=== PATIENT | male | born 1940 | race Caucasian/White ===

== ENCOUNTER 2019-04-16 08:00 | Outpatient (RCR) | payer MEDICARE, SELFPAY ==
--- NOTE | 2019-04-16 12:22 | PCCPR ---
January Phase 3 Charges: 2 Sessions total On 04/16/19 patient paid $10 Turner.
== END 2019-04-17 08:00 | disposition home or self-care (01) ==
LOC: CHSCARD 08:00
PROVIDERS: PCP Internal Medicine; Visit Provider Internal Medicine
DX: Z53.9 Procedure and treatment not carried out, unspecified reason (principal)
CPT/HCPCS: 99199

== ENCOUNTER 2019-06-19 09:57 | Outpatient (RCR) | payer MEDICARE, SELFPAY ==
--- NOTE | 2019-06-19 14:02 | OTOPEVAL ---
Thank you for referring this patient to [facility]. Please review, sign, date and return this plan of care [facility]. I agree with and certify that the following plan of care is medically necessary. Referring Physician Date Admitting Provider: Attending Provider: PHYSICIAN NOT ON STAFF Referring Provider: *OT Outpatient Evaluation Start: 06/19/19 10:01 Freq: Status: Active Protocol: Document 06/19/19 10:00 [facility] [place]Rec: 06/19/19 13:24 [facility] [id number] Therapy Assessment Status Assessment Status Assessment Status Evaluation Outpatient Past Medical History Cardiovascular History Hx Coronary Stent Yes Hx Hypertension Yes Hx Pacemaker Yes Endocrine History Hx Diabetes Yes Evaluation Information Problem Diagnosis R CTR and UNT Onset 05/06/19 Cause carpal tunnel syndrome and ulnar tunnel lesion Subjective Information Patient reports that he Query Text:As Reported By Patient/ continues to have numbness/ Family tingling in his R hand and fingers prior to and post surgery. He reports that his R hand is stiff . Patient also reports that he has a difficult time grasping and maintaining grasp of objects. Patient presents with incisions at medial elbow and dorsal wrist/hand that appear to be mildly red with a rash- like appearance around the elbow incision. Patient reports that he was previously on an antibiotic. Encouraged to monitor and call dr if symptoms worsen. Patient also reports that he has carpal tunnel syndrome on the L hand as well but is unsure if he will do surgery. Diagnostic Tests X-Rays For This Problem Yes MRI For This Problem Yes Prior Level of Function Activity Level (Last 3 Months) Hand Dominance Right Activity of Daily Living Ability Independent Indoor/Home Mobility Independent Community Mobility Independent Stairs Ability Independent Functional Cognition (Planning, Shopping Independent , Taking Medications) Cooking Yes Cleaning
== END 2019-07-14 11:00 | disposition home or self-care (01) ==
LOC: CHSOT 09:57
DX: G56.21 Lesion of ulnar nerve, right upper limb (principal); G56.01 Carpal tunnel syndrome, right upper limb
CPT/HCPCS: 97035; 97110; 97140; 97165

== ENCOUNTER 2019-12-01 09:29 | Outpatient (CLI) | payer MEDICARE, SELFPAY ==
[2019-12-01 09:57] LABS: Creatinine Urine 109.64 mg/dL (40-278)
[2019-12-01 10:01] LABS: Hemoglobin A1C 7.6 % (<5.7)
[2019-12-01 10:09] LABS: MALB Creatinine Ratio 50.4 mg/g (0-30); Microalbumin Urine Random 55.3 mg/L
[2019-12-01 13:46] LABS: Alanine Aminotransferase 24 U/L (16-63); Albumin Level 3.8 g/dL (3.4-5.0); Alkaline Phosphatase 58 U/L (46-116); Anion Gap 9.3 mmol/L (7-16); Aspartate Amino Transferase 20 U/L (15-37); Bilirubin,Total 0.5 mg/dL (0.00-1.00); Blood Urea Nitrogen 24 mg/dL (7-18); Calcium 8.9 mg/dL (8.5-10.1); Carbon Dioxide 29 mmol/L (21-32); Chloride 108 mmol/L (98-108); Cholesterol 133 mg/dL (0-200); Creatine Kinase 104 U/L (39-308); Estimated Glomerular Filt Rate 50; Glucose 116 mg/dL (70-99); HDL Direct 45 mg/dL (40-60); LDL Cholesterol Calculated 68 mg/dL (<130); Osmolality Calculated 299 mOsm/kg (285-295); Potassium 4.3 mmol/L (3.5-5.1); Sodium 142 mmol/L (136-145); Total Protein 7.4 g/dL (6.4-8.2); Triglycerides 100 mg/dL (0-150)
== END 2019-12-01 09:30 | disposition home or self-care (01) ==
PROVIDERS: PCP Internal Medicine; Visit Provider Internal Medicine
DX: E78.2 Mixed hyperlipidemia (principal); E11.65 Type 2 diabetes mellitus with hyperglycemia; I10 Essential (primary) hypertension
CPT/HCPCS: 36415; 80053; 80061; 82043; 82550; 83036

== ENCOUNTER 2019-12-30 10:12 | Outpatient (CLI) | payer MEDICARE, SELFPAY ==
--- NOTE | ~2019-12-30 | XR_ITS ---
EXAMINATION: XR elbow LT min 3V DATE: 12/30/2019 10:56 INDICATION: Left elbow pain. TECHNIQUE: 4 views of left elbow were obtained. COMPARISON: None. FINDINGS: Bone alignment is normal. No fracture. Joint spaces are well maintained. There are enthesop hytes at lateral humeral epicondyle and at olecranon. There is no elbow joint effusion. IMPRESSION: 1. No fracture. Reviewed, dictated and finalized at location A. IMPRESSION: 1. No fracture.
--- NOTE | ~2019-12-30 | XR_ITS ---
EXAMINATION: XR ribs LT 2V w CXR 2V DATE: 12/30/2019 10:56 INDICATION: Left rib pain post fall TECHNIQUE: PA and lateral views of the chest and 4 views of the left ribs were obtained. COMPARISON: Chest radiograph dated 04/28/2019 and 01/27/2013 FINDINGS: Possible minimally displaced fracture at the anteriormost left sixth rib. Alternatively this could re present artifactual appearance due to partially calcified costal cartilage. Chronic calcified nodules at the left apex consistent with old granulomatous disease. No new airspace opacities, pulmonary yanelis ma, pleural effusion or pneumothorax. Cardiomediastinal silhouette is normal. Dual lead pacemaker see n with leads projecting over the expected locations of the right atrium and right ventricle. Chronic mild anterior wedging of a midthoracic vertebral body. IMPRESSION: 1. Possible minimally displaced fracture versus artifactual appearance due to costal cartilage calcif ication at the anterior left sixth rib. Correlate for point tenderness at this location. 2. No acute cardiopulmonary disease. Reviewed, dictated and finalized at location B. IMPRESSION: 1. Possible minimally displaced fracture versus artifactual appearance due to c ostal cartilage calcification at the anterior left sixth rib. Correlate for poi nt tenderness at this location. 2. No acute cardiopulmonary disease.
== END 2019-12-30 10:13 | disposition home or self-care (01) ==
LOC: CHSIMG 10:15
PROVIDERS: PCP Internal Medicine; Visit Provider Internal Medicine
DX: R07.89 Other chest pain (principal); M25.522 Pain in left elbow
CPT/HCPCS: 71046; 71100; 73080

== ENCOUNTER 2020-02-03 09:16 | Outpatient (CLI) | payer MEDICARE, SELFPAY ==
[2020-02-03 09:59] LABS: Anion Gap 11 mmol/L (8-16); Blood Urea Nitrogen 25 mg/dL (7-18); Calcium 9.1 mg/dL (8.5-10.1); Carbon Dioxide 26 mmol/L (21-32); Chloride 107 mmol/L (98-108); Estimated Glomerular Filt Rate 50; Glucose 106 mg/dL (70-99); Osmolality Calculated 302 mOsm/kg (285-295); Potassium 4.4 mmol/L (3.5-5.1); Sodium 144 mmol/L (136-145)
== END 2020-02-03 09:17 | disposition home or self-care (01) ==
LOC: CHSLAB 09:18
PROVIDERS: PCP Internal Medicine; Visit Provider Internal Medicine
DX: E86.0 Dehydration (principal)
CPT/HCPCS: 36415; 80048

== ENCOUNTER 2020-11-04 15:26 | Outpatient (CLI) | payer MEDICARE, SELFPAY ==
--- NOTE | ~2020-11-04 | XR_ITS ---
XR_CERV2-3V_CR 11/04/2020 16:06 Indication: Neck pain Procedure: 3 views of the cervical spine Comparison: No prior studies for comparison. Findings: There is moderate multilevel uncinate and facet hypertrophy. . Lung apices are normal. No p revertebral soft tissue abnormality. No fracture or malalignment. Odontoid process within normal limi ts. Lateral masses are normally aligned. Impression: 1: Mild cervical spondylosis, primarily involving the uncinate and facet joints.. Reviewed, dictated and finalized at location A. Impression: 1: Mild cervical spondylosis, primarily involving the uncinate and facet joints ..
--- NOTE | ~2020-11-04 | XR_ITS ---
EXAMINATION: XR chest 2V DATE: 11/04/2020 16:06 INDICATION: Neck and back pain. TECHNIQUE: Frontal and lateral views of the chest were obtained. COMPARISON: Chest 2 views 12/30/2019 FINDINGS: A calcified left lung nodule is consistent with old granulomatous disease. No pleural effus ion or pneumothorax. The heart size is normal. There is a right chest pacer with leads in right atriu m, right ventricle, and coronary sinus. IMPRESSION: 1. No acute cardiopulmonary disease. Reviewed, dictated and finalized at location A.
--- NOTE | ~2020-11-04 | XR_ITS ---
XR thoracic spine 3V 11/04/2020 16:06 Indication: Chronic back pain Procedure: 3 views of the thoracic spine Comparison: No prior studies for comparison. Findings: There is mildly accentuated thoracic kyphosis. There is mild multilevel thoracic spondylosi s. No acute fracture or traumatic malalignment. Pedicles intact. Surrounding osseous structures withi n normal limits. There are calcified granulomas in the lung parenchyma. No acute fracture or traumati c malalignment. Impression: 1: Mild thoracic spondylosis for age. Reviewed, dictated and finalized at location A. Impression: 1: Mild thoracic spondylosis for age.
== END 2020-11-04 15:27 | disposition home or self-care (01) ==
LOC: CHSIMG 15:29
PROVIDERS: PCP Internal Medicine; Visit Provider Internal Medicine
DX: M54.2 Cervicalgia (principal); M54.6 Pain in thoracic spine
CPT/HCPCS: 71046; 72040; 72072

== ENCOUNTER 2021-03-22 10:06 | Outpatient (RCR) | payer MEDICARE, SELFPAY ==
--- NOTE | 2021-03-22 12:47 | PTOPEVAL ---
Thank you for referring Masood Segura to [facility].? The patient is scheduled to be seen for therapy? ____x/week for ___ weeks. Please review, sign, date and return this plan of care [facility]. I agree with and certify that the following plan of care is medically necessary. Referring Physician Date Admitting Provider: Attending Provider: Ritesh Mcknight MD Referring Provider: *PT Outpatient Evaluation Start: 03/22/21 10:08 Freq: Status: Active Protocol: Document 03/22/21 10:09 ACR (Rec: 03/22/21 11:04 ACR [id number]) Therapy Assessment Status Assessment Status Assessment Status Evaluation Outpatient Past Medical History Cardiovascular History Hx Coronary Stent Yes Hx Hypertension Yes Hx Pacemaker Yes Endocrine History Hx Diabetes Yes Evaluation Information Problem Diagnosis diabetic neuropthy, PAD, frequent falls, LE pain/ weakness Onset 03/22/21 Subjective Information Patient reports that he is Query Text:As Reported By Patient/ having difficulty with walking Family due to shortness of breath and weakness in the legs. Patient states that he has had two falls in the past year. He states that he was walking on the porch and was stepping down and fell on the asphalt. Patient reports that when he goes grocery shopping he needs to sit and rest because his legs bother him. Patient reports that him and his go to many events and walking a distance is not possible for him to do without many rest breaks. Patient reports that he has a flight of steps and has bilateral handrails to go up but they are difficult for him. He has difficulty putting his shoes on as well. Prior Level of Function Activity Level (Last 3 Months) Occupation retired Hand Dominance Right Activity of Daily Living Ability Independent Indoor/Home Mobility Independent Community Mobility Independent Stairs Ability Independent Functional Cognition (Planning, Shopping Independent , Taking Medications) Cooking
== END 2021-03-22 14:21 | disposition home or self-care (01) ==
LOC: CHSPT 10:06
PROVIDERS: PCP Internal Medicine; Visit Provider Internal Medicine
DX: E11.40 Type 2 diabetes mellitus with diabetic neuropathy, unspecified (principal); I73.9 Peripheral vascular disease, unspecified; R27.0 Ataxia, unspecified; Z91.81 History of falling
CPT/HCPCS: 97110; 97161

== ENCOUNTER 2021-09-27 09:43 | Outpatient (CLI) | payer MEDICARE, SELFPAY ==
--- NOTE | 2021-09-27 11:00 | NEURO_ITS ---
Impression: # Complains of numbness and increasing weakness. 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 # Generalized neuropathy involving lower more than upper extremities. # Superimposed subtle Carpal Tunnel Syndrome. # Needle/EMG exam neurogenic. Nerve Conduction Studies Anti Sensory Summary Table Stim Site NR Peak (ms) P-T Amp (?V) Site1 Site2 Delta-P (ms) Dist (cm) Rohit (m/s) Left Median Anti Sensory (2-3nd Digit) Wrist 4.3 9.5 Wrist 2-3nd Digit 4.3 14.0 33 Wrist 4.1 15.1 Wrist 2-3nd Digit 4.3 14.0 33 Right Median Anti Sensory (2-3nd Digit) Wrist 5.1 22.4 Wrist 2-3nd Digit 5.1 14.0 27 Wrist 4.6 14.9 Wrist 2-3nd Digit 5.1 14.0 27 Left Radial Anti Sensory (Base 1st Digit) Wrist 3.0 18.3 Wrist Base 1st Digit 3.0 0.0 Right Radial Anti Sensory (Base 1st Digit) Wrist 3.7 7.1 Wrist Base 1st Digit 3.7 0.0 Left Sup Fibular Anti Sensory (Ant Lat Mall) NO RESPONSE 14 cm NR 14 cm Ant Lat Mall 16.0 Right Sup Fibular Anti Sensory (Ant Lat Mall) 14 cm 3.8 18.4 14 cm Ant Lat Mall 3.8 16.0 42 Left Sural Anti Sensory (Lat Mall) NO RESPONSE Calf NR Calf Lat Mall 16.0 Right Sural Anti Sensory (Lat Mall) Calf 4.4 13.9 Calf Lat Mall 4.4 16.0 36 Left Ulnar Anti Sensory (5th Digit) Wrist 4.8 13.6 Wrist 5th Digit 4.8 14.0 29 Right Ulnar Anti Sensory (5th Digit) Wrist 2.6 9.7 Wrist 5th Digit 2.6 14.0 54 Motor Summary Table Stim Site NR Onset (ms) O-P Amp (mV) Site1 Site2 Delta-0 (ms) Dist (cm) Rohit (m/s) Left Median Motor (Abd Poll Brev) Wrist 4.8 0.6 Elbow Wrist 5.6 29.0 52 Elbow 10.4 0.3 Right Median Motor (Abd Poll Brev) Wrist 5.0 2.8 Elbow Wrist 6.8 32.0 47 Elbow 11.8 1.5 Left Peroneal Motor (Vastus Med) NO RESPONSE Ankle NR Popit Ankle 0.0 Popit NR Right Peroneal Motor (Vastus Med) NO RESPONSE Ankle NR Popit Ankle 0.0 Popit NR Left Tibial Motor (Abd Darden Brev) NO RESPONSE Ankle NR Knee NR Right Tibial Motor (Abd Darden Brev) NO RESPONSE Ankle NR Knee Ankle 0.0 Knee NR Left Ulnar Motor (Abd Dig Minimi) Wrist 3.7 3.9 A Elbow Wrist 8.4 32.0 38 A Elbow 12.1 2.7 B Elbow Wrist 4.5 23.0 51 B Elbow 8.2 1.4 Right Ulnar Motor (Abd Dig Minimi) Wrist 3.8 4.1 A Elbow Wrist 7.9 32.0 41 A Elbow 11.7 1.9 B Elbow Wrist 4.1 21.0 51 B Elbow 7.9 1.9 F Wave Studies NR F-Lat (ms) L-R F-Lat (ms) Left Median (Mrkrs) (Abd Poll Brev) 35.14 0.64 Right Median (Mrkrs) (Abd Poll Brev) 34.50 0.64 Left Peroneal (Mrkrs) (EDB) NO RESPONSE NR Right Peroneal (Mrkrs) (EDB) NO RESPONSE NR Left Tibial (Mrkrs) (Abd Hallucis) NO RESPONSE NR Right Tibial (Mrkrs) (Abd Hallucis) NO RESPONSE NR Left Ulnar (Mrkrs) (Abd Dig Min) 35.85 0.82 Right Ulnar (Mrkrs) (Abd Dig Min) 35.03 0.82 EMG Side Muscle Nerve Root Ins Act Fibs Amp Dur Recrt Comment Right 1stDorInt Ulnar C8-T1 Nml Nml Nml >12ms Reduced Right Ext Indicis Radial (Post Int) C7-8 Nml Nml Nml >12ms Reduced Right Ext Digitorum Radial (Post Int) C7-8 Nml Nml Nml >12ms Reduced Right BrachioRad Radial C
== END 2021-09-27 09:44 | disposition home or self-care (01) ==
PROVIDERS: PCP Nurse Practitioner; Visit Provider Family Medicine
DX: R20.2 Paresthesia of skin (principal); G62.9 Polyneuropathy, unspecified; G56.00 Carpal tunnel syndrome, unspecified upper limb; E11.9 Type 2 diabetes mellitus without complications; Z79.4 Long term (current) use of insulin
CPT/HCPCS: 95886; 95913

== ENCOUNTER 2023-05-25 09:06 | Outpatient (RCR) | payer MEDICARE, SELFPAY ==
--- NOTE | 2023-05-25 15:48 | OTOPEVAL1 ---
Assessment and note entered by DESIRAE De León/Sandor, CHT Evaluation Information & Discharge Summary Diagnosis Polyneuropathy Subjective Information Patient presents reporting having neuropathy of the hands and feet. PMH includes diabetic neuropathy, bilateral carpal tunnel release, and bilateral cubital tunnel release. Reports he's had 3 rounds of PT and this hasn't helped the LEs. He reports difficulties using his hands to write, button, do zippers, and open water bottles. He is right handed. Assessment OT Clinical Summary Patient referred to OT with dx of polyneuropathy. Assessment today demonstrates intact functional strength. Functional decline appears to be due to lack of sensation in the hands. Discussed and demonstrated various adaptive equipment for feeding, dressing, and writing. Patient and his demonstrate excellent understanding. Further skilled OT not indicated at this time. Plan of Care OT Services Indicated No These treatments will address the objective and functional deficits as defined above. The patient will be advanced safely and appropriately in order for the patient to progress towards his/her prior level of function. Additional exercises will be introduced and as well as a comprehensive home exercise program upon discharge, if needed, ?to ensure carryover of functional gains achieved in the clinic. This treatment plan has been reviewed and agreement upon by the patient.
== END 2023-05-25 16:06 | disposition home or self-care (01) ==
LOC: ANHOT 09:06
PROVIDERS: PCP Nurse Practitioner
DX: G62.9 Polyneuropathy, unspecified (principal)
CPT/HCPCS: 97165; 97535

== ENCOUNTER 2024-08-07 02:26 | Emergency (ER) | payer MEDICARE, SELFPAY ==
[2024-08-07] VITALS (115 sets, daily range): BP systolic 95–129; BP diastolic 39–84; PULSE 74–103; RESP 12–31; TEMP 36.3–36.6; O2SAT 91–100
--- NOTE | ~2024-08-07 | CT_ITS ---
Non-contrast CT scan of the Abdomen and Pelvis Clinical indication: GI bleed Technique: 2.5 mm axial scans were obtained through the abdomen and pelvis without intravenous or or al contrast. Dose reduction technique was used on this scan by utilizing automated exposure control a nd iterative reconstruction technique. The dose-length product (DLP) was 1320.13 mGy-cm. Findings: Images through the lung bases reveal minimal bibasilar bronchiolectasis and interstitial c hange. There is no evidence of renal or ureteral calculi. The kidneys and the ureters are nondilated. The liver, spleen, pancreas, and adrenals appear normal. Calcified gallstones are present. There are atherosclerotic calcifications of the aorta. . There is no evidence of bowel obstruction. Large amount of stool suggests constipation. Images through the pelvis were performed. There is no evidence of ascites or lymphadenopathy. Urinary bladder collapsed around a Cerna catheter, with suggestion of wall thickening as well as air within the bladder. Small fat-containing right inguinal hernia present. No other pelvic mass evident. No asc ites. Impression: Probable constipation. Large amount of oral contrast throughout the large bowel markedly limits evalu ation for GI bleeding. Possible cystitis. Correlate clinically/with urinalysis. Cholelithiasis. Minimal bibasilar bronchiolectasis. Small fat-containing right inguinal hernia. Reviewed, dictated and finalized at location . Impression: Probable constipation. Large amount of oral contrast throughout the large bowel markedly limits evaluation for GI bleeding. Possible cystitis. Correlate clinically/with urinalysis. Cholelithiasis. Minimal bibasilar bronchiolectasis. Small fat-containing right inguinal hernia.
--- OUTSIDE RECORDS SUMMARY | 2024-08-07 03:21 | XMS_ITS | Encounter Summary ---
Author Organization [facility] Address [address] [place] [address] Care Team Providers Care Finance Effectiveness Manager Name Role Phone Ritesh Mcknight MD Primary Care Provider [phone] Navneet Velasco MD Unavailable [phone] Tahir Darden MD Unavailable Unavailable Lane Walters MD Unavailable [phone] Amaury Kuhn MD Primary Care Provider [phone] Sheri Mcdonnell APRN, LOCK OPERATOR-C Unavailable [phone] Robert Burton MD Unavailable Kiley Sarkar PA-C Unavailable [phone] Barbara Fung MD Unavailable [phone] Nuria Dailey ANP-BC Unavailable [phone] Taylor Weber MD Primary Care Provider [phone] Christina Booker MD Unavailable Jaspreet Clemons MD Unavailable Britany Paris MD Unavailable [phone] Encounter Details Date Type Department Care Team (Late Contact Info) Description 04/01/2018 Abstract [facility] [address] [place] [phone] Navneet Velasco MD [address] [place] [phone] Social History Tobacco Use Types Packs/Day Years Used Date Smoking Tobacco: Former Cigarettes Q uit: 1989 Smokeless Tobacco: Never Alcohol Use Standard Drinks/Week Comments No 0 (1 standard drink = 0.6 oz pur e alcohol) Sex and Gender Information Value Date Recorded Sex Assigned at Male 05/27/2024 6:25 AM MAJOR ASSEMBLER Legal Sex Male 10:27 PM CDT Gender Identity Not on file Sexual Orientation Not on file documented as of this encounter Plan of Treatment Upcoming Encounters Date Type Department Care Team (Late Contact Info) Description 09/08/2024 10:20 AM CDT Office Visit [facility] Diabetes and Endocrinology - [address] [phone] Kelly Gonzalez MD [address] [place] [address] [phone] 10/17/2024 1:00 AM CDT Allied Health/Nurse Visit [facility] [address] [place] [phone] Lane Walters MD [address] [place] [address] 12/10/2024 10:15 AM CDT Allied Health/Nurse Visit [facility] [place] [address] Lane Walters MD [address] [place], [place] 387[address] 12/10/2024 10:30 AM CDT Office Visit [facility] [place] [address] [place] [address] Kiley Sarkar PA-C [address] [place] [address] 01/05/2025 12:15 PM CDT Office Visit [facility] [address] [place] [phone] Christina Booker MD [address] [place] [address] documented as of this encounter Procedures Procedure Name Priority Date/Time Associated Diagnosis Comments MAGNESIUM (OUTSIDE LAB) Routine 04/01/2018 CBC (OUTSIDE LAB) Routine 04/01/2018 PROTHROMBIN TIME, VENOUS Routine 04/01/2018 BASIC METABOLIC PANEL Routine 04/01/2018 documented in this encounter Results * PROTIME/INR, VENOUS (04/01/2018) Pathologist [facility] PROTIME WHOLE BLOOD 10.7 INR WHOLE BLOOD 1.01 04/01/2018 us Doc [facility] Abstract LABORATORY Final Result * MAGNESIUM (OUTSIDE LAB) (04/01/2018) Pathologist [facility] MAGNESIUM 1.8 04/01/2018 us Doc [facility] Abstract LAB-OUTSIDE/ABSTRACTED Final Result * CBC (OUTSIDE LAB) (04/01/2018) Pathologist [facility] WBC 6.2 HGB 13.4 HCT 40.3 PLT 179 RBC 4.4 04/01/2018 us Doc [facility] Abstract LAB-OUTSIDE/ABSTRACTED Final Result * BASIC METABOLIC PANEL (04/01/2018) SODIUM S/P/B 140 POTASSIUM S/P/B 5.0 CO2 26 CHLORIDE S/P/B 104 GLUCOSE 211 mg/dL CALCIUM S/P/B 9.3 BUN 23 CREATININE S/P/B 1.24 0.7 - 1.3 EGFR NON-AFR. AMER. 60 <=90 04/01/2018 us Doc [facility] Abstract LABORATORY Final Result documented in this encounter Visit Diagnoses Not on filedocumented in this encounter Additional Health Concerns Infection Onset Date Last Indicated Resolved Time COVID-19 Rule Out 11/10/2019 11/10/2019 11/11/2019 8:13 PM CDT COVID-19 Rule Out 03/15/2020 03/15/2020 03/17/2020 6:01 AM MAJOR ASSEMBLER COVID-19 Rule Out 03/31/2021 03/31/2021 03/31/2021 4:35 PM MAJOR ASSEMBLER COVID-19 Confirmed 03/31/2021 03/31/2021 12:32 AM MAJOR ASSEMBLER Respiratory Rule-Out 06/25/2024 06/25/2024 025 12:22 PM MAJOR ASSEMBLER documented as of this encounter Care Teams Finance Effectiveness Manager Relationship Specialty Start Date End Date Ritesh Mcknight MD [address] [place] [phone] PCP - General INTERNAL MEDICINE 01/12/16 05/04/21 [facility] [place] [phone] PCP - General FAMILY PRACTICE 05/05/21 04/30/24 Taylor Weber MD [address] [place] [address] PCP - General FAMILY PRACTICE 05/01/24 Navneet Velasco MD [address] [place] [phone] [place] [employer] CARDIOVASCULAR DISEASE 01/12/16 08/12/23 Tahir Darden MD [address] [place] [phone] Curriculum Director INTERVENTIONAL CARDIOLOGY 02/16/16 10/09/22 Lane Walters MD [address] [place] [address] [employer] CARDIAC ELECTROPHYSIOLOGY 03/06/19 Sheri Mcdonnell APRN, LOCK OPERATOR-C [address] [place] [phone] NURSE PRACTITIONER 09/01/21 08/12/23 Robert Burton MD [address] [place] [phone] Consulting Physician INTERNAL MEDICINE 11/29/22 5 Kiley Sarkar PA-C [address] [place] [address] Referring Physician PHYSICIAN FIELD CANE SCALER HELPER 04/10/23 Barbara Fung MD [address] [place] [phone] INTERVENTIONAL CARDIOLOGY 08/13/23 06/23/24 Nuria Dailey, [facility]- [address] [place] [phone] Nurse Practitioner NURSE PRACTITIONER ADULT HEALTH 08/13/23 06/23/24 Christina Booker MD [address] [place] [address] Consulting Physician CARDIOVASCULAR DISEASE 06/24/24 Jaspreet Clemons MD [address] [phone] Surgeon NEUROLOGICAL SURGERY 06/25/24 Britany Paris MD [address] [place] [address] Surgeon NEUROLOGICAL SURGERY 07/09/24 documented as of this encounter
--- OUTSIDE RECORDS SUMMARY | 2024-08-07 03:22 | XMS_ITS | Encounter Summary ---
Author Organization [facility] Address [address] [place] [address] Care Team Providers Care Ad Copy Writer Name Role Phone Ritesh Mcknight MD Primary Care Provider [phone] Navneet Velasco MD Unavailable [phone] Tahir Darden MD Unavailable Unavailable Lane Walters MD Unavailable + [phone] Amaury Kuhn MD Primary Care Provider [phone] Sheri Mcdonnell APRN, LEADERSHIP RECRUITER-C Unavailable [phone] Robert Burton MD Unavailable Kiley Sarkar PA-C Unavailable [phone] Barbara Fung MD Unavailable [phone] Nuria Dailey ANP-BC Unavailable +-[phone] Taylor Weber MD Primary Care Provider [phone] Christina Booker MD Unavailable Jaspreet Clemons MD Unavailable Britany Paris MD Unavailable [phone] Encounter Details Date Type Department Care Team (Late Contact Info) Description 2020 Hospital Follow-up Call [facility] Cardiovascular Care Unit [address] [place], [place] [id number] Edith Duke, RN Social History Tobacco Use Types Packs/Day Years Used Date Smoking Tobacco: Former Cigarettes Q uit: 1989 Smokeless Tobacco: Never Alcohol Use Standard Drinks/Week Comments No 0 (1 standard drink = 0.6 oz pur e alcohol) Sex and Gender Information Value Date Recorded Sex Assigned at Male 05/27/2024 6:25 AM LICENSED AND CERTIFIED MIDWIFE Legal Sex Male 10:27 PM CDT Gender Identity Not on file Sexual Orientation Not on file COVID-19 Exposure Response Date Recorded In the last month, have you been in contact with someone who was confirmed or suspected to have Coronavirus / COVID-19? No / Unsure 03/18/2020 11:54 AM LICENSED AND CERTIFIED MIDWIFE documented as of this encounter Functional Status * RETIRED Are you deaf or do you have serious difficulty hearing Answer Date of Assessment Author Status No 03/19/2020 9:03 AM LICENSED AND CERTIFIED MIDWIFE Activ e * RETIRED Are you blind or do you have serious difficulty seeing, even when wearing glasses? Answer Date of Assessment Author Status No 03/19/2020 9:03 AM LICENSED AND CERTIFIED MIDWIFE Activ e * Do you have serious difficulty walking or climbing stairs? Answer Date of Assessment Author Status No 03/19/2020 9:03 AM Jodi Strauss RN Active * Do you have difficulty dressing or bathing? Answer Date of Assessment Author Status No 03/19/2020 9:03 AM Jodi Strauss RN Active * Because of a physical, mental, or emotional condition, do you have difficulty doing errands alone such as visiting a doctor's office or shopping? Answer Date of Assessment Author Status No 03/19/2020 9:03 AM Jodi Strauss RN Active documented as of this encounter Mental Status * Because of a physical, mental, or emotional condition, do you have serious difficulty concentrating, remembering, or making decisions? Answer Entry Date Author Status No 03/19/2020 9:03 AM Jodi Strauss RN Active documented in this encounter Plan of Treatment Upcoming Encounters Date Type Department Care Team (Late Contact Info) Description 09/08/2024 10:20 AM CDT Office Visit [facility] Diabetes and Endocrinology - [place] [address] [place] [phone] Kelly Gonzalez MD [address] [place] [address] 10/17/2024 1:00 AM CDT Allied Health/Nurse Visit [facility] [address] [place] [address] Lane Walters MD [address] [place] [address] 12/10/2024 10:15 AM CDT Allied Health/Nurse Visit [facility] [place] [address] [place] [phone] Lane Walters MD [address] [place] [address] 12/10/2024 10:30 AM CDT Office Visit [facility] [place] [address] [place] [address] Kiley Sarkar PA-C [address] [place] [address] 01/05/2025 12:15 PM CDT Office Visit [facility] [place] [address] [place] [address] Christina Booker MD [address] [place] [address] documented as of this encounter Visit Diagnoses Not on filedocumented in this encounter Additional Health Concerns Infection Onset Date Last Indicated Resolved Time COVID-19 Rule Out 03/31/2021 03/31/2021 03/31/2021 4:35 PM LICENSED AND CERTIFIED MIDWIFE COVID-19 Confirmed 03/31/2021 03/31/2021 12:32 AM LICENSED AND CERTIFIED MIDWIFE Respiratory Rule-Out 06/25/2024 06/25/2024 025 12:22 PM LICENSED AND CERTIFIED MIDWIFE documented as of this encounter Care Teams Ad Copy Writer Relationship Specialty Start Date End Date Ritesh Mcknight MD [address] [place] [address] PCP - General INTERNAL MEDICINE 01/12/16 05/04/21 [place] [address] [place] [phone] PCP - General FAMILY PRACTICE 05/05/21 04/30/24 [place] [address] [place] [address] [phone] PCP - General FAMILY PRACTICE 05/01/24 Navneet Velasco MD [address] [place] [phone] [place] Weigher Alloy CARDIOVASCULAR DISEASE 01/12/16 08/12/23 Tahir Darden MD [address] [place] [address] Health Director INTERVENTIONAL CARDIOLOGY 02/16/16 10/09/22 Lane Walters MD [address] [place] [address] EP Weigher [employer] CARDIAC ELECTROPHYSIOLOGY 03/06/19 Sheri Mcdonnell, HAND ZIPPER TRIMMER, LEADERSHIP RECRUITER-C [address] [facility] [address] [place] [phone] NURSE PRACTITIONER 09/01/21 08/12/23 Robert Burton MD [address] [place] [address] [phone] Consulting Physician INTERNAL MEDICINE 11/29/22 5 Kiley Sarkar PA-C [address] [place] [address] Referring Physician PHYSICIAN SHAPE CARVER 04/10/23 Barbara Fung MD [address] [place] [address] INTERVENTIONAL CARDIOLOGY 08/13/23 06/23/24 Nuria Dailey, [facility] [address] [place], [place] [phone] Nurse Practitioner NURSE PRACTITIONER ADULT HEALTH 08/13/23 06/23/24 Christina Booker MD [address] [place] [address] Consulting Physician CARDIOVASCULAR DISEASE 06/24/24 Jaspreet Clemons MD [address] [place] [phone] Surgeon NEUROLOGICAL SURGERY 06/25/24 Britany Paris MD [address] [place] [address] Surgeon NEUROLOGICAL SURGERY 07/09/24 documented as of this encounter
--- OUTSIDE RECORDS SUMMARY | 2024-08-07 03:22 | XMS_ITS | Encounter Summary ---
Author Organization [facility] Address [address] [place] [address] Care Team Providers Care Mailhouse Operator Name Role Phone Navneet Velasco MD Unavailable [phone] Tahir Darden MD Unavailable Unavailable Lane Walters MD Unavailable [phone] Amaury Kuhn MD Primary Care Provider [phone] Sheri Mcdonnell APRN, TRAFFIC INCIDENT MANAGEMENT MANAGER-C Unavailable [phone] Robert Burton MD Unavailable Kiley Sarkar PA-C Unavailable +[phone] Barbara Fung MD Unavailable [phone] Nuria Dailey ANP-BC Unavailable +-3 Taylor Weber MD Primary Care Provider [phone] Christina Booker MD Unavailable Jaspreet Clemons MD Unavailable Britany Paris MD Unavailable [phone] Encounter Details Date Type Department Care Team (Late st Contact Info) Description 06/02/2022 Abstract [facility] [address] [place] [address] Navneet Velasco MD [address] [place] [address] Social History Tobacco Use Types Packs/Day Years Used Date Smoking Tobacco: Former Cigarettes Q uit: 1989 Smokeless Tobacco: Never Tobacco Cessation:Counseling Given: Not Answered Alcohol Use Standard Drinks/Week Comments Yes 0 (1 standard drink = 0.6 oz pur e alcohol) PHQ-2 Answer Date Recorded PHQ-2 Score - If the patient scores above 3, please move on to questions 3-9 0 03/16/2022 Sex and Gender Information Value Date Recorded Sex Assigned at Male 05/27/2024 6:25 AM THEATRICAL DRESSER Legal Sex Male 10:27 PM CDT Gender Identity Not on file Sexual Orientation Not on file COVID-19 Exposure Response Date Recorded In the last 10 days, have yo u been in contact with someone who was confirmed or suspected to have Coronavirus/COVID-19? No / Unsure 05/23/2022 10:16 AM THEATRICAL DRESSER documented as of this encounter Functional Status * RETIRED Are you deaf or do you have serious difficulty hearing Answer Date of Assessment Author Status No 03/31/2021 9:00 PM THEATRICAL DRESSER Activ e * RETIRED Are you blind or do you have serious difficulty seeing, even when wearing glasses? Answer Date of Assessment Author Status No 03/31/2021 9:00 PM THEATRICAL DRESSER Activ e * Do you have serious difficulty walking or climbing stairs? Answer Date of Assessment Author Status No 03/31/2021 9:00 PM THEATRICAL DRESSER Chuck Hackett RN Active * Do you have difficulty dressing or bathing? Answer Date of Assessment Author Status No 03/31/2021 9:00 PM Chuck Moise RN Active * Because of a physical, mental, or emotional condition, do you have difficulty doing errands alone such as visiting a doctor's office or shopping? Answer Date of Assessment Author Status No 03/31/2021 9:00 PM THEATRICAL DRESSER Chuck Hackett RN Active documented as of this encounter Mental Status * Because of a physical, mental, or emotional condition, do you have serious difficulty concentrating, remembering, or making decisions? Answer Entry Date Author Status No 03/31/2021 9:00 PM Chuck Moise RN Active documented in this encounter Plan of Treatment Upcoming Encounters Date Type Department Care Team (Late st Contact Info) Description 09/08/2024 10:20 AM CDT Office Visit [facility] Medical Group Diabetes and Endocrinology - [place] [address] [facility] [place] [phone] Kelly Gonzalez MD [address] [place] [address] 10/17/2024 1:00 AM CDT Allied Health/Nurse Visit [facility] [address] [place] [address] Lane Walters MD [address] [place] [address] 12/10/2024 10:15 AM CDT Allied Health/Nurse Visit [facility] [place] [address] [place] [address] Lane Walters MD [address] [place] [address] 12/10/2024 10:30 AM CDT Office Visit [facility] [place] [address] [place] [address] Kiley Sarkar PA-C [address] [place] [address] 01/05/2025 12:15 PM CDT Office Visit [facility] [place] [address] [place] [address] Christina Booker MD [address] [place] [address] documented as of this encounter Goals Goal Patient Goal Type Associated Problems Recent Progress Patient-Stated? Author Safety Patient/family will have appropriate support at home upon discharge Evelin Baker RN documented as of this encounter Visit Diagnoses Not on filedocumented in this encounter Additional Health Concerns Infection Onset Date Last Indicated Resolved Time Respiratory Rule-Out 06/25/2024 06/25/2024 025 12:22 PM THEATRICAL DRESSER documented as of this encounter Care Teams Mailhouse Operator Relationship Specialty Start Date End Date Amaury Kuhn MD [address] [email or web address] [phone] PCP - [facility] PRACTICE 05/05/21 04/30/24 [place] [address] [place] [address] PCP - [facility] PRACTICE 05/01/24 Navneet Velasco MD [address] [place] [phone] [place] Mouthpiece Maker CARDIOVASCULAR DISEASE 01/12/16 08/12/23 Tahir Darden MD [address] [place] [address] Lockstitch Machine Operator INTERVENTIONAL CARDIOLOGY 02/16/16 10/09/22 Lane Walters MD [address] [place] [address] EP Mouthpiece Maker CARDIAC ELECTROPHYSIOLOGY 03/06/19 Sheri Mcdonnell APRN, TRAFFIC INCIDENT MANAGEMENT MANAGER-C [address] [facility] [address] [place] [address] NURSE PRACTITIONER 09/01/21 08/12/23 Robert Burton MD [address] [place] [address] [address] [place] [phone] Consulting Physician INTERNAL MEDICINE 11/29/22 5 Kiley Sarkar PA-C [address] [place] [address] Referring Physician PHYSICIAN OCCUPATIONAL ANALYST 04/10/23 Barbara Fung MD [address] [place] [address] [phone] INTERVENTIONAL CARDIOLOGY 08/13/2306/01 Nuria Dailey, B[facility] [address] [place] [address] Nurse Practitioner NURSE PRACTITIONER ADULT HEALTH 08/13/23 06/23/24 Christina Booker MD [address] [place] [address] Consulting Physician CARDIOVASCULAR DISEASE 06/24/24 Jaspreet Clemons MD [address] [phone] Surgeon NEUROLOGICAL SURGERY 06/25/24 Britany Paris MD [address] [place] [address] Surgeon NEUROLOGICAL SURGERY 07/09/24 documented as of this encounter
--- OUTSIDE RECORDS SUMMARY | 2024-08-07 03:22 | XMS_ITS | Encounter Summary ---
Author Organization [facility] Address [address] [place] [address] Care Team Providers Care Community Mental Health Worker Name Role Phone Ritesh Mcknight MD Primary Care Provider [phone] Navneet Velasco MD Unavailable [phone] Tahir Darden MD Unavailable Unavailable Lane Walters MD Unavailable + [phone] Amaury Kuhn MD Primary Care Provider [phone] Sheri Mcdonnell APRN, BONDERITE OPERATOR-C Unavailable [phone] Robert Burton MD Unavailable Kiley Sarkar PA-C Unavailable [phone] Barbara Fung MD Unavailable [phone] Nuria Dailey ANP-BC Unavailable +-[phone] Taylor Weber MD Primary Care Provider [phone] Christina Booker MD Unavailable Jaspreet Clemons MD Unavailable Britany Paris MD Unavailable [phone] Encounter Details Date Type Department Care Team (Late st Contact Info) Description 04/16/2014 [facility] [place] [address] [place] [address] Navneet Velasco MD [address] [place] [phone] Social History Tobacco Use Types Packs/Day Years Used Date Smoking Tobacco: Former Alcohol Use Standard Drinks/Week Comments Not Asked 0 (1 standard drink = 0.6 oz pur e alcohol) Sex and Gender Information Value Date Recorded Sex Assigned at Male 05/27/2024 6:25 AM SOAKING PITS SUPERVISOR Legal Sex Male 10:27 PM CDT Gender Identity Not on file Sexual Orientation Not on file documented as of this encounter Plan of Treatment Upcoming Encounters Date Type Department Care Team (Late Contact Info) Description 09/08/2024 10:20 AM CDT Office Visit [facility] Medical Group Diabetes and Endocrinology - [address] [phone] Kelly Gonzalez MD [address] [place] [phone] 10/17/2024 1:00 AM CDT [facility] [address] [place] [phone] Lane Walters MD [address] [place], [place] [address] 12/10/2024 10:15 AM CDT Allied Health/Nurse Visit [facility] [place] [address] Lane Walters MD [address] [place], [place] [address] 12/10/2024 10:30 AM CDT Office Visit [facility] [place] [address] [place] [address] Kiley Sarkar PA-C [address] [place] [address] 01/05/2025 12:15 PM CDT Office Visit [facility] [place] [address] [place] [phone] Christina Booker MD [address] [place] [address] documented as of this encounter Visit Diagnoses Not on filedocumented in this encounter Additional Health Concerns Infection Onset Date Last Indicated Resolved Time COVID-19 Rule Out 11/10/2019 11/10/2019 11/11/2019 8:13 PM CDT COVID-19 Rule Out 03/15/2020 03/15/2020 03/17/2020 6:01 AM SOAKING PITS SUPERVISOR COVID-19 Rule Out 03/31/2021 03/31/2021 03/31/2021 4:35 PM SOAKING PITS SUPERVISOR COVID-19 Confirmed 03/31/2021 03/31/2021 12:32 AM SOAKING PITS SUPERVISOR Respiratory Rule-Out 06/25/2024 06/25/2024 025 12:22 PM SOAKING PITS SUPERVISOR documented as of this encounter Care Teams Community Mental Health Worker Relationship Specialty Start Date End Date Ritesh Mcknight MD [address] [place] [address] PCP - General INTERNAL MEDICINE 01/12/16 05/04/21 Amaury Kuhn MD [facility] [place] [address] PCP - General FAMILY PRACTICE 05/05/21 04/30/24 Taylor Weber MD [address] [place] [phone] PCP - General FAMILY PRACTICE 05/01/24 Navneet Velasco MD [address] [place] [phone] [place] Finance Admin CARDIOVASCULAR DISEASE 01/12/16 08/12/23 Tahir Darden MD [address] [place] [phone] Public Service Officer INTERVENTIONAL CARDIOLOGY 02/16/16 10/09/22 Lane Walters MD [address] [place] [address] EP Finance Admin CARDIAC ELECTROPHYSIOLOGY 03/06/19 Sheri Mcdonnell APRN, BONDERITE OPERATOR-C [address] [place], [place] [phone] NURSE PRACTITIONER 09/01/21 08/12/23 Robert Burton MD [address] [place] [phone] Consulting Physician INTERNAL MEDICINE 11/29/22 Kiley Burrell PA-C [address] [place] [address] Referring Physician PHYSICIAN PLANNER CHIEF 04/10/23 Barbara Fung MD [address] [place] [address] INTERVENTIONAL CARDIOLOGY 08/13/23 06/23/24 Nuria Dailey, [facility] [place] [address] Nurse Practitioner NURSE PRACTITIONER ADULT HEALTH 08/13/23 06/23/24 Christina Booker MD [address] [place] [address] Consulting Physician CARDIOVASCULAR DISEASE 06/24/24 Jaspreet Clemons MD [address] [place] [phone] Surgeon NEUROLOGICAL SURGERY 06/25/24 Armani-Britany Aguila MD [address] [place] [address] Surgeon NEUROLOGICAL SURGERY 07/09/24 documented as of this encounter
--- OUTSIDE RECORDS SUMMARY | 2024-08-07 03:22 | XMS_ITS | Clinical Summary ---
Author Organization [facility] Address [address] [place] [address] Care Team Providers Care Milking Machine Operator Name Role Phone Lane Walters MD Unavailable [phone] Kiley Sarkar PA-C Unavailable + [phone] Taylor Weber MD Primary Care Provider [phone] Christina Booker MD Unavailable Jaspreet Clemons MD Unavailable Armani-Britany Aguila MD Unavailable [phone] Allergies Active Allergy Reactions Criticality Noted Date Comments Perflutren Lipid Microspheres Other (see comment) Medium 11/13/2019 Severe pain, hot flash, burning Medications finasteride (PROSCAR) 5 MG tabletIndicati ons:Benign prostatic hyperplasia (BPH) suspected Take 1 tablet (5 mg total) by mouth daily. Indications: Benign prostatic hyperplasia (BPH) suspected Active insulin regular (NOVOLIN R RELION) 100 UNIT/ML injectionIndic ations:Diabete s Mellitus Inject 10 units at breakfast, 8 units at lunch and supper 10 mL 3 025 Active isosorbide mononitrate ER (IMDUR) 60 MG 24 hr tabletIndicati ons:Altered Blood Pressure Take 1 tablet (60 mg total) by mouth daily. Indications: Changes in Blood Pressure 30 tablet Active apixaban (ELIQUIS) 5 MG tabletIndicati ons:Anticoagul ant Therapy 1 tablet (5 mg total) by Per G Tube route 2 (two) times daily. Indications: Anticoagulant Therapy 60 tablet 1 Active aspirin 81 MG chewable tabletIndicati ons:heart health 1 tablet (81 mg total) by Per G Tube route daily. Indications: heart health 30 tablet 025 Active atorvastatin (LIPITOR) 10 MG tablet 1 tablet (10 mg total) by Per G Tube route nightly at bedtime. 30 tablet 025 Active insulin glargine (LANTUS) 100 UNIT/ML injection (VIAL)Indicati ons:Diabetes Mellitus Inject 24 Units into the skin 2 (two) times daily. Indications: Diabetes 10 mL 025 Active levothyroxine (SYNTHROID) 125 MCG tabletIndicati ons:Hypothyroi dism 1 tablet (125 mcg total) by Per G Tube route daily. Indications: Underactive Thyroid 30 tablet Active Senna (SENOKOT) 8.6 MG tablet 2 tablets (17.2 mg total) by Per G Tube route daily as needed for Constipation. 14 tablet Active tiZANidine (ZANAFLEX) 4 MG tabletIndicati ons:Neck and Shoulder Pain 1 tablet (4 mg total) by Per G Tube route every 8 (eight) hours as needed. Indications: Neck and Shoulder Pain 30 tablet 025 2024 Active lactulose (CEPHULAC) 20 g packet Take 1 packet (20 g total) by mouth 3 (three) times daily for 10 days. Per G tube 30 each 025 2024 Active protein supplement (PROSOURCE) Liquid 1 packet by Per G Tube route daily. 10 packet Active solifenacin (VESICARE) 10 MG Tab 1 tablet (10 mg total) by Per G Tube route daily for 30 days. 30 tablet 025 2024 Active TF diabetic w/Fiber (GLUCERNA 1.2) Liquid 150-415 mLs by Per G Tube route 4 (four) times daily. 100 mL Active apixaban 5 MG tabletIndicati ons:Anticoagul ant Therapy Take 1 tablet (5 mg total) by mouth 2 (two) times daily. 60 tablet 1 022 2024 Discontinued rosuvastatin 5 MG tabletIndicati ons:Hyperlipid emia Take 1 tablet (5 mg total) by mouth nightly at bedtime. Indications: High Amount of Fats in the Blood 2024 Discontinued lisinopril (PRINIVIL) 2.5 MG tabletIndicati ons:Hypertensi on Take 1 tablet (2.5 mg total) by mouth daily. Indications: High Blood Pressure Patient unsure if he is supposed to be taking 20mg or a half tablet of 10mg. 2024 Discontinued(S top Taking at Discharge) levothyroxine (SYNTHROID) 125 MCG tabletIndicati ons:Hypothyroi dism Take 1 tablet (125 mcg total) by mouth daily. Indications: Underactive Thyroid 2024 Discontinued(S top Taking at Discharge) LANTUS SOLOSTAR 100 UNIT/ML injection (PEN)Indicatio ns:Diabetes Mellitus Inject 10 Units into the skin nightly at bedtime. 5 Pen 2 025 2024 Discontinued(S top Taking at Discharge) trospium (SANCTURA) 20 MG tabletIndicati ons:Bladder Dysfunction Take 1 tablet (20 mg total) by mouth 2 (two) times daily. Indications: Dysfunction of the Urinary Bladder 2024 Discontinued metoprolol succinate ER (TOPROL-XL) 25 MG 24 hr tabletIndicati ons:Hypertensi on Take 0.5 tablets (12.5 mg total) by mouth 2 (two) times daily. Indications: High Blood Pressure 180 tablet 3 025 2024 Discontinued(S top Taking at Discharge) polycarbophil (FIBERCON) 625 MG tabletIndicati ons:Diarrhea Take 1 tablet (625 mg total) by mouth daily. Indications: Diarrhea 2024 Discontinued(E rror) polyethylene glycol (GLYCOLAX) packetIndicati ons:Constipati on Take 240 mLs (17 g total) by mouth daily for 30 days. Indications: Constipation Dissolve powder in 240 mL water 30 packet 025 2024 Discontinued(S top Taking at Discharge) senna-docusate (SENOKOT-S) 8.6-50 MG tabletIndicati ons:Constipati on Take 1 tablet by mouth nightly at bedtime for 30 days. Indications: Constipation 30 tablet 025 2024 Discontinued(S top Taking at Discharge) aspirin 81 MG chewable tabletIndicati ons:heart health Chew 1 tablet (81 mg total) by mouth daily. Indications: heart health 30 tablet 025 2024 Discontinued(S top Taking at Discharge) tiZANidine (ZANAFLEX) 4 MG tabletIndicati ons:Neck and Shoulder Pain Take 1 tablet (4 mg total) by mouth every 8 (eight) hours as needed. Indications: Neck and Shoulder Pain 90 tablet 025 2024 Discontinued Senna (SENOKOT) 8.6 MG tabletIndicati ons:Constipati on Prophylaxis Take 1 tablet (8.6 mg total) by mouth 2 (two) times daily as needed for Constipation. Indications: Treatment for the Prevention of Constipation 20 tablet 025 2024 Discontinued(S top Taking at Discharge) cephALEXin (KEFLEX) 500 MG capsuleIndicat ions:Prophylax is Take 1 capsule (500 mg total) by mouth 3 (three) times daily for 7 days. Indications: Preventative Treatment 21 capsule 025 2024 Discontinued(S top Taking at Discharge) HYDROcodone-ac etaminophen (NORCO) 7.5-325 MG tabletIndicati ons:Acute Pain < 7 Day Supply Take 1 tablet by mouth every 6 (six) hours as needed for Pain. Indications: Acute Pain < 7 Day Supply 28 tablet 025 2024 Discontinued(S top Taking at Discharge) HYDROcodone-ac etaminophen (NORCO) 7.5-325 MG tabletIndicati ons:Acute Pain < 7 Day Supply Take 1 tablet by mouth every 6 (six) hours as needed. Indications: Acute Pain < 7 Day Supply 28 tablet 025 2024 Discontinued tamsulosin (FLOMAX) 0.4 MG CapIndications :Urinary Tract Infection Take 1 capsule (0.4 mg total) by mouth daily for 60 days. Indications: Urinary Tract Infection 30 capsule 1 025 2024 Discontinued HYDROcodone-ac etaminophen (NORCO) 7.5-325 MG tabletIndicati ons:Acute Pain < 7 Day Supply Take 1 tablet by mouth every 6 (six) hours as needed. Indications: Acute Pain < 7 Day Supply 28 tablet 025 2024 Discontinued(S top Taking at Discharge) tiZANidine (ZANAFLEX) 4 MG tabletIndicati ons:Neck and Shoulder Pain Take 1 tablet (4 mg total) by mouth every 8 (eight) hours as needed. Indications: Neck and Shoulder Pain 90 tablet 025 2024 Discontinued(S top Taking at Discharge) tamsulosin (FLOMAX) 0.4 MG CapIndications :Urinary Tract Infection Take 1 capsule (0.4 mg total) by mouth daily for 60 days. Indications: Urinary Tract Infection 30 capsule 1 025 2024 Discontinued(S top Taking at Discharge) atorvastatin (LIPITOR) 10 MG tablet Take 1 tablet (10 mg total) by mouth nightly at bedtime. 2024 Discontinued(S top Taking at Discharge) oxybutynin XL (DITROPAN-XL) 10 MG 24 hr tablet Take 1 tablet (10 mg total) by mouth daily. 2024 Discontinued(S top Taking at Discharge) isosorbide mononitrate (ISMO) 20 MG tablet 1 tablet (20 mg total) by Per G Tube route 2 (two) times daily. 60 tablet 025 2024 Discontinued(S top Taking at Discharge) Active Problems Problem Noted Date Diagnosed Date Dysphagia 07/19/2024 Cervical stenosis of spine 07/12/2024 Constipation 07/10/2024 Hypotension 07/07/2024 Cervical stenosis of spinal canal 06/26/2024 Type 2 diabetes mellitus wit hout complication ([facility]) 06/26/2024 Urinary incontinence 03/18/2024 Spondylosis 03/18/2024 Left ventricular systolic dy sfunction (LVSD) without heart failure 06/24/2023 Paroxysmal atrial fibrillation ([facility]) 10/12/2022 Left cervical radiculopathy 06/07/2022 Rotator cuff arthropathy, left 06/07/2022 Left foot drop 06/07/2022 Balance problem 02/22/2022 Pneumonia due to COVID-19 virus 03/31/2021 COVID-19 03/31/2021 Nonrheumatic mitral valve regurgitation 11/13/19 21 S/P biventricular cardiac pacemaker procedure Chronic systolic (congestive ) heart failure ([facility]) 03/02/2020 AVB (atrioventricular block) 02/04/2020 Biventricular cardiac pacemaker in situ 02/04/20 20 Chest pain, unspecified type 03/15/2018 SOB (shortness of breath) 03/15/2018 S/P coronary artery stent placement 06/18/2016 Bilateral bundle branch block 06/15/2016 Obstructive sleep apnea syndrome PAD (peripheral artery disease) Hypothyroidism Hypertension Hyperlipidemia H/O non-insulin dependent diabetes mellitus Overview (01/11/2016): NIDDM Diabetic neuropathy ([facility]) Coronary artery disease of n ative artery of [place] heart with stable angina pectoris Resolved Problems Problem Noted Date Diagnosed Date Resolved Date Colitis 06/26/2024 06/29/2024 Dizziness 02/20/2022 07/12/2024 Stable angina 04/26/2018 07/12/2024 Complete occlusion of parrish ry artery, chronic 02/16/2016 04/10/2016 Chronic low back pain 2024 Carotid arterial disease 05/2023 Encounters Date Type Department Care Team Description 08/06/[address] [facility] Diabetes and Endocrinology - [address] [place] [address] Kelly Gonzalez MD Medication Information 08/01/2024 Travel 07/28/[address] [facility] - [address] [place] [address] Kelly Gonzalez MD Reschedule 07/21/2024 Travel 07/19/2024 8:53 PM CDT - 08/05/2024 2:58 PM CDT Hospital Encounter [facility] [address] [place] [address] Gerson Lowe MD Sheikh, Omer S, MD Ahmad, Saad N, MD Walker, Christopher, MD Yaseen, Maryam, MD Wali, Neehal, MD Discharge Disposition: Inpatient Rehab Facility 07/19/2024 1:40 PM CDT - 07/19/2024 7:50 PM CDT Emergency [facility] [place] [address] Harish Erwin MD Swallowing Difficulty; Wound Discharge Disposition: Other Facility with Planned Inpatient Readmission 07/19/2024 Travel 07/18/2024 11:45 AM CDT Home Care Visit [facility] [address] [place] [address] Annamaria Nelson RN SN POST TRANSFER AGENCY DISCHARGE 07/16/2024 7:30 AM CDT - 07/16/2024 10:39 AM CDT Surgery [facility] [address] [place] [address] Britany Paris MD C3-C6 DECOMPRESSION SPINE CERVICAL ANTERIOR WITH FUSION 07/16/2024 7:29 AM CDT Anesthesia Event [facility] [address] [place] [address] Bruce Vasquez MD Bracco, Kendra A, RN 07/14/2024 12:30 PM CDT Home Care Visit [facility] [address] [place] [address] Annamaria Nelson RN SN OASIS TRANSFER W/OUT DC 07/12/2024 12:10 PM CDT - 07/18/2024 12:44 PM CDT Hospital Encounter [facility] [address] [place] [address] AleeCleveland estrada MD Lin, Kevin A, MD Discharge Disposition: Custodial Facility 07/12/2024 Travel 07/11/2024 Home Care Visit [facility] [address] [place] [address] Tanisha Smith OT CASE COMMUNICATION 07/10/2024 6:33 AM CDT - 07/12/2024 10:53 AM CDT Hospital Encounter [facility] [address] [place] [address] Harish Erwin MD Nowlan, Meagan E, MD Abdominal Pain; Urinary Retention Discharge Disposition: Transfer to [facility] 07/10/2024 Travel 07/07/2024 2:30 PM CDT - 07/09/2024 2:55 PM CDT Hospital Encounter [facility] [address] [place] [address] [place] [address] Keila Puga MD Nowlan, Meagan E, MD Dizziness; Generalized Weakness Discharge Disposition: Home with Home Health Care 07/07/2024 12:00 PM CDT Home Care Visit [facility] [address] [place] [address] Beba Hood OTA VARGAS HOME VISIT 07/07/2024 Travel 07/07/2024 Orders Only [facility] [address] [place] [address] Christina Booker MD 07/04/2024 1:00 PM EXCAVATING CONTRACTOR Home Care Visit [facility] [address] [place] [address] Tanisha Smith OT OT INITIAL EVALUATION 07/04/2024 Telephone [facility] [address] [place] [address] Christina Booker MD Other (clearance) 07/03/2024 11:30 AM EXCAVATING CONTRACTOR Home Care Visit [facility] [address] [place] [address] Patricia Hernandez, PT PT INITIAL EVALUATION 07/03/2024 10:15 AM EXCAVATING CONTRACTOR Home Care Visit [place] [address] [place] [address] Marie Dejah Arcadio CASIANO HOME VISIT 07/03/2024 9:45 AM EXCAVATING CONTRACTOR Home Care Visit [facility] [address] [place] [address] Isi Thomas RN SN HOME VISIT 07/01/2024 11:15 AM EXCAVATING CONTRACTOR Home Care Visit [facility] [address] [place] [address] Linda Ulloa, RN SN OASIS START OF CARE 07/01/2024 3:30 AM EXCAVATING CONTRACTOR Allied Health/Nurse Visit [facility] [address] [place] [address] Lane Walters MD 07/01/2024 Home Care Visit [facility] [address] [place] [address] Linda Ulloa, RN CASE COMMUNICATION 07/01/2024 Plan of Care Documentation [facility] [address] [place] [address] 06/26/2024 Travel 06/25/2024 5:07 AM EXCAVATING CONTRACTOR - 06/29/2024 1:14 PM EXCAVATING CONTRACTOR Hospital Encounter [facility] [address] [place] [address] Gato Jimenez MD Nowlan, Meagan E, MD Generalized Weakness Discharge Disposition: Home with Home Health Care 06/25/2024 Travel 06/24/2024 1:00 PM EXCAVATING CONTRACTOR - 06/24/2024 11:59 PM EXCAVATING CONTRACTOR Hospital Encounter [facility] Non Invasive Cardiology - [facility] [address] [place] [address] Christina Booker MD Discharge Disposition: Home or Self Care (Routine Discharge) 06/24/2024 12:00 PM EXCAVATING CONTRACTOR Office Visit [facility] [address] [place] [address] Christina Booker MD Pre-Op Exam 06/24/2024 Orders Only [facility] [address] [place] [address] Christina Booker MD 06/24/2024 Travel 06/19/2024 Orders Only [facility] [address] [place] [address] Christina Booker MD 06/12/2024 12:08 PM EXCAVATING CONTRACTOR - 06/12/2024 11:59 PM EXCAVATING CONTRACTOR Hospital Encounter [facility] [address] [place] [address] Taylor Weber MD Discharge Disposition: Home or Self Care (Routine Discharge) 06/12/2024 12:07 PM EXCAVATING CONTRACTOR Hospital Encounter [facility] [address] [place] [address] Taylor Weber MD Discharge Disposition: Home or Self Care (Routine Discharge) 06/12/2024 Scan [facility] [address] [place] [address] Scanned, Documents Lab (SCAN) 06/12/2024 Telephone [facility] [address] [place] [address] Nuria Dailey [facility]- Surgical Clearance 06/12/2024 Travel 05/28/2024 11:20 AM EXCAVATING CONTRACTOR Office Visit [facility] Diabetes and Endocrinology - [address] [address] Kelly Gonzalez MD Type 2 Diabetes 05/28/2024 Travel 05/27/2024 10:00 AM EXCAVATING CONTRACTOR - 05/27/2024 10:29 AM EXCAVATING CONTRACTOR [facility] [address] [place] [address] Sandi Lopes III, MD CYSTOSCOPY FLEXIBLE 05/27/2024 6:26 AM EXCAVATING CONTRACTOR - 05/27/2024 10:16 AM EXCAVATING CONTRACTOR Hospital Encounter [facility] [address] [place] [address] Sandi Lopes III, MD Discharge Disposition: Home or Self Care (Routine Discharge) 05/27/2024 Travel 05/23/2024 Telephone [facility] Diabetes [facility] Endocrinology - [place] [address] [place] [address] Kelly Gonzalez MD Blood Sugar Reporting (As high of 389 and low of 41 ) 05/21/2024 Telephone [facility] [address] [place] [phone] Barbara Fung MD Refill Request 05/16/2024 Travel from Last 3 Months Immunizations Name Administration Dates Next Due Influenza Adult (Generic) 02/27/2019,04/2017,02/15/2017,05/08/2016,2013,05/08/2013,03/07/2012 Pneumococcal (Prevnar 13) 12/27/2015 Tdap (Adacel) 06/29/2017 Family History Medical History Relation Comments Cancer Father Dementia Mother Diabetes Mother Coronary artery disease Neg Hx FH No pr emature coronary artery disease Relation Status Comments Father Mother Sister Social History Tobacco Use Types Packs/Day Years Used Date Smoking Tobacco: Former Cigarettes 2 25 0 04/30/1964 - 04/30/1989 Cigars Passive Smoke Exposure: Past Smokeless Tobacco: Never Tobacco Cessation:Counseling Given: No Alcohol Use Standard Drinks/Week Comments Yes 0 (1 standard drink = 0.6 oz pur e alcohol) occasional OASIS D0700: Social Isolation Answer Da te Recorded Frequency of experiencing loneliness or isolatio n Never 07/01/2024 OASIS A1250: Transportation Answer Date Recorded Lack of Transportation (Medical) No 07/01/2024 Lack of Transportation (Non-Medical) No 07/01/2024 Patient Unable or Declines to Respond No 07/01/2024 OASIS B1300: Health Literacy Answer Pranay e Recorded Frequency of needing help to read materials from doctor or pharmacy Never 07/01/2024 B1300 Health Literacy Answer Date Recor ded How often do you need to hav e someone help you when you read instructions, pamphlets, or other written material from your doctor or pharmacy? Never 07/19/2024 [facility] Utilities Answer Date Recorded In the past 12 months has e electric, gas, oil, or water company threatened to shut off services in your home? No 07/19/2024 Humiliation, Afraid, Rape, and Kick questionnair e Answer Date Recorded Within the last year, have y ou been afraid of your partner or ex-partner? No 07/19/2024 Within the last year, have y ou been humiliated or emotionally abused in other ways by your partner or ex-partner? No Within the last year, have y ou been kicked, hit, slapped, or otherwise physically hurt by your partner or ex-partner? No 07/19/2024 Within the last year, have y ou been raped or forced to have any kind of sexual activity by your partner or ex-partner? No 07/19/2024 Social Connection and Isolat ion Panel [NHANES] Answer Date Recorded In a typical week, how many times do you talk on the phone with family, friends, or neighbors? More than three times a week 07/19/2024 How often do you get togethe r with friends or relatives? More than three times a week 07/19/2024 How often do you attend [facility] or taoism services? 1 to 4 times per year 07/19/2024 Do you belong to any clubs o r organizations such as yazidi groups, unions, fraternal or athletic groups, or school groups? No 07/19/2024 How often do you attend meet ings of the clubs or organizations you belong to? Never 07/19/2024 Are you , , di vorced, , never , or living with a partner? 07/19/2024 AUDIT-C Answer Date Recorded Q1: How often do you have a drink containing alcohol? Never 07/19/2024 Q2: How many drinks containi ng alcohol do you have on a typical day when you are drinking? Patient does not drink Q3: How often do you have si x or more drinks on one occasion? Never 07/19/2024 Overall Financial Resource Strain (CARDIA) Answe r Date Recorded How hard is it for you to pa y for the very basics like food, housing, medical care, and heating? Not hard at all 07/19/2024 PHQ-2 Answer Date Recorded Patient Health Questionnaire-2 Score 0 02/05/2024 [facility] - Occupational Stress Questionnaire Answer Date Recorded Do you feel stress - tense, restless, nervous, or anxious, or unable to sleep at night because your mind is troubled all the time - these days? Not at all 07/19/2024 Exercise Vital Sign Answer Date Recorde d On average, how many days pe r week do you engage in moderate to strenuous exercise (like a brisk walk)? 0 days 07/19/2024 On average, how many minutes do you engage in exercise at this level? 0 min 07/19/2024 Hunger Vital Sign Answer Date Recorded Within the past 12 months, y ou worried that your food would run out before you got the money to buy more. Never true 07/20/19 25 Within the past 12 months, t he food you bought just didn't last and you didn't have money to get more. Never true 07/19/2024 PRAPARE - Transportation Answer Date Re corded In the past 12 months, has l ack of transportation kept you from medical appointments or from getting medications? No 06/29 In the past 12 months, has l ack of transportation kept you from meetings, work, or from getting things needed for daily living? No 07/19/2024 Housing Stability Vital Sign Answer Pranay e Recorded In the last 12 months, was t here a time when you were not able to pay the mortgage or rent on time? No 07/19/2024 In the past 12 months, how m any times have you moved where you were living? 0 07/19/2024 At any time in the past 12 m [facility], were you homeless or living in a long term (including now)? No 07/19/2024 Sex and Gender Information Value Date Recorded Sex Assigned at Male 05/27/2024 6:25 AM EXCAVATING CONTRACTOR Legal Sex Male 10:27 PM CDT Gender Identity Not on file Sexual Orientation Not on file Last Filed Vital Signs Vital Sign Reading Time Taken Comments Blood Pressure 127/64 08/05/2024 8:41 AM CDT Pulse 80 08/05/2024 8:41 AM CDT Temperature 36.8 C (98.2 F) 08/05/2024 8:41 AM CDT Respiratory Rate 18 08/05/2024 8:41 AM CDT Oxygen Saturation 100% 08/05/2024 8:41 AM CDT Inhaled Oxygen Concentration - - Weight 86.4 kg (190 lb 7.6 oz) 08/02/2024 4:45 A M CDT Height 177.8 cm (5' 10 ) 07/19/2024 9:00 PM CDT Body Mass Index 27.33 07/19/2024 9:00 PM CDT Plan of Treatment Upcoming Encounters Date Type Department Care Team (Late st Contact Info) Description 09/08/2024 10:20 AM CDT Office Visit [facility] Diabetes and Endocrinology - [address] [address] Kelly Gonzalez MD [facility] [place], [place] [address] 10/17/2024 1:00 AM CDT Allied Health/Nurse Visit [facility] [address] [place] [address] Lane Walters MD [address] [place] [address] 12/10/2024 10:15 AM CDT Allied Health/Nurse Visit [facility] [place] [address] [place] [phone] Lane Walters MD [address] [place] [address] 12/10/2024 10:30 AM CDT Office Visit [facility] [address] [place] [phone] Kiley Sarkar PA-C [address] [place] [address] 01/05/2025 12:15 PM CDT Office Visit [facility] [address] [place] [phone] Christina Booker MD [address] [place] [address] Health Maintenance Due Date Last Done Comments Kidney Health Evaluation 1942 Zoster Vaccines (1 of 2) 1992 Annual Medicare Wellness Visit 2007 Pneumococcal Vaccine: 65+ Years (2 of 2 - PPSV23 or PCV20) 02/21/2016 12/27/2015 RSV Immunization or 60+ Years (1 - 1-dose 75+ series) 2017 ASCVD LDL 05/10/2019 05/10/2018, 05/10/2016 Lipid Panel 05/10/2019 05/10/2018 COVID-19 Vaccine ( season) 2023 08/06/2020, 07/07/2020 PHQ-2 (Physician Marshall) 04/30/2024 02/05/2024 Diabetes: Retinopathy Eye Exam 07/29/2024 07/30/2023 Hemoglobin A1C 11/25/2024 05/28/2024, 10/0 11/2023, 02/05/2024, Additional history exists DTaP, Tdap and Td Vaccines (2 - Td or Tdap) 06/30/2027 06/29/2017 Meningococcal B Vaccine Aged Out No l onger eligible based on patient's age to complete this topic Meningococcal Vaccine Aged Out No tessie indigo eligible based on patient's age to complete this topic RSV Immunizations Under 20 Months Aged Out No longer eligible based on patient's age to complete this topic Goals Goal Patient Goal Type Associated Problems Recent Progress Patient-Stated? Author Safety Patient/family will have appropriate support at home upon discharge General No Evelin Wagoner RN Medical Devices Implanted Type Area Chemic Mangler Device Identifier Shelf Expiration Date Model / Serial / Lot Graft Bone Viktor Putty Dbm 1.0ml - [id number] Implanted:Qty: 1 on 07/16/2024 by Britany Rider i, MD at [facility] Bone N/A: Spine Cervical [employer] [id number] 02/19/2027 [id number] / [id number] / N/A [place] [employer] Ra-06/23/2016 Implanted:02/2 07/[address] Walters MD (Quantity not on file) Lead Implant [employer] 7740-45 / [id number] / [place] [employer] Rv-06/23/2016 Implanted:06/01 (Quantity not on file) Lead Implant [employer] 7741-52 / [id number] / Ep-Attain Stability Quad Cs Lead- 0 Implanted:Qty: 1 on 03/18/2020 by Re Zaldivar MD Lead Implant [employer] CARDIAC RHYTHM AND HEART FAILURE - DIV M 12/09/2021 [id number] M / [id number] / Description:Medtronic Attain Stability Quad MRI SureScan [address] Implanted:06/01 by Vanessa Harden MD (Quantity not on file) Explanted:Qty: 1 on 03/18/2020 by Re Zaldivar MD Pacemaker [employer] [id number] / [id number] / Medtronic Percepta Quad Bi-V- 0 Implanted:Qty: 1 on 03/18/2020 by Re Zaldivar MD Pacemaker [employer] CARDIAC RHYTHM AND HEART FAILURE - DIV M 07/25/2021 [id number] / [id number] / Description:Medtronic Percep ta Quad BRAND MGR-P MRI SureScan DEVICE IS NOT MRI CONDITIONAL(MIXED SYSTEM) Agent Hemostatic S[employer] 8 Ml Kit - Sn/A Implanted:Qty: 1 on 07/16/2024 by Britany Rider i, MD at [facility] Sealant N/A: Spine Cervical [employer] [id number] 07/28/2025 [id number] / N/A / [id number] Endoskeleton Tc Implanted:Qty: 1 on 07/16/2024 by Britany Rider i, MD at [facility] N/A: Spine Cervical [employer] N/A 01/09/2029 [id number] 7-N / N/A / [id number] Endoskeleton Implanted:Qty: 1 on 07/16/2024 by Britany Rider i, MD at [facility] N/A: Spine Cervical [employer] N/A 01/16/2029 [id number] 7-N / N/A / [id number] 57mm Plate Implanted:Qty: 1 on 07/16/2024 by Britany Rider i, MD at [facility] N/A: Spine Cervical N/A [id number] / / N/A 3.5x15mm Screws Implanted:Qty: 8 on 07/16/2024 by Britany Rider i, MD at [facility] N/A: Spine Cervical N/A [id number] / / N/A Endoskeleton Tc Implanted:Qty: 1 on 07/16/2024 by Britany Rider i, MD at [facility] N/A: Spine Cervical [employer] N/A 07/14/2026 5146-120 7-N / N/A / [id number] Explanted Type Area Chemic Mangler Device Identifier Shelf Expiration Date Model / Serial / Lot Pin [place] [employer] 14mm - Sn/A Explanted:Qty: 2 on 07/16/2024 by Britany Rider i, MD at [facility] Pin N/A: Spine Cervical [employer] [id number] 01/27/2029 [id number] / N/A / [id number] Drill Bit Explanted:Qty: 1 on 07/16/2024 at [facility] N/A: Spine Cervical [employer] [id number] 02/26/2032 [id number] / N/A / [id number] Procedures Procedure Name Priority Date/Time Associated Diagnosis Comments POCT GLUCOSE - HOUGH DOCKED DEVICE Routine 08/05/2024 2:30 PM CDT POCT GLUCOSE - HOUGH DOCKED DEVICE Routine 08/05/2024 6:07 AM CDT PHOSPHORUS, INORGANIC PHOSPHATE Routine 08/05/2024 3:15 AM CDT MAGNESIUM Routine 08/05/2024 3:15 AM CDT CBC, AUTO, NO DIFF Routine 08/05/2024 3:15 AM CDT BASIC METABOLIC PANEL Routine 08/05/2024 3:15 AM CDT POCT GLUCOSE - HOUGH DOCKED DEVICE Routine 08/05/2024 12:23 AM CDT POCT GLUCOSE - HOUGH DOCKED DEVICE Routine 08/04/2024 11:18 PM CDT POCT GLUCOSE - HOUGH DOCKED DEVICE Routine 08/04/2024 6:54 PM CDT POCT GLUCOSE - HOUGH DOCKED DEVICE Routine 08/04/2024 2:05 PM CDT XR ABD KUB Today 08/04/2024 12:11 PM CDT POCT GLUCOSE - HOUGH DOCKED DEVICE Routine 08/04/2024 9:57 AM CDT POCT GLUCOSE - HOUGH DOCKED DEVICE Routine 08/04/2024 8:57 AM CDT POCT GLUCOSE - HOUGH DOCKED DEVICE Routine 08/04/2024 8:34 AM CDT POCT GLUCOSE - HOUGH DOCKED DEVICE Routine 08/04/2024 8:17 AM CDT POCT GLUCOSE - HOUGH DOCKED DEVICE Routine 08/04/2024 4:52 AM CDT PHOSPHORUS, INORGANIC PHOSPHATE Routine 08/04/2024 2:33 AM CDT MAGNESIUM Routine 08/04/2024 2:33 AM CDT BASIC METABOLIC PANEL Routine 08/04/2024 2:33 AM CDT POCT GLUCOSE - HOUGH DOCKED DEVICE Routine 08/04/2024 12:13 AM CDT POCT GLUCOSE - HOUGH DOCKED DEVICE Routine 08/03/2024 6:07 PM CDT POCT GLUCOSE - HOUGH DOCKED DEVICE Routine 08/03/2024 12:26 PM CDT POCT GLUCOSE - HOUGH DOCKED DEVICE Routine 08/03/2024 6:40 AM CDT POCT GLUCOSE - HOUGH DOCKED DEVICE Routine 08/03/2024 5:49 AM CDT PHOSPHORUS, INORGANIC PHOSPHATE Routine 08/03/2024 2:10 AM CDT MAGNESIUM Routine 08/03/2024 2:10 AM CDT BASIC METABOLIC PANEL Routine 08/03/2024 2:10 AM CDT POCT GLUCOSE - HOUGH DOCKED DEVICE Routine 08/02/2024 11:30 PM CDT POCT GLUCOSE - HOUGH DOCKED DEVICE Routine 08/02/2024 6:16 PM CDT POCT GLUCOSE - HOUGH DOCKED DEVICE Routine 08/02/2024 4:41 PM CDT POCT GLUCOSE - HOUGH DOCKED DEVICE Routine 08/02/2024 11:30 AM CDT POCT GLUCOSE - HOUGH DOCKED DEVICE Routine 08/02/2024 5:26 AM CDT PHOSPHORUS, INORGANIC PHOSPHATE Routine 08/02/2024 2:22 AM CDT MAGNESIUM Routine 08/02/2024 2:22 AM CDT COMPREHENSIVE METABOLIC PANEL Routine 08/02/2024 2:22 AM CDT CBC W/DIFF AUTOMATED Routine 08/02/2024 2:22 AM CDT POCT GLUCOSE - HOUGH DOCKED DEVICE Routine 08/01/2024 11:57 PM CDT POCT GLUCOSE - HOUGH DOCKED DEVICE Routine 08/01/2024 8:20 PM CDT POCT GLUCOSE - HOUGH DOCKED DEVICE Routine 08/01/2024 5:45 PM CDT POCT GLUCOSE - HOUGH DOCKED DEVICE Routine 08/01/2024 12:35 PM CDT IR PERC ROMAINE CATH PLCMNT Today 08/01/2024 11:11 AM CDT POCT GLUCOSE - HOUGH DOCKED DEVICE Routine 08/01/2024 10:31 AM CDT PROTHROMBIN TIME, VENOUS Routine 08/01/2024 8:24 AM CDT COMPREHENSIVE METABOLIC PANEL Routine 08/01/2024 8:24 AM CDT CBC W/DIFF AUTOMATED Routine 08/01/2024 8:24 AM CDT POCT GLUCOSE - HOUGH DOCKED DEVICE Routine 08/01/2024 5:37 AM CDT POCT GLUCOSE - HOUGH DOCKED DEVICE Routine 07/31/2024 11:57 PM CDT XR CHEST PORTABLE STAT 07/31/2024 4:50 PM CDT POCT GLUCOSE - HOUGH DOCKED DEVICE Routine 07/31/2024 4:01 PM CDT POCT GLUCOSE - HOUGH DOCKED DEVICE Routine 07/31/2024 12:29 PM CDT XR SPEECH SWALLOW SJS ONLY Routine 07/31/2024 9:55 AM CDT POCT GLUCOSE - HOUGH DOCKED DEVICE Routine 07/31/2024 6:20 AM CDT PHOSPHORUS, INORGANIC PHOSPHATE Routine 07/31/2024 2:17 AM CDT COMPREHENSIVE METABOLIC PANEL Routine 07/31/2024 2:17 AM CDT CBC W/DIFF AUTOMATED Routine 07/31/2024 2:17 AM CDT MAGNESIUM Routine 07/31/2024 2:17 AM CDT POCT GLUCOSE - HOUGH DOCKED DEVICE Routine 07/30/2024 11:30 PM CDT POCT GLUCOSE - HOUGH DOCKED DEVICE Routine 07/30/2024 5:04 PM CDT POCT GLUCOSE - HOUGH DOCKED DEVICE Routine 07/30/2024 11:13 AM CDT POCT GLUCOSE - HOUGH DOCKED DEVICE Routine 07/30/2024 5:58 AM CDT PHOSPHORUS, INORGANIC PHOSPHATE Routine 07/30/2024 3:38 AM CDT MAGNESIUM Routine 07/30/2024 3:38 AM CDT COMPREHENSIVE METABOLIC PANEL Routine 07/30/2024 3:38 AM CDT CBC W/DIFF AUTOMATED Routine 07/30/2024 3:38 AM CDT POCT GLUCOSE - HOUGH DOCKED DEVICE Routine 07/29/2024 11:12 PM CDT POCT GLUCOSE - HOUGH DOCKED DEVICE Routine 07/29/2024 5:44 PM CDT POCT GLUCOSE - HOUGH DOCKED DEVICE Routine 07/29/2024 11:33 AM CDT POCT GLUCOSE - HOUGH DOCKED DEVICE Routine 07/29/2024 5:39 AM CDT MAGNESIUM Routine 07/29/2024 2:15 AM CDT COMPREHENSIVE METABOLIC PANEL Routine 07/29/2024 2:15 AM CDT CBC W/DIFF AUTOMATED Routine 07/29/2024 2:15 AM CDT POCT GLUCOSE - HOUGH DOCKED DEVICE Routine 07/28/2024 11:45 PM CDT POCT GLUCOSE - HOUGH DOCKED DEVICE Routine 07/28/2024 6:30 PM CDT POCT GLUCOSE - HOUGH DOCKED DEVICE Routine 07/28/2024 12:29 PM CDT POCT GLUCOSE - HOUGH DOCKED DEVICE Routine 07/28/2024 6:08 AM CDT MAGNESIUM Routine 07/28/2024 2:20 AM CDT CBC W/DIFF AUTOMATED Routine 07/28/2024 2:20 AM CDT COMPREHENSIVE METABOLIC PANEL Routine 07/28/2024 2:20 AM CDT POCT GLUCOSE - HOUGH DOCKED DEVICE Routine 07/27/2024 11:20 PM CDT POCT GLUCOSE - HOUGH DOCKED DEVICE Routine 07/27/2024 8:33 PM CDT POCT GLUCOSE - HOUGH DOCKED DEVICE Routine 07/27/2024 6:10 PM CDT POCT GLUCOSE - HOUGH DOCKED DEVICE Routine 07/27/2024 12:01 PM CDT POCT GLUCOSE - HOUGH DOCKED DEVICE Routine 07/27/2024 5:36 AM CDT MAGNESIUM Routine 07/27/2024 4:22 AM CDT CBC W/DIFF AUTOMATED Routine 07/27/2024 4:22 AM CDT COMPREHENSIVE METABOLIC PANEL Routine 07/27/2024 4:22 AM CDT POCT GLUCOSE - HOUGH DOCKED DEVICE Routine 07/27/2024 1:03 AM CDT POCT GLUCOSE - HOUGH DOCKED DEVICE Routine 07/26/2024 11:40 PM CDT POCT GLUCOSE - HOUGH DOCKED DEVICE Routine 07/26/2024 9:28 PM CDT POCT GLUCOSE - HOUGH DOCKED DEVICE Routine 07/26/2024 5:49 PM CDT POCT GLUCOSE - HOUGH DOCKED DEVICE Routine 07/26/2024 11:54 AM CDT POCT GLUCOSE - HOUGH DOCKED DEVICE Routine 07/26/2024 6:46 AM CDT POCT GLUCOSE - HOUGH DOCKED DEVICE Routine 07/26/2024 6:08 AM CDT MAGNESIUM Routine 07/26/2024 3:24 AM CDT CBC W/DIFF AUTOMATED Routine 07/26/2024 3:24 AM CDT COMPREHENSIVE METABOLIC PANEL Routine 07/26/2024 3:24 AM CDT PHOSPHORUS, INORGANIC PHOSPHATE Routine 07/26/2024 3:24 AM CDT POCT GLUCOSE - HOUGH DOCKED DEVICE Routine 07/26/2024 12:42 AM CDT POCT GLUCOSE - HOUGH DOCKED DEVICE Routine 07/25/2024 9:33 PM CDT POCT GLUCOSE - HOUGH DOCKED DEVICE Routine 07/25/2024 6:06 PM CDT XR FEEDING TUBE PLCMENT Today 07/26/19 2:34 PM CDT POCT GLUCOSE - HOUGH DOCKED DEVICE Routine 07/25/2024 12:27 PM CDT POCT GLUCOSE - HOUGH DOCKED DEVICE Routine 07/25/2024 6:17 AM CDT COMPREHENSIVE METABOLIC PANEL Routine 07/25/2024 2:05 AM CDT PHOSPHORUS, INORGANIC PHOSPHATE Routine 07/25/2024 2:05 AM CDT MAGNESIUM Routine 07/25/2024 2:05 AM CDT CBC W/DIFF AUTOMATED Routine 07/25/2024 2:05 AM CDT POCT GLUCOSE - HOUGH DOCKED DEVICE Routine 07/24/2024 11:35 PM CDT XR ABD KUB STAT 07/24/2024 8:15 PM CDT POCT GLUCOSE - HOUGH DOCKED DEVICE Routine 07/24/2024 6:06 PM CDT XR NG/FEED TUBE PLCMT FLUORO Today 07/24/2024 1:44 PM CDT POCT GLUCOSE - HOUGH DOCKED DEVICE Routine 07/24/2024 12:20 PM CDT PHOSPHORUS, INORGANIC PHOSPHATE Routine 07/24/2024 6:36 AM CDT MAGNESIUM Routine 07/24/2024 6:36 AM CDT BASIC METABOLIC PANEL Routine 07/24/2024 6:36 AM CDT CBC, AUTO, NO DIFF Routine 07/24/2024 6:36 AM CDT POCT GLUCOSE - HOUGH DOCKED DEVICE Routine 07/24/2024 5:21 AM CDT COMPREHENSIVE METABOLIC PANEL Routine 07/24/2024 2:10 AM CDT PHOSPHORUS, INORGANIC PHOSPHATE Routine 07/24/2024 2:10 AM CDT MAGNESIUM Routine 07/24/2024 2:10 AM CDT CBC W/DIFF AUTOMATED Routine 07/24/2024 2:10 AM CDT POCT GLUCOSE - HOUGH DOCKED DEVICE Routine 07/23/2024 11:48 PM CDT POCT GLUCOSE - HOUGH DOCKED DEVICE Routine 07/23/2024 8:19 PM CDT POCT GLUCOSE - HOUGH DOCKED DEVICE Routine 07/23/2024 5:15 PM CDT XR SHOULDER LT 1V Today 07/23/2024 12:44 PM CDT POCT GLUCOSE - HOUGH DOCKED DEVICE Routine 07/23/2024 11:42 AM CDT XR ABD UPRIGHT STARLA 07/23/2024 10:23 AM CDT POCT GLUCOSE - HOUGH DOCKED DEVICE Routine 07/23/2024 5:33 AM CDT POCT GLUCOSE - HOUGH DOCKED DEVICE Routine 07/22/2024 11:42 PM CDT POCT GLUCOSE - HOUGH DOCKED DEVICE Routine 07/22/2024 6:27 PM CDT POCT GLUCOSE - HOUGH DOCKED DEVICE Routine 07/22/2024 2:59 PM CDT XR SPEECH SWALLOW SJS ONLY Routine 07/22/2024 9:42 AM CDT POCT GLUCOSE - HOUGH DOCKED DEVICE Routine 07/22/2024 5:53 AM CDT CBC, AUTO, NO DIFF Routine 07/22/2024 2:29 AM CDT PHOSPHORUS, INORGANIC PHOSPHATE Routine 07/22/2024 2:29 AM CDT MAGNESIUM Routine 07/22/2024 2:29 AM CDT BASIC METABOLIC PANEL Routine 07/22/2024 2:29 AM CDT POCT GLUCOSE - HOUGH DOCKED DEVICE Routine 07/21/2024 8:24 PM CDT POCT GLUCOSE - HOUGH DOCKED DEVICE Routine 07/21/2024 4:06 PM CDT XR NG/FEED TUBE PLCMT FLUORO Today 07/21/2024 2:22 PM CDT POCT GLUCOSE - HOUGH DOCKED DEVICE Routine 07/21/2024 11:24 AM CDT POCT GLUCOSE - HOUGH DOCKED DEVICE Routine 07/21/2024 5:51 AM CDT MAGNESIUM Routine 07/21/2024 2:26 AM CDT CBC W/DIFF AUTOMATED Routine 07/21/2024 2:26 AM CDT BASIC METABOLIC PANEL Routine 07/21/2024 2:26 AM CDT POCT GLUCOSE - HOUGH DOCKED DEVICE Routine 07/20/2024 8:38 PM CDT POCT GLUCOSE - HUOGH DOCKED DEVICE Routine 07/20/2024 5:04 PM CDT POCT GLUCOSE - HOUGH DOCKED DEVICE Routine 07/20/2024 1:48 PM CDT POCT GLUCOSE - HOUGH DOCKED DEVICE Routine 07/20/2024 5:10 AM CDT BASIC METABOLIC PANEL Routine 07/20/2024 3:23 AM CDT CBC W/DIFF AUTOMATED Routine 07/20/2024 3:23 AM CDT POCT GLUCOSE - HOUGH DOCKED DEVICE Routine 07/20/2024 1:24 AM CDT POCT GLUCOSE - HOUGH DOCKED DEVICE Routine 07/19/2024 11:46 PM CDT PROCALCITONIN (PCT) Routine 07/19/2024 11:40 PM CDT C-REACTIVE PROTEIN Routine 07/19/2024 11:40 PM CDT SED RATE, ERYTHROCYTE (ESR) Routine 07/19/2024 11:[address] SOFT TISSUE NECK W CON STAT 07/19/2024 3:04 PM CDT LACTIC ACID W REFLEX (SEPSIS) STAT 07/19/2024 2:31 PM CDT COMPREHENSIVE METABOLIC PANEL STAT 07/19/2024 2:31 PM CDT CBC W/DIFF AUTOMATED STAT 07/19/2024 2:31 PM CDT CULTURE, BACTERIA, BLOOD STAT 07/19/2024 2:30 PM CDT CULTURE, BACTERIA, BLOOD STAT 07/19/2024 2:30 PM CDT POCT GLUCOSE - HOUGH DOCKED DEVICE Routine 07/18/2024 6:40 AM CDT POCT GLUCOSE - HOUGH DOCKED DEVICE Routine 07/17/2024 8:54 PM CDT POCT GLUCOSE - HOUGH DOCKED DEVICE Routine 07/17/2024 3:55 PM CDT POCT GLUCOSE - HOUGH DOCKED DEVICE Routine 07/17/2024 11:11 AM CDT POCT GLUCOSE - HOUGH DOCKED DEVICE Routine 07/17/2024 5:58 AM CDT BASIC METABOLIC PANEL Routine 07/17/2024 2:26 AM CDT CBC, AUTO, NO DIFF Routine 07/17/2024 2:26 AM CDT POCT GLUCOSE - HOUGH DOCKED DEVICE Routine 07/16/2024 8:22 PM CDT POCT GLUCOSE - HOUGH DOCKED DEVICE Routine 07/16/2024 3:51 PM CDT POCT GLUCOSE - HOUGH DOCKED DEVICE Routine 07/16/2024 12:00 PM CDT SURG XR FLUOROSCOPY Routine 07/16/2024 11:11 AM CDT SURG XR FLUOROSCOPY Routine 07/16/2024 8:50 AM CDT IV PLACEMENT Routine 07/16/2024 8:35 AM CDT ART LINE PLACEMENT Routine 07/16/2024 8:27 AM CDT DECOMPRESSION SPINE CERVICAL ANTERIOR WITH FUSION 07/16/2024 7:14 AM CDT CERVICAL STENOSIS Case Notes OC#3 PREFERS [facility] [place] [id number] @ 0657 POCT GLUCOSE - HOUGH DOCKED DEVICE Routine 07/16/2024 5:23 AM CDT POCT GLUCOSE - HOUGH DOCKED DEVICE Routine 07/15/2024 8:49 PM CDT POCT GLUCOSE - HOUGH DOCKED DEVICE Routine 07/15/2024 2:34 PM CDT POCT GLUCOSE - HOUGH DOCKED DEVICE Routine 07/15/2024 10:44 AM CDT POCT GLUCOSE - HOUGH DOCKED DEVICE Routine 07/15/2024 5:22 AM CDT COMPREHENSIVE METABOLIC PANEL Routine 07/15/2024 3:04 AM CDT CBC W/DIFF AUTOMATED Routine 07/15/2024 3:04 AM CDT POCT GLUCOSE - HOUGH DOCKED DEVICE Routine 07/14/2024 10:[address] LUMB SPINE POST MYELO Today 07/14/2024 7:[address] THOR SPINE POST MYELO Today 07/14/2024 7:[address] CERV SPINE POST MYELO Today 07/14/2024 7:12 PM CDT POCT GLUCOSE - HOUGH DOCKED DEVICE Routine 07/14/2024 3:45 PM CDT POCT GLUCOSE - HOUGH DOCKED DEVICE Routine 07/14/2024 3:21 PM CDT XR MYELOGRAM ENTIRE SPINE Today 07/14/2024 1:58 PM CDT HC URINALYSIS AUTO W/MICRO Nurse Collected Priority 07/14/2024 10:45 AM CDT POCT GLUCOSE - HOUGH DOCKED DEVICE Routine 07/14/2024 10:39 AM CDT PROTHROMBIN TIME, VENOUS STAT 07/14/2024 8:23 AM CDT POCT GLUCOSE - HOUGH DOCKED DEVICE Routine 07/14/2024 5:46 AM CDT COMPREHENSIVE METABOLIC PANEL Routine 07/14/2024 3:37 AM CDT CBC W/DIFF AUTOMATED Routine 07/14/2024 3:37 AM CDT POCT GLUCOSE - HOUGH DOCKED DEVICE Routine 07/13/2024 8:32 PM CDT POCT GLUCOSE - HOUGH DOCKED DEVICE Routine 07/13/2024 3:54 PM CDT POCT GLUCOSE - HOUGH DOCKED DEVICE Routine 07/13/2024 10:52 AM CDT POCT GLUCOSE - HOUGH DOCKED DEVICE Routine 07/13/2024 6:11 AM CDT COMPREHENSIVE METABOLIC PANEL Routine 07/13/2024 4:20 AM CDT CBC W/DIFF AUTOMATED Routine 07/13/2024 4:20 AM CDT POCT GLUCOSE - HOUGH DOCKED DEVICE Routine 07/12/2024 9:49 PM CDT POCT GLUCOSE - HOUGH DOCKED DEVICE Routine 07/12/2024 5:13 PM CDT ECG 12-LEAD STAT 07/12/2024 12:57 PM CDT PARTIAL THROMBOPLASTIN TIME,PTT STAT 07/12/2024 12:51 PM CDT PROTHROMBIN TIME, VENOUS STAT 07/12/2024 12:51 PM CDT LACTIC ACID Routine 07/12/2024 4:19 AM CDT COMPREHENSIVE METABOLIC PANEL Routine 07/12/2024 4:19 AM CDT CBC W/DIFF AUTOMATED Routine 07/12/2024 4:19 AM CDT POCT GLUCOSE - HOUGH DOCKED DEVICE Routine 07/12/2024 4:17 AM CDT POCT GLUCOSE - HOUGH DOCKED DEVICE Routine 07/11/2024 7:46 PM CDT POCT GLUCOSE - HOUGH DOCKED DEVICE Routine 07/11/2024 5:14 PM CDT XR CHEST PA+LAT STAT 07/11/2024 4:57 PM CDT CULTURE, BACTERIA, BLOOD Routine 07/11/2024 4:26 PM CDT URINE BACTERIA CULTURE Routine 4:20 PM CDT HC URINALYSIS AUTO W/MICRO Routine 07/11/2024 4:20 PM CDT BASIC METABOLIC PANEL STAT 07/11/2024 4:15 PM CDT CBC W/DIFF AUTOMATED STAT 07/11/2024 4:15 PM CDT LACTIC ACID STAT 07/11/2024 4:15 PM CDT CULTURE, BACTERIA, BLOOD Routine 07/11/2024 4:14 PM CDT POCT GLUCOSE - HOUGH DOCKED DEVICE Routine 07/11/2024 2:06 PM CDT POCT GLUCOSE - HOUGH DOCKED DEVICE Routine 07/11/2024 12:24 PM CDT XR ABD KUB Today 07/11/2024 8:56 AM CDT POCT GLUCOSE - HOUGH DOCKED DEVICE Routine 07/11/2024 6:35 AM CDT MAGNESIUM Routine 07/11/2024 5:42 AM CDT COMPREHENSIVE METABOLIC PANEL Routine 07/11/2024 5:42 AM CDT CBC W/DIFF AUTOMATED Routine 07/11/2024 5:42 AM CDT POCT GLUCOSE - HOUGH DOCKED DEVICE Routine 07/10/2024 8:36 PM CDT POCT GLUCOSE - HOUGH DOCKED DEVICE Routine 07/10/2024 5:13 PM CDT POCT GLUCOSE - HOUGH DOCKED DEVICE Routine 07/10/2024 11:38 AM CDT POCT GLUCOSE - HOUGH DOCKED DEVICE Routine 07/10/2024 10:[address] LUMB SPINE WO CON STAT 07/10/2024 7:[address] ABD+PEL W CON STAT 07/10/2024 7:28 AM CDT XR ABD KUB STAT 07/10/2024 7:06 AM CDT LIPASE STAT 07/10/2024 6:49 AM CDT COMPREHENSIVE METABOLIC PANEL STAT 07/10/2024 6:49 AM CDT CBC W/DIFF AUTOMATED STAT 07/10/2024 6:49 AM CDT POCT GLUCOSE - HOUGH DOCKED DEVICE Routine 07/09/2024 11:21 AM CDT POCT GLUCOSE - HOUGH DOCKED DEVICE Routine 07/09/2024 6:19 AM CDT COMPREHENSIVE METABOLIC PANEL Routine 07/09/2024 5:39 AM CDT CBC W/DIFF AUTOMATED Routine 07/09/2024 5:39 AM CDT POCT GLUCOSE - HOUGH DOCKED DEVICE Routine 07/08/2024 7:44 PM CDT POCT GLUCOSE - HOUGH DOCKED DEVICE Routine 07/08/2024 4:37 PM CDT XR ABD KUB Today 07/08/2024 2:26 PM CDT POCT GLUCOSE - HOUGH DOCKED DEVICE Routine 07/08/2024 11:20 AM CDT POCT GLUCOSE - HOUGH DOCKED DEVICE Routine 07/08/2024 6:08 AM CDT BASIC METABOLIC PANEL Routine 07/08/2024 4:55 AM CDT CBC W/DIFF AUTOMATED STAT 07/08/2024 4:55 AM CDT POCT GLUCOSE - HOUGH DOCKED DEVICE Routine 07/07/2024 7:52 PM CDT URINE BACTERIA CULTURE STAT 4:35 PM CDT HC URINALYSIS AUTO W/MICRO STAT 07/07/2024 4:35 PM CDT XR CHEST PORTABLE STAT 07/07/2024 3:17 PM CDT MAGNESIUM STAT 07/07/2024 3:12 PM CDT LACTIC ACID W REFLEX (SEPSIS) STAT 07/07/2024 3:12 PM CDT TROPONIN, QUANT STAT 07/07/2024 3:12 PM CDT COMPREHENSIVE METABOLIC PANEL STAT 07/07/2024 3:12 PM CDT BLOOD GAS, VENOUS STAT 07/07/2024 3:12 PM CDT CBC W/DIFF AUTOMATED STAT 07/07/2024 3:12 PM CDT ECG 12-LEAD Routine 07/07/2024 2:39 PM CDT POCT GLUCOSE - HOUGH DOCKED DEVICE Routine 06/29/2024 11:39 AM EXCAVATING CONTRACTOR POCT GLUCOSE - HOUGH DOCKED DEVICE Routine 06/29/2024 5:18 AM EXCAVATING CONTRACTOR POCT GLUCOSE - HOUGH DOCKED DEVICE Routine 06/28/2024 8:02 PM EXCAVATING CONTRACTOR POCT GLUCOSE - HOUGH DOCKED DEVICE Routine 06/28/2024 4:45 PM EXCAVATING CONTRACTOR POCT GLUCOSE - HOUGH DOCKED DEVICE Routine 06/28/2024 11:43 AM EXCAVATING CONTRACTOR POCT GLUCOSE - HOUGH DOCKED DEVICE Routine 06/28/2024 9:00 AM EXCAVATING CONTRACTOR COMPREHENSIVE METABOLIC PANEL Routine 06/28/2024 5:16 AM EXCAVATING CONTRACTOR CBC W/DIFF AUTOMATED Routine 06/28/2024 5:16 AM EXCAVATING CONTRACTOR POCT GLUCOSE - HOUGH DOCKED DEVICE Routine 06/28/2024 5:14 AM EXCAVATING CONTRACTOR POCT GLUCOSE - HOUGH DOCKED DEVICE Routine 06/27/2024 8:42 PM EXCAVATING CONTRACTOR POCT GLUCOSE - HOUGH DOCKED DEVICE Routine 06/27/2024 4:50 PM EXCAVATING CONTRACTOR POCT GLUCOSE - HOUGH DOCKED DEVICE Routine 06/27/2024 11:57 AM EXCAVATING CONTRACTOR POCT GLUCOSE - HOUGH DOCKED DEVICE Routine 06/27/2024 8:13 AM EXCAVATING CONTRACTOR COMPREHENSIVE METABOLIC PANEL Routine 06/27/2024 5:08 AM EXCAVATING CONTRACTOR CBC W/DIFF AUTOMATED Routine 06/27/2024 5:08 AM [employer] POCT GLUCOSE - HOUGH DOCKED DEVICE Routine 06/27/2024 2:16 AM [employer] POCT GLUCOSE - HOUGH DOCKED DEVICE Routine 06/26/2024 8:38 PM [employer] POCT GLUCOSE - HOUGH DOCKED DEVICE Routine 06/26/2024 4:21 PM [employer] COMPREHENSIVE METABOLIC PANEL Routine 06/26/2024 2:15 PM [employer] CBC W/DIFF AUTOMATED Routine 06/26/2024 2:15 PM [employer] POCT GLUCOSE - HOUGH DOCKED DEVICE Routine 06/26/2024 5:47 AM [employer] POCT GLUCOSE - HOUGH DOCKED DEVICE Routine 06/25/2024 11:07 PM [employer] INFLUENZA A & B STAT 06/25/2024 11:11 AM [employer] GI PANEL PCR - STOOL STAT 06/25/2024 11:00 AM [employer] US ABD LIMITED STAT 06/25/2024 10:05 AM [employer]ATING [employer]OR URINE BACTERIA CULTURE STAT 7:22 AM [employer]ATING [employer] HC URINALYSIS AUTO W/MICRO STAT 06/25/2024 7:[address] ABD+PEL W CON STAT 06/25/2024 6:28 AM [employer]OR XR CHEST PORTABLE STAT 06/25/2024 6:27 AM [employer]ATING [employer]OR LACTIC ACID W REFLEX (SEPSIS) STAT 06/25/2024 5:22 AM [employer]ATING [employer]OR PRO-BRAIN NATRIURETIC PEPTIDE STAT 06/25/2024 5:22 AM [employer]VATING [employer]OR TROPONIN, QUANT STAT 06/25/2024 5:22 AM [employer]ATING [employer]OR LIPASE STAT 06/25/2024 5:22 AM [employer]ATING [employer]OR COMPREHENSIVE METABOLIC PANEL STAT 06/25/2024 5:22 AM [employer]ATING [employer]OR CBC W/DIFF AUTOMATED STAT 06/25/2024 5:22 AM [employer]ATING [employer] ECG 12-LEAD Routine 06/25/2024 5:21 AM [employer]ATING [employer]OR CULTURE, BACTERIA, BLOOD STAT 06/25/2024 5:21 AM [employer]ATING [employer]OR USE ECHOCARDIOGRAM STAT 06/24/2024 1:45 PM [employer]ATING [employer] Cardiac murmur Pre-op evaluation ELECTROCARDIOGRAM (NON MIDMARK ACQUIRED) Routine 06/24/2024 12:26 PM [employer] Primary hypertension ECG 12-LEAD Routine 06/12/2024 12:38 PM [employer] Coronary artery disease of [place] artery of [place] heart with stable angina pectoris XR CHEST PA+LAT Routine 06/12/2024 12:21 PM [employer] Preop examination OUTSIDE LAB (SCAN ORDER) Routine 06/12/2024 12:00 AM [employer]ATING [employer]OR COLLECT.CAPILLARY (FNGR,HEEL,EAR) Routine 05/28/2024 12:11 PM [employer]ATING [employer]OR Uncontrolled type 2 diabetes mellitus with hyperglycemia HEMOGLOBIN, GLYCOSYLATED Routine 05/28/2024 Uncontrolled type 2 diabetes mellitus with hyperglycemia ([facility]) CYSTOURETHROSCOPY 05/27/2024 9:15 AM [employer]ATING [employer]OR INCONTINENCE: R32 DIABETIC RETINOPATHY EXAM (POSITIVE)(SCAN ORDER) Routine 07/30/2023 LIPID PANEL Routine 05/10/2018 Mixed hyperlipidemia from Last 3 Months or Most Recently Relevant to Health Maintenance Results * (ABNORMAL) POCT glucose (08/05/2024 2:30 PM CDT) Only the most recent of140 resultswithin the time period is included. GLUCOSE POC 237(H) 70 - 109 08/05/2024 2:32 PM CDT [facility] 08/05/2024 2:30 PM CDT Brijesh Young MD POCT ORDERABLES - DEVICE Final R esult [facility] [address] [place] [address], [id number] * (ABNORMAL) BASIC METABOLIC PANEL (08/05/2024 3:15 AM CDT) Only the most recent of10 resultswithin the time period is included. SODIUM S/P/B 134(L) 136 - 145 MMOL/L 08/05/2024 4:26 AM CDT [facility] POTASSIUM S/P/B 4.1 3.5 - 5.1 MMOL/L 08/05/2024 4:26 AM T [facility] CHLORIDE S/P/B 101 97 - 115 MMOL/L 08/05/2024 4:[address] [facility] CO2 24.6 21.0 - 32.0 MMOL/L 08/05/2024 4:26 AM T [facility] GLUCOSE 164(H) 74 - 106 MG/DL 08/05/2024 4:[address] [facility] BUN 38(H) 7 - 18 MG/DL 08/05/2024 4:[address] [facility] CREATININE S/P/B 0.78 0.70 - 1.30 MG/DL 08/05/2024 4:[address] [facility] CALCIUM S/P/B 8.7 8.5 - 10.1 MG/DL 08/05/2024 4:[address] [facility] ANION GAP 8.4 2.0 - 10.0 MMOL/L 08/05/2024 4:[address] [facility] OSMOLALITY (CALC) 291 MOSM/KG 025 4:[address] [facility] Comment:REFERENCE RANGE NOT ESTABLISHED GFR ESTIMATE 89(L) >90 ML/MIN/1. 73 M2 08/05/2024 4:[address] [facility] GFR NOTES GFR REFERENCE S: 08/05/2024 4:[address] [facility] Comment: THE ESTIMATED GFR IS CALCULATED USING THE 2020 CKD-EPI EQUATION. THE FOLLOWING CATEGORIES FOR GRADING RENAL FUNCTION ARE RECOMMENDED BY THE [employer] OF [employer]PHROLOG[employer] (KDIGO 2012 CLINICAL PRACTICE GUIDELINE). G1,NORMAL OR HIGH: >89 ml/min/1.73 m2 G2,MILDLY DECREASED: 60-89 ml/min/1.73 m2 G3A,MILDLY TO MODERATELY DECREASED: 45-59 ml/min/1.73 m2 G3B,MODERATELY TO SEVERELY DECREASED: 30-44 ml/min/1.73 m2 G4,SEVERELY DECREASED: 15-29 ml/min/1.73 m2 G5,KIDNEY FAILURE: <15 ml/min/1.73 m2 08/05/2024 3:15 AM CDT Karuna Hidalgo MD LABORATORY Final Result [facility] [address] [place] [address], [id number] * (ABNORMAL) CBC, AUTO, NO DIFF (08/05/2024 3:15 AM CDT) Only the most recent of4 resultswithin the time period is included. WBC 12.80(H) 4.00 - 10.80 x10'3/uL 08/05/2024 3:24 AM CDT [facility] RBC 3.58(L) 4.50 - 6.10 x10'6/uL 08/05/2024 3:24 AM CDT [facility] HGB 11.0(L) 12.0 - 16.0 G/DL 08/05/2024 3:24 AM CDT [facility] HCT 33.6(L) 37.0 - 52.0 % 08/05/2024 3:24 AM CDT [facility] MCV 93.9 78.0 - 100.0 FL 08/05/2024 3:24 AM CDT [facility] MCH 30.7 27.0 - 31.0 PG 08/05/2024 3:24 AM CDT [facility] MCHC 32.7(L) 33.0 - 36.0 G/DL 08/05/2024 3:24 AM CDT [facility] RDW 13.2 11.5 - 14.5 % 08/05/2024 3:24 AM CDT [facility] PLT 150 150 - 350 x10'3/uL 08/05/2024 3:24 AM CDT [facility] MPV 11.3(H) 7.4 - 10.4 FL 08/05/2024 3:24 AM CDT [facility] 08/05/2024 3:15 AM CDT us Karuna Hidalgo MD LABORATORY Final Result Performing Organization Address City/[facility]/ZIP Co de Phone Number [facility] [address] [place] [address], [phone] * PHOSPHORUS, INORGANIC PHOSPHATE (08/05/2024 3:15 AM CDT) Only the most recent of11 resultswithin the time period is included. PHOSPHORUS 3.1 2.5 - 4.9 MG/DL 08/05/2024 4:26 AM CDT [facility] 08/05/2024 3:15 AM CDT us Karuna Hidalgo MD LABORATORY Final Result Performing Organization Address [facility] de Phone Number [facility] [address] [place] [address], [phone] * MAGNESIUM (08/05/2024 3:15 AM CDT) Only the most recent of17 resultswithin the time period is included. MAGNESIUM 2.4 1.6 - 2.6 MG/DL 08/05/2024 4:26 AM CDT [facility] 08/05/2024 3:15 AM CDT us Karuna Hidalgo MD LABORATORY Final Result Performing Organization Address City/[facility] Co de Phone Number [facility] [address] [place] [address], [id number] * XR ABD KUB (08/04/2024 12:11 PM CDT) Only the most recent of5 resultswithin the time period is included. Anatomical Region Laterality Modality Abdomen Radiographic Stephani ging 08/04/2024 3:18 PM CDT Impressions 08/04/2024 3:24 PM CDT IMPRESSION: Diffuse distention of the large bowel with contrast and feces. Referred By: HARISH ERWIN Interpreted By: Keron Mclean MD, 08/04/2024 3:18 PM Narrative 08/04/2024 3:24 PM CDT [address] [address] EXAM: XR ABD KUB DATE: 08/04/2024 1207 hours Comparison 07/24/2024. INDICATION: NEW TUBE FEED, DISTENDED, NO BM TECHNIQUE: One view, 2 images FINDINGS: Gastrostomy tube. There is contrast through the majority of the large bowel. This is mixed with a moderate/large stool volume in the right colon and rectum. Other gas containing bowel is partially visualized with the contrast present. The diameter of the cecum and the rectum are about 8-9 cm. 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 Procedure Note Keron Mclean MD - 08/04/[address] [address] EXAM: XR ABD KUB DATE: 08/04/2024 1207 hours Comparison 07/24/2024. INDICATION: NEW TUBE FEED, DISTENDED, NO BM TECHNIQUE: One view, 2 images FINDINGS: Gastrostomy tube. There is contrast through the majority of thelarge bowel. This is mixed with a moderate/large stool volume in theright colon and rectum. Other gas containing bowel is partiallyvisualized with the contrast present. The diameter of the cecum and therectum are about 8-9 cm. Thoracolumbar degenerative disc disease of mildseverity. IMPRESSION: Diffuse distention of the large bowel with contrast andfeces. Referred By: HARISH ERWIN Interpreted By: Keron Mclean MD, 08/04/2024 3:18 PM Karuna Hidalgo MD GENERAL IMAGING Final Result * (ABNORMAL) COMPREHENSIVE METABOLIC PANEL (08/02/2024 2:22 AM CDT) Only the most recent of23 resultswithin the time period is included. SODIUM S/P/B 133(L) 136 - 145 MMOL/L 08/02/2024 3:23 AM CDT [facility] POTASSIUM S/P/B 3.9 3.5 - 5.1 MMOL/L 08/02/2024 3:23 AM CDT [facility] CHLORIDE S/P/B 100 97 - 115 MMOL/L 08/02/2024 3:23 AM CDT [facility] CO2 29.2 21.0 - 32.0 MMOL/L 08/02/2024 3:23 AM CDT [facility] GLUCOSE 108(H) 74 - 106 MG/DL 08/02/2024 3:23 AM CDT [facility] BUN 29(H) 7 - 18 MG/DL 08/02/2024 3:23 AM CDT [facility] CREATININE S/P/B 0.80 0.70 - 1.30 MG/DL 08/02/2024 3:23 AM CDT [facility] CALCIUM S/P/B 8.5 8.5 - 10.1 MG/DL 08/02/2024 3:23 AM CDT [facility] BILIRUBIN TOTAL S/P/B 1.0 0.2 - 1.0 MG/DL 08/02/2024 3:23 AM CDT [facility] ALKALINE PHOSPHATASE S/P/B 59 45 - 115 U/L 08/02/2024 3:23 AM CDT [facility] AST 19 15 - 37 U/L 08/02/2024 3:23 AM CDT [facility] ALT 56 16 - 61 U/L 08/02/2024 3:23 AM CDT [facility] TOTAL PROTEIN S/P/B 5.7(L) 6.4 - 8.2 G/DL 08/02/2024 3:23 AM CDT [facility] ALBUMIN S/P/B 2.6(L) 3.4 - 5.0 G/DL 08/02/2024 3:23 AM CDT [facility] ANION GAP 3.8 2.0 - 10.0 MMOL/L 08/02/2024 3:23 AM CDT [facility] OSMOLALITY (CALC) 282 MOSM/KG 025 3:23 AM CDT [facility] Comment:REFERENCE RANGE NOT ESTABLISHED GFR ESTIMATE 88(L) >90 ML/MIN/1. 73 M2 08/02/2024 3:23 AM CDT [facility] GFR NOTES GFR REFERENCE S: 08/02/2024 3:23 AM CDT [facility] Comment: THE ESTIMATED GFR IS CALCULATED USING THE 2020 CKD-EPI EQUATION. THE FOLLOWING CATEGORIES FOR GRADING RENAL FUNCTION ARE RECOMMENDED BY THE INTERNATIONAL SOCIETY OF NEPHROLOGY (KDIGO 2012 CLINICAL PRACTICE GUIDELINE). G1,NORMAL OR HIGH: >89 ml/min/1.73 m2 G2,MILDLY DECREASED: 60-89 ml/min/1.73 m2 G3A,MILDLY TO MODERATELY DECREASED: 45-59 ml/min/1.73 m2 G3B,MODERATELY TO SEVERELY DECREASED: 30-44 ml/min/1.73 m2 G4,SEVERELY DECREASED: 15-29 ml/min/1.73 m2 G5,KIDNEY FAILURE: <15 ml/min/1.73 m2 08/02/2024 2:22 AM CDT Karuna Hidalgo MD LABORATORY Final Result [facility] [address] [place] [address], [phone] * (ABNORMAL) CBC W/DIFF AUTOMATED (08/02/2024 2:22 AM CDT) Only the most recent of27 resultswithin the time period is included. WBC 8.86 4.00 - 10.80 x10'3/uL 08/02/2024 2:52 AM CDT [facility] RBC 3.82(L) 4.50 - 6.10 x10'6/uL 08/02/2024 2:52 AM CDT [facility] HGB 11.1(L) 12.0 - 16.0 G/DL 08/02/2024 2:52 AM CDT [facility] HCT 35.5(L) 37.0 - 52.0 % 08/02/2024 2:52 AM CDT [facility] MCV 92.9 78.0 - 100.0 FL 08/02/2024 2:52 AM CDT [facility] MCH 29.1 27.0 - 31.0 PG 08/02/2024 2:52 AM CDT [facility] MCHC 31.3(L) 33.0 - 36.0 G/DL 08/02/2024 2:52 AM CDT [facility] RDW 13.2 11.5 - 14.5 % 08/02/2024 2:52 AM CDT [facility] PLT 161 150 - 350 x10'3/uL 08/02/2024 2:52 AM CDT [facility] MPV 11.3(H) 7.4 - 10.4 FL 08/02/2024 2:52 AM CDT [facility] DIFFERENTIAL TYPE AUTOMATED DIFFERENTIAL 08/02/2024 2:52 AM CDT [facility] SEG NEUTROPHILS 60.6 % 2:52 AM CDT [facility] LYMPHOCYTES 19.0 % 08/02/2024 2:52 AM CDT [facility] MONOCYTES 16.7 % 08/02/2024 2:52 AM CDT [facility] EOSINOPHILS 2.7 % 08/02/2024 2:52 AM CDT [facility] BASOPHILS 0.1 % 08/02/2024 2:52 AM CDT [facility] IMMATURE GRANS % 0.9 % 08/03/19 2:52 AM CDT [facility] ABS. NEUTROPHILS 5.37 1.60 - 8.30 x10'3/uL 08/02/2024 2:52 AM CDT [facility] ABS. LYMPHOCYTES 1.68 0.80 - 4.70 x10'3/uL 08/02/2024 2:52 AM CDT [facility] ABS. MONOCYTES 1.48 0.00 - 1.50 x10'3/uL 08/02/2024 2:52 AM CDT [facility] ABS. EOSINOPHILS 0.24 0.00 - 0.40 x10'3/uL 08/02/2024 2:52 AM CDT [facility] ABS. BASOPHILS 0.01 0.00 - 0.20 x10'3/uL 08/02/2024 2:52 AM CDT [facility] ABS. IMMATURE GRANULOCYTES 0.08(H) 0.00 - 0.03 x10'3/uL 08/02/2024 2:52 AM CDT [facility] ABS. NUCLEATED RBC'S 0.00 0.00 - 0.01 x10'3/uL 08/02/2024 2:52 AM CDT [facility] NRBC % 0.0 % 08/02/2024 2:52 AM CDT [facility] 08/02/2024 2:22 AM CDT Karuna Hidalgo MD LABORATORY Final Result [facility] [address] [place] [address], [id number] * IR PERC ROMAINE CATH PLCMNT (08/01/2024 11:11 AM CDT) Anatomical Region Laterality Modality Abdomen Interventional R adiology 08/01/2024 11:1 6 AM CDT Impressions 08/01/2024 11:18 AM CDT Impression: Successful fluoroscopically guided percutaneous gastrostomy tube placement. Tube may be flushed intermittently with saline and/or placed to intermittent gravity drainage. If there are no apparent complications, use of the gastrostomy tube may begin the morning following the procedure. Ordered By: KARUNA HIDALGO Interpreted By: Will Cramer MD, 08/01/2024 11:16 AM Narrative 08/01/2024 11:18 AM CDT [address] [address] Procedure: Fluoroscopically guided percutaneous gastrostomy Pre op diagnosis/indication: Persistent dysphagia after cervical fixation surgery. Post Op Diagnosis: same Radiologist: Shoaib Anesthesia: Local - 1% buffered Lidocaine Conscious sedation: Administered and monitored by a qualified interventional radiology nurse under supervision of the interventional radiologist. There was continuous monitoring of vital signs including pulse oximetry, end-tidal CO2, and EKG. Total intraservice or fulj-qt-fohh sedation time: 10 minutes.. Technique : The patient was given barium via nasogastric tube on the day prior to the procedure to opacify the colon. Preliminary ultrasound was performed and the left liver margin was marked. Permanent ultrasound image was recorded. Under fluoroscopic guidance a 5 [place] multipurpose catheter was advanced transnasally down to the stomach without difficulty. The epigastric region was prepped and draped in sterile fashion. Timeout was performed. The patient was given 1 mg of glucagon IV. Following this the stomach was insufflated with air via the indwelling NG tube. Under fluoroscopy suitable site was marked over the stomach clear of the liver and colon. Following the administration local anesthetic, 3 gastric anchor retention sutures were placed under fluoroscopic guidance, anchoring the anterior gastric wall to the anterior abdominal wall. At the time of placement of each suture, intragastric location was confirmed with aspiration of air and injection of contrast. Between the anchor sutures additional local anesthetic was administered. A 19 gauge needle was then advanced under fluoroscopic guidance into the stomach. Intragastric location was confirmed by aspiration of air followed by injection of contrast. An Amplatz wire was then advanced into the stomach. The tract was dilated and peel-away sheath placed through which a 18 [place] balloon-tip gastrostomy tube was placed without difficulty. The balloon was inflated with 18 cc of very dilute contrast and the tube was secured in place. Intragastric location was confirmed with contrast injection. Permanent fluoroscopic images were recorded. Sterile dressing was applied. Fluoroscopy: 1.1 min; 19 mGy (Ka.r) Complications: none Estimated Blood Loss: <20 ml Specimens removed: none Procedure Note Will Cramer MD - 08/01/[address] [address] Procedure: Fluoroscopically guided percutaneous gastrostomy Pre op diagnosis/indication: Persistent dysphagia after cervical fixationsurgery. Post Op Diagnosis: same Radiologist: Shoaib Anesthesia: Local - 1% buffered Lidocaine Conscious sedation: Administered and monitored by a qualifiedinterventional radiology nurse under supervision of the interventionalradiologist. There was continuous monitoring of vital signs includingpulse oximetry, end-tidal CO2, and EKG. Total intraservice or [id number] time: 10 minutes.. Technique : The patient was given barium via nasogastric tube on the day prior to theprocedure to opacify the colon. Preliminary ultrasound was performed and the left liver margin was marked.Permanent ultrasound image was recorded. Under fluoroscopic guidance a 5 [place] multipurpose catheter was advancedtransnasally down to the stomach without difficulty. The epigastric region was prepped and draped in sterile fashion. Timeout was performed. The patient was given 1 mg of glucagon IV. Following this the stomach wasinsufflated with air via the indwelling NG tube. Under fluoroscopysuitable site was marked over the stomach clear of the liver and colon.Following the administration local anesthetic, 3 gastric anchor retentionsutures were placed under fluoroscopic guidance, anchoring the anteriorgastric wall to the anterior abdominal wall. At the time of placement ofeach suture, intragastric location was confirmed with aspiration of airand injection of contrast. Between the anchor sutures additional localanesthetic was administered. A 19 gauge needle was then advanced underfluoroscopic guidance into the stomach. Intragastric location wasconfirmed by aspiration of air followed by injection of contrast. AnAmplatz wire was then advanced into the stomach. The tract was dilated andpeel-away sheath placed through which a 18 [place] balloon-tip gastrostomytube was placed without difficulty. The balloon was inflated with 18 cc ofvery dilute contrast and the tube was secured in place. Intragastriclocation was confirmed with contrast injection. Permanent fluoroscopicimages were recorded. Sterile dressing was applied. Fluoroscopy: 1.1 min; 19 mGy (Ka.r) Complications: none Estimated Blood Loss: <20 ml Specimens removed: none Impression: Successful fluoroscopically guided percutaneous gastrostomytube placement. Tube may be flushed intermittently with saline and/orplaced to intermittent gravity drainage. If there are no apparentcomplications, use of the gastrostomy tube may begin the morning followingthe procedure. Ordered By: KARUNA HIDALOG Interpreted By: Will Cramer MD, 08/01/2024 11:16 AM Karuna Hidalgo MD INTERVENTIONAL RADIOLOGY Final Result * PROTIME/INR, VENOUS (PROTHROMBIN TIME) (08/01/2024 8:24 AM CDT) Only the most recent of3 resultswithin the time period is included. PROTIME 12.1 9.4 - 12.5 SEC 08/01/2024 9:15 AM CDT [facility] INR 1.1 0.8 - 1.1 08/01/2024 9:15 AM CDT [facility] 08/01/2024 8:24 AM CDT Will Cramer MD LABORATORY Final Result [facility] [address] [place] [address], [place] [phone] [id number] * XR CHEST PORTABLE (07/31/2024 4:50 PM CDT) Only the most recent of3 resultswithin the time period is included. Anatomical Region Laterality Modality Chest Radiographic Stephani ging 07/31/2024 5:24 PM CDT Impressions 07/31/2024 5:26 PM CDT IMPRESSION: Feeding tube present with distal tip projecting in gastric fundus region. Referred By: HARISH ERWIN Interpreted By: Manan Armstrong MD, 07/31/2024 5:24 PM Narrative 07/31/2024 5:26 PM CDT [address] [address] Examination: XR CHEST PORTABLE Exam time: 07/31/2024 4:43 PM Clinical history: Nasogastric tube placement Comparison: No similar exam Technique: AP upright view Findings: Feeding tube is visualized. The distal tip is inferior to the diaphragm and would most likely be projecting within the gastric fundus region. Lower right lung not included on image. Visualized lungs appear clear. Minimal elevation left hemidiaphragm. No evidence of pleural effusion. No evidence of pneumothorax. Calcified granuloma left apex. Right subclavian cardiac pacemaker and/or defibrillator with leads projecting expected positions of the right atrium, right ventricle, and coronary sinus. Postoperative changes lower cervical spine. Procedure Note Manan Armstrong MD - 07/31/[address] [address] Examination: XR CHEST PORTABLE Exam time: 07/31/2024 4:43 PM Clinical history: Nasogastric tube placement Comparison: No similar exam Technique: AP upright view Findings: Feeding tube is visualized. The distal tip is inferior to thediaphragm and would most likely be projecting within the gastric fundusregion. Lower right lung not included on image. Visualized lungs appear clear.Minimal elevation left hemidiaphragm. No evidence of pleural effusion.No evidence of pneumothorax. Calcified granuloma left apex. Rightsubclavian cardiac pacemaker and/or defibrillator with leads projectingexpected positions of the right atrium, right ventricle, and coronarysinus. Postoperative changes lower cervical spine. IMPRESSION: Feeding tube present with distal tip projecting in gastric fundusregion. Referred By: HARISH ERWIN Interpreted By: Manan Armstrong MD, 07/31/2024 5:24 PM Karuna Hidalgo MD GENERAL IMAGING Final Result * XR SPEECH SWALLOW SJS ONLY (07/31/2024 9:55 AM CDT) Only the most recent of2 resultswithin the time period is included. Anatomical Region Laterality Modality NA Fluoroscopy 07/31/2024 10:2 1 AM CDT Impressions 07/31/2024 10:37 AM CDT IMPRESSION: 1) Intermittent premature spillage to the vallecula with thicker consistencies. There was a single episode with thin consistency demonstrating penetration with small amount of silent aspiration. 2. Moderate residuals noted with thicker consistencies. 3. Hypomotility of the epiglottis. 4. Interval decrease in prevertebral soft tissue swelling. Ordered By: KARUNA HIDALGO Interpreted By: Keyon Clay MD, 07/31/2024 10:21 AM Narrative 07/31/2024 10:37 AM CDT [address] [address] Examination: XR SPEECH SWALLOW SJS ONLY Exam time: 07/31/2024 10:14 AM Clinical history: Recent cervical spine fusion surgery, dysphagia Comparison: 07/22/2024 Technique: Swallowing mechanism evaluated in the lateral projection with video fluoroscopy with patient swallowing various consistencies of barium. Total fluoroscopic time: 3.6 minutes Total fluoroscopic dose: 8.2 mgy Findings: The study demonstrates postoperative change with previous cervical spine fusion. There is interval decrease in the degree of prevertebral soft tissue swelling compared to previous study. The study was begun with nectar consistency from a spoon. The patient has some difficulty initiating the swallowing mechanism wanting to tilt is advanced towards to initiate. There is premature overflow to the vallecula. Abnormal hypomotility of the epiglottis is noted, however there is no penetration or aspiration. No significant residuals. The study was continued with thin consistency from a spoon again demonstrating some premature spillage to the vallecula. There is evidence of mild penetration with ejection. [place] consistency from a straw again demonstrates penetration with incomplete injection. Patient was able to swallow clearing the penetration. With thin consistency from a straw there was an episode of penetration with small amount of silent aspiration. With thicker pudding and honey consistencies there is no evidence of penetration or aspiration. There are moderate residuals in the vallecula which reduce with subsequent swallows. Solid consistency demonstrated no evidence of penetration or aspiration, however there are again moderate residuals. Procedure Note Keyon Clay MD - 07/31/[address] [address] Examination: XR SPEECH SWALLOW SJS ONLY Exam time: 07/31/2024 10:14 AM Clinical history: Recent cervical spine fusion surgery, dysphagia Comparison: 07/22/2024 Technique: Swallowing mechanism evaluated in the lateral projection withvideo fluoroscopy with patient swallowing various consistencies ofbarium. Total fluoroscopic time: 3.6 minutes Total fluoroscopic dose: 8.2 mgy Findings: The study demonstrates postoperative change with previouscervical spine fusion. There is interval decrease in the degree ofprevertebral soft tissue swelling compared to previous study. The study was begun with nectar consistency from a spoon. The patient hassome difficulty initiating the swallowing mechanism wanting to tilt isadvanced towards to initiate. There is premature overflow to thevallecula. Abnormal hypomotility of the epiglottis is noted, however thereis no penetration or aspiration. No significant residuals. The study was continued with thin consistency from a spoon againdemonstrating some premature spillage to the vallecula. There is evidenceof mild penetration with ejection. [place] consistency from a straw againdemonstrates penetration with incomplete injection. Patient was able toswallow clearing the penetration. With thin consistency from a straw there was an episode of penetrationwith small amount of silent aspiration. With thicker pudding and honey consistencies there is no evidence ofpenetration or aspiration. There are moderate residuals in the valleculawhich reduce with subsequent swallows. Solid consistency demonstrated noevidence of penetration or aspiration, however there are again moderateresiduals. IMPRESSION: 1) Intermittent premature spillage to the vallecula with thickerconsistencies. There was a single episode with thin consistencydemonstrating penetration with small amount of silent aspiration. 2. Moderate residuals noted with thicker consistencies. 3. Hypomotility of the epiglottis. 4. Interval decrease in prevertebral soft tissue swelling. Ordered By: KARUNA HIDALGO Interpreted By: Keyon Clay MD, 07/31/2024 10:21 AM Karuna Hidalgo MD FLUOROSCOPY Final Result * XR FEEDING TUBE PLCMENT (07/25/2024 2:34 PM CDT) Anatomical Region Laterality Modality NA Fluoroscopy 07/25/2024 3:09 PM CDT Impressions 07/25/2024 3:49 PM CDT IMPRESSION: Keofeed tube placement into the distal duodenum. Nasal coverlet was utilized to secure the tube. The attending radiologist, Dr. Keyon Clay MD, was available during all critical portions of the procedure, has reviewed the image(s) and agrees with the content of this report. Ordered By: SARAH MARIA Interpreted By: Deana Maynard MD, 07/25/2024 3:09 PM Narrative 07/25/2024 3:49 PM CDT [address] [address] INDICATION: Keofeed pulled out/Replacement. TECHNIQUE: After informed consent was obtained and under fluoroscopic guidance, a Keofeed nasoenteric feeding tube was advanced through the right nasal cavity, down the esophagus, into the stomach, and into the distal duodenum. Air injection confirmed satisfactory location. A nasal coverlet was placed to secure the tube. A small amount of water was used to flush the tube to confirm patency.No complications. Approximately 2.5 minutes of fluoroscopy was used.101.93 Procedure Note Keyon Clay MD - 07/25/2024 [facility] [address] [place], [place] [address] INDICATION: Keofeed pulled out/Replacement. TECHNIQUE: After informed consent was obtained and under fluoroscopicguidance, a Keofeed nasoenteric feeding tube was advanced through theright nasal cavity, down the esophagus, into the stomach, and into thedistal duodenum. Air injection confirmed satisfactory location. A nasalcoverlet was placed to secure the tube. A small amount of water was usedto flush the tube to confirm patency.No complications. Approximately 2.5 minutes of fluoroscopy was used.101.93 IMPRESSION: Keofeed tube placement into the distal duodenum. Nasal coverlet wasutilized to secure the tube. The attending radiologist, Dr. Keyon Clay MD, was availableduring all critical portions of the procedure, has reviewed the image(s)and agrees with the content of this report. Ordered By: SARAH MARIA Interpreted By: Deana Maynard MD, 07/25/2024 3:09 PM us Sarah Maria MD FLUOROSCOPY Final Resu lt * XR NG/FEED TUBE PLCMT FLUORO (07/24/2024 1:44 PM CDT) Only the most recent of2 resultswithin the time period is included. Anatomical Region Laterality Modality Abdomen, Pelvis Fluoroscopy 07/24/2024 3:03 PM CDT Impressions 07/25/2024 12:07 PM CDT IMPRESSION: Keofeed tube placed within the second portion of the duodenum. The attending radiologist, Dr. Keyon Clay MD, was available during all critical portions of the procedure, has reviewed the image(s) and agrees with the content of this report. Ordered By: SARAH MARIA Interpreted By: Frank Cardona MD, 07/24/2024 3:03 PM Narrative 07/25/2024 12:07 PM CDT [facility] [address] [place], [place] [address] EXAM: Nasoenteric tube placement. COMPARISONS: Fluoroscopic nasal enteric tube placement 07/21/2024 EXAM HISTORY: Keofeed inadvertently pulled out. Keofeed insertion for nutrition. TECHNIQUE: Informed consent was obtained. Under fluoroscopic guidance, a Keofeed nasoenteric feeding tube was advanced through the right naris, down the esophagus, through the gastroesophageal junction, and into the second portion of the duodenum. Air contrast was used to confirm the placement in the second portion of the duodenum. A nasal coverlet was then placed to secure the Keofed tube. The tube was flushed with a small amount of water to confirm patency after nasal coverlet placement. No immediate complications were noted. Total fluoroscopic time utilized was 1.5 minutes, 1 image(s) and reference air kerma 23.2 mGy for this procedure. Procedure Note Keyon Clay MD - 07/25/[address] [address] EXAM: Nasoenteric tube placement. COMPARISONS: Fluoroscopic nasal enteric tube placement 07/21/2024 EXAM HISTORY: Keofeed inadvertently pulled out. Keofeed insertion fornutrition. TECHNIQUE: Informed consent was obtained. Under fluoroscopic guidance, aKeofeed nasoenteric feeding tube was advanced through the right naris,down the esophagus, through the gastroesophageal junction, and into thesecond portion of the duodenum. Air contrast was used to confirm theplacement in the second portion of the duodenum. A nasal coverlet was thenplaced to secure the Keofed tube. The tube was flushed with a small amountof water to confirm patency after nasal coverlet placement. No immediatecomplications were noted. Total fluoroscopic time utilized was 1.5 minutes, 1 image(s) and referenceair kerma 23.2 mGy for this procedure. IMPRESSION: Keofeed tube placed within the second portion of the duodenum. The attending radiologist, Dr. Keyon Clay MD, was availableduring all critical portions of the procedure, has reviewed the image(s)and agrees with the content of this report. Ordered By: SARAH MARIA Interpreted By: Frank Cardona MD, 07/24/2024 3:03 PM us Sarah Maria MD FLUOROSCOPY Final Resu lt * XR SHOULDER LT 1V (07/23/2024 12:44 PM CDT) Anatomical Region Laterality Modality Shoulder Radiographic Stephani ging 07/23/2024 3:30 PM CDT Impressions 07/23/2024 3:33 PM CDT IMPRESSION: 1. No evidence of acute fracture or dislocations single view study. 2. 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 Referred By: HARISH ERWIN Interpreted By: Yasmin Pearce DO, 07/23/2024 3:30 PM Narrative 07/23/2024 3:33 PM CDT [address] [address] CLINICAL INDICATION: 84-year-old male. Reason for examination: Fall. Left shoulder pain. 07/23/2024 12:50 PM, Jessy Heath: 1242 SC/SOH PATIENT EXAM DONE FOR LEFT SHOULDER PAIN AFTER RECENT FALL. DONE PORTABLE. TECHNIQUE: Portable upright single view shows radiograph of the left shoulder COMPARISON: Bilateral shoulder radiographs 05/01/2024 Left shoulder radiographs 03/17/2022 FINDINGS: No evidence of acute fracture or dislocation on this single view study. [id number] narrowing of the acromioclavicular joint with hypertrophy of the bones across the joint narrowing the acromiohumeral distance. This is unchanged since April. Clavicle intact. Left humeral head and left proximal humerus intact. Included left lateral ribs intact. Procedure Note Yasmin Pearce MD - 07/23/[address] [address] CLINICAL INDICATION: 84-year-old male. Reason for examination: Fall. Left shoulder pain. 07/23/2024 12:50 PM, Jessy Heath: 1242 SC/SOH PATIENT EXAM DONE FOR LEFT SHOULDER PAIN AFTER RECENT FALL. DONEPORTABLE. TECHNIQUE: Portable upright single view shows radiograph of the left shoulder COMPARISON: Bilateral shoulder radiographs 05/01/2024 Left shoulder radiographs 03/17/2022 FINDINGS: No evidence of acute fracture or dislocation on this single view study.[id number] narrowing of the acromioclavicular joint with hypertrophy ofthe bones across the joint narrowing the acromiohumeral distance. This isunchanged since April. Clavicle intact. Left humeral head and leftproximal humerus intact. Included left lateral ribs intact. IMPRESSION: 1. No evidence of acute fracture or dislocations single view study. 2. 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 Referred By: HARISH ERWIN Interpreted By: Yasmin Pearce DO, 07/23/2024 3:30 PM us Sarah Maria MD GENERAL IMAGING Final Resu lt * XR ABD UPRIGHT (07/23/2024 10:23 AM CDT) Anatomical Region Laterality Modality Abdomen Radiographic Stephani ging 07/23/2024 3:33 PM CDT Impressions 07/23/2024 3:42 PM CDT IMPRESSION: 1. Interval retraction of the radiopaque tip of the feeding tube now seen in the fundal portion of the stomach. 2. Small amount of residual oral contrast in the cardia portion of the stomach might signify abnormal retention after video swallowing study over 24 hours ago. 3. Given the findings on the swallowing study might consider advancement of the feeding tube into the duodenum. Referred By: HARISH ERWIN Interpreted By: Yasmin Pearce DO, 07/23/2024 3:33 PM Narrative 07/23/2024 3:[address] PM [address] [address] CLINICAL INDICATION: 84-year-old male. Reason for examination: Feeding tube placement. 07/23/2024 10:31 AM, Jessy Heath J: 1022 SC/SO PATIENT EXAM DONE FOR TF PLACEMENT. DONE PORTABLE. UPRIGHT TECHNIQUE: Portable upright AP view of the lower chest upper abdomen. 10:23 COMPARISON: Single overhead AP view of the upper abdomen after fluoroscopic guided placement of feeding tube 07/21/2024 Video fluoroscopy images of speech swallowing study 07/22/2024 at 9:00 in the morning FINDINGS: The radiopaque tip of the feeding tube is in the fundal portion of the stomach significantly retracted since placement into the duodenal sweep on July 21. There is small amount of oral contrast around the tube in the cardia portion of the stomach presumably abnormal residual contrast after the video swallowing study from yesterday. There is no reflux of the retained contrast above the gastroesophageal junction. Included lung bases are clear, unchanged. Stable distal leads of right subclavian approach ICD device Procedure Note Yasmin Pearce MD - 07/23/[address] [address] CLINICAL INDICATION: 84-year-old male. Reason for examination: Feeding tube placement. 07/23/2024 10:31 AM, Jessy Heath J: 1022 SC/SOH PATIENT EXAM DONE FOR TF PLACEMENT. DONE PORTABLE. UPRIGHT TECHNIQUE: Portable upright AP view of the lower chest upper abdomen. 10:23 COMPARISON: Single overhead AP view of the upper abdomen after fluoroscopic guidedplacement of feeding tube 07/21/2024 Video fluoroscopy images of speech swallowing study 07/22/2024 at 9:00 inthe morning FINDINGS: The radiopaque tip of the feeding tube is in the fundal portion of thestomach significantly retracted since placement into the duodenal sweep onJuly 21. There is small amount of oral contrast around the tube in thecardia portion of the stomach presumably abnormal residual contrast afterthe video swallowing study from yesterday. There is no reflux of theretained contrast above the gastroesophageal junction. Included lung bases are clear, unchanged. Stable distal leads of rightsubclavian approach ICD device IMPRESSION: 1. Interval retraction of the radiopaque tip of the feeding tube now seenin the fundal portion of the stomach. 2. Small amount of residual oral contrast in the cardia portion of thestomach might signify abnormal retention after video swallowing study over24 hours ago. 3. Given the findings on the swallowing study might consider advancementof the feeding tube into the duodenum. Referred By: HARISH ERWIN Interpreted By: Yasmin Pearce DO, 07/23/2024 3:33 PM Sarah Maria MD GENERAL IMAGING Final Resu lt * PROCALCITONIN (PCT) (07/19/2024 11:40 PM CDT) Procalcitonin 0.03 0.00 - 0.49 NG/ML 07/21/2024 10:26 AM CDT [facility] 07/19/2024 11:4 0 PM CDT Jose Carlos Kenny MD LABORATORY Final Result Performing Organization Address City/[facility]/ZIP Co de Phone Number [facility] [address] [place] [address], [phone] * SED RATE, ERYTHROCYTE (ESR,WSR) (07/19/2024 11:40 PM CDT) Pathologist [facility] ESR 6 0 - 15 MM/HR 07/20/2024 12:15 AM CDT [facility] 07/19/2024 11:4 0 PM CDT Jose Carlos Kenny MD LABORATORY Final Result Performing Organization Address City/[facility]/ZIP Co de Phone Number [facility] [address] [place] [address], [phone] * (ABNORMAL) C-REACTIVE PROTEIN (07/19/2024 11:40 PM CDT) C-REACTIVE PROTEIN 3.43(H) <0.80 mg/dL 07/20/2024 1:05 AM CDT [facility] 07/19/2024 11:4 0 PM CDT Jose Carlos Kenny MD LABORATORY Final Result [facility] [address] [place] [address], [phone] * CT SOFT TISSUE NECK W CON (07/19/2024 3:04 PM CDT) Anatomical Region Laterality Modality Neck Computed Tomogra phy 07/19/2024 3:09 PM CDT Impressions 07/19/2024 3:17 PM CDT IMPRESSION: ===== 1. Prevertebral soft tissue swelling and stranding with scattered foci of air extending anterolaterally on the right to the skin surface within expected range of postsurgical findings given recency of cervical spinal fusion surgery. No evidence of abscess formation. No unexpected hardware or osseous abnormality. Referred By: Interpreted By: Peng Perez MD, 07/19/2024 3:09 PM Narrative 07/19/2024 3:[address]T [address] [place] [address] EXAMINATION: CT soft tissue neck with contrast EXAM DATE/TIME: 07/19/2024 2:37 PM REASON FOR EXAM: swelling s/p cervical disc fusion Spinal fusion yesterday, pain and swelling with dysphasia since COMPARISON: No prior soft tissue neck CT. Presurgical cervical myelogram 07/14/2024 TECHNIQUE: Axial CT images of the soft tissues of the neck are performed before and after uneventful intravenous administration of 88 cc Isovue-370. Subsequent coronal and sagittal reformatted sequences are created for evaluation. A dose lowering technique was used for this procedure, which may include, but is not limited to, dose reduction technique, automated exposure control, iterative reconstruction, ALARA (As Low As Reasonably Achievable), or Image Gently techniques. FINDINGS: Since the prior exam there has been interval placement of anterior and interbody fusion hardware in the cervical spine traversing C3-C6 levels. Postsurgical changes in the anterior right neck consistent with recency of procedure. Heterogeneous stranding and fluid density traversing the anterior right neck deep and medial to the sternocleidomastoid muscle and lateral to the thyroid bed into the precervical space. No pooling well-defined fluid collection to suggest an abscess. Scattered punctate areas of air in the postsurgical bed. Mild prevertebral soft tissue swelling within expected limits given recency of procedure. The swelling is confined to the postsurgical bed and does not extend into the superior mediastinum inferiorly or into the oropharynx superiorly. No radiopaque foreign bodies. No evidence of vascular injury or extravasation of contrast. Limited evaluation of posterior fossa contents unremarkable. The globes are symmetric in size. Lens extraction on the right. Left lens not included in [id number]. Paranasal sinuses clear. Mastoid air cells are clear. Lung apices grossly clear. Visualized central airways patent. Left aortic arch with atherosclerotic disease. Normal size mediastinal lymph nodes are appreciated. No cervical chain lymphadenopathy on either side. Parotid glands, submandibular glands, and thyroid tissue unremarkable. Carotid and jugular vasculature have normal courses. Cervical vertebral body heights and alignment preserved. Hardware appears intact. ===== Procedure Note Peng Perez MD - 07/19/[address] [place] [address] EXAMINATION: CT soft tissue neck with contrast EXAM DATE/TIME: 07/19/2024 2:37 PM REASON FOR EXAM: swelling s/p cervical disc fusion Spinal fusion yesterday, pain and swelling with dysphasia since COMPARISON: No prior soft tissue neck CT. Presurgical cervical myelogram07/14/2024 TECHNIQUE: Axial CT images of the soft tissues of the neck are performedbefore and after uneventful intravenous administration of 88 ccIsovue-370. Subsequent coronal and sagittal reformatted sequences arecreated for evaluation. A dose lowering technique was used for thisprocedure, which may include, but is not limited to, dose reductiontechnique, automated exposure control, iterative reconstruction, ALARA (AsLow As Reasonably Achievable), or Image Gently techniques. FINDINGS: Since the prior exam there has been interval placement ofanterior and interbody fusion hardware in the cervical spine traversingC3-C6 levels. Postsurgical changes in the anterior right neck consistentwith recency of procedure. Heterogeneous stranding and fluid densitytraversing the anterior right neck deep and medial to thesternocleidomastoid muscle and lateral to the thyroid bed into theprecervical space. No pooling well-defined fluid collection to suggest anabscess. Scattered punctate areas of air in the postsurgical bed. Mildprevertebral soft tissue swelling within expected limits given recency ofprocedure. The swelling is confined to the postsurgical bed and does notextend into the superior mediastinum inferiorly or into the oropharynxsuperiorly. No radiopaque foreign bodies. No evidence of vascular injuryor extravasation of contrast. Limited evaluation of posterior fossa contents unremarkable. The globesare symmetric in size. Lens extraction on the right. Left lens notincluded in [id number]. Paranasal sinuses clear. Mastoid air cellsare clear. Lung apices grossly clear. Visualized central airways patent.Left aortic arch with atherosclerotic disease. Normal size mediastinallymph nodes are appreciated. No cervical chain lymphadenopathy on eitherside. Parotid glands, submandibular glands, and thyroid tissueunremarkable. Carotid and jugular vasculature have normal courses.Cervical vertebral body heights and alignment preserved. Hardware appearsintact. ===== IMPRESSION: ===== 1. Prevertebral soft tissue swelling and stranding with scattered foci ofair extending anterolaterally on the right to the skin surface withinexpected range of postsurgical findings given recency of cervical spinalfusion surgery. No evidence of abscess formation. No unexpected hardwareor osseous abnormality. Referred By: Interpreted By: Peng Perez MD, 07/19/2024 3:09 PM us Harish Erwin MD CT Final Result * LACTIC ACID W REFLEX (SEPSIS) (07/19/2024 2:31 PM CDT) Only the most recent of3 resultswithin the time period is included. LACTIC ACID VENOUS 1.5 0.4 - 2.0 MMOL/L 07/19/2024 3:02 PM CDT [facility] 07/19/2024 2:31 PM CDT us Harish Erwin MD LABORATORY Final Result Performing Organization Address [facility] Co de Phone Number [facility] [address] [place] [phone], * CULTURE, BACTERIA, BLOOD (07/19/2024 2:30 PM CDT) Only the most recent of5 resultswithin the time period is included. SPEC DESCRIPTION BLOOD 07/19/2024 1:54 PM CDT [facility] SPECIAL REQUESTS NO SPECIAL REQUEST 07/19/2024 1:54 PM CDT [facility] CULTURE RESULT NO GROWTH 5 DAYS 07/24/2024 9:47 PM CDT [facility] BLOOD SPECIMEN OBTAINED FOR BLOOD CULTURE / Unknown 07/19/2024 2:30 PM CDT 07/19/2024 7:33 PM CDT us Harish Erwin MD MICROBIOLOGY - GENERAL ORDERA BLES Final Result Performing Organization Address [facility] Co de Phone Number [facility] [address] [place] [address], [place] [phone] [facility] [address] [place] [address], [place] [phone] * SURG XR FLUOROSCOPY (07/16/2024 11:11 AM CDT) Only the most recent of2 resultswithin the time period is included. Anatomical Region Laterality Modality Undefined Radio Fluoroscop y 07/16/2024 11:0 3 AM CDT Narrative 07/16/2024 11:03 AM CDT This report does not contain a radiologist's interpretation. Please review associated procedure and/or operative report. Procedure Note Missy Fall MD - 07/16/2024 This report does not contain a radiologist's interpretation. Please review associated procedure and/or operative report. us Britany Paris MD IMAGES ONLY Cherie sal Result * IV PLACEMENT (07/16/2024 8:35 AM CDT) Jerrica Cuba CRNA - 07/16/2024 8:35 AM CDT Jerrica Jenkins [employer] 07/16/2024 8:40 AM Peripheral IV Date/Time: 07/16/2024 8:35 AM Performed by: Bruce Vasquez MD Authorized by: Bruce Vasquez MD Patient Location: OR Size (Guage): 18 G Orientation: Right Location: Foot Site Prep: Chlorhexadine Local Anesthetic: None Insertion Attempts: 3 Ultrasound-guided Placement: No Patient Tolerance: Tolerated well us Bruce Vasquez MD [place] ANESTHESIA Final Resul t * ART LINE PLACEMENT (07/16/2024 8:27 AM CDT) Jerrica Cuba CRNA - 07/16/2024 8:27 AM CDT Jerricahannah Jenkins CRNA 07/16/2024 10:38 AM Art Line Date/Time: 07/16/2024 8:27 AM Performed by: Bruce Vasquez MD Authorized by: Bruce Vasquez MD Patient Location: OR Orientation: Right Location: Brachial Site Prep: Chlorhexadine Local Anesthetic: None Insertion Attempts: 4 Ultrasound-guided Placement: Yes Ultrasound was used to identify the vessel. It was assessed and patent and Ultrasound was used to visualized vascular needle entry into the vessel Secure Method: Taped Patient Tolerance: Tolerated well Siize is a 5fr [id number] was placed us Bruce Vasquez MD [place] ANESTHESIA Edited Resu lt - Final * CT THOR SPINE POST MYELO (07/14/2024 7:12 PM CDT) Anatomical Region Laterality Modality Spine Computed Tomogra phy 07/15/2024 8:16 AM CDT Impressions 07/15/2024 8:43 AM CDT IMPRESSION: 1. Moderate to severe multilevel cervical spondylosis, greatest at C3-4 and C5-6, as described above. 2. Thoracic spondylosis greatest at T7-8 where there is moderate to severe spinal canal stenosis, as described above. 3. Moderate multilevel lumbar spondylosis, as described above. 4. Nonspecific partially visualized moderate to large rectal wall thickening with moderate presacral edema, new when compared with the prior CT abdomen and pelvis exam from 07/10/2024. Findings could be seen with proctocolitis in the appropriate clinical setting. If warranted clinically, repeat CT abdomen and pelvis with contrast would be beneficial for further characterization. Ordered By: BILLY RESENDIZ Interpreted By: Pranav Jesus MD, 07/15/2024 8:16 AM Narrative 07/15/2024 8:43 AM CDT [address] [address] Examination: CT LUMB SPINE POST MYELO, CT THOR SPINE POST MYELO, CT CERV SPINE POST MYELO, 07/14/2024 2:05 PM. Technique: Computed tomographic images of the cervical, thoracic and lumbar spine were obtained after myelographic contrast administration Additional coronal and sagittal reformatted images were generated at a separate workstation. A dose lowering technique was used for this procedure, which may include, but is not limited to, dose reduction technique, automated exposure control, the use of iterative reconstruction, and ALARA (As Low As Reasonably Achievable) / Image Gently techniques. Clinical history: myelo Comparison: CT cervical myelogram 07/17/2022 Findings: CERVICAL SPINE: The cervical vertebral bodies and facets are well aligned. The cervical vertebral body heights are preserved. There is intervertebral disc height loss at C2-3 and C3-4 with endplate degenerative changes at these levels. Moderate to marked atlantodental hypertrophic degenerative change. 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 Uncovertebral joint hypertrophy. Mild left neural foraminal stenosis. No right neural foraminal stenosis. C3-4: Congenital pedicular shortening and disc bulge impressing the ventral thecal sac contributing to severe spinal canal stenosis with marked flattening of the spinal cord at this level. Uncovertebral joint hypertrophy. Moderate to severe bilateral neural foraminal stenosis. C4-5: Congenital pedicular shortening with disc bulge impressing the ventral thecal sac contributing to mild to moderate spinal canal stenosis. Uncovertebral joint hypertrophy. Moderate to severe right neural foraminal stenosis. Moderate left neural foraminal stenosis. C5-6: Disc bulge with superimposed central disc protrusion impressing the ventral thecal sac. Severe spinal canal stenosis. Uncovertebral joint hypertrophy. Moderate to severe right neural foraminal stenosis. Mild to moderate left neural foraminal stenosis. C6-7: No significant spinal canal stenosis. Uncovertebral joint hypertrophy. Mild bilateral neural foraminal stenosis. C7-T1: No significant spinal canal stenosis. Uncovertebral joint hypertrophy. Mild left neural foraminal stenosis. No right neural foraminal stenosis. THORACIC SPINE: There are 12 rib-bearing thoracic type vertebral bodies. The thoracic vertebral bodies and facets are well aligned. The thoracic vertebral body heights are preserved. There is no acute fracture nor destructive process of the visualized osseous structures. There is intervertebral disc height loss at C4-5, T6-7 and T7-8 and T8-9 with endplate degenerative changes at these levels. No acute fracture nor destructive process of the visualized osseous structures. Atelectasis in the lung bases. Disc bulges at T3-4 and T4-5 contributes mild spinal canal stenosis at these levels. Disc bulges at T6-7 and T8-9 contributing moderate spinal canal stenosis. Disc bulge with left paracentral disc protrusion at T7-8 contributing moderate to severe spinal canal stenosis this level. Facet joint hypertrophy contributes to moderate to severe left T2-3 and moderate right T2-3 neural foraminal stenosis. LUMBAR SPINE: There are 5 nonrib-bearing lumbar-type vertebral bodies. The lumbar vertebral bodies and facets are well aligned. The lumbar vertebral body heights are preserved. There is no acute fracture nor destructive process of the visualized osseous structures. There is intervertebral disc height loss at L1-2 and L2-3 with endplate degenerative changes at these levels. The conus medullaris terminates at L1, normal. Normal distribution of the cauda equina within the thecal sac. Nonspecific moderate to large rectal wall thickening with moderate presacral edema which could be seen with proctocolitis, and the appropriate clinical setting, new when compared with the prior CT abdomen and pelvis exam from 07/10/2024. If warranted clinically, repeat CT abdomen and pelvis with contrast would be beneficial for further characterization. L1-2: Disc bulge impressing the ventral thecal sac. Mild spinal canal stenosis. Moderate facet hypertrophy. Mild bilateral neural foraminal stenosis. L2-3: Disc bulge impressing the ventral thecal sac. Moderate spinal canal stenosis. Moderate to marked facet hypertrophy. Moderate to severe left neural foraminal stenosis. Moderate right neural foraminal stenosis. L3-4: Disc bulge impressing the ventral thecal sac. Mild to moderate spinal canal stenosis. Marked facet hypertrophy. Severe left lateral recess narrowing. Severe right neural foraminal stenosis. Moderate to severe left neural foraminal stenosis. L4-5: Disc bulge impressing the ventral thecal sac. Moderate spinal canal stenosis. Moderate to marked facet hypertrophy. Moderate bilateral neural foraminal stenosis. L5-S1: No significant spinal canal stenosis. Moderate facet hypertrophy. Mild to moderate bilateral neural foraminal stenosis. Procedure Note Pranav Jesus MD - 07/15/[address] [address] Examination: CT LUMB SPINE POST MYELO, CT THOR SPINE POST MYELO, CT CERVSPINE POST MYELO, 07/14/2024 2:05 PM. Technique: Computed tomographic images of the cervical, thoracic andlumbar spine were obtained after myelographic contrast administrationAdditional coronal and sagittal reformatted images were generated at [employer] workstation. A dose lowering technique was used for thisprocedure, which may include, but is not limited to, dose reductiontechnique, automated exposure control, the use of iterativereconstruction, and ALARA (As Low As Reasonably Achievable) / Image Gentlytechniques. Clinical history: myelo Comparison: CT cervical myelogram 07/17/2022 Findings: CERVICAL SPINE: The cervical vertebral bodies and facets are well aligned.The cervical vertebral body heights are preserved. There is intervertebraldisc height loss at C2-3 and C3-4 with endplate degenerative changes atthese levels. Moderate to marked atlantodental hypertrophic degenerativechange. Adequate opacification of the upper cervical spine C2-3: Congenital pedicular shortening and disc bulge impressing theventral thecal sac contributing to mild to moderate spinal canal stenosis.Uncovertebral joint hypertrophy. Mild left neural foraminal stenosis. Noright neural foraminal stenosis. C3-4: Congenital pedicular shortening and disc bulge impressing theventral thecal sac contributing to severe spinal canal stenosis withmarked flattening of the spinal cord at this level. Uncovertebral jointhypertrophy. Moderate to severe bilateral neural foraminal stenosis. C4-5: Congenital pedicular shortening with disc bulge impressing theventral thecal sac contributing to mild to moderate spinal canal stenosis.Uncovertebral joint hypertrophy. Moderate to severe right neural foraminalstenosis. Moderate left neural foraminal stenosis. C5-6: Disc bulge with superimposed central disc protrusion impressing theventral thecal sac. Severe spinal canal stenosis. Uncovertebral jointhypertrophy. Moderate to severe right neural foraminal stenosis. Mild tomoderate left neural foraminal stenosis. C6-7: No significant spinal canal stenosis. Uncovertebral jointhypertrophy. Mild bilateral neural foraminal stenosis. C7-T1: No significant spinal canal stenosis. Uncovertebral jointhypertrophy. Mild left neural foraminal stenosis. No right neuralforaminal stenosis. THORACIC SPINE: There are 12 rib-bearing thoracic type vertebral bodies.The thoracic vertebral bodies and facets are well aligned. The thoracicvertebral body heights are preserved. There is no acute fracture nordestructive process of the visualized osseous structures. There isintervertebral disc height loss at C4-5, T6-7 and T7-8 and T8-9 withendplate degenerative changes at these levels. No acute fracture nordestructive process of the visualized osseous structures. Atelectasis inthe lung bases. Disc bulges at T3-4 and T4-5 contributes mild spinal canal stenosis atthese levels. Disc bulges at T6-7 and T8-9 contributing moderate spinalcanal stenosis. Disc bulge with left paracentral disc protrusion at T7-8contributing moderate to severe spinal canal stenosis this level. Facetjoint hypertrophy contributes to moderate to severe left T2-3 and moderateright T2-3 neural foraminal stenosis. LUMBAR SPINE: There are 5 nonrib-bearing lumbar-type vertebral bodies. Thelumbar vertebral bodies and facets are well aligned. The lumbar vertebralbody heights are preserved. There is no acute fracture nor destructiveprocess of the visualized osseous structures. There is intervertebral discheight loss at L1-2 and L2-3 with endplate degenerative changes at theselevels. The conus medullaris terminates at L1, normal. Normal distributionof the cauda equina within the thecal sac. Nonspecific moderate to largerectal wall thickening with moderate presacral edema which could be seenwith proctocolitis, and the appropriate clinical setting, new whencompared with the prior CT abdomen and pelvis exam from 07/10/2024. Ifwarranted clinically, repeat CT abdomen and pelvis with contrast would bebeneficial for further characterization. L1-2: Disc bulge impressing the ventral thecal sac. Mild spinal canalstenosis. Moderate facet hypertrophy. Mild bilateral neural foraminalstenosis. L2-3: Disc bulge impressing the ventral thecal sac. Moderate spinal canalstenosis. Moderate to marked facet hypertrophy. Moderate to severe leftneural foraminal stenosis. Moderate right neural foraminal stenosis. L3-4: Disc bulge impressing the ventral thecal sac. Mild to moderatespinal canal stenosis. Marked facet hypertrophy. Severe left lateralrecess narrowing. Severe right neural foraminal stenosis. Moderate tosevere left neural foraminal stenosis. L4-5: Disc bulge impressing the ventral thecal sac. Moderate spinal canalstenosis. Moderate to marked facet hypertrophy. Moderate bilateral neuralforaminal stenosis. L5-S1: No significant spinal canal stenosis. Moderate facet hypertrophy.Mild to moderate bilateral neural foraminal stenosis. IMPRESSION: 1. Moderate to severe multilevel cervical spondylosis, greatest at C3-4and C5-6, as described above. 2. Thoracic spondylosis greatest at T7-8 where there is moderate tosevere spinal canal stenosis, as described above. 3. Moderate multilevel lumbar spondylosis, as described above. 4. Nonspecific partially visualized moderate to large rectal wallthickening with moderate presacral edema, new when compared with the priorCT abdomen and pelvis exam from 07/10/2024. Findings could be seen withproctocolitis in the appropriate clinical setting. If warrantedclinically, repeat CT abdomen and pelvis with contrast would be beneficialfor further characterization. Ordered By: BILLY RESENDIZ Interpreted By: Pranav Jesus MD, 07/15/2024 8:16 AM us Billy Resendiz PATTERN [employer]ELOPER CT Final Result * CT LUMB SPINE POST MYELO (07/14/2024 7:12 PM CDT) Anatomical Region Laterality Modality Spine Computed Tomogra phy 07/15/2024 8:16 AM CDT Impressions 07/15/2024 8:43 AM CDT IMPRESSION: 1. Moderate to severe multilevel cervical spondylosis, greatest at C3-4 and C5-6, as described above. 2. Thoracic spondylosis greatest at T7-8 where there is moderate to severe spinal canal stenosis, as described above. 3. Moderate multilevel lumbar spondylosis, as described above. 4. Nonspecific partially visualized moderate to large rectal wall thickening with moderate presacral edema, new when compared with the prior CT abdomen and pelvis exam from 07/10/2024. Findings could be seen with proctocolitis in the appropriate clinical setting. If warranted clinically, repeat CT abdomen and pelvis with contrast would be beneficial for further characterization. Ordered By: BILLY RESENDIZ Interpreted By: Pranav Jesus MD, 07/15/2024 8:16 AM Narrative 07/15/2024 8:43 AM CDT [address] [id number] Examination: CT LUMB SPINE POST MYELO, CT THOR SPINE POST MYELO, CT CERV SPINE POST MYELO, 07/14/2024 2:05 PM. Technique: Computed tomographic images of the cervical, thoracic and lumbar spine were obtained after myelographic contrast administration Additional coronal and sagittal reformatted images were generated at a separate workstation. A dose lowering technique was used for this procedure, which may include, but is not limited to, dose reduction technique, automated exposure control, the use of iterative reconstruction, and ALARA (As Low As Reasonably Achievable) / Image Gently techniques. Clinical history: myelo Comparison: CT cervical myelogram 07/17/2022 Findings: CERVICAL SPINE: The cervical vertebral bodies and facets are well aligned. The cervical vertebral body heights are preserved. There is intervertebral disc height loss at C2-3 and C3-4 with endplate degenerative changes at these levels. Moderate to marked atlantodental hypertrophic degenerative change. 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 Uncovertebral joint hypertrophy. Mild left neural foraminal stenosis. No right neural foraminal stenosis. C3-4: Congenital pedicular shortening and disc bulge impressing the ventral thecal sac contributing to severe spinal canal stenosis with marked flattening of the spinal cord at this level. Uncovertebral joint hypertrophy. Moderate to severe bilateral neural foraminal stenosis. C4-5: Congenital pedicular shortening with disc bulge impressing the ventral thecal sac contributing to mild to moderate spinal canal stenosis. Uncovertebral joint hypertrophy. Moderate to severe right neural foraminal stenosis. Moderate left neural foraminal stenosis. C5-6: Disc bulge with superimposed central disc protrusion impressing the ventral thecal sac. Severe spinal canal stenosis. Uncovertebral joint hypertrophy. Moderate to severe right neural foraminal stenosis. Mild to moderate left neural foraminal stenosis. C6-7: No significant spinal canal stenosis. Uncovertebral joint hypertrophy. Mild bilateral neural foraminal stenosis. C7-T1: No significant spinal canal stenosis. Uncovertebral joint hypertrophy. Mild left neural foraminal stenosis. No right neural foraminal stenosis. THORACIC SPINE: There are 12 rib-bearing thoracic type vertebral bodies. The thoracic vertebral bodies and facets are well aligned. The thoracic vertebral body heights are preserved. There is no acute fracture nor destructive process of the visualized osseous structures. There is intervertebral disc height loss at C4-5, T6-7 and T7-8 and T8-9 with endplate degenerative changes at these levels. No acute fracture nor destructive process of the visualized osseous structures. Atelectasis in the lung bases. Disc bulges at T3-4 and T4-5 contributes mild spinal canal stenosis at these levels. Disc bulges at T6-7 and T8-9 contributing moderate spinal canal stenosis. Disc bulge with left paracentral disc protrusion at T7-8 contributing moderate to severe spinal canal stenosis this level. Facet joint hypertrophy contributes to moderate to severe left T2-3 and moderate right T2-3 neural foraminal stenosis. LUMBAR SPINE: There are 5 nonrib-bearing lumbar-type vertebral bodies. The lumbar vertebral bodies and facets are well aligned. The lumbar vertebral body heights are preserved. There is no acute fracture nor destructive process of the visualized osseous structures. There is intervertebral disc height loss at L1-2 and L2-3 with endplate degenerative changes at these levels. The conus medullaris terminates at L1, normal. Normal distribution of the cauda equina within the thecal sac. Nonspecific moderate to large rectal wall thickening with moderate presacral edema which could be seen with proctocolitis, and the appropriate clinical setting, new when compared with the prior CT abdomen and pelvis exam from 07/10/2024. If warranted clinically, repeat CT abdomen and pelvis with contrast would be beneficial for further characterization. L1-2: Disc bulge impressing the ventral thecal sac. Mild spinal canal stenosis. Moderate facet hypertrophy. Mild bilateral neural foraminal stenosis. L2-3: Disc bulge impressing the ventral thecal sac. Moderate spinal canal stenosis. Moderate to marked facet hypertrophy. Moderate to severe left neural foraminal stenosis. Moderate right neural foraminal stenosis. L3-4: Disc bulge impressing the ventral thecal sac. Mild to moderate spinal canal stenosis. Marked facet hypertrophy. Severe left lateral recess narrowing. Severe right neural foraminal stenosis. Moderate to severe left neural foraminal stenosis. L4-5: Disc bulge impressing the ventral thecal sac. Moderate spinal canal stenosis. Moderate to marked facet hypertrophy. Moderate bilateral neural foraminal stenosis. L5-S1: No significant spinal canal stenosis. Moderate facet hypertrophy. Mild to moderate bilateral neural foraminal stenosis. Procedure Note Pranav Jesus MD - 07/15/[address] [address] Examination: CT LUMB SPINE POST MYELO, CT THOR SPINE POST MYELO, CT CERVSPINE POST MYELO, 07/14/2024 2:05 PM. Technique: Computed tomographic images of the cervical, thoracic andlumbar spine were obtained after myelographic contrast administrationAdditional coronal and sagittal reformatted images were generated at [employer] workstation. A dose lowering technique was used for thisprocedure, which may include, but is not limited to, dose reductiontechnique, automated exposure control, the use of iterativereconstruction, and ALARA (As Low As Reasonably Achievable) / Image Gentlytechniques. Clinical history: myelo Comparison: CT cervical myelogram 07/17/2022 Findings: CERVICAL SPINE: The cervical vertebral bodies and facets are well aligned.The cervical vertebral body heights are preserved. There is intervertebraldisc height loss at C2-3 and C3-4 with endplate degenerative changes atthese levels. Moderate to marked atlantodental hypertrophic degenerativechange. Adequate opacification of the upper cervical spine C2-3: Congenital pedicular shortening and disc bulge impressing theventral thecal sac contributing to mild to moderate spinal canal stenosis.Uncovertebral joint hypertrophy. Mild left neural foraminal stenosis. Noright neural foraminal stenosis. C3-4: Congenital pedicular shortening and disc bulge impressing theventral thecal sac contributing to severe spinal canal stenosis withmarked flattening of the spinal cord at this level. Uncovertebral jointhypertrophy. Moderate to severe bilateral neural foraminal stenosis. C4-5: Congenital pedicular shortening with disc bulge impressing theventral thecal sac contributing to mild to moderate spinal canal stenosis.Uncovertebral joint hypertrophy. Moderate to severe right neural foraminalstenosis. Moderate left neural foraminal stenosis. C5-6: Disc bulge with superimposed central disc protrusion impressing theventral thecal sac. Severe spinal canal stenosis. Uncovertebral jointhypertrophy. Moderate to severe right neural foraminal stenosis. Mild tomoderate left neural foraminal stenosis. C6-7: No significant spinal canal stenosis. Uncovertebral jointhypertrophy. Mild bilateral neural foraminal stenosis. C7-T1: No significant spinal canal stenosis. Uncovertebral jointhypertrophy. Mild left neural foraminal stenosis. No right neuralforaminal stenosis. THORACIC SPINE: There are 12 rib-bearing thoracic type vertebral bodies.The thoracic vertebral bodies and facets are well aligned. The thoracicvertebral body heights are preserved. There is no acute fracture nordestructive process of the visualized osseous structures. There isintervertebral disc height loss at C4-5, T6-7 and T7-8 and T8-9 withendplate degenerative changes at these levels. No acute fracture nordestructive process of the visualized osseous structures. Atelectasis inthe lung bases. Disc bulges at T3-4 and T4-5 contributes mild spinal canal stenosis atthese levels. Disc bulges at T6-7 and T8-9 contributing moderate spinalcanal stenosis. Disc bulge with left paracentral disc protrusion at T7-8contributing moderate to severe spinal canal stenosis this level. Facetjoint hypertrophy contributes to moderate to severe left T2-3 and moderateright T2-3 neural foraminal stenosis. LUMBAR SPINE: There are 5 nonrib-bearing lumbar-type vertebral bodies. Thelumbar vertebral bodies and facets are well aligned. The lumbar vertebralbody heights are preserved. There is no acute fracture nor destructiveprocess of the visualized osseous structures. There is intervertebral discheight loss at L1-2 and L2-3 with endplate degenerative changes at theselevels. The conus medullaris terminates at L1, normal. Normal distributionof the cauda equina within the thecal sac. Nonspecific moderate to largerectal wall thickening with moderate presacral edema which could be seenwith proctocolitis, and the appropriate clinical setting, new whencompared with the prior CT abdomen and pelvis exam from 07/10/2024. Ifwarranted clinically, repeat CT abdomen and pelvis with contrast would bebeneficial for further characterization. L1-2: Disc bulge impressing the ventral thecal sac. Mild spinal canalstenosis. Moderate facet hypertrophy. Mild bilateral neural foraminalstenosis. L2-3: Disc bulge impressing the ventral thecal sac. Moderate spinal canalstenosis. Moderate to marked facet hypertrophy. Moderate to severe leftneural foraminal stenosis. Moderate right neural foraminal stenosis. L3-4: Disc bulge impressing the ventral thecal sac. Mild to moderatespinal canal stenosis. Marked facet hypertrophy. Severe left lateralrecess narrowing. Severe right neural foraminal stenosis. Moderate tosevere left neural foraminal stenosis. L4-5: Disc bulge impressing the ventral thecal sac. Moderate spinal canalstenosis. Moderate to marked facet hypertrophy. Moderate bilateral neuralforaminal stenosis. L5-S1: No significant spinal canal stenosis. Moderate facet hypertrophy.Mild to moderate bilateral neural foraminal stenosis. IMPRESSION: 1. Moderate to severe multilevel cervical spondylosis, greatest at C3-4and C5-6, as described above. 2. Thoracic spondylosis greatest at T7-8 where there is moderate tosevere spinal canal stenosis, as described above. 3. Moderate multilevel lumbar spondylosis, as described above. 4. Nonspecific partially visualized moderate to large rectal wallthickening with moderate presacral edema, new when compared with the priorCT abdomen and pelvis exam from 07/10/2024. Findings could be seen withproctocolitis in the appropriate clinical setting. If warrantedclinically, repeat CT abdomen and pelvis with contrast would be beneficialfor further characterization. Ordered By: BILLY RESENDIZ Interpreted By: Pranav Jesus MD, 07/15/2024 8:16 AM Billy Resendiz PATTERN DEVELOPER CT Final Result * CT CERV SPINE POST MYELO (07/14/2024 7:12 PM CDT) Anatomical Region Laterality Modality Spine Computed Tomogra phy 07/15/2024 8:16 AM CDT Impressions 07/15/2024 8:43 AM CDT IMPRESSION: 1. Moderate to severe multilevel cervical spondylosis, greatest at C3-4 and C5-6, as described above. 2. Thoracic spondylosis greatest at T7-8 where there is moderate to severe spinal canal stenosis, as described above. 3. Moderate multilevel lumbar spondylosis, as described above. 4. Nonspecific partially visualized moderate to large rectal wall thickening with moderate presacral edema, new when compared with the prior CT abdomen and pelvis exam from 07/10/2024. Findings could be seen with proctocolitis in the appropriate clinical setting. If warranted clinically, repeat CT abdomen and pelvis with contrast would be beneficial for further characterization. Ordered By: BILLY RESENDIZ Interpreted By: Pranav Jesus MD, 07/15/2024 8:16 AM Narrative 07/15/2024 8:43 AM CDT [address] [address] Examination: CT LUMB SPINE POST MYELO, CT THOR SPINE POST MYELO, CT CERV SPINE POST MYELO, 07/14/2024 2:05 PM. Technique: Computed tomographic images of the cervical, thoracic and lumbar spine were obtained after myelographic contrast administration Additional coronal and sagittal reformatted images were generated at a separate workstation. A dose lowering technique was used for this procedure, which may include, but is not limited to, dose reduction technique, automated exposure control, the use of iterative reconstruction, and ALARA (As Low As Reasonably Achievable) / Image Gently techniques. Clinical history: myelo Comparison: CT cervical myelogram 07/17/2022 Findings: CERVICAL SPINE: The cervical vertebral bodies and facets are well aligned. The cervical vertebral body heights are preserved. There is intervertebral disc height loss at C2-3 and C3-4 with endplate degenerative changes at these levels. Moderate to marked atlantodental hypertrophic degenerative change. 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 Uncovertebral joint hypertrophy. Mild left neural foraminal stenosis. No right neural foraminal stenosis. C3-4: Congenital pedicular shortening and disc bulge impressing the ventral thecal sac contributing to severe spinal canal stenosis with marked flattening of the spinal cord at this level. Uncovertebral joint hypertrophy. Moderate to severe bilateral neural foraminal stenosis. C4-5: Congenital pedicular shortening with disc bulge impressing the ventral thecal sac contributing to mild to moderate spinal canal stenosis. Uncovertebral joint hypertrophy. Moderate to severe right neural foraminal stenosis. Moderate left neural foraminal stenosis. C5-6: Disc bulge with superimposed central disc protrusion impressing the ventral thecal sac. Severe spinal canal stenosis. Uncovertebral joint hypertrophy. Moderate to severe right neural foraminal stenosis. Mild to moderate left neural foraminal stenosis. C6-7: No significant spinal canal stenosis. Uncovertebral joint hypertrophy. Mild bilateral neural foraminal stenosis. C7-T1: No significant spinal canal stenosis. Uncovertebral joint hypertrophy. Mild left neural foraminal stenosis. No right neural foraminal stenosis. THORACIC SPINE: There are 12 rib-bearing thoracic type vertebral bodies. The thoracic vertebral bodies and facets are well aligned. The thoracic vertebral body heights are preserved. There is no acute fracture nor destructive process of the visualized osseous structures. There is intervertebral disc height loss at C4-5, T6-7 and T7-8 and T8-9 with endplate degenerative changes at these levels. No acute fracture nor destructive process of the visualized osseous structures. Atelectasis in the lung bases. Disc bulges at T3-4 and T4-5 contributes mild spinal canal stenosis at these levels. Disc bulges at T6-7 and T8-9 contributing moderate spinal canal stenosis. Disc bulge with left paracentral disc protrusion at T7-8 contributing moderate to severe spinal canal stenosis this level. Facet joint hypertrophy contributes to moderate to severe left T2-3 and moderate right T2-3 neural foraminal stenosis. LUMBAR SPINE: There are 5 nonrib-bearing lumbar-type vertebral bodies. The lumbar vertebral bodies and facets are well aligned. The lumbar vertebral body heights are preserved. There is no acute fracture nor destructive process of the visualized osseous structures. There is intervertebral disc height loss at L1-2 and L2-3 with endplate degenerative changes at these levels. The conus medullaris terminates at L1, normal. Normal distribution of the cauda equina within the thecal sac. Nonspecific moderate to large rectal wall thickening with moderate presacral edema which could be seen with proctocolitis, and the appropriate clinical setting, new when compared with the prior CT abdomen and pelvis exam from 07/10/2024. If warranted clinically, repeat CT abdomen and pelvis with contrast would be beneficial for further characterization. L1-2: Disc bulge impressing the ventral thecal sac. Mild spinal canal stenosis. Moderate facet hypertrophy. Mild bilateral neural foraminal stenosis. L2-3: Disc bulge impressing the ventral thecal sac. Moderate spinal canal stenosis. Moderate to marked facet hypertrophy. Moderate to severe left neural foraminal stenosis. Moderate right neural foraminal stenosis. L3-4: Disc bulge impressing the ventral thecal sac. Mild to moderate spinal canal stenosis. Marked facet hypertrophy. Severe left lateral recess narrowing. Severe right neural foraminal stenosis. Moderate to severe left neural foraminal stenosis. L4-5: Disc bulge impressing the ventral thecal sac. Moderate spinal canal stenosis. Moderate to marked facet hypertrophy. Moderate bilateral neural foraminal stenosis. L5-S1: No significant spinal canal stenosis. Moderate facet hypertrophy. Mild to moderate bilateral neural foraminal stenosis. Procedure Note Pranav Jesus MD - 07/15/[address] [id number] Examination: CT LUMB SPINE POST MYELO, CT THOR SPINE POST MYELO, CT CERVSPINE POST MYELO, 07/14/2024 2:05 PM. Technique: Computed tomographic images of the cervical, thoracic andlumbar spine were obtained after myelographic contrast administrationAdditional coronal and sagittal reformatted images were generated at [employer] workstation. A dose lowering technique was used for thisprocedure, which may include, but is not limited to, dose reductiontechnique, automated exposure control, the use of iterativereconstruction, and ALARA (As Low As Reasonably Achievable) / Image Gentlytechniques. Clinical history: myelo Comparison: CT cervical myelogram 07/17/2022 Findings: CERVICAL SPINE: The cervical vertebral bodies and facets are well aligned.The cervical vertebral body heights are preserved. There is intervertebraldisc height loss at C2-3 and C3-4 with endplate degenerative changes atthese levels. Moderate to marked atlantodental hypertrophic degenerativechange. Adequate opacification of the upper cervical spine C2-3: Congenital pedicular shortening and disc bulge impressing theventral thecal sac contributing to mild to moderate spinal canal stenosis.Uncovertebral joint hypertrophy. Mild left neural foraminal stenosis. Noright neural foraminal stenosis. C3-4: Congenital pedicular shortening and disc bulge impressing theventral thecal sac contributing to severe spinal canal stenosis withmarked flattening of the spinal cord at this level. Uncovertebral jointhypertrophy. Moderate to severe bilateral neural foraminal stenosis. C4-5: Congenital pedicular shortening with disc bulge impressing theventral thecal sac contributing to mild to moderate spinal canal stenosis.Uncovertebral joint hypertrophy. Moderate to severe right neural foraminalstenosis. Moderate left neural foraminal stenosis. C5-6: Disc bulge with superimposed central disc protrusion impressing theventral thecal sac. Severe spinal canal stenosis. Uncovertebral jointhypertrophy. Moderate to severe right neural foraminal stenosis. Mild tomoderate left neural foraminal stenosis. C6-7: No significant spinal canal stenosis. Uncovertebral jointhypertrophy. Mild bilateral neural foraminal stenosis. C7-T1: No significant spinal canal stenosis. Uncovertebral jointhypertrophy. Mild left neural foraminal stenosis. No right neuralforaminal stenosis. THORACIC SPINE: There are 12 rib-bearing thoracic type vertebral bodies.The thoracic vertebral bodies and facets are well aligned. The thoracicvertebral body heights are preserved. There is no acute fracture nordestructive process of the visualized osseous structures. There isintervertebral disc height loss at C4-5, T6-7 and T7-8 and T8-9 withendplate degenerative changes at these levels. No acute fracture nordestructive process of the visualized osseous structures. Atelectasis inthe lung bases. Disc bulges at T3-4 and T4-5 contributes mild spinal canal stenosis atthese levels. Disc bulges at T6-7 and T8-9 contributing moderate spinalcanal stenosis. Disc bulge with left paracentral disc protrusion at T7-8contributing moderate to severe spinal canal stenosis this level. Facetjoint hypertrophy contributes to moderate to severe left T2-3 and moderateright T2-3 neural foraminal stenosis. LUMBAR SPINE: There are 5 nonrib-bearing lumbar-type vertebral bodies. Thelumbar vertebral bodies and facets are well aligned. The lumbar vertebralbody heights are preserved. There is no acute fracture nor destructiveprocess of the visualized osseous structures. There is intervertebral discheight loss at L1-2 and L2-3 with endplate degenerative changes at theselevels. The conus medullaris terminates at L1, normal. Normal distributionof the cauda equina within the thecal sac. Nonspecific moderate to largerectal wall thickening with moderate presacral edema which could be seenwith proctocolitis, and the appropriate clinical setting, new whencompared with the prior CT abdomen and pelvis exam from 07/10/2024. Ifwarranted clinically, repeat CT abdomen and pelvis with contrast would bebeneficial for further characterization. L1-2: Disc bulge impressing the ventral thecal sac. Mild spinal canalstenosis. Moderate facet hypertrophy. Mild bilateral neural foraminalstenosis. L2-3: Disc bulge impressing the ventral thecal sac. Moderate spinal canalstenosis. Moderate to marked facet hypertrophy. Moderate to severe leftneural foraminal stenosis. Moderate right neural foraminal stenosis. L3-4: Disc bulge impressing the ventral thecal sac. Mild to moderatespinal canal stenosis. Marked facet hypertrophy. Severe left lateralrecess narrowing. Severe right neural foraminal stenosis. Moderate tosevere left neural foraminal stenosis. L4-5: Disc bulge impressing the ventral thecal sac. Moderate spinal canalstenosis. Moderate to marked facet hypertrophy. Moderate bilateral neuralforaminal stenosis. L5-S1: No significant spinal canal stenosis. Moderate facet hypertrophy.Mild to moderate bilateral neural foraminal stenosis. IMPRESSION: 1. Moderate to severe multilevel cervical spondylosis, greatest at C3-4and C5-6, as described above. 2. Thoracic spondylosis greatest at T7-8 where there is moderate tosevere spinal canal stenosis, as described above. 3. Moderate multilevel lumbar spondylosis, as described above. 4. Nonspecific partially visualized moderate to large rectal wallthickening with moderate presacral edema, new when compared with the priorCT abdomen and pelvis exam from 07/10/2024. Findings could be seen withproctocolitis in the appropriate clinical setting. If warrantedclinically, repeat CT abdomen and pelvis with contrast would be beneficialfor further characterization. Ordered By: BILLY RESENDIZ Interpreted By: Pranav Jesus MD, 07/15/2024 8:16 AM us Billy Resendiz PATTERN DEVELOPER CT Final Result * XR MYELOGRAM ENTIRE SPINE (07/14/2024 1:58 PM CDT) Anatomical Region Laterality Modality Spine Fluoroscopy 07/14/2024 2:48 PM CDT Impressions 07/15/2024 8:10 AM CDT IMPRESSION: Uncomplicated lumbar myelogram demonstrating multiple areas of stenosis, but no evidence of myelographic block. Please see separately reported lumbar CT myelography for more detailed description of the CT myelography findings. The attending radiologist, Dr. Pranav Jesus MD, was available during all critical portions of the procedure, has reviewed the image(s) and agrees with the content of this report. Ordered By: BILLY RESENDIZ Interpreted By: Frank Cardona MD, 07/14/2024 2:48 PM Narrative 07/15/2024 8:10 AM CDT [facility] [address] [place], [place] [address] EXAMINATION: Fluoroscopy guided lumbar puncture for myelography INDICATION: Worsening myelopathy. COMPARISON: Fluoroscopic myelogram 07/17/2022 TECHNIQUE & FINDINGS: The procedure as well as the risks and benefits of the procedure were explained to the patient in great detail. The patient expressed verbal understanding of the risks, and informed consent was obtained. A verification timeout was performed. The skin overlying the lumbar region was sterilely prepped and draped. Under fluoroscopic guidance, a 20-gauge 3-1/2inch long spinal needle was initially advanced into the L4-5 interlaminar space. No CSF returned. Crosstable lateral was obtained which demonstrated the needle to be in the appropriate position. A very small volume of contrast was instilled, which caused the patient great discomfort. Therefore instillation of contrast was stopped. The spinal needle was withdrawn. The skin overlying the L2-3 interlaminar space was anesthetized with lidocaine. A new 20- gauge 3 1/2 inch long spinal needle was then advanced into the L2-3 interlaminar space with prompt return of clear CSF. A total of 12.5 cc Isovue 200 contrast was then instilled via a slow hand-injection into the thecal sac. The stylet was reinserted and the needle was removed. There were no immediate complications. Spot radiographs were obtained in several projections in the fluoroscopy suite. Radiographs reveal good distribution of myelographic contrast throughout the lumbar spine without evidence of myelographic block. Total fluoroscopy time/reference air kerma :1.5 minutes, 39.0 mGy and 8 images. Procedure Note Pranav Jesus MD - 07/15/2024 [place] [address] EXAMINATION: Fluoroscopy guided lumbar puncture for myelography INDICATION: Worsening myelopathy. COMPARISON: Fluoroscopic myelogram 07/17/2022 TECHNIQUE & FINDINGS: The procedure as well as the risks and benefits of the procedure wereexplained to the patient in great detail. The patient expressed verbalunderstanding of the risks, and informed consent was obtained. Averification timeout was performed. The skin overlying the lumbar region was sterilely prepped and draped.Under fluoroscopic guidance, a 20-gauge 3-1/2inch long spinal needle wasinitially advanced into the L4-5 interlaminar space. No CSF returned.Crosstable lateral was obtained which demonstrated the needle to be in theappropriate position. A very small volume of contrast was instilled, whichcaused the patient great discomfort. Therefore instillation of contrastwas stopped. The spinal needle was withdrawn. The skin overlying the L2-3interlaminar space was anesthetized with lidocaine. A new 20- gauge 3 1/2inch long spinal needle was then advanced into the L2-3 interlaminar spacewith prompt return of clear CSF. A total of 12.5 cc Isovue 200 contrastwas then instilled via a slow hand-injection into the thecal sac. Thestylet was reinserted and the needle was removed. There were no immediatecomplications. Spot radiographs were obtained in several projections in the fluoroscopysuite. Radiographs reveal good distribution of myelographic contrastthroughout the lumbar spine without evidence of myelographic block. Total fluoroscopy time/reference air kerma :1.5 minutes, 39.0 mGy and 8images. IMPRESSION: Uncomplicated lumbar myelogram demonstrating multiple areas of stenosis,but no evidence of myelographic block. Please see separately reported lumbar CT myelography for more detaileddescription of the CT myelography findings. The attending radiologist, Dr. Pranav Jesus MD, was available during allcritical portions of the procedure, has reviewed the image(s) and agreeswith the content of this report. Ordered By: BILLY RESENDIZ Interpreted By: Frank Cardona MD, 07/14/2024 2:48 PM us Billy Resendiz PATTERN DEVELOPER FLUOROSCOPY Final Result * (ABNORMAL) URINALYSIS (07/14/2024 10:45 AM CDT) Only the most recent of4 resultswithin the time period is included. COLOR (U) BRIONNA 07/14/2024 11:01 AM CDT [facility] TRANSPARENCY CLOUDY 07/14/2024 11:16 AM CDT [facility] SPECIFIC GRAVITY (U) 1.011 1.002 - 1.035 07/14/2024 11:16 AM CDT [facility] U PH 6.5 5 - 8 07/14/2024 11:16 AM CDT [facility] PROTEIN RANDOM (U) 30(A) NEGATIVE 07/14/2024 11:16 AM CDT [facility] GLUCOSE (U) NEGATIVE NEGATIVE MG/DL 07/14/2024 11:16 AM CDT [facility] KETONES MG/DL (U) NEGATIVE NEGATIVE 07/14/2024 11:16 AM CDT [facility] BILIRUBIN (U) NEGATIVE NEGATIVE 07/14/2024 11:16 AM CDT [facility] BLOOD (U) 3+(A) NEGATIVE 07/14/2024 11:16 AM CDT [facility] NITRITES POSITIVE(A) NEGATIVE 07/14/2024 11:16 AM CDT [facility] UROBILINOGEN NORMAL 0 - 1 EU/DL 07/14/2024 11:16 AM CDT [facility] LEUKOCYTES (U) 3+(A) NEGATIVE 07/14/2024 11:16 AM CDT [facility] RBC/HPF >182(H) 0 - 3 /HPF 07/14/2024 11:16 AM CDT [facility] Comment:PLEASE CALL THE LAB WITHIN 2 HOURS IF ACTUAL NUMBER OF CELLS IS REQUIRED. WBC/HPF 168(H) 0 - 6 /HPF 07/14/2024 11:16 AM CDT [facility] BACTERIA (U) PRESENT /HPF 07/14/2024 11:16 AM CDT [facility] URINE SPECIMEN OBTAINED VIA INDWELLING URINARY CATHETER / Unknown 07/14/2024 10:45 AM CDT us Jayson Traore MD URINE ORDERABLES Final Result Performing Organization Address City/State/[facility] Co de Phone Number [facility] [address] [place] [address], [phone] * ECG 12 lead (07/12/2024 12:57 PM CDT) Only the most recent of4 resultswithin the time period is included. 07/12/2024 12:5 7 PM CDT Narrative [facility] - 07/12/2024 5:32 PM CDT [facility] [address] [place] [address] Test Date: 2024-07-12 Pat Name: ERNESTO IMELDA Department: 1 Room: [facility] Gender: Male Building Mover: As : 1940 Requested By: BILLY RESENDIZ Order Number: [id number] Reading MD: Christina Booker Measurements Intervals [place] Rate: 79 P: 9 KS: 219 QRS: 12 QRSD: 122 T: 57 QT: 378 QTc: 435 Interpretive Statements ELECTRONIC ATRIAL PACEMAKER ELECTRONIC VENTRICULAR PACEMAKER MARKED ST ELEVATION, CONSIDER INFERIOR INJURY [MARKED ST ELEVATION W/O NORMALLY INFLECTED T-WAVE IN II/aVF] +++ ACUTE AL +++ Procedure Note Christina Booker MD - 07/12/2024 [place] [address] [place] [address] Test Date: 2024-07-12 Pat Name: ERNESTO SERRANOICKS Department: 1 Room: [facility] Gender: Male Building Mover: As : 1940 Requested By: BILLY RESENDIZ Order Number: [id number] Reading MD: Christina Booker Measurements Intervals [place] Rate: 79 P: 9 KS: 219 QRS: 12 QRSD: 122 T: 57 QT: 378 QTc: 435 Interpretive Statements ELECTRONIC ATRIAL PACEMAKER ELECTRONIC VENTRICULAR PACEMAKER MARKED ST ELEVATION, CONSIDER INFERIOR INJURY [MARKED ST ELEVATION W/O NORMALLY INFLECTED T-WAVE IN II/aVF] +++ ACUTE AL +++ Billy Resendiz PATTERN DEVELOPER ECG ORDERABLES Final Result [facility] * PARTIAL THROMBOPLASTIN TIME,PTT (07/12/2024 12:51 PM CDT) PTT 29.9 25.1 - 36.5 SEC 07/12/2024 1:24 PM CDT [facility] 07/12/2024 12:5 1 PM CDT Billy Resendiz PATTERN DEVELOPER LABORATORY Final Result [facility] [address] [place] [address], [place] [phone] [id number] * LACTIC ACID (07/12/2024 4:19 AM CDT) Only the most recent of2 resultswithin the time period is included. LACTIC ACID VENOUS 0.8 0.4 - 2.0 MMOL/L 07/12/2024 4:56 AM CDT [facility] 07/12/2024 4:19 AM CDT Nuria Dailey [facility] Final Res ult Performing Organization Address City/[facility]/ZIP Co de Phone Number [facility] [address] [place] [address], * XR CHEST PA+LAT (07/11/2024 4:57 PM CDT) Only the most recent of2 resultswithin the time period is included. Anatomical Region Laterality Modality Chest Radiographic Stephani ging 07/11/2024 4:59 PM CDT Impressions 07/11/2024 5:01 PM CDT IMPRESSION: Mild scattered bronchial wall thickening without focal pulmonary consolidation that is nonspecific but could reflect asthma, bronchitis, viral illness, and/or smoking. Referred By: Interpreted By: Albert Martinez DO, 07/11/2024 4:59 PM Narrative 07/11/2024 5:[address] PM [address]T [address] [place] [address] Examination: XR CHEST PA+LAT Exam time: 07/11/2024 4:57 PM Clinical history: Leukocytosis. Comparison: Chest radiographs 07/07/2024, 06/25/2024, 06/12/2024, and 10/14/2022. Technique: Upright AP and lateral views of the chest (3 total images). Findings: There is a right anterior chest wall 3-lead pacemaker with lead tips in the right atrium, right ventricle, and coronary sinus. The cardiomediastinal silhouette is normal in size. Pulmonary vasculature is appropriately distributed. There are mild atherosclerotic calcifications of the thoracic aorta. A calcified granuloma is noted in the left lung apex appearing similar to the prior examination. There is mild scattered bronchial wall thickening without focal pulmonary consolidation. There is no pleural effusion or pneumothorax. Multilevel degenerative disc disease affects the thoracic spine, greatest in the mid to lower thoracic spine. Procedure Note Albert Martinez DO - 07/11/2024 [place] [id number] [place] [address] Examination: XR CHEST PA+LAT Exam time: 07/11/2024 4:57 PM Clinical history: Leukocytosis. Comparison: Chest radiographs 07/07/2024, 06/25/2024, 06/12/2024, and10/14/2022. Technique: Upright AP and lateral views of the chest (3 total images). Findings: There is a right anterior chest wall 3-lead pacemaker with lead tips inthe right atrium, right ventricle, and coronary sinus. Thecardiomediastinal silhouette is normal in size. Pulmonary vasculature isappropriately distributed. There are mild atherosclerotic calcificationsof the thoracic aorta. A calcified granuloma is noted in the left lungapex appearing similar to the prior examination. There is mild scatteredbronchial wall thickening without focal pulmonary consolidation. There isno pleural effusion or pneumothorax. Multilevel degenerative disc diseaseaffects the thoracic spine, greatest in the mid to lower thoracic spine. IMPRESSION: Mild scattered bronchial wall thickening without focal pulmonaryconsolidation that is nonspecific but could reflect asthma, bronchitis,viral illness, and/or smoking. Referred By: Interpreted By: Albert Martinez DO, 07/11/2024 4:59 PM Nuria Dailey [facility] Final Res ult * URINE BACTERIA CULTURE (07/11/2024 4:20 PM CDT) Only the most recent of3 resultswithin the time period is included. SPEC DESCRIPTION URINE CERNA CATH 07/11/2024 4:03 PM CDT [facility] SPECIAL REQUESTS NO SPECIAL REQUEST 07/11/2024 4:03 PM CDT [facility] CULTURE RESULT >25,000 TO 50,000 CFU/mL PSEUDOMONAS AERUGINOSA 07/13/2024 1:40 PM CDT [facility] URINE SPECIMEN OBTAINED VIA INDWELLING URINARY CATHETER / Unknown 07/11/2024 4:20 PM CDT 07/11/2024 4:25 PM CDT Narrative Organism Antibiotic Method Susceptibility Pseudomonas aeruginosa AMIKACIN TRISTAN (KB) Sensitive Pseudomonas aeruginosa CEFEPIME TRISTAN (KB) Sensitive Pseudomonas aeruginosa CEFTAZIDIME TRISTAN (KB) INTERMEDIATE: Intermediate Pseudomonas aeruginosa CIPROFLOXACIN TRISTAN (KB) Sensitive Pseudomonas aeruginosa LEVOFLOXACIN TRISTAN (KB) Sensitive Pseudomonas aeruginosa PIPRACIL/TAZO TRISTAN (KB) INTERMEDIATE: Intermediate Pseudomonas aeruginosa TOBRAMYCIN TRISTAN (KB) Sensitive Pseudomonas aeruginosa MEROPENEM TRISTAN (KB) Sensitive Pseudomonas aeruginosa AZTREONAM TRISTAN (KB) INTERMEDIATE: Intermediate Nuria Dailey [facility] - GENERAL OR DERABLES Final Result [facility] [address] [place] [address], [phone] [facility] [address] [place] [phone], * CT LUMB SPINE WO CON (07/10/2024 7:28 AM CDT) Anatomical Region Laterality Modality Spine Computed Tomogra phy 07/10/2024 7:45 AM CDT Impressions 07/10/2024 7:51 AM CDT IMPRESSION: 1. No acute abnormality. 2. Multilevel degenerative changes. Referred By: Interpreted By: Manan Armstrong MD, 07/10/2024 7:45 AM Narrative 07/10/2024 7:51 AM CDT [address] [place] [address] Examination: CT LUMB SPINE WO CON Exam time: 07/10/2024 7:10 AM Clinical history: Pain. Spinal stenosis. Urinary retention Comparison: 06/05/[address] [facility]. Technique: Axial images were performed throughout the lumbar spine. Coronal and sagittal multiplanar reconstructions reduction techniques were utilized. Findings: There are 5 lumbar type. There is no evidence of fracture. No evidence of traumatic malalignment. There is prominent anterior vertebral body and T11-T12 level T12-L1 level appears unremarkable. Mild anterior vertebral body endplate spurring at L1 level with intervertebral disc height maintained. L2-3 intervertebral disc height is maintained, although, moderate diffuse disc bulge. Moderate bilateral facet joint degenerative change. At the L3-4 level, moderate diffuse disc bulge. Moderate facet degenerative ligamentum flavum hypertrophy. At least moderate circumferential stenosis of the spinal canal. At the L4-L5 level, moderate diffuse disc bulge with bilateral facet degenerative change, ligamentum flavum hypertrophy. Findings result in marked spinal stenosis spinal canal. Intervertebral disc height at the L5-S1 level is maintained with mild bilateral facet joint degenerative change. There is mild bilateral degenerative change involving the sacroiliac joints. No acute abnormality identified involving the sacrum. Procedure Note Manan Armstrong MD - 07/10/[address] [place] [address] Examination: CT LUMB SPINE WO CON Exam time: 07/10/2024 7:10 AM Clinical history: Pain. Spinal stenosis. Urinary retention Comparison: 06/05/[address] [facility]. Technique: Axial images were performed throughout the lumbar spine.Coronal and sagittal multiplanar reconstructions reduction techniques wereutilized. Findings: There are 5 lumbar type. There is no evidence of fracture. No evidence of traumatic malalignment. There is prominent anterior vertebral body and T11-T12 level T12-L1 level appears unremarkable. Mild anterior vertebral body endplate spurring at L1 level withintervertebral disc height maintained. L2-3 intervertebral disc height is maintained, although, moderate diffusedisc bulge. Moderate bilateral facet joint degenerative change. At the L3-4 level, moderate diffuse disc bulge. Moderate facetdegenerative ligamentum flavum hypertrophy. At least moderatecircumferential stenosis of the spinal canal. At the L4-L5 level, moderate diffuse disc bulge with bilateral facetdegenerative change, ligamentum flavum hypertrophy. Findings result inmarked spinal stenosis spinal canal. Intervertebral disc height at the L5-S1 level is maintained with mildbilateral facet joint degenerative change. There is mild bilateral degenerative change involving the sacroiliacjoints. No acute abnormality identified involving the sacrum. IMPRESSION: 1. No acute abnormality. 2. Multilevel degenerative changes. Referred By: Interpreted By: Manan Armstrong MD, 07/10/2024 7:45 AM us Harish Erwin MD CT Final Result * CT ABD+PEL W IV CON ONLY (07/10/2024 7:28 AM CDT) Only the most recent of2 resultswithin the time period is included. Anatomical Region Laterality Modality Abdomen Computed Tomogra phy 07/10/2024 7:52 AM CDT Impressions 07/10/2024 8:00 AM CDT IMPRESSION: 1. No acute abnormality abdomen and pelvis. 2. Cholelithiasis. 3. Large colonic stool burden. Referred By: Interpreted By: Manan Armstrong MD, 07/10/2024 7:52 AM Narrative 07/10/2024 8:00 AM CDT [address] [place] [address] Examination: CT ABD+PEL W CON Exam time: 07/10/2024 7:10 AM Clinical history: Left lower quadrant pain. Urinary retention. Comparison: 06/25/2024 CT abdomen and pelvis Technique: Axial images were performed from the lung bases inferiorly through the pelvis following intravenous injection of 95 mL Isovue-370 contrast material. Coronal and sagittal multiplanar reconstruction images were obtained. CT dose reduction techniques were utilized. Findings: Limited images of the lung bases demonstrate minimal bilateral lower lobe cylindrical bronchiectasis. No evidence of focal pulmonary consolidation or atelectasis. Pacemaker leads are visualized within the right atrium, right ventricle, and coronary sinus. Liver and spleen are normal in size with no definitive evidence of focal hepatic or splenic lesions. 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 The pancreas appears atrophic with no evidence of pancreatic lesions cholelithiasis is present. No evidence of gallbladder wall thickening or pericholecystic inflammatory change. No evidence of biliary duct dilatation Adrenal glands appear unremarkable. There is good perfusion of each kidney with no evidence of renal collecting system obstructive changes or focal renal lesions. There is no evidence of localized small bowel or colonic dilatation or obstructive change. There is a large amount of stool density present throughout the colon consistent with some degree of constipation pattern. Cerna catheter is present within a decompressed urinary bladder. No evidence of ascites, localized fluid collections, or abscesses. Aortoiliac atherosclerotic calcifications with no definitive evidence of aneurysmal dilatation. Small fat-containing right inguinal hernia. No evidence of pathologically enlarged mesenteric, retroperitoneal, pelvic, or inguinal lymph nodes No evidence of destructive bone lesions. Procedure Note Manan Armstrong MD - 07/10/2024 [place] [id number] [place] [address] Examination: CT ABD+PEL W CON Exam time: 07/10/2024 7:10 AM Clinical history: Left lower quadrant pain. Urinary retention. Comparison: 06/25/2024 CT abdomen and pelvis Technique: Axial images were performed from the lung bases inferiorlythrough the pelvis following intravenous injection of 95 mL Isovue-370contrast material. Coronal and sagittal multiplanar reconstruction imageswere obtained. CT dose reduction techniques were utilized. Findings: Limited images of the lung bases demonstrate minimal bilaterallower lobe cylindrical bronchiectasis. No evidence of focal pulmonaryconsolidation or atelectasis. Pacemaker leads are visualized within theright atrium, right ventricle, and coronary sinus. Liver and spleen are normal in size with no definitive evidence of focalhepatic or splenic lesions. There is minimal ill-defined low density atthe dome of the liver which appears be associated with the diaphragm andshould represent a diaphragmatic slip. The pancreas appears atrophic with no evidence of pancreatic lesionscholelithiasis is present. No evidence of gallbladder wall thickening orpericholecystic inflammatory change. No evidence of biliary ductdilatation Adrenal glands appear unremarkable. There is good perfusion of each kidney with no evidence of renalcollecting system obstructive changes or focal renal lesions. There is no evidence of localized small bowel or colonic dilatation orobstructive change. There is a large amount of stool density presentthroughout the colon consistent with some degree of constipationpattern. Cerna catheter is present within a decompressed urinary bladder. No evidence of ascites, localized fluid collections, or abscesses. Aortoiliac atherosclerotic calcifications with no definitive evidence ofaneurysmal dilatation. Small fat-containing right inguinal hernia. No evidence of pathologically enlarged mesenteric, retroperitoneal,pelvic, or inguinal lymph nodes No evidence of destructive bone lesions. IMPRESSION: 1. No acute abnormality abdomen and pelvis. 2. Cholelithiasis. 3. Large colonic stool burden. Referred By: Interpreted By: Manan Armstrong MD, 07/10/2024 7:52 AM us Harish Erwin MD CT Final Result * (ABNORMAL) LIPASE (07/10/2024 6:49 AM CDT) Only the most recent of2 resultswithin the time period is included. LIPASE 10(L) 16 - 77 UNITS/L 07/10/2024 7:43 AM CDT [facility] 07/10/2024 6:49 AM CDT us Harish Erwin MD LABORATORY Final Result [facility] [place] [address], * Blood gas, venous (07/07/2024 3:12 PM CDT) PH VENOUS 7.40 7.32 - 7.43 07/07/2024 3:24 PM CDT [facility] PCO2 VENOUS 40.0 MMHG 07/07/2024 3:24 PM CDT [facility] Comment:NO REFERENCE RANGE H BEEN ESTABLISHED PO2 VENOUS 57.0 MM HG 07/07/2024 3:24 PM CDT [facility] Comment:NO REFERENCE RANGE H BEEN ESTABLISHED TOTAL CO2 VENOUS 26.0 22.0 - 26.0 MMOL/L 07/07/2024 3:24 PM CDT [facility] BASE EXCESS VENOUS 0.0 MMOL/L 07/07/2024 3:24 PM CDT [facility] Comment:NO REFERENCE RANGE H BEEN ESTABLISHED O2 SAT VENOUS 89 % 07/07/2024 3:24 PM CDT [facility] Comment:NO REFERENCE RANGE H BEEN ESTABLISHED BICARB VENOUS 24.8 22.0 - 29.0 MMOL/L 07/07/2024 3:24 PM CDT [facility] O2 ADMIN VENOUS ROOM AIR 3:12 PM CDT [facility] 07/07/2024 3:12 PM CDT us Keila Puga MD LABORATORY Final Resul t Performing Organization Address City/[facility]/ZIP Co de Phone Number [facility] [address] [place] [address], * TROPONIN, QUANT (07/07/2024 3:12 PM CDT) Only the most recent of2 resultswithin the time period is included. TROPONIN I HIGH SENSITIVITY 15 0 - 76 ng/L 07/07/2024 3:48 PM CDT [facility] 07/07/2024 3:12 PM CDT us Keila Puga MD LABORATORY Final Resul t [facility] [address] [place] [address], * INFLUENZA A & B (06/25/2024 11:11 AM EXCAVATING CONTRACTOR) SPECIMEN TYPE (INFLUENZA) NASAL 06/25/2024 11:50 AM EXCAVATING CONTRACTOR [facility] INFLUENZA A NEGATIVE NEGATIVE 06/25/2024 12:21 PM EXCAVATING CONTRACTOR [facility] INFLUENZA B NEGATIVE NEGATIVE 06/25/2024 12:21 PM EXCAVATING CONTRACTOR [facility] Comment: A NEGATIVE RESULT DOES NOT EXCLUDE INFLUENZA VIRUS INFECTION. IF INFLUENZA IS CIRCULATING IN YOUR COMMUNITY, A DIAGNOSIS OF INFLUENZA SHOULD BE CONSIDERED BASED ON A PATIENT'S CLINICAL PRESENTATION AND EMPIRIC ANTIVIRAL TREATMENT SHOULD BE CONSIDERED IF INDICATED. NASAL STRUCTURE / Unknown 06/25/2024 11:11 AM EXCAVATING CONTRACTOR Gato Jimenez MD MICROBIOLOGY - GENERAL OR DERABLES Final Result [facility] [address] [place] [address], * GI PANEL PCR - STOOL (06/25/2024 11:00 AM EXCAVATING CONTRACTOR) CAMPYLOBACTER PCR (STOOL) NOT DETECTED NOT DETECTED 06/26/2024 11:57 AM EXCAVATING CONTRACTOR [facility] PLESIOMONAS SHIGELLOIDES PCR (STOOL) NOT DETECTED NOT DETECTED 06/26/2024 11:57 AM [facility] SALMONELLA PCR (STOOL) NOT DETECTED NOT DETECTED 06/26/2024 11:57 AM EXCAVATING CONTRACTOR [facility] VIBRIO PCR (STOOL) NOT DETECTED NOT DETECTED 06/26/2024 11:57 AM EXCAVATING CONTRACTOR [facility] VIBRIO CHOLERAE PCR (STOOL) NOT DETECTED NOT DETECTED 06/26/2024 11:57 AM EXCAVATING CONTRACTOR [facility] YERSINIA ENTEROCOLITICA PCR (STOOL) NOT DETECTED NOT DETECTED 06/26/2024 11:57 AM EXCAVATING CONTRACTOR [facility] ENTEROAGGREGATIVE ECOLI PCR (STOOL) NOT DETECTED NOT DETECTED 06/26/2024 11:57 AM EXCAVATING CONTRACTOR [facility] ENTEROPATHOGENIC ECOLI PCR (STOOL) NOT DETECTED NOT DETECTED 06/26/2024 11:57 AM EXCAVATING CONTRACTOR [facility] ENTEROTOXIGENIC ECOLI PCR (STOOL) NOT DETECTED NOT DETECTED 06/26/2024 11:57 AM EXCAVATING CONTRACTOR [facility] SHIGA LIKE TOXIN ECOLI PCR (STOOL) NOT DETECTED NOT DETECTED 06/26/2024 11:57 AM EXCAVATING CONTRACTOR [facility] SHIG/ENTEROINVASIVE ECOLI PCR (STOOL) NOT DETECTED NOT DETECTED 06/26/2024 11:57 AM EXCAVATING CONTRACTOR [facility] CRYPTOSPORIDIUM PCR (STOOL) NOT DETECTED NOT DETECTED 06/26/2024 11:57 AM EXCAVATING CONTRACTOR [facility] CYCLOSPORA CAYETANENSIS PCR (STOOL) NOT DETECTED NOT DETECTED 06/26/2024 11:57 AM EXCAVATING CONTRACTOR [facility] ENTAMOEBA HISTOLYTICA PCR (STOOL) NOT DETECTED NOT DETECTED 06/26/2024 11:57 AM EXCAVATING CONTRACTOR [facility] GIARDIA LAMBLIA PCR (STOOL) NOT DETECTED NOT DETECTED 06/26/2024 11:57 AM EXCAVATING CONTRACTOR [facility] ADENOVIRUS F40/41 PCR (STOOL) NOT DETECTED NOT DETECTED 06/26/2024 11:57 AM EXCAVATING CONTRACTOR [facility] ASTROVIRUS PCR (STOOL) NOT DETECTED NOT DETECTED 06/26/2024 11:57 AM EXCAVATING CONTRACTOR [facility] NOROVIRUS GI/GII PCR (STOOL) NOT DETECTED NOT DETECTED 06/26/2024 11:57 AM EXCAVATING CONTRACTOR [facility] ROTAVIRUS A PCR (STOOL) NOT DETECTED NOT DETECTED 06/26/2024 11:57 AM EXCAVATING CONTRACTOR [facility] SAPOVIRUS PCR (STOOL) NOT DETECTED NOT DETECTED 06/26/2024 11:57 AM EXCAVATING CONTRACTOR [facility] STOOL SPECIMEN / Unknown 06/25/2024 11:00 AM EXCAVATING CONTRACTOR us Pat Lucas DO MICROBIOLOGY - GENERAL ORDER RONNI Final Result [facility] [address] [facility] [address], * US ABD LIMITED (06/25/2024 10:05 AM EXCAVATING CONTRACTOR) Anatomical Region Laterality Modality Abdomen Ultrasound 06/25/2024 9:54 AM EXCAVATING CONTRACTOR Impressions 06/25/2024 9:57 AM EXCAVATING CONTRACTOR IMPRESSION: Cholelithiasis. No definitive evidence of cholecystitis. Ordered By: PAT LUCAS Interpreted By: Dallin Holloway MD, 06/25/2024 9:54 AM Narrative 06/25/2024 9:57 AM EXCAVATING CONTRACTOR [address] [place] [address] Procedure(s): US ABD LIMITED Date of service: 06/25/2024 9:10 AM Provided clinical information: 84 years, Male, abdominal pain Procedure and materials: Grayscale and color Doppler images the right upper quadrant. Comparison studies: CT examination June 25, 2024 6:20 AM. Findings: Liver is relatively homogeneous in echotexture. No intrahepatic biliary ductal dilatation. No definite focal hepatic lesions are present. Portal venous flow is hepatopedal. Gallbladder wall is not thickened at 2 mm. No pericholecystic fluid is present. Common bile duct measures 5.3 mm this is not dilated. Within the gallbladder multiple echogenic foci that are present within the gallbladder neck. This consistent with the calculi seen on CT examination. Examination is limited due to bowel gas. Procedure Note Dallin Holloway MD - 06/25/[address] [place] [address] Procedure(s): US ABD LIMITED Date of service: 06/25/2024 9:10 AM Provided clinical information: 84 years, Male, abdominal pain Procedure and materials: Grayscale and color Doppler images the rightupper quadrant. Comparison studies: CT examination June 25, 2024 6:20 AM. Findings: Liver is relatively homogeneous in echotexture. No intrahepatic biliaryductal dilatation. No definite focal hepatic lesions are present. Portal venous flow is hepatopedal. Gallbladder wall is not thickened at 2 mm. No pericholecystic fluid ispresent. Common bile duct measures 5.3 mm this is not dilated. Within the gallbladder multiple echogenic foci that are present within thegallbladder neck. This consistent with the calculi seen on CTexamination. Examination is limited due to bowel gas. IMPRESSION: Cholelithiasis. No definitive evidence of cholecystitis. Ordered By: PAT LUCAS Interpreted By: Dallin Holloway MD, 06/25/2024 9:54 AM us Pat Lucas DO ULTRASOUND Final Result * PRO-BRAIN NATRIURETIC PEPTIDE (06/25/2024 5:22 AM EXCAVATING CONTRACTOR) PRO-B TYPE NATRIURETIC PEPTIDE 317 <450 PG/ML 06/25/2024 5:56 AM EXCAVATING CONTRACTOR [facility] Comment: CUT POINTS ESTABLISHED BY [employer] ON NT PROBNP (ICON) STUDY (2006). AGE INDEPENDENT: <300 PG/ML HAS A 99% NEGATIVE PREDICTIVE VALUE FOR EXCLUDING ACUTE CHF <50 YEARS: >450 PG/ML IS CONSISTENT WITH ACUTE CHF 50-75 YEARS: >900 PG/ML IS CONSISTENT WITH ACUTE CHF >75 YEARS: >1800 PG/ML IS CONSISTENT WITH ACUTE CHF IN PATIENTS WITH RENAL INSUFFICIENCY (GFR <60), >1200 PG/ML YIELDS A DIAGNOSTIC SENSITIVITY AND SPECIFICITY OF 89% AND 72% FOR ACUTE CHF. 06/25/2024 5:22 AM EXCAVATING CONTRACTOR Gato Jimenez MD LABORATORY Final Res ult [facility] [address] [place] [address], * USE ECHOCARDIOGRAM (06/24/2024 1:45 PM EXCAVATING CONTRACTOR) Anatomical Region Laterality Modality Cardiac Echocardiogram 06/24/2024 1:20 PM EXCAVATING CONTRACTOR Narrative 06/24/2024 7:51 PM EXCAVATING CONTRACTOR Echocardiography Report Pat.Name: ERNESTO SEGURA Pat.ID: [id number] .Date: 06/24/2024 : [id number], CHRISTINA BOOKER Exam Time: 1:20:00 PM Study Type:ECHO WITH CARDIAC DOPPLER COMP Height: 177 cm Weight: 88 kg BSA: 2.05 m2 Age: 11 1940,84Y Sex: M BP: 123/67 HR: 85 bpm Sonogrphr: Apolonia Parker MONISHA Pat. Stat.:Outpatient Room: CVD CPT - 4: 49833 Reason for Study:murmur, pre-op evaluation Procedures: 2D, M-mode, Doppler, Color Flow Race: W ++++++++++++++++++++++++++++++++++++ SUMMARY: ++++++++++++++++++++++++++++++++++++ The left ventricular size is normal. Estimated left ventricular ejection fraction is 50-55%. Difficult to assess overall left ventricular function; however it appears preserved from the limited views obtained. The right ventricle size is normal. The right ventricular function is normal. Inferior vena cava shows >50% collapse with respiration consistent with normal right atrial pressure. Mild calcification of aortic valve leaflets. Likely at least mild aortic stenosis by 2D assessment. Suboptimal imaging windows for Doppler assessment. There is trace tricuspid regurgitation. ++++++++++++++++++++++++++++++++++++ FINDINGS: ++++++++++++++++++++++++++++++++++++ LV: The left ventricular size is normal. The left ventricular systolic function is normal. Estimated left ventricular ejection fraction is 50-55%. The septal E/e' is indeterminate at 8-15. The lateral E/e' is indeterminate at 9-11. Left ventricular relaxation is reduced, appropriate for age. Difficult to assess overall left ventricular function; however it appears preserved from the limited views obtained. Patient's stated patient had severe reaction to dye in the past. Patient declined echo contrast. RV: The right ventricle size is normal. The right ventricular function is normal. IVS: Intraventricular septum is normal. LA: The left atrium was not well visualized in all views. RA: The right atrium was not well visualized in all views. IAS: Atrial septum not well visualized in all views. OLEGARIO: No evidence of pericardial effusion. AO: The proximal ascending aorta measures 3.3cm. PA: Unable to reliably quantitate pulmonary systolic pressure. PVn: Pulmonary veins are not assessable. SVn: Inferior vena cava shows >50% collapse with respiration consistent with normal right atrial pressure. AV: The aortic valve is trileaflet. No evidence of aortic valve regurgitation. Mild calcification of aortic valve leaflets. Likely at least mild aortic stenosis by 2D assessment. Suboptimal imaging windows for Doppler assessment. MV: No evidence of mitral regurgitation. No evidence of mitral stenosis. PV: Pulmonic valve not well visualized. TV: The tricuspid valve appears structurally normal. There is trace tricuspid regurgitation. ++++++++++++++++++++++++++++++++++++ MEASUREMENTS: ++++++++++++++++++++++++++++++++++++ DOPPLER LVOT LVOTpkPG 4 mmHg LVOTmnPG 2 mmHg LVOTpkVel 97 cm/s (70-110) LVOT SV 71 ml LVOT TVI 17 cm AV Forward Flow AV TVI 18.3 cm AV pkPG 3 mmHg AV pkVel 86.3 cm/s (100-170)* Area (TVI) 3.86 cm2 (3-5) AV mnVel 69.2 cm/s Area (Rohit) 4.66 cm2 (3-5) AV mnPG 2 mmHg MV Forward Flow MV DeTm 218 msec MV pkE 48.9 cm/s (60-130)* MV E/A 0.7 MV pkA 75 cm/s Lat E' Lat e 4.58 cm/s Lat E/E' Lat E/e 10.7 Med E' Med e 5.17 cm/s Med E/E' Med E/e 9.5 AV DI Value 0.9 DANI (VTI) Index Value 1.88 2D Aorta Ao Rtd 3.4 cm (zsc 1.5) Ao Asc 3.3 cm (zsc 2.5)* LVOT LVOT 2.3 cm <Electronic Signature> 06/24/2024 07:51 PM Christina Booker M.D. Procedure Note Christina Bokoer MD - 06/24/2024 Echocardiography Report Pat.Name: ERNESTO SEGURA Pat.ID: [id number] .Date: 06/24/2024 Refer.: [id number], CHRISTINA BOOKER Exam Time: 1:20:00 PM Study Type:ECHO WITH CARDIAC DOPPLER COMP Height: 177 cm Weight: 88 kg BSA: 2.05 m2 Age: 11 1940,84Y Sex: M BP: 123/67 HR: 85 bpm Sonogrphr: Apolonia Parker RDCS Pat. Stat.:Outpatient Room: CVD CPT - 4: [id number] Reason for Study:murmur, pre-op evaluation Procedures: 2D, M-mode, Doppler, Color Flow Race: W ++++++++++++++++++++++++++++++++++++ SUMMARY: ++++++++++++++++++++++++++++++++++++ The left ventricular size is normal. Estimated left ventricular ejection fraction is 50-55%. Difficult to assess overall left ventricular function; however it appears preserved from the limited views obtained. The right ventricle size is normal. The right ventricular function is normal. Inferior vena cava shows >50% collapse with respiration consistent with normal right atrial pressure. Mild calcification of aortic valve leaflets. Likely at least mild aortic stenosis by 2D assessment. Suboptimal imaging windows for Doppler assessment. There is trace tricuspid regurgitation. ++++++++++++++++++++++++++++++++++++ FINDINGS: ++++++++++++++++++++++++++++++++++++ LV: The left ventricular size is normal. The left ventricular systolic function is normal. Estimated left ventricular ejection fraction is 50-55%. The septal E/e' is indeterminate at 8-15. The lateral E/e' is indeterminate at 9-11. Left ventricular relaxation is reduced, appropriate for age. Difficult to assess overall left ventricular function; however it appears preserved from the limited views obtained. Patient's stated patient had severe reaction to dye in the past. Patient declined echo contrast. RV: The right ventricle size is normal. The right ventricular function is normal. IVS: Intraventricular septum is normal. LA: The left atrium was not well visualized in all views. RA: The right atrium was not well visualized in all views. IAS: Atrial septum not well visualized in all views. OLEGARIO: No evidence of pericardial effusion. AO: The proximal ascending aorta measures 3.3cm. PA: Unable to reliably quantitate pulmonary systolic pressure. PVn: Pulmonary veins are not assessable. SVn: Inferior vena cava shows >50% collapse with respiration consistent with normal right atrial pressure. AV: The aortic valve is trileaflet. No evidence of aortic valve regurgitation. Mild calcification of aortic valve leaflets. Likely at least mild aortic stenosis by 2D assessment. Suboptimal imaging windows for Doppler assessment. MV: No evidence of mitral regurgitation. No evidence of mitral stenosis. PV: Pulmonic valve not well visualized. TV: The tricuspid valve appears structurally normal. There is trace tricuspid regurgitation. ++++++++++++++++++++++++++++++++++++ MEASUREMENTS: ++++++++++++++++++++++++++++++++++++ DOPPLER LVOT LVOTpkPG 4 mmHg LVOTmnPG 2 mmHg LVOTpkVel 97 cm/s (70-110) LVOT SV 71 ml LVOT TVI 17 cm AV Forward Flow AV TVI 18.3 cm AV pkPG 3 mmHg AV pkVel 86.3 cm/s (100-170)* Area (TVI) 3.86 cm2 (3-5) AV mnVel 69.2 cm/s Area (Rohit) 4.66 cm2 (3-5) AV mnPG 2 mmHg MV Forward Flow MV DeTm 218 msec MV pkE 48.9 cm/s (60-130)* MV E/A 0.7 MV pkA 75 cm/s Lat E' Lat e 4.58 cm/s Lat E/E' Lat E/e 10.7 Med E' Med e 5.17 cm/s Med E/E' Med E/e 9.5 AV DI Value 0.9 DANI (VTI) Index Value 1.88 2D Aorta Ao Rtd 3.4 cm (zsc 1.5) Ao Asc 3.3 cm (zsc 2.5)* LVOT LVOT 2.3 cm <Electronic Signature> 06/24/2024 07:51 PM Christina Booker M.D. us Christina Booker MD ECHO Final Result * ELECTROCARDIOGRAM (06/24/2024 12:26 PM EXCAVATING CONTRACTOR) 06/24/2024 12:2 6 PM EXCAVATING CONTRACTOR Narrative [facility] - 06/24/2024 3:50 PM EXCAVATING CONTRACTOR [facility] [address] [place] [address] Test Date: 2024-06-24 Pat Name: ERNESTO SERRANOICKS Department: 105 Room: Gender: Male Building Mover: : 1940 Requested By: CHRISTINA BOOKER Order Number: [id number] Reading MD: Christina Booker Measurements Intervals [place] Rate: 89 P: 68 KS: 168 QRS: -84 QRSD: 169 T: 95 QT: 397 QTc: 485 Interpretive Statements ELECTRONIC ATRIAL PACEMAKER ELECTRONIC VENTRICULAR PACEMAKER ABNORMAL RHYTHM ECG VATING CONTRACTOR Procedure Note Christina Booker MD - 06/24/2024 [place] [address] Test Date: 2024-06-24 Pat Name: ERNESTO SEGURA Department: 105 Room: Gender: Male Building Mover: : 1940 Requested By: CHRISTINA BOOKER Order Number: [id number] Reading : Christina Booker Measurements Intervals [place] Rate: 89 P: 68 KS: 168 QRS: -84 QRSD: 169 T: 95 QT: 397 QTc: 485 Interpretive Statements ELECTRONIC ATRIAL PACEMAKER ELECTRONIC VENTRICULAR PACEMAKER ABNORMAL RHYTHM ECG VATING CONTRACTOR us Christina Booker MD PROCEDURES-ORDERABLE NO CHARGE F inal Result [facility] * OUTSIDE LAB (06/12/2024 12:00 AM EXCAVATING CONTRACTOR) 06/12/2024 [facility] Scanned SCANNING Final Resul t Performing Organization Address [facility] Co de Phone Number [facility] * A1C (BACK OFFICE) (05/28/2024) HGB A1C 6.7 % [facility] 05/28/2024 Kelly Gonzalez MD LABORATORY Final Re sult Performing Organization Address [facility] Co de Phone Number PONCE SAENZ [address] [address], * DIABETIC RETINOPATHY EXAM (POSITIVE) (07/30/2023) [facility] Scanned SCANNING Final Resu lt Performing Organization Address [facility] Co de Phone Number [facility] * LIPID PANEL (05/10/2018) CHOLESTEROL 138 HDL 47 TRIGLYCERIDES 107 CHOL/HDL RATIO 2.9 LDL (CALCULATED) 70 05/10/2018 Luis Hoffmann MD LABORATORY Cherie l Result from Last 3 Months or Most Recently Relevant to Health Maintenance Insurance MEDICARE Member Subscriber Plan / Payer (Ef fective 2017-Present) Name:Ernesto Segura Relation to Subscriber:Self Name:Ernesto Segura Payer ID:Not on file Group ID:Not on file Type:Indemnity Address: ATTN [place] [id number] MEDICARE [facility] Advance Directives * Full Code (Latest Code Status on File) Date Activated Date Inactivated Comments 07/19/2024 11:26 PM 08/05/2024 5:03 PM * Full Code Date Activated Date Inactivated Comments 07/12/2024 12:31 PM 07/18/2024 2:44 PM * Full Code Date Activated Date Inactivated Comments 07/10/2024 9:48 AM 07/12/2024 12:10 PM * Full Code Date Activated Date Inactivated Comments 07/07/2024 6:50 PM 07/09/2024 5:09 PM * Full Code Date Activated Date Inactivated Comments 07/01/2024 12:12 PM 07/07/2024 2:27 PM Care Teams Milking Machine Operator Relationship Specialty Start Date End Date Taylor Weber MD [facility] [place] [address] PCP - General FAMILY PRACTICE 05/01/24 Lane Walters MD [address] [place] [address] EP Child Care Specialist CARDIAC ELECTROPHYSIOLOGY 03/06/19 Kiley Sarkar PA-C [address] [place] [address] Referring Physician PHYSICIAN W[employer]OW SHADE CLOTH SEWER 04/10/23 Christina Booker MD [address] [place] [address] Consulting Physician CARDIOVASCULAR DISEASE 06/24/24 Jaspreet Clemons MD [address] [id number] Surgeon NEUROLOGICAL SURGERY 06/25/24 Britany Paris MD [address] [place] [address] Surgeon NEUROLOGICAL SURGERY 07/09/24
--- OUTSIDE RECORDS SUMMARY | 2024-08-07 03:22 | XMS_ITS | Encounter Summary ---
Author Organization [facility] Address [address] [place] [address] Care Team Providers Care Bow String Maker Name Role Phone Navneet Velasco MD Unavailable [phone] Tahir Darden MD Unavailable Unavailable Lane Walters MD Unavailable [phone] Amaury Kuhn MD Primary Care Provider [phone] Sheri Mcdonnell APRN, CHIEF LOAD DISPATCHER-C Unavailable [phone] Robert Burton MD Unavailable Kiley Sarkar PA-C Unavailable +[phone] Barbara Fung MD Unavailable [phone] Nuria Dailey ANP-BC Unavailable [phone] Taylor Weber MD Primary Care Provider [phone] Christina Booker MD Unavailable Jaspreet Clemons MD Unavailable Britany Paris MD Unavailable [phone] Encounter Details Date Type Department Care Team (Late st Contact Info) Description 06/28/2022 Telephone [facility] [address], [place] [phone] Lane Walters MD [address] [place], [place] [phone] Social History Tobacco Use Types Packs/Day Years Used Date Smoking Tobacco: Former Cigarettes 2 25 0 04/30/1964 - 04/30/1989 Cigars Smokeless Tobacco: Never Alcohol Use Standard Drinks/Week Comments Yes 0 (1 standard drink = 0.6 oz pur e alcohol) occasional PHQ-2 Answer Date Recorded PHQ-2 Score - If the patient scores above 3, please move on to questions 3-9 0 03/16/2022 Sex and Gender Information Value Date Recorded Sex Assigned at Male 05/27/2024 6:25 AM EDGE TRIMMER MECHANIC Legal Sex Male 10:27 PM CDT Gender Identity Not on file Sexual Orientation Not on file COVID-19 Exposure Response Date Recorded In the last 10 days, have yo u been in contact with someone who was confirmed or suspected to have Coronavirus/COVID-19? No / Unsure 06/21/2022 9:15 AM EDGE TRIMMER MECHANIC documented as of this encounter Functional Status * RETIRED Are you deaf or do you have serious difficulty hearing Answer Date of Assessment Author Status No 03/31/2021 9:00 PM EDGE TRIMMER MECHANIC Activ e * RETIRED Are you blind or do you have serious difficulty seeing, even when wearing glasses? Answer Date of Assessment Author Status No 03/31/2021 9:00 PM EDGE TRIMMER MECHANIC Activ e * Do you have serious difficulty walking or climbing stairs? Answer Date of Assessment Author Status No 03/31/2021 9:00 PM EDGE TRIMMER MECHANIC Chuck Hackett RN Active * Do you have difficulty dressing or bathing? Answer Date of Assessment Author Status No 03/31/2021 9:00 PM Chuck Moise RN Active * Because of a physical, mental, or emotional condition, do you have difficulty doing errands alone such as visiting a doctor's office or shopping? Answer Date of Assessment Author Status No 03/31/2021 9:00 PM EDGE TRIMMER MECHANIC Chuck Hackett RN Active documented as of this encounter Mental Status * Because of a physical, mental, or emotional condition, do you have serious difficulty concentrating, remembering, or making decisions? Answer Entry Date Author Status No 03/31/2021 9:00 PM EDGE TRIMMER MECHANIC Chuck Hackett RN Active documented in this encounter Progress Notes * Jodi Vigil, RN - 06/28/2022 11:45 AM CST MRI worksheet completed and signed by physician 11/14/21. No changes to device since then. Worksheetcan be found under the media tab TRIMMER MECHANIC * Leonie Clay, RTR - 06/28/2022 10:40 AM CSTSummary: MRI Clearance Good Morning, I have an outpatient order for MRI on Masood. His device is not MR-Conditional (mixed system). Could we please get an EP form filled out on him for MRI clearance ? Thank you , Leonie TRIMMER MECHANIC documented in this encounter Plan of Treatment Upcoming Encounters Date Type Department Care Team (Late st Contact Info) Description 09/08/2024 10:20 AM CDT Office Visit [facility] Diabetes and Endocrinology - [address] [phone] Kelly Gonzalez MD [address] [place] [phone] 10/17/2024 1:00 AM CDT Allied Health/Nurse Visit [facility] ld [address] [place] [address] [address] Walters MD [address] [place] [address] 12/10/2024 10:15 AM CDT Allied Health/Nurse Visit [facility] [place] [address] Lane Walters MD [address] [place] [phone] 12/10/2024 10:30 AM CDT Office Visit [facility] [place] [address] [place] [phone] Kiley Sarkar PA-C [address] [place] [phone] 01/05/2025 12:15 PM CDT Office Visit [facility] [place] [address] [place] [address] Christina Booker MD [address] [place] [phone] documented as of this encounter Goals Goal Patient Goal Type Associated Problems Recent Progress Patient-Stated? Author Safety Patient/family will have appropriate support at home upon discharge General Evelin Rico RN documented as of this encounter Visit Diagnoses Not on filedocumented in this encounter Additional Health Concerns Infection Onset Date Last Indicated Resolved Time Respiratory Rule-Out 06/25/2024 06/25/2024 025 12:22 PM EDGE TRIMMER MECHANIC documented as of this encounter Care Teams Bow String Maker Relationship Specialty Start Date End Date Amaury Kuhn MD [address] [place] [phone] PCP - General FAMILY PRACTICE 05/05/21 04/30/24 Taylor Weber MD [address] [place], [place] [phone] PCP - General FAMILY PRACTICE 05/01/24 Navneet Velasco MD [address] [place] [phone] Darden Tunneller CARDIOVASCULAR DISEASE 01/12/16 08/12/23 Tahir Darden MD [address] [place] [phone] Photo Retoucher INTERVENTIONAL CARDIOLOGY 02/16/16 10/09/22 Lane Walters MD [address] [place] [address] EP Tunneller CARDIAC ELECTROPHYSIOLOGY 03/06/19 Sheri Mcdonnell APRN, CHIEF LOAD DISPATCHER-C [address] [place] [phone] NURSE PRACTITIONER 09/01/21 08/12/23 Robert Burton MD [address] [place] [phone] Consulting Physician INTERNAL MEDICINE 11/29/22 5 Kiley Sarkar PA-C [address] [place] [address] Referring Physician PHYSICIAN CERAMIC RESEARCH ENGINEER 04/10/23 Barbara Fung MD [address] [place] [address] [phone] INTERVENTIONAL CARDIOLOGY 08/13/2306/01 Nuria Dailey, [place]- [address] [place] [address] Nurse Practitioner NURSE PRACTITIONER ADULT HEALTH 08/13/23 06/23/24 Christina Booker MD [address] [place] [address] Consulting Physician CARDIOVASCULAR DISEASE 06/24/24 Jaspreet Clemons MD [address] [phone] Surgeon NEUROLOGICAL SURGERY 06/25/24 Britany Paris MD [address] [place] [address] Surgeon NEUROLOGICAL SURGERY 07/09/24 documented as of this encounter
--- OUTSIDE RECORDS SUMMARY | 2024-08-07 03:22 | XMS_ITS | Encounter Summary ---
Author Organization [facility] Address [address] [place] [address] Care Team Providers Care Grizzlyman Name Role Phone Lane Walters MD Unavailable [phone] Kiley Sarkar PA-C Unavailable [phone] Taylor Weber MD Primary Care Provider [phone] Christina Booker MD Unavailable Jaspreet Clemons MD Unavailable ArmaniBritany Aguila MD Unavailable + [phone] Reason for Visit * Reason Onset Date Comments Other 07/04/2024 clearance Encounter Details Date Type Department Care Team (Late st Contact Info) Description 07/04/2024 Telephone [facility] [address] [place] [address] Christina Booker MD [address] [place] [address] Other (clearance) Social History Tobacco Use Types Packs/Day Years Used Date Smoking Tobacco: Former Cigarettes 2 25 0 04/30/1964 - 04/30/1989 Cigars Passive Smoke Exposure: Past Smokeless Tobacco: Never Alcohol Use Standard Drinks/Week [...] materials from doctor or pharmacy Never 07/01/2024 [facility] Utilities Answer Date Recorded In the past 12 months has th e [employer], gas, oil, or water [employer] threatened to shut off services in your home? No 07/07/2024 Humiliation, Afraid, Rape, and Kick questionnair e Answer Date Recorded Within the last year, have y ou been afraid of your partner or ex-partner? No 07/07/2024 Within the last year, have y ou been humiliated or emotionally abused in other ways by your partner or ex-partner? No Within the last year, have y ou been kicked, hit, slapped, or otherwise physically hurt by your partner or ex-partner? No 07/07/2024 Within the last year, have y ou been raped or forced to have any kind of sexual activity by your partner or ex-partner? No 07/07/2024 Overall Financial Resource Strain (CARDIA) Answe r Date Recorded How hard is it for you to pa y for the very basics like food, housing, medical care, and heating? Not hard at all 07/07/2024 PHQ-2 Answer Date Recorded Patient Health Questionnaire-2 Score 0 02/05/2024 Hunger Vital Sign Answer Date Recorded Within the past 12 months, y ou worried that your food would run out before you got the money to buy more. Never true 07/08/19 25 Within the past 12 months, t he food you bought just didn't last and you didn't have money to get more. Never true 07/07/2024 PRAPARE - Transportation Answer Date Re corded In the past 12 months, has l ack of transportation kept you from medical appointments or from getting medications? No 06/28 In the past 12 months, has l ack of transportation kept you from meetings, work, or from getting things needed for daily living? No 07/07/2024 Housing Stability Vital Sign Answer Pranay e Recorded In the last 12 months, was t here a time when you were not able to pay the mortgage or rent on time? No 07/07/2024 In the past 12 months, how m any times have you moved where you were living? 0 07/07/2024 At any time in the past 12 m [facility], were you homeless or living in a longterm (including now)? 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 Yes 07/07/2024 6:16 PM CDT Francy Vo RN Act selena * Question Answer Date of Assessment Author Status Do you have difficulty dressing or bathing? Yes 07/07/2024 6:16 PM CDT Francy Vo RN Active Because of a physical, mental, or emotional condition, do you have difficulty doing errands alone such as visiting a doctor's office or shopping? No 07/07/2024 6:16 PM CDT Francy Vo RN Acti ve * Are you deaf or do you have serious difficulty hearing Answer Date of Assessment Author Status No 06/26/2024 2:50 PM Gilda Walton RN Active * Are you blind or do you have serious difficulty seeing, even when wearing glasses? Answer Date of Assessment Author Status No 06/26/2024 2:50 PM Gilda Walton RN Active * Do you have serious difficulty walking or climbing stairs? Answer Date of Assessment Author Status Yes 06/26/2024 2:50 PM Gilda Walton RN Active * Do you have difficulty dressing or bathing? Answer Date of Assessment Author Status Yes 06/26/2024 2:50 PM Gilda Walton RN Active * Because of a physical, mental, or emotional condition, do you have difficulty doing errands alone such as visiting a doctor's office or shopping? Answer Date of Assessment Author Status Yes 06/26/2024 2:50 PM Gilda Walton RN Active documented as of this encounter Mental Status * Question Answer Entry Date Author Status Because of a physical, mental, or emotional condition, do you have serious difficulty concentrating, remembering, or making decisions? No 07/07/2024 6:16 PM CDT Francy Vo RN Active * Because of a physical, mental, or emotional condition, do you have serious difficulty concentrating, remembering, or making decisions? Answer Entry Date Author Status No 06/26/2024 2:50 PM Gilda Walton RN Active documented in this encounter Progress Notes * Marin Douglass LPN - 07/09/2024 2:[address] Solis's office, was placed on hold, unable to continue holding, will send this note tothe office. * Marin Douglass LPN - 07/09/2024 2:20 PM CDT Reviewed with Dr. Booker, per Dr. Booker, patient may proceed with his upcoming surgery as moderate to high but not prohibitive risk. At that point the Eliquis can be held for 2 days prior to upcoming surgery. * Shelbi Chadwick - 07/04/2024 9:20 AM CST Jossy called stating the patient is just having his surgery on 07/29. Is he still cleared or needsto be seen again? Please advise. R EXPRESS CLERK documented in this encounter Plan of Treatment Upcoming Encounters Date Type Department Care Team (Late st Contact Info) Description 09/08/2024 10:20 AM CDT Office Visit [facility] Medical Group Diabetes and Endocrinology - [place] [address] [facility] [place] [phone] Kelly Gonzalez MD [address] [place] [address] 10/17/2024 1:00 AM CDT Allied Health/Nurse Visit [facility] [address] [place] [address] Lane Walters MD [address] [place], [place] [address] 12/10/2024 10:15 AM CDT Allied Health/Nurse Visit [facility] [place] [address] [place] [phone] Lane Walters MD [address] [place], [place] [phone] 12/10/2024 10:30 AM CDT Office Visit [facility] [place] [address] [place] [phone] Kiley Sarkar PA-C [address] [place] [address] 01/05/2025 12:15 PM CDT Office Visit [facility] [place] [address] [place] [phone] Christina Booker MD [address] [place], [place] [phone] documented as of this encounter Goals Goal Patient Goal Type Associated Problems Recent Progress Patient-Stated? Author Safety Patient/family will have appropriate support at home upon discharge Evelin Baker RN documented as of this encounter Visit Diagnoses Not on filedocumented in this encounter Care Teams Grizzlyman Relationship Specialty Start Date End Date Taylor Weber MD [address] [place] [address] PCP - General FAMILY PRACTICE 05/01/24 Lane Walters MD [address] [place] [address] EP Sponge Packer CARDIAC ELECTROPHYSIOLOGY 03/06/19 Kiley Sarkar PA-C [address] [place] [address] Referring Physician PHYSICIAN OYSTER SHUCKER 04/10/23 Christina Booker MD [address] [place] [address] Consulting Physician CARDIOVASCULAR DISEASE 06/24/24 Jaspreet Clemons MD [address] [phone] Surgeon NEUROLOGICAL SURGERY 06/25/24 Britany Paris MD [address] [place] [address] Surgeon NEUROLOGICAL SURGERY 07/09/24 documented as of this encounter
--- OUTSIDE RECORDS SUMMARY | 2024-08-07 03:22 | XMS_ITS | Data Portability ---
Author Organization [facility], [address] [facility] Neurology ([place]) Address [address] 4[address] [place] [address] Care Team Providers Care New Grad Rn Name Role Phone RERE CLEMONS Primary Care Provider JASPREET CLEMONS Neurosurgeon Assessment Encounter Date Assessment Date Assessment LastModified by Organization Details LastModified Time 03/19/2024 03/19/2024 Masood Segura is an 83 year old male with complex medical history including urinary incontinence, peripheral and coronary vascular disease, atrial fibrillation with a pacemaker on Eliquis and aspirin. He has difficulty walking with left lower extremity weakness. His motor strength is 4- left iliopsoas 4 right iliopsoas, 4 left quad, 5 right quad, 4- left plantarflexion, 3 left big toe, 4 right big toe. DTRs are 2+ patellar on the right, 1+ patellar on the left and 0 Achilles bilaterally. He is unable to obtain an MRI due to the pacemaker. He has a CT scan of the lumbar spine, which shows moderate DJD with evidence of thickening ligamentum flavum and central stenosis in the lumbar spine. I will obtain a CT Myelogram and bring him back to review the studies and come up with surgical solutions. Given his urinary incontinence and his age as a risk factor, I will refer him for Urology evaluation as this could be compounding his symptoms. 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 He has a pacemaker which is incompatible with MRI. On examination, he has 4/5 strength in the biceps and triceps and 4- retail gift card merchandising on the left and 4 retail gift card merchandising on the right, 4- wrist extension bilaterally. He has +3 reflexes in the biceps and brachioradialis. No Banks s signs. He has weakness in the bilateral lower extremity and he is wheelchair bound. He is able to lift his feet off the foot rest. No clonus and absent reflexes in both knees and ankles. I obtained CT Myelogram of his lumbar spine and cervical spine, which show severe stenosis at C3-4 with compression of the spinal cord anteriorly and posteriorly. 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 His myelopathic picture, however, is mixed with dysfunction of the lower spinal nerves from severe compression at L2-3 and L4-5. Given his advanced age and comorbidities, I recommended a conservative surgical approach by starting with C3-4 ACDF with maximum anterior decompression. I discussed the technical aspects of the procedure as well as potential risks, including but not limited to, risks of postoperative pain, bleeding, infection, voice hoarseness, difficulty breathing, difficulty swallowing, new neurologic deficit, spinal fluid leak, need for further surgery and even . The patient expressed understanding of these risks and has elected to go forward with the operation. I will assess his recovery from an anterior approach and if he requires further decompression, I will offer him a posterior decompression. Once he recovers from that, we will address his lumbar spine. [email or web address] Not available 06/09/2024 17:53:59 Plan of Treatment Reminders Order Date Submit Date Provider Last Modified By Organization Details Last Modified Time Details Appointments None recorded. Lab None recorded. Referral urologist referral - For urinary incontinenc e 2023 025 [email or web address] 3 Gale Malik [facility], [address] , [place], [address], 09:50:44 Procedures None recorded. Surgeries None recorded. Imaging None recorded. Medication Orders None recorded. Patient TargetsNo targets recorded. Patient InstructionsNo instructions recorded. Reason for Referral Urologist Referral for Urina ry incontinence For urinary incontinence Referring Physician: Jaspreet Clemons, Neurosurgery, Encounter Date: 03/19/2024 Results Created Date Observation Date Name Description Value Unit Range Abnormal Flag Note LastModifiedBy Organization Detail LastModifiedTime 03/14/20 24 03/21/2022 CT, lumba r spine , w/o contr ast No observ ation record ed. [facility] Not Available 2023 09:48:17 03/14/20 24 07/17/2022 CT, cervi jamee spine , w/o contr ast No observ ation record ed. [facility] Not Available 2023 09:48:17 03/14/20 24 03/06/2024 CT, lumba r spine , w/o contr ast No observ ation record ed. [facility] Not Available 2023 09:48:17 06/05/1906/05/2024 CT, lumba r spine , w/ contr ast [facility] [address] [place] [address] Name: KARTHIK PHILIPPE 5 Age: 84 : 1939 Exam Date: 2024 ACCESS ION: [id number] ORDERI NG MD: JASPREET CLEMONS EXAMIN ATION: CT Lumbar Spine with contra st (CT lumbar spine myelog elena). HISTOR Y: Patien t presen ts with bilate ral arm weakne ss and tingli ng for 2 years. Histor y of Cancer : denies Histor y of Surger y: lumbar TECHNI QUE: Axial images throug h the lumbar spine follow ing intrat hecal admini strati on of contra st, as descri bed in separa te proced ural report . Sagitt al and parrish l reform atted images were also review ed. Automa milla exposu re contro l was used as a dose optimi zation techni que for this examin ation. CTDIvo l in mGy: 20.3. DLP in mGy-cm : 604 COMPAR BRIAN: None FINDIN GS: 5 lumbar verteb ral bodies are consid ered, counti ng from the lowerm ost visibl e disc which is consid ered L5-S1. The L5-S1 disc is noted on series 5 image 262 of this exam. The lowerm ost ribs are noted at the T12 level. Normal lumbar lordos is. No signif icant dextro curvat ure levocu rvatur e. Verteb ral bodies are more or less well-a ligned . Verteb ral body height s are well mainta ined. No acute fractu res or trauma tic malali gnment . Bony minera lizati on is within normal limits . No suspic ious osseou s lesion s. Intrat hecal contra st is identi fied. No obviou s fillin g defect within the intrat hecal contra st. The spinal cord is normal in morpho logy. The conus termin ates at the L1-L2 disc level. T12-L1 : Minima l degene rative change s. Mild facet arthro manpreet. No spinal canal stenos is or neural forami nal stenos is. L1-L2: Minima l degene rative change s. Small broad- based disc bulge. Mild facet arthro manpreet. No spinal canal stenos is or obviou s crowdi ng of the nerve roots. No cord compre ssion. Minima l to mild bilate ral neural forami nal stenos is (right more than left). L2-3: Mild disc height loss chip frier iorly. Minima l degene rative endpla te change s. Modera te sized broad- based disc bulge/ disc osteop hyte comple x. Bilate ral facet arthro manpreet. Bilate ral ligame ntum flavum thicke nate. Modera te to severe spinal canal stenos is with crowdi ng of the nerve roots. There is near comple te efface ment of the CSF at this level. Severe left and modera te right neural forami nal stenos is. L3-L4: Small to modera te broad- based disc bulge. Bilate ral modera te facet hypert rophy. Mild spinal canal stenos is withou t crowdi ng of the nerve roots. Modera te to severe bilate ral neural forami nal stenos is. L4-5: Modera te broad- based disc bulge. Modera te bilate ral facet hypert rophy. Modera te bilate ral ligame ntum flavum thicke nate. At least modera te spinal canal stenos is with crowdi ng of the nerve roots and partia l efface ment of CSF. At least modera te bilate ral neural forami nal stenos is. L5-S1: Mild disc height loss chip frier iorly. Mild degene rative endpla te change s with Schmor l's node along the inferi or L5 endpla te. Small to modera te broad- based disc osteop hyte comple x. Mild bilate ral facet hypert rophy and ligame ntum flavum thicke nate. No obviou s spinal canal stenos is or crowdi ng of the nerve roots. Minima l to mild bilate ral neural forami nal stenos is. No prever tebral soft tissue edema. 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 Calcif ied cholel ithias is. IMPRES ALYCE: 1. Overal l modera te degene rative findin gs of the lumbar spine as descri bed in the body of the report 2. Spinal canal stenos is at the L2-3 (moder ate to severe ), L3-L4 (mild) and L4-5 (at least modera te). Crowdi ng of the nerve roots at L2-3 and L4-5. No cord compre ssion . Redund cristy of the nerve roots above the L2-3 stenos is. 3. Multil evel neural forami nal stenos is, especi ally at the L2-3 (sever e left and modera te right) , L3-L4 (moder ate to severe bilate ral) and L4-5 (at least modera te bilate ral). 4. Athero sclero tic diseas e. Calcif ied cholel ithias is. This report was dictat ed remote ly by a [facility] Radiol ogist in [place], [place]. Final Report Dictat ed: 15:24 Julianna Cowart MD Signed : 15:24 Julianna Cowart MD [email or web address] Md Only - [facility] [address] [place] [address], [id number], 06/09/2024 17:47:36 06/05/19 25 06/05/2024 CT, cervi jamee spine , w/ contr ast [facility] [address] [facility] [address] Name: KARTHIK PHILIPPE 5 Age: 84 : 1939 Exam Date: 2024 ACCESS ION: [id number] ORDERI NG MD: JASPREET CLEMONS EXAMIN ATION: CT Cervic al Spine with contra st (CT cervic al spine myelog elena) HISTOR Y: Patien t presen ts with bilate ral arm weakne ss and tingli ng for 2 years. Histor y of Cancer : denies Histor y of Surger y: denies TECHNI QUE: Axial images throug h the cervic al spine follow ing intrat hecal admini strati on of contra st, as deline ated in separa te proced ural report . Images also review ed as sagitt al and parrish l reform atted images . Automa milla exposu re contro l was used as a dose optimi zation techni que for this examin ation. CTDIvo l in mGy: 21.2. DLP in mGy-cm : 447 COMPAR BRIAN: None FINDIN GS: C1-C7 verteb princess identi fied. No obviou s cervic al ribs. There is normal cervic al lordos is. No signif icant dextro curvat ure levocu rvatur e. Verteb ral bodies are well-a ligned . Verteb ral body height s are well mainta ined and no acute fractu res or trauma tic malali gnment . Bony minera lizati on is within normal limits . No suspic ious osseou s lesion s. C2-C3: Modera te left facet hypert rophy with osseou s fusion . Mild right facet arthro manpreet. Mild spinal canal stenos is is noted withou t any cord compre ssion. No obviou s neural forami nal stenos is. C3-C4: Modera te broad- based disc osteop hyte comple x with bilate ral uncove rtebra l hypert rophy. Modera te left and mild right facet hypert rophy. Ligame ntum flavum hypert rophy is also identi fied bilate rally. Severe spinal canal stenos is with near comple te efface ment of the CSF. Modera te cord compre ssion. Modera te to severe left and severe right neural forami nal stenos is. C4-C5: Small broad- based disc osteop hyte comple x. Small centra l disc protru alyce is questi oned. Right- sided uncove rtebra l hypert rophy. Modera te right and mild left facet hypert rophy. Mild bilate ral ligame ntum flavum thicke nate. Narrow ing of the ventra l and dorsal CSF spaces . Overal l mild to modera te spinal canal stenos is. No cord compre ssion. Modera te left and severe right neural forami nal stenos is. C5-C6: Small broad- based disc osteop hyte comple x. Superi mposed centra l disc protru alyce. Right- sided uncove rtebra l hypert rophy. Modera te right and minima l left facet hypert rophy. Ligame ntum flavum thicke nate bilate rally. Near comple te efface ment of the ventra l and dorsal CSF spaces . Modera te spinal canal stenos is. Ventra l cord contou ring is identi fied. Mild left and modera te right neural forami nal stenos is. C6-C7: Small broad- based disc bulge with superi mposed small centra l disc protru alyce. Mild narrow ing of the ventra l and dorsal CSF spaces . Overal l minima l spinal canal stenos is. No cord compre ssion. No obviou s neural forami nal stenos is. C7-T1: No spinal canal or neural forami nal stenos is. No prever tebral soft tissue edema. IMPRES ALYCE: 1. Overal l modera te degene rative findin gs of the cervic al spine as descri bed in the body of the report 2. Severe spinal canal stenos is at C3-C4 with modera te cord compre ssion. Additi onally , spinal canal stenos is is also noted at the C2-C3 (mild) , C4-C5 (mild to modera te), C5-6 (moder ate) and C6-C7 (minim al). No other levels of cord compre ssion identi fied. 3. Multil evel neural forami nal stenos is, especi ally at C3-C4 (moder ate to severe left and severe right) , C4-C5 (moder ate left and severe right) , and C5 - C6 (moder ate right) . This report was dictat ed remote ly by a [facility] Radiol ogist in [place], [place]. Final Report Dictat ed: 15:39 Julianna Cowart MD Signed : 15:39 Supa PALENCIA, Julianna Ervin [email or web address] [facility] - [facility] [address], [address], 06/09/2024 17:47:50 Result Notes None recorded. Problems Name Problem SNOMED Code Status Onset Date Resolution Date Notes Provider Name and Address Organization Details Recorded Time Spondylosis 5965259 Active 2023 Thelma Luna [facility] 4 16:19:35 Urinary incontinence 136414827 Active 2023 Thelma Luna [facility] 4 17:07:19 Problem Notes None recorded. Procedures Surgical History Date Name Laterality Status Provider Name and Address Organization Details Recorded Time 07/17/19 25 Arthrd ant ntrbdy cervical completed Irma Avery [facility] 07/18/2024 11:37:52 10/02/19 07 laminotomy completed Jossy Merritt [facility] 03/14/2024 09:14:11 Prq card stent w/angio 1 vsl completed Not Available Health Note 03/17/2024 11:19:37 Colonoscopy with biopsy completed Not Available Health Note 03/17/2024 11:19:37 Insert heart pm atrial completed Not Available Health Note 03/17/2024 11:19:37 Imaging Results Imaging Date Name Status LastModified by Organiz ation Details LastModified Time 03/21/2022 CT, lumbar spine, w/o contrast completed [facility] Information not available 03/14/2024 09:48:17 07/17/2022 CT, cervical spine, w/o contrast completed [facility] Information not available 03/14/2024 09:48:17 03/06/2024 CT, lumbar spine, w/o contrast completed [facility] Information not available 03/14/2024 09:48:17 06/05/2024 CT, lumbar spine, w/ contrast completed [id number] Sc Only - [facility] [address] [place] [address], [id number], 06/09/2024 17:47:36 06/05/2024 CT, cervical spine, w/ contrast completed [id number] Sc Only - [facility] [address] [place] [address], [id number], 06/09/2024 17:47:50 Procedure Notes None recorded. Medical Equipment None Reported. Allergies Allergen ID Allergen Name Allergen Category Reaction Reaction Severity Criticality Documentation Date Start Date Code Code System Note Provider Name and Address Organization Details Recorded Time 922687 perflutre n medicatio n Not available Not available Not available 05/28/20232016 02839 3 RxNorm Not Available Not Available Not Available 557697 perflutre n Not available Not available Not available Not available 05/28/20232016 33691 3 RxNorm Not Available Not Available Not Available Medications Name Sig Start Date Stop Date Status Note LastModified by Organization Details LastModified Time levothyro xine 175 mcg tablet TAKE 1 TABLET BY MOUTH ONCE DAILY 03/19 completed Not Available Not Available Not Available levothyro xine 137 mcg tablet TAKE 1 TABLET BY MOUTH ONCE DAILY active Not Available Not Available No t Available cilostazo l 50 mg tablet TAKE 1 TABLET BY MOUTH TWICE DAILY active Not Available Not Available No t Available lisinopri l 20 mg tablet TAKE 1 TABLET BY MOUTH ONCE DAILY active Not Available Not Available No t Available vancomyci n 125 mg capsule TAKE 1 CAPSULE BY MOUTH 4 TIMES DAILY 03/19 completed Not Available Not Available Not Available isosorbid e mononitra te ER 60 mg tablet,ex tended release 24 hr TAKE 1 TABLET BY MOUTH ONCE DAILY active Not Available Not Available No t Available prednisol one acetate 1 % eye drops,indigo pension INSTILL 1 DROP INTO RIGHT EYE 4 TIMES DAILY 03/19 completed Not Available Not Available Not Available Novolin R Regular U-100 Insulin 100 unit/mL injection solution INJECT 10 UNITS SUBCUTAN EOUSLY AT BREAKFAS T, 8 UNITS AT LUNCH AND SUPPER active Not Available Not Available No t Available levothyro xine 125 mcg tablet TAKE 1 TABLET BY MOUTH ONCE DAILY active Not Available Not Available No t Available levothyro xine 150 mcg tablet TAKE 1 TABLET BY MOUTH ONCE DAILY 03/19 completed Not Available Not Available Not Available nitroglyc herman 0.4 mg sublingua l tablet DISSOLVE ONE TABLET UNDER THE TONGUE EVERY 5 MINUTES NEEDED FOR CHEST PAIN. DO NOT EXCEED A TOTAL OF 3 DOSES IN 15 MINUTES active Not Available Not Available No t Available aspirin 81 mg chewable tablet Chew 1 tablet every day by oral route. active Not Available Not Available No t Available mupirocin 2 % topical ointment Place a small amount on a q-tip and swab inside of nose twice daily starting 5 days prior to procedur e 2024 active Not Available Not Available Not Avai lable metoprolo l succinate ER 25 mg tablet,ex tended release 24 hr TAKE 1 TABLET BY MOUTH TWICE DAILY active Not Available Not Available No t Available finasteri de 5 mg tablet TAKE 1 TABLET BY MOUTH ONCE DAILY active Not Available Not Available No t Available amoxicill in 500 mg-potass ium clavulana te 125 mg tablet TAKE 1 TABLET BY MOUTH EVERY 12 HOURS 06/09 completed Not Available Not Available Not Available moxifloxa emily 0.5 % eye drops INSTILL 1 DROP INTO RIGHT EYE 4 TIMES DAILY 03/19 completed Not Available Not Available Not Available rosuvasta tin 5 mg tablet TAKE 1 TABLET BY MOUTH ONCE DAILY active Not Available Not Available No t Available trospium 20 mg tablet TAKE 1 TABLET BY MOUTH TWICE DAILY (THIS CONTROLS THE BLADDER WITHOUT CAUSING CONFUSIO N) active Not Available Not Available No t Available Novolin N NPH U-100 Insulin active 10 units each meal Not Available Not Available Not Available Lantus Solostar U-100 Insulin 100 unit/mL (3 mL) subcutane ous pen INJECT 10 UNITS SUBCUTAN EOUSLY NIGHTLY AT BEDTIME active Not Available Not Available No t Available Lantus Solostar U-100 Insulin active 10units subq nightly Not Available Not Available Not Available Eliquis 5 mg tablet TAKE 1 TABLET BY MOUTH TWICE DAILY active Not Available Not Available No t Available Vitals Date Recorded Body height Body mass index (BMI) Body weight Heart rate Oxygen saturation Oxygen saturation in Arterial blood by Pulse oximetry Systolic blood pressure Diastolic blood pressure Provider Name and Address Organization Details Last Updated DateTime 4 177.8 cm 29.1 kg/m2 02750.2 5 g 88 /min 98 % 98 % 126 mm[Hg] 72 mm[Hg] Jossy Merritt [facility] 4 10:29:24 Date Recorded Body height Heart rate Oxygen saturation Oxygen saturation in Arterial blood by Pulse oximetry Systolic blood pressure Diastolic blood pressure Provider Name and Address Organization Details Last Updated DateTime 5 177.8 cm 72 /min 94 % 94 % 122 mm[Hg] 64 mm[Hg] Jenn Guadarrama [facility] 5 12:45:48 Social History Question Answer Notes LastModified by Organizat ion Details LastModified Time Tobacco Smoking Status Former Smoker Not Available Health Note 03/17/2024 11:19:37 Do You Have An Advance Directive? No [email or web address] Information not available 03/17/2024 What Is Your Level Of Alcohol Consumption? Occasional [email or web address] Information not available 03/17/2024 How Many Times Per Week Do You Consume Alcohol? 3-4 Times Per Week [email or web address] Information not available 03/17/2024 What Is Your Level Of Caffeine Consumption? Moderate [email or web address] Information not available 03/17/2024 Are You Currently Employed? No [email or web address] Information not available 03/17/2024 What Is Your Occupation? Retired [email or web address] Information not available 03/17/2024 How Many Times Per Week Do You Exercise? Less Than 1 Time Per Week [email or web address] Information not available 03/17/2024 Smokeless Tobacco? Former Smokeless Tobacco User [email or web address] Information not available 03/17/2024 When Did You Quit Smoking? 40years Ago [email or web address] Information not available 03/17/2024 What Was The Date Of Your Most Recent Tobacco Screening? 03/19/2024 [email or web address] Information not available 03/17/2024 What Is Your Relationship Status? [email or web address] Information not available 03/17/2024 Do You Use Any Illicit Or Recreational Drugs? No [email or web address] Information not available 03/17/2024 Sex: Unknown Functional Status Question Answer Note LastModified by Organization D etails LastModified Time What is your exercise level? None [email or web address] Information not available 03/17/2024 Mental Status None recorded. Family History Relationship Description Onset Age of this Age Resolved Age Notes LastModified by Organization Details LastModified Time Mother Alzheimer's disease [email or web address] Not available 2023 11:19:35 Mother Diabetes mellitus [email or web address] Not available 2023 11:19:36 Mother Hypertensive disorder [email or web address] Not available 2023 11:19:36 Mother Hypercholest erolemia [email or web address] Not available 2023 11:19:36 Father Arthritis [email or web address] Not available 03/17/2024 11:19:36 Father Family history of malignant neoplasm [email or web address] Not available 2023 11:19:36 Paternal Grandfather Arthritis [email or web address] Not available 02/28 11:19:36 Medical History Condition Response High Blood Pressure Y COPD N Depression N Anxiety Disorder N Arthritis Y Cancer N Stroke N Fibromyalgia N Kidney Disease N Attention-deficit Hyperactivity Disorder N Thyroid Problems Y Anemia N Diabetes Y Bleeding Disorder N Hyperlipidemia N Asthma N Seizures N Heart Disease Y Osteoporosis N Past Encounters Encounter ID Performer Location Encounter Start Date Encounter Closed Date Diagnosis/Indication Diagnosis SNOMED-CT Code Diagnosis ICD10 Code Diagnosis Note [id number] [facility] [place] [address] [place] [phone] 03/19/2024 10:15:19 03/24/2024 18:47:22 Spondylosis 9069126 M47.812 M47.816 Urinary incontinence 165 149711 N39.498 [id number] Jaspreet Clemons MD Paviliannie [facility] [place] [place] [address] [place] [phone] 06/09/2024 12:30:48 06/18/2024 12:45:36 Spondylosis 6162694 M47.812 M47.816 Health Concerns Section Related Observation LastModified by Organization Detai ls LastModified Time None Recorded Concern Status LastModified by Organization Details LastModified Time None Recorded Advance Directives Directive N: Payers Encounter Date Sequence Insurance Name Policy Number Policy Noriega Covered Member ID Noriega Member ID Guarantor Name 03/19/2024 1 [place] Masood Segura [id number] Masood Segura 03/19/2024 2 [place] [id number] Masood Segura [id number] Masood Segura 06/09/2024 1 [place] Masood Segura [id number] Masood Segura 06/09/2024 2 [place] [id number] Masood Segura [id number] Masood Segura Notes Date Note Type Note Provider Name and Address Organization Details Recorded Time 03/19/2024 text/html Mr. Imelda pradhan s an 83 year old male who is a patient of Dr. Mcclain is referred by Dr. Sharita Clemons for lumbar stenosis. The patient is accompanied by his . The patient reports urinary and bowel incontinence, which he states has been going on for at least 6 months. The patient reports the incontinence happens 3-4x daily. He states that he is unable to feel when his bladder is full. The patient reports that it comes on all of the sudden and he needs to get to the bathroom. The patient is using a 3 wheeled walker. The patient's gait if shuffled. The patient reports left foot drop which has been present for three to four years. The patient reports numbness in his feet, hands, fingers, toes. The patient reports he has pain in his arms and they are sore. The patient reports he doesn't really have any back pain, just soreness. The patient reports it is there all the time and nothing brings it on. The patient reports he will use a lotion/salve for his arms that helps. The patient reports ice/heat/massage does not help. Pt reports he has been in physical therapy 3-4 sessions about 6 months ago. Pt reports he went to a [facility] in [place], [place]. The patient and reports multiple falls. The patient has diabetes, hypertension and heart disease. The patient's states that the patient has progressively worsened with his walking for about a year. The patient has not seen Urology. CT of the lumbar spine without contrast was performed at [facility] on 03/07/2024. The impression is as follows:Multilevel degenerative changes are present involving the lumbar spine this is increased at L2-3 through L4-5. Please see discussion above. MRI may be of further use.Cholelithiasis. 03/19/24-Pt is accompanied by his . Patient reports urinary and bowel incontinence. Patient reports it has been going on for at least 6 months. patient reports the incontinence happens 3-4x daily. Patient reports it comes on all of a sudden & needs to get to the bathroom. patient is using a 3 wheeled walker. Pt gait if shuffled. Patient reports left foot drop that. has been present for 3-4 years. Patient reports numbness in his feet, hands, fingers, toes. Patient reports his pain in his arms are sore. Patient reports doesn't really have any back pain just soreness. Patient reports it's there all the time and nothing brings it on. pt reports he'll use a lotion/paras for his arms that helps. pt reports ice/heat/massage doesn't help. Pt reports he has been in physical therapy 3-4 sessions about 6 months ago. Pt reports he went to a [facility] in [place], [place]. Patient and reports multiple falls. Pt is a diabetic as well. Press Bucker: Dr. Walters ([facility]), Shortage Worker: Dr. Gonzalez ([facility])Blood thinner: Eliquis and AspirinPacemaker: Not compatible with MRI's. 10/01/06-Right L3-L4 gaston-laminotomy lateral recess decompression wt Dr. Navneet Schreiber at [facility] in [facility].03/21/22-CT lumbar at [facility] Moderate multilevel lumbar spondylosis greatest at L2-3, L3-4 and L4-5, as described above. There is a cystic focus along the anteromedial margin of the right L4-5 facet joint which causes mass effect and severe right lateral recess narrowing at this level. This is thought to represent a synovial cyst with decompression from the right facet joint, however less likely this could represent a extruded disc with vacuum phenomenon. MRI lumbar spine examination with contrast would be beneficial for further characterization.06/29 07/20-CT cervical at [facility] reveals Moderate to severe multilevel cervical spondylosis greatest at C3-4, as described above. Curvilinear soft tissue thickening involving the left dorsal neck soft tissues, nonspecific but chronic appearing. Correlation with physical exam findings recommended.10/14/22- CT cervical at [facility] reveals Moderate to advanced facet arthropathy. Disc bulges at C3-4 and C4-5.03/06/24-CT lumbar at [facility] ordered for fecal incontinence with incomplete defecation reveals Multilevel degenerative changes are present involving the lumbar spine this is increased at L2-3 through L4-5. Please see discussion above. MRI may be of further use. Jaspreet Clemons MD [address] [place] [address], [phone], [facility] 03/23/2024 23:22:25 06/09/2024 text/html Mr. Correia is a n 84 year old male who is a patient of Dr. Clemons returns for follow up. The patient is in a wheelchair. The patient denies any pain. He endorses some tingling in the bilateral hands and feet. 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 The patient states that this began a couple years ago, but is getting worse. The patient has diabetes. The patient is on aspirin and Eliquis. The patient was last seen on 03/19/24 with complex medical history including urinary incontinence, peripheral and coronary vascular disease, atrial fibrillation with a pacemaker on Eliquis and aspirin. He had difficulty walking with left lower extremity weakness. His motor strength was 4- left iliopsoas, 4 right iliopsoas, 4 left quad, 5 right quad, 4- left plantarflexion, 3 left big toe, 4 right big toe. DTRs were 2+ patellar on the right, 1+ patellar on the left and 0 Achilles bilaterally. He was unable to obtain an MRI due to the pacemaker. He had a CT scan of the lumbar spine, which showed moderate DJD with evidence of thickening ligamentum flavum and central stenosis in the lumbar spine. I would obtain a CT Myelogram and bring him back to review the studies and come up with surgical solutions. Given his urinary incontinence and his age as a risk factor, I would refer him for Urology evaluation as this could be compounding his symptoms. CT Myelogram cervical and lumbar spine with contrast was performed at [facility] on 06/05/24.IMPRESSION:C ervical:1. Overall moderate degenerative findings of the cervical spine as described in the body of the report2. Severe spinal canal stenosis at C3-C4 with moderate cord compression. Additionally, spinal canal stenosis is also noted at the C2-C3 (mild), C4-C5 (mild to moderate), C5-6 (moderate) and C6-C7 (minimal). No other levels of cord compression identified.3. Multilevel neural foraminal stenosis, especially at C3-C4 (moderate tosevere left and severe right), C4-C5 (moderate left and severe right), and C5 -C6 (moderate right).Lumbar:1. Overall moderate degenerative findings of the lumbar spine as described in the body of the report2. Spinal canal stenosis at the L2-3 (moderate to severe), L3-L4 (mild) and L4-5 (at least moderate). Crowding of the nerve roots at L2-3 and L4-5. No cord compression . Redundancy of the nerve roots above the L2-3 stenosis.3. Multilevel neural foraminal stenosis, especially at the L2-3 (severe left and moderate right), L3-L4 (moderate to severe bilateral) and L4-5 (at least moderate bilateral).4. Atherosclerotic disease. Calcified cholelithiasis. 06/09/24- No c/o painany weakness/numbness/tin gling in any extremity? fingers/toes? Both hands and feet are tinglingany incontinence? Yes - PCP put him on a new medication but isn't sure the name of it Press Bucker: Dr. Walters ([facility]), Shortage Worker: Dr. Gonzalez ([facility])Blood thinner: Eliquis and AspirinPacemaker: Not compatible with MRI's 10/01/06-Right L3-L4 gaston-laminotomy lateral recess decompression wt Dr. Navneet Schreiber at [facility] in [facility].03/21/22-CT lumbar at [facility] Moderate multilevel lumbar spondylosis greatest at L2-3, L3-4 and L4-5, as described above. There is a cystic focus along the anteromedial margin of the right L4-5 facet joint which causes mass effect and severe right lateral recess narrowing at this level. This is thought to represent a synovial cyst with decompression from the right facet joint, however less likely this could represent a extruded disc with vacuum phenomenon. MRI lumbar spine examination with contrast would be beneficial for further characterization.06/29 07/20-CT cervical at [facility] reveals Moderate to severe multilevel cervical spondylosis greatest at C3-4, as described above. Curvilinear soft tissue thickening involving the left dorsal neck soft tissues, nonspecific but chronic appearing. Correlation with physical exam findings recommended.10/14/22- CT cervical at [facility] reveals Moderate to advanced facet arthropathy. Disc bulges at C3-4 and C4-5.03/06/24-CT lumbar at [facility] ordered for fecal incontinence with incomplete defecation reveals Multilevel degenerative changes are present involving the lumbar spine this is increased at L2-3 through L4-5. Please see discussion above. MRI may be of further use.03/19/24-Referral from Dr. Clemons for lumbar. Reports urinary and bowel incontinence, 3-4x day for 6 months, comes on all of a sudden. using 3 wheeled walker with shuffled gait, left foot drop present for 3-4 years. numbness in feet/hands/fingers/to es.back soreness. multiple falls. Recommend CT Myelogram and referral to urology.06/05/23-CT Cervical and lumbar myelogram at [facility] shows Severe spinal canal stenosis at C3-C4 with moderate cord compression. Additionally, spinal canal stenosis is also noted at the C2-C3 (mild), C4-C5 (mild to moderate), C5-6 (moderate) and C6-C7 (minimal). No other levels of cord compression identified. Multilevel neural foraminal stenosis, especially at C3-C4 (moderate to severe left and severe right), C4-C5 (moderate left and severe right), and C5-C6 (moderate right). Spinal canal stenosis at the L2-3 (moderate to severe), L3-L4 (mild) and L4-5 (at least moderate). Crowding of the nerve roots at L2-3 and L4-5. No cord compression . Redundancy of the nerve roots above the L2-3 stenosis. Multilevel neural foraminal stenosis, especially at the L2-3 (severe left and moderate right), L3-L4 (moderate to severe bilateral) and L4-5 (at least moderate bilateral). 06/09/24- Pt here with and daughter.Back pain level? No c/o pain since cortisone shots.any weakness/numbness/tin gling in any extremity? fingers/toes? Pt c/o numbness and tingling in both hands and both feetany incontinence? Yes - PCP put him on a new medication but he isn't sure the name of itPt c/o diarrhea Press Bucker: Dr. Walters ([facility]), Shortage Worker: Dr. Gonzalez ([facility])Blood thinner: Eliquis and AspirinPacemaker: Not compatible with MRI's 10/01/06-Right L3-L4 gaston-laminotomy lateral recess decompression wtih Dr. Navneet Schreiber at [facility] in [facility].03/21/22-CT lumbar at [facility] Moderate multilevel lumbar spondylosis greatest at L2-3, L3-4 and L4-5, as described above. There is a cystic focus along the anteromedial margin of the right L4-5 facet joint which causes mass effect and severe right lateral recess narrowing at this level. This is thought to represent a synovial cyst with decompression from the right facet joint, however less likely this could represent a extruded disc with vacuum phenomenon. MRI lumbar spine examination with contrast would be beneficial for further characterization.06/29 07/20-CT cervical at [facility] reveals Moderate to severe multilevel cervical spondylosis greatest at C3-4, as described above. Curvilinear soft tissue thickening involving the left dorsal neck soft tissues, nonspecific but chronic appearing. Correlation with physical exam findings recommended.10/14/22- CT cervical at [facility] reveals Moderate to advanced facet arthropathy. Disc bulges at C3-4 and C4-5.03/06/24-CT lumbar at [facility] ordered for fecal incontinence with incomplete defecation reveals Multilevel degenerative changes are present involving the lumbar spine this is increased at L2-3 through L4-5. Please see discussion above. MRI may be of further use.03/19/24-Referral from Dr. Clemons for lumbar. Reports urinary and bowel incontinence, 3-4x day for 6 months, comes on all of a sudden. using 3 wheeled walker with shuffled gait, left foot drop present for 3-4 years. numbness in feet/hands/fingers/to es.back soreness. multiple falls. Recommend CT Myelogram and referral to urology.06/05/23-CT Cervical and lumbar myelogram at [facility] shows Severe spinal canal stenosis at C3-C4 with moderate cord compression. Additionally, spinal canal stenosis is also noted at the C2-C3 (mild), C4-C5 (mild to moderate), C5-6 (moderate) and C6-C7 (minimal). No other levels of cord compression identified. Multilevel neural foraminal stenosis, especially at C3-C4 (moderate to severe left and severe right), C4-C5 (moderate left and severe right), and C5-C6 (moderate right). Spinal canal stenosis at the L2-3 (moderate to severe), L3-L4 (mild) and L4-5 (at least moderate). Crowding of the nerve roots at L2-3 and L4-5. No cord compression . Redundancy of the nerve roots above the L2-3 stenosis. Multilevel neural foraminal stenosis, especially at the L2-3 (severe left and moderate right), L3-L4 (moderate to severe bilateral) and L4-5 (at least moderate bilateral). Jaspreet Clemons MD [address], [address], [facility] 06/11/2024 00:17:40
--- OUTSIDE RECORDS SUMMARY | 2024-08-07 03:22 | XMS_ITS | Encounter Summary ---
Author Organization [facility] Address [address] [place] [address] Care Team Providers Care Cut Off Sawyer Log Name Role Phone Lane Walters MD Unavailable [phone] Kiley Sarkar PA-C Unavailable [phone] Taylor Weber MD Primary Care Provider [phone] Christina Booker MD Unavailable Jaspreet Clemons MD Unavailable ArmaniBritany Aguila MD Unavailable [phone] Reason for Visit * Reason Onset Date Comments Medication Information 08/06/2024 Encounter Details Date Type Department Care Team (Late st Contact Info) Description 08/06/2024 Telephone [facility] Medical Group Diabetes and Endocrinology - [address] [phone] Kelly Gonzalez MD [address] [place] [phone] Medication Information Social History Tobacco Use Types Packs/Day Years [...] from your doctor or pharmacy? Never 07/19/2024 [facility] Utilities Answer Date Recorded In the past [address] [facility] [employer], [employer], oil, or water [employer] threatened to shut off services in your [...] week 07/19/2024 How often do you attend [facility] or [facility]ental orthodox services? 1 to 4 times per year 07/19/2024 Do you belong to any clubs o r organizations such as rastafari groups, unions, fraternal or athletic groups, or [...] Recorded Patient Health Questionnaire-2 Score 0 02/05/2024 [facility] - Occupational [...] any time in the past 12 m onths, were you homeless or living in a intermediate (including now)? No 07/19/2024 Sex and Gender Information Value Date Recorded Sex Assigned at Male 05/27/2024 6:25 AM REGISTERED RADIOLOGIC TECHNOLOGIST Legal Sex Male 10:27 PM CDT Gender Identity Not on file Sexual Orientation Not on file documented as of this encounter Functional Status * Are you deaf or do you have serious difficulty hearing Answer Date of Assessment Author Status No 07/19/2024 9:00 PM CDT Aileen Martinez L PN Active * Are you blind or do you have serious difficulty seeing, even when wearing glasses? Answer Date of Assessment Author Status No 07/19/2024 9:00 PM CDT Aileen Martinez L PN Active * Do you have serious difficulty walking or climbing stairs? Answer Date of Assessment Author Status No 07/19/2024 9:00 PM CDT Aileen Martinez L PN Active * Do you have difficulty dressing or bathing? Answer Date of Assessment Author Status No 07/19/2024 9:00 PM CDT Aileen Martinez L PN Active * Because of a physical, mental, or emotional condition, do you have difficulty doing errands alone such as visiting a doctor's office or shopping? Answer Date of Assessment Author Status No 07/19/2024 9:00 PM CDT Aileen Martinez L PN Active documented as of this encounter Mental Status * Because of a physical, mental, or emotional condition, do you have serious difficulty concentrating, remembering, or making decisions? Answer Entry Date Author Status No 07/19/2024 9:00 PM CDT Aileen Martinez L PN Active documented in this encounter Progress Notes * Inocencia Gusman, FARRUKH - 08/06/2024 3:02 PM CDT Spoke to the patients and advised her to request pen[facility]iary to fax us pts bsl record and medication list and we can get advise from dr helms she voiced understanding * Edin Alvarez - 08/06/2024 2:29 PM CDT Caller name: Lexie, Spouse (Not HIPAA AUTH) Call back/ext. #: [phone] MyChart: No- caller prefers to be called via telephone Call details: Pt was discharged from [facility] yesterday (08/05/2024) Pt is now at the [facility] but the facility was not given information on the pt diabetic health a Pt blood sugar has been as high as 350 Spouse is requesting a call to the clinic to give pt health records and a callback to herself to confirm the Dr and/or nurse has touch based with the rehab nurses documented in this encounter Plan of Treatment Upcoming Encounters Date Type Department Care Team (Late st Contact Info) Description 09/08/2024 10:20 AM CDT Office Visit [facility] Medical Group Diabetes and Endocrinology - [facility] [address] [place] [address] Kelly Gonzalez MD [address] [place], [place] [address] 10/17/2024 1:00 AM CDT Allied Health/Nurse Visit [facility] ld [address] [place] [address] [address] Walters MD [address] [place] [address] 12/10/2024 10:15 AM CDT Allied Health/Nurse Visit [facility] [place] [phone] Lane Walters MD [address] [place] [address] 12/10/2024 10:30 AM CDT Office Visit [facility] [address] [place] [address] Kiley Sarkar PA-C [address] [place] [phone] 01/05/2025 12:15 PM CDT Office Visit [facility] [address] [place] [address] Christina Booker MD [address] [place] [address] documented as of this encounter Goals Goal Patient Goal Type Associated Problems Recent Progress Patient-Stated? Author Safety Patient/family will have appropriate support at home upon discharge General No Evelin Wagoner RN documented as of this encounter Visit Diagnoses Not on filedocumented in this encounter Care Teams Cut Off Sawyer Log Relationship Specialty Start Date End Date Taylor Weber MD [address] [place] [address] PCP - General FAMILY PRACTICE 05/01/24 Lane Walters MD [address] [place] [address] [phone] EP Biomed Tech CARDIAC ELECTROPHYSIOLOGY 03/06/19 Kiley Sarkar PA-C [address] [place] [address] [phone] Referring Physician PHYSICIAN PEDIATRIC NP 04/10/23 Christina Booker MD [address] [place] [address] [phone] Consulting Physician CARDIOVASCULAR DISEASE 06/24/24 Jaspreet Clemons MD [address] [phone] Surgeon NEUROLOGICAL SURGERY 06/25/24 Britany Paris MD [address] [place] [address] Surgeon NEUROLOGICAL SURGERY 07/09/24 documented as of this encounter
--- OUTSIDE RECORDS SUMMARY | 2024-08-07 03:22 | XMS_ITS | Encounter Summary ---
Author Organization [facility] Address [address] [place] [address] Care Team Providers Care Project Manager/Team Coach Name Role Phone Navneet Velasco MD Unavailable [phone] Tahir Darden MD Unavailable Unavailable Lane Walters MD Unavailable [phone] Amaury Kuhn MD Primary Care Provider [phone] Sheri Mcdonnell APRN, CUTTING PRESSMAN-C Unavailable [phone] Robert Burton MD Unavailable Kiley Sarkar PA-C Unavailable [phone] Barbara Fung MD Unavailable [phone] Nuria Dailey ANP-BC Unavailable [phone] Taylor Weber MD Primary Care Provider [phone] Christina Booker MD Unavailable Jaspreet Clemons MD Unavailable Britany Paris MD Unavailable [phone] Encounter Details Date Type Department Care Team (Late st Contact Info) Description 02/23/2022 Hospital Orders Only [facility] Alteration Tailor Pre/Post [address] [place] [address] Nabil Corley MD [address] [address] [facility] [place] [address] Social History Tobacco Use Types Packs/Day Years Used Date Smoking Tobacco: Former Cigarettes Q uit: 1989 Smokeless Tobacco: Never Alcohol Use Standard Drinks/Week Comments Yes 0 (1 standard drink = 0.6 oz pur e alcohol) PHQ-2 Answer Date Recorded PHQ-2 Score - If the patient scores above 3, please move on to questions 3-9 0 11/17/2021 Sex and Gender Information Value Date Recorded Sex Assigned at Male 05/27/2024 6:25 AM DIGITAL PROGRAM MANAGER Legal Sex Male 10:27 PM CDT Gender Identity Not on file Sexual Orientation Not on file COVID-19 Exposure Response Date Recorded In the last 10 days, have yo u been in contact with someone who was confirmed or suspected to have Coronavirus/COVID-19? No / Unsure 02/20/2022 8:24 AM CDT documented as of this encounter Functional Status * RETIRED Are you deaf or do you have serious difficulty hearing Answer Date of Assessment Author Status No 03/31/2021 9:00 PM DIGITAL PROGRAM MANAGER Activ e * RETIRED Are you blind or do you have serious difficulty seeing, even when wearing glasses? Answer Date of Assessment Author Status No 03/31/2021 9:00 PM DIGITAL PROGRAM MANAGER Activ e * Do you have serious difficulty walking or climbing stairs? Answer Date of Assessment Author Status No 03/31/2021 9:00 PM DIGITAL PROGRAM MANAGER Chuck Hackett RN Active * Do you [...] 9:00 PM Chuck Moise RN Active documented as of this encounter Mental Status * Because of a physical, mental, or emotional condition, do you have serious difficulty concentrating, remembering, or making decisions? Answer Entry Date Author Status No 03/31/2021 9:00 PM DIGITAL PROGRAM MANAGER Chuck Hackett RN Active documented in this encounter Plan of Treatment Upcoming Encounters Date Type Department Care Team (Late st Contact Info) Description 09/08/2024 10:20 AM CDT Office Visit [facility] Diabetes and Endocrinology - [place] [address] [facility] [place] [phone] Kelly Gonzalez MD [address] [place] [address] 10/17/2024 1:00 AM CDT Allied Health/Nurse Visit [facility] [address] [place] [address] Lane Walters MD [address] [place] [address] 12/10/2024 10:15 AM CDT Allied Health/Nurse Visit [facility] [place] [address] [place] [address] Lane Walters MD [address] [place] [address] 12/10/2024 10:30 AM CDT Office Visit [facility] [place] [address] [place] [address] Kiley Sarkar PA-C [address] [place] [address] 01/05/2025 12:15 PM CDT Office Visit [facility] [place] [address] [place] [address] Christina Booker MD [address] [place] [address] documented as of this encounter Goals Goal Patient Goal Type Associated Problems Recent Progress Patient-Stated? Author Safety Patient/family will have appropriate support at home upon discharge Evelin Baker RN documented as of this encounter Visit Diagnoses Not on filedocumented in this encounter Additional Health Concerns Infection Onset Date Last Indicated Resolved Time Respiratory Rule-Out 06/25/2024 06/25/2024 025 12:22 PM DIGITAL PROGRAM MANAGER documented as of this encounter Care Teams Project Manager/Team Coach Relationship Specialty Start Date End Date Amaury Kuhn MD [address] [place] [phone] PCP - [facility] 05/05/21 04/30/24 Taylor Weber MD [address] [place] [address] PCP - [facility] 05/01/24 Navneet Velasco MD [address] [place] [phone] [place] V[employer] Liner CARDIOVASCULAR DISEASE 01/12/16 08/12/23 Tahir Darden MD [address] [place] [address] Steamer Blocker INTERVENTIONAL CARDIOLOGY 02/16/16 10/09/22 Lane Walters MD [address] [place] [address] EP Vessel Liner CARDIAC ELECTROPHYSIOLOGY 03/06/19 Sheri Mcdonnell APRN, CUTTING PRESSMAN-C [address] [facility] [address] [place] [address] NURSE PRACTITIONER 09/01/21 08/12/23 Robert Burton MD [address] [facility] [address] [place] [phone] Consulting Physician INTERNAL MEDICINE 11/29/22 5 Kiley Sarkar PA-C [address] [place] [address] Referring Physician PHYSICIAN MILK RUNNER 04/10/23 Barbara Fung MD [address] [place] [id number] INTERVENTIONAL CARDIOLOGY 08/13/2306/01 Nuria Dailey, [facility] [address] [place] [address] Nurse Practitioner NURSE PRACTITIONER ADULT HEALTH 08/13/23 06/23/24 Christina Booker MD [address] [place] [address] Consulting Physician CARDIOVASCULAR DISEASE 06/24/24 Jaspreet Clemons MD [address] [phone] Surgeon NEUROLOGICAL SURGERY 06/25/24 Britany Paris MD [address] [place] [address] Surgeon NEUROLOGICAL SURGERY 07/09/24 documented as of this encounter
[2024-08-07 03:48] LABS: Add Urine Microscopic? YES; Appearance Urine Turbid (Clear); Bacteria Urine 1+ /hpf; Bilirubin Urine Negative (Negative); Blood Urine 1+ (Negative); Color Urine Yellow (Yellow); Glucose Urine UA Trace mg/dL (Negative); Ketones Urine Negative (Negative); Leukocyte Esterase Ur 3+ LEU/UL (Negative); Nitrate Urine Negative (Negative); Protein Urine Trace mg/dL (Negative); RBC Urine 0-2 /hpf (0-2); Specific Grav Ur 1.015 (1.001-1.035); Squamous Epithelial Cell Urine Occasional /hpf (Few); Urobilinogen Urine 0.2 mg/dL (<2.0); WBC Urine >100 /hpf (0-3)
[2024-08-07 03:59] LABS: Basophils Percent Auto 0.2 % (0.2-1.2); Eosinophils Absolute Auto 0.1 K/mm3 (0-0.3); Eosinophils Percent Auto 0.5 % (0-4.4); Hematocrit 24.1 % (42.0-52.0); Immature Granulocyte Absolute 0.11 K/mm3 (0.00-0.031); Immature Granulocyte Percent A 0.9 % (0-0.5); Lymphocytes Absolute Auto 1.14 K/mm3 (0.9-3.2); Mean Corpuscular HGB Conc 33.2 g/dl (32-36); Mean Corpuscular Hemoglobin 30.7 pg (26-34); Mean Corpuscular Volume 92.3 fl (80-100); Mean Platelet Volume 11.4 fl (7.4-10.4); Monocytes Absolute Auto 1.3 K/mm3 (0.1-0.6); Monocytes Percent Auto 10.5 % (2.6-8.5); Neutrophils Percent Auto 78.9 % (45.5-73.1); Platelet Count Result 182 k/mm3 (150-375); Red Blood Count 2.61 M/mm3 (4.6-6.20); Red Cell Distribution Width 13.5 % (11.5-14.5); White Blood Count 12.7 K/mm3 (4.5-10.0)
[2024-08-07] MEDS: HYDROGEN PEROXIDE 3% SOLN(*SP) 473 ML BOTTLE (04:01)
[2024-08-07] MEDS: NACL 0.9% IRRIGATION POUR BOTTLE 500 ML (04:01)
[2024-08-07 04:11] LABS: INR 1.3; Prothrombin Time 16.4 Seconds (11.1-14.7)
[2024-08-07 04:12] LABS: Partial Thromboplastin Time 27.9 Seconds (22.3-36.8)
[2024-08-07 04:14] LABS: Alanine Aminotransferase 39 U/L (6-50); Albumin Level 3.1 g/dL (3.5-5.1); Alkaline Phosphatase 63 U/L (38-126); Anion Gap 7 mmol/L (4-12); Aspartate Amino Transferase 26 U/L (17-59); Bilirubin,Total 0.3 mg/dL (0.2-1.3); Blood Urea Nitrogen 72 mg/dL (9-20); Calcium 8.5 mg/dL (8.4-10.2); Carbon Dioxide 27 mmol/L (22-30); Chloride 97 mmol/L (98-107); Estimated CRCL calculation 67 ml/min; Estimated Glomerular Filt Rate > 60; Glucose 245 mg/dL (65-110); Lipase 35 U/L (23-300); Magnesium 2.4 mg/dL (1.6-2.3); Potassium 3.9 mmol/L (3.4-5.0); Sodium 131 mmol/L (137-145)
[2024-08-07 04:16] LABS: Lactic Acid Reflex 1.6 mmol/L (0.7-2.0)
[2024-08-07 04:31] LABS: Procalcitonin 0.3 ng/mL
--- NOTE | 2024-08-07 04:55 | ED.GENADULT ---
HPI - General Adult General Chief complaint: Unspecified <Fish Lau MD - Last Filed: 08/07/24 19:40> Stated complaint: URINE RETENTION, BLEEDING FROM PEG TUBE. <Fish Lau MD - Last Filed: 08/07/24 19:40> Time Seen by Provider: 08/07/24 03:02 <Fish Lau MD - Last Filed: 08/07/24 19:40> History of Present Illness HPI narrative: Patient is a 84-year-old gentleman presents emergency department with chief complaint of bleeding around the G-tube site coffee-ground material from the G-tube site and urinary retention. Facility reported that the patient had several 100 mL of urine in his bladder and also noticed there was some bleeding around the G-tube site the patient was transferred to a nursing rehab after being in [place] <Fish Lau MD - Last Filed: 08/07/24 19:40> Related Data Home medications: Home Medications ?Medication ?Instructions ?Recorded ?Confirmed ?Last Taken ?Type apixaban 5 mg tablet 5 mg PO BID 08/05/24 08/07/24 Unknown History aspirin 81 mg chewable tablet 81 mg PO DAILY 08/05/24 08/07/24 Unknown History atorvastatin 10 mg tablet (Lipitor) 10 mg PO HS 08/05/24 08/07/24 08/04/24 History calcium polycarbophil 625 mg tablet 625 mg PO DAILY 08/05/24 08/07/24 Unknown History finasteride 5 mg tablet 5 mg PO DAILY 08/05/24 08/07/24 Unknown History hydrocodone 7.5 mg-acetaminophen 1 tablet PO Q6H PRN pain 08/05/24 08/07/24 Unknown History 325 mg tablet insulin glargine 100 unit/mL (3 24 unit subcut BID 08/05/24 08/07/24 Unknown History mL) subcutaneous pen (Lantus Solostar U-100 Insulin) lactulose 20 gram oral packet 20 g PO TID 08/05/24 08/07/24 08/05/24 09:00 History levothyroxine 125 mcg tablet 125 mcg PO DAILY 08/05/24 08/07/24 Unknown History (Synthroid) sennosides 8.6 mg tablet 8.6 mg PO BID PRN constipation 08/05/24 08/07/24 Unknown History sennosides 8.6 mg-docusate sodium 1 tab-cap PO HS 08/05/24 08/07/24 Unknown History 50 mg tablet solifenacin 10 mg tablet 10 mg PO DAILY 08/05/24 08/07/24 08/05/24 History tizanidine 4 mg tablet 4 mg PO Q8H PRN neck and shoulder 08/05/24 08/07/24 Unknown History pain <Fish Lau MD - Last Filed: 08/07/24 19:40> Allergies/adverse reactions: Allergies Allergy/AdvReac Type Severity Reaction Status Date / Time Iodinated Contrast Media Allergy Severe Chest Pain Verified 08/07/24 10:00 perflutren AdvReac Mild pain Verified 08/07/24 08:12 <Fish Lau MD - Last Filed: 08/07/24 19:40> Review of Systems Review of Systems: A 10 system review of systems was completed on the patient and is negative except for what is stated in the HPI. Nursing and ancillary documentation was reviewed. <Fish Lau MD - Last Filed: 08/07/24 19:40> PMFSH Social History Social History: Social History Smoking status: Never smoker Alcohol intake: former Substance use: never Do You Feel Safe in your Home?: Yes Lack of Transportation: No Lack of Food: Never True Current Housing: I Have Housing Concerned About Future Housing: No Difficulty Paying Gas/Electric Bills: No Difficulty Paying for Meds: No Currently Unemployed: No Education: High School Diploma/GED Difficulty w/ Childcare or Family Care: No Spiritual care concerns: No <Fish Lau MD - Last Filed: 08/07/24 19:40> Exam Narrative: GENERAL: Well-appearing, well-nourished, and in no acute distress. HEAD: Normocephalic, atraumatic. EYES: PERRLA and EOMI. ENT: Nares clear, no rhinorrhea or epistaxis. Mucous membranes moist. NECK: Supple. CHEST: Clear to auscultation. No respiratory distress. HEART: Regular rate and rhythm. No murmur heard. Normal peripheral pulses. ABDOMEN: Soft, nontender, nondistended, normal active bowel sounds. G-tube intact in the abdomen there is some blood around it upon aspiration of the PEG tube there is coffee-ground material EXTREMITIES: Normal range of motion. No edema. SKIN: Warm, dry, no rash. NEURO: No focal deficits. Alert and oriented x3. PSYCH: Normal mood and affect. <Fish Lau MD - Last Filed: 08/07/24 19:40> Course Course Emergency Course: [facility] 99908/07/24: Patient signed out pending admission/transfer. I spoke with our hospitalist feels that this patient's current problems are due to his surgical complications and he needs to return to [facility] in [place]. [facility] transfer line was contacted and he has been placed on the waiting list. The moment patient's current problems include GI bleed drop in hemoglobin. Type and screen obtained. He has seen given 80 mg of IV Protonix. Patient given fluid resuscitation. Urine indicative infection started on ceftriaxone. Patient awaiting transport to [facility] 1500 08/08/24: I called [facility] [place] to update them on patient's condition. Patient's urine culture came back for Pseudomonas. His antibiotics were switched to cefepime. I spoke with their hospitalist with accepted the patient. They will be transferred for further management. Patient accepted by Dr. Resendiz <Cedrick Trujillo MD - Last Filed: 08/08/24 18:36> Vital Signs Vital signs: Vital Signs Temperature 97.4 F L 08/07/24 02:25 Pulse Rate 94 08/07/24 02:25 Respiratory Rate 15 08/07/24 02:25 Blood Pressure 122/59 L 08/07/24 02:25 Pulse Oximetry 97 08/07/24 02:25 Oxygen Delivery Room Air 08/07/24 02:25 Temperature 97.7 F 08/08/24 11:11 Pulse Rate 75 08/08/24 14:31 Respiratory Rate 17 08/08/24 14:31 Blood Pressure 118/88 08/08/24 14:31 Pulse Oximetry 100 08/08/24 14:31 Oxygen Delivery Room Air 08/07/24 02:25 <Fish Lau MD - Last Filed: 08/07/24 19:40> Vital Signs Temperature 97.4 F L 08/07/24 02:25 Pulse Rate 94 08/07/24 02:25 Respiratory Rate 15 08/07/24 02:25 Blood Pressure 122/59 L 08/07/24 02:25 Pulse Oximetry 97 08/07/24 02:25 Oxygen Delivery Room Air 08/07/24 02:25 Temperature 97.7 F 08/08/24 11:11 Pulse Rate 75 08/08/24 14:31 Respiratory Rate 17 08/08/24 14:31 Blood Pressure 118/88 08/08/24 14:31 Pulse Oximetry 100 08/08/24 14:31 Oxygen Delivery Room Air 08/07/24 02:25 <Cedrick Trujillo MD - Last Filed: 08/08/24 18:36> Medical Decision Making MDM Narrative Medical decision making narrative: Differential diagnosis includes GI bleed, postprocedure bleeding, urinary retention, UTI <Fish Lau MD - Last Filed: 08/07/24 19:40> Vital Signs Vital Signs: Vital Signs Temperature 97.4 F L 08/07/24 02:25 Pulse Rate 94 08/07/24 02:25 Respiratory Rate 15 08/07/24 02:25 Blood Pressure 122/59 L 08/07/24 02:25 Pulse Oximetry 97 08/07/24 02:25 Oxygen Delivery Room Air 08/07/24 02:25 Temperature 97.7 F 08/08/24 11:11 Pulse Rate 75 08/08/24 14:31 Respiratory Rate 17 08/08/24 14:31 Blood Pressure 118/88 08/08/24 14:31 Pulse Oximetry 100 08/08/24 14:31 Oxygen Delivery Room Air 08/07/24 02:25 <Fish Lau MD - Last Filed: 08/07/24 19:40> Vital Signs Temperature 97.4 F L 08/07/24 02:25 Pulse Rate 94 08/07/24 02:25 Respiratory Rate 15 08/07/24 02:25 Blood Pressure 122/59 L 08/07/24 02:25 Pulse Oximetry 97 08/07/24 02:25 Oxygen Delivery Room Air 08/07/24 02:25 Temperature 97.7 F 08/08/24 11:11 Pulse Rate 75 08/08/24 14:31 Respiratory Rate 17 08/08/24 14:31 Blood Pressure 118/88 08/08/24 14:31 Pulse Oximetry 100 08/08/24 14:31 Oxygen Delivery Room Air 08/07/24 02:25 <Cedrick Trujillo MD - Last Filed: 08/08/24 18:36> Lab Data Result diagrams: 08/08/24 15:08 08/08/24 15:08 <Fish Lau MD - Last Filed: 08/07/24 19:40> Labs: Lab Results 08/07/24 08/07/24 08/07/24 Range/Units 03:37 03:54 10:57 WBC 12.7 H (4.5-10.0) K/mm3 RBC 2.61 L (4.6-6.20) M/mm3 Hgb 8.0 L 7.0 L (14.0-18.0) g/dL Hct 24.1 L 21.7 L (42.0-52.0) % MCV 92.3 (80-100) fl MCH 30.7 (26-34) pg MCHC 33.2 (32-36) g/dl RDW 13.5 (11.5-14.5) % Plt Count 182 (150-375) k/mm3 MPV 11.4 H (7.4-10.4) fl Immature Gran % (Auto) 0.9 H (0-0.5) % Neut % (Auto) 78.9 H (45.5-73.1) % Lymph % (Auto) 9.0 L (18.3-44.2) % [place] % (Auto) 10.5 H (2.6-8.5) % Eos % (Auto) 0.5 (0-4.4) % Baso % (Auto) 0.2 (0.2-1.2) % Lymph # (Auto) 1.14 (0.9-3.2) K/mm3 [place] # (Auto) 1.3 H (0.1-0.6) K/mm3 Eos # (Auto) 0.1 (0-0.3) K/mm3 Baso # (Auto) 0.0 (0.0-0.1) K/mm3 Abs Immat Gran (auto) 0.11 H (0.00-0.031) K/mm3 Absolute Neuts (auto) 10.0 H (1.3-6.7) K/mm3 Absolute Nucleated RBC 0.000 (0.0-0.012) K/mm3 Nucleated RBC % 0.0 (0.0-0.2) % PT 16.4 H (11.1-14.7) Seconds INR 1.3 APTT 27.9 (22.3-36.8) Seconds Sodium 131 L (137-145) mmol/L Potassium 3.9 (3.4-5.0) mmol/L Chloride 97 L (98-107) mmol/L Carbon Dioxide 27 (22-30) mmol/L Anion Gap 7 (4-12) mmol/L BUN 72 H D (9-20) mg/dL Creatinine 0.76 (0.7-1.3) mg/dL Estim Creat Clear Calc 67 ml/min Estimated GFR > 60 (59 - ) Glucose 245 H (65-110) mg/dL POC Capillary Glucose (65-105) mg/dl Lactic Acid 1.6 (0.7-2.0) mmol/L Calcium 8.5 (8.4-10.2) mg/dL Magnesium 2.4 H (1.6-2.3) mg/dL Total Bilirubin 0.3 (0.2-1.3) mg/dL AST 26 (17-59) U/L ALT 39 (6-50) U/L Alkaline Phosphatase 63 (38-126) U/L Total Protein 6.0 L (6.3-8.2) g/dL Albumin 3.1 L (3.5-5.1) g/dL Lipase 35 (23-300) U/L Procalcitonin 0.3 ng/mL Urine Color Yellow (Yellow) Urine Appearance Turbid H (Clear) Urine pH 5.0 (5.0-9.0) Ur Specific [place] 1.015 (1.001-1.035) Urine Protein Trace (Negative) mg/dL Urine Glucose (UA) Trace H (Negative) mg/dL Urine Ketones Negative (Negative) mg/dL Ur Blood (Man) 1+ H (Negative) Urine Nitrate Negative (Negative) Urine Bilirubin Negative (Negative) Urine Urobilinogen 0.2 (<2.0) mg/dL Leukocyte Esterase Rfl 3+ H (Negative) ARNEL/UL Urine RBC 0-2 (0-2) /hpf Urine WBC >100 H (0-3) /hpf Ur Squamous Epith Cells Occasional (Few) /hpf Urine Bacteria 1+ H /hpf Urine Casts 3-5 Blood Type Antibody Screen Crossmatch 08/07/24 08/07/24 08/07/24 Range/Units 16:29 17:45 21:46 WBC (4.5-10.0) K/mm3 RBC (4.6-6.20) M/mm3 Hgb 6.9 L* (14.0-18.0) g/dL Hct 21.6 L (42.0-52.0) % MCV (80-100) fl MCH (26-34) pg MCHC (32-36) g/dl RDW (11.5-14.5) % Plt Count (150-375) k/mm3 MPV (7.4-10.4) fl Immature Gran % (Auto) (0-0.5) % Neut % (Auto) (45.5-73.1) % Lymph % (Auto) (18.3-44.2) % [place] % (Auto) (2.6-8.5) % Eos % (Auto) (0-4.4) % Baso % (Auto) (0.2-1.2) % Lymph # (Auto) (0.9-3.2) K/mm3 [place] # (Auto) (0.1-0.6) K/mm3 Eos # (Auto) (0-0.3) K/mm3 Baso # (Auto) (0.0-0.1) K/mm3 Abs Immat Gran (auto) (0.00-0.031) K/mm3 Absolute Neuts (auto) (1.3-6.7) K/mm3 Absolute Nucleated RBC (0.0-0.012) K/mm3 Nucleated RBC % (0.0-0.2) % PT (11.1-14.7) Seconds INR APTT (22.3-36.8) Seconds Sodium (137-145) mmol/L Potassium (3.4-5.0) mmol/L Chloride (98-107) mmol/L Carbon Dioxide (22-30) mmol/L Anion Gap (4-12) mmol/L BUN (9-20) mg/dL Creatinine (0.7-1.3) mg/dL Estim Creat Clear Calc ml/min Estimated GFR (59 - ) Glucose (65-110) mg/dL POC Capillary Glucose 164 H (65-105) mg/dl Lactic Acid (0.7-2.0) mmol/L Calcium (8.4-10.2) mg/dL Magnesium (1.6-2.3) mg/dL Total Bilirubin (0.2-1.3) mg/dL AST (17-59) U/L ALT (6-50) U/L Alkaline Phosphatase (38-126) U/L Total Protein (6.3-8.2) g/dL Albumin (3.5-5.1) g/dL Lipase (23-300) U/L Procalcitonin ng/mL Urine Color (Yellow) Urine Appearance (Clear) Urine pH (5.0-9.0) Ur Specific [place] (1.001-1.035) Urine Protein (Negative) mg/dL Urine Glucose (UA) (Negative) mg/dL Urine Ketones (Negative) mg/dL Ur Blood (Man) (Negative) Urine Nitrate (Negative) Urine Bilirubin (Negative) Urine Urobilinogen (<2.0) mg/dL Leukocyte Esterase Rfl (Negative) ARNEL/UL Urine RBC (0-2) /hpf Urine WBC (0-3) /hpf Ur Squamous Epith Cells (Few) /hpf Urine Bacteria /hpf Urine Casts Blood Type AB Positive Antibody Screen Negative Crossmatch See Detail 08/07/24 08/08/24 08/08/24 Range/Units 23:40 01:39 09:10 WBC (4.5-10.0) K/mm3 RBC (4.6-6.20) M/mm3 Hgb 7.7 L (14.0-18.0) g/dL Hct 23.9 L (42.0-52.0) % MCV (80-100) fl MCH (26-34) pg MCHC (32-36) g/dl RDW (11.5-14.5) % Plt Count (150-375) k/mm3 MPV (7.4-10.4) fl Immature Gran % (Auto) (0-0.5) % Neut % (Auto) (45.5-73.1) % Lymph % (Auto) (18.3-44.2) % [place] % (Auto) (2.6-8.5) % Eos % (Auto) (0-4.4) % Baso % (Auto) (0.2-1.2) % Lymph # (Auto) (0.9-3.2) K/mm3 [place] # (Auto) (0.1-0.6) K/mm3 Eos # (Auto) (0-0.3) K/mm3 Baso # (Auto) (0.0-0.1) K/mm3 Abs Immat Gran (auto) (0.00-0.031) K/mm3 Absolute Neuts (auto) (1.3-6.7) K/mm3 Absolute Nucleated RBC (0.0-0.012) K/mm3 Nucleated RBC % (0.0-0.2) % PT (11.1-14.7) Seconds INR APTT (22.3-36.8) Seconds Sodium (137-145) mmol/L Potassium (3.4-5.0) mmol/L Chloride (98-107) mmol/L Carbon Dioxide (22-30) mmol/L Anion Gap (4-12) mmol/L BUN (9-20) mg/dL Creatinine (0.7-1.3) mg/dL Estim Creat Clear Calc ml/min Estimated GFR (59 - ) Glucose (65-110) mg/dL POC Capillary Glucose 119 H 80 (65-105) mg/dl Lactic Acid (0.7-2.0) mmol/L Calcium (8.4-10.2) mg/dL Magnesium (1.6-2.3) mg/dL Total Bilirubin (0.2-1.3) mg/dL AST (17-59) U/L ALT (6-50) U/L Alkaline Phosphatase (38-126) U/L Total Protein (6.3-8.2) g/dL Albumin (3.5-5.1) g/dL Lipase (23-300) U/L Procalcitonin ng/mL Urine Color (Yellow) Urine Appearance (Clear) Urine pH (5.0-9.0) Ur Specific [place] (1.001-1.035) Urine Protein (Negative) mg/dL Urine Glucose (UA) (Negative) mg/dL Urine Ketones (Negative) mg/dL Ur Blood (Man) (Negative) Urine Nitrate (Negative) Urine Bilirubin (Negative) Urine Urobilinogen (<2.0) mg/dL Leukocyte Esterase Rfl (Negative) ARNEL/UL Urine RBC (0-2) /hpf Urine WBC (0-3) /hpf Ur Squamous Epith Cells (Few) /hpf Urine Bacteria /hpf Urine Casts Blood Type Antibody Screen Crossmatch 08/08/24 08/08/24 08/08/24 Range/Units 11:51 13:05 15:08 WBC 9.1 (4.5-10.0) K/mm3 RBC 2.44 L (4.6-6.20) M/mm3 Hgb 7.7 L 7.4 L (14.0-18.0) g/dL Hct 24.1 L 23.1 L (42.0-52.0) % MCV 94.7 (80-100) fl MCH 30.3 (26-34) pg MCHC 32.0 (32-36) g/dl RDW 15.1 H (11.5-14.5) % Plt Count 158 (150-375) k/mm3 MPV 10.8 H (7.4-10.4) fl Immature Gran % (Auto) 0.7 H (0-0.5) % Neut % (Auto) 71.1 (45.5-73.1) % Lymph % (Auto) 14.9 L (18.3-44.2) % [place] % (Auto) 10.4 H (2.6-8.5) % Eos % (Auto) 2.6 (0-4.4) % Baso % (Auto) 0.3 (0.2-1.2) % Lymph # (Auto) 1.36 (0.9-3.2) K/mm3 [place] # (Auto) 1.0 H (0.1-0.6) K/mm3 Eos # (Auto) 0.2 (0-0.3) K/mm3 Baso # (Auto) 0.0 (0.0-0.1) K/mm3 Abs Immat Gran (auto) 0.06 H (0.00-0.031) K/mm3 Absolute Neuts (auto) 6.5 (1.3-6.7) K/mm3 Absolute Nucleated RBC 0.000 (0.0-0.012) K/mm3 Nucleated RBC % 0.0 (0.0-0.2) % PT (11.1-14.7) Seconds INR APTT (22.3-36.8) Seconds Sodium 137 (137-145) mmol/L Potassium 3.8 (3.4-5.0) mmol/L Chloride 108 H (98-107) mmol/L Carbon Dioxide 25 (22-30) mmol/L Anion Gap 4 (4-12) mmol/L BUN 31 H D (9-20) mg/dL Creatinine 0.60 L (0.7-1.3) mg/dL Estim Creat Clear Calc 83 ml/min Estimated GFR > 60 (59 - ) Glucose 91 (65-110) mg/dL POC Capillary Glucose 85 (65-105) mg/dl Lactic Acid (0.7-2.0) mmol/L Calcium 7.9 L (8.4-10.2) mg/dL Magnesium (1.6-2.3) mg/dL Total Bilirubin 0.4 (0.2-1.3) mg/dL AST 29 (17-59) U/L ALT 30 (6-50) U/L Alkaline Phosphatase 57 (38-126) U/L Total Protein 5.0 L (6.3-8.2) g/dL Albumin 2.6 L (3.5-5.1) g/dL Lipase (23-300) U/L Procalcitonin ng/mL Urine Color (Yellow) Urine Appearance (Clear) Urine pH (5.0-9.0) Ur Specific [place] (1.001-1.035) Urine Protein (Negative) mg/dL Urine Glucose (UA) (Negative) mg/dL Urine Ketones (Negative) mg/dL Ur Blood (Man) (Negative) Urine Nitrate (Negative) Urine Bilirubin (Negative) Urine Urobilinogen (<2.0) mg/dL Leukocyte Esterase Rfl (Negative) ARNEL/UL Urine RBC (0-2) /hpf Urine WBC (0-3) /hpf Ur Squamous Epith Cells (Few) /hpf Urine Bacteria /hpf Urine Casts Blood Type Antibody Screen Crossmatch <Fish Lau MD - Last Filed: 08/07/24 19:40> Lab Results 08/07/24 08/07/24 08/07/24 Range/Units 03:37 03:54 10:57 WBC 12.7 H (4.5-10.0) K/mm3 RBC 2.61 L (4.6-6.20) M/mm3 Hgb 8.0 L 7.0 L (14.0-18.0) g/dL Hct 24.1 L 21.7 L (42.0-52.0) % MCV 92.3 (80-100) fl MCH 30.7 (26-34) pg MCHC 33.2 (32-36) g/dl RDW 13.5 (11.5-14.5) % Plt Count 182 (150-375) k/mm3 MPV 11.4 H (7.4-10.4) fl Immature Gran % (Auto) 0.9 H (0-0.5) % Neut % (Auto) 78.9 H (45.5-73.1) % Lymph % (Auto) 9.0 L (18.3-44.2) % [place] % (Auto) 10.5 H (2.6-8.5) % Eos % (Auto) 0.5 (0-4.4) % Baso % (Auto) 0.2 (0.2-1.2) % Lymph # (Auto) 1.14 (0.9-3.2) K/mm3 [place] # (Auto) 1.3 H (0.1-0.6) K/mm3 Eos # (Auto) 0.1 (0-0.3) K/mm3 Baso # (Auto) 0.0 (0.0-0.1) K/mm3 Abs Immat Gran (auto) 0.11 H (0.00-0.031) K/mm3 Absolute Neuts (auto) 10.0 H (1.3-6.7) K/mm3 Absolute Nucleated RBC 0.000 (0.0-0.012) K/mm3 Nucleated RBC % 0.0 (0.0-0.2) % PT 16.4 H (11.1-14.7) Seconds INR 1.3 APTT 27.9 (22.3-36.8) Seconds Sodium 131 L (137-145) mmol/L Potassium 3.9 (3.4-5.0) mmol/L Chloride 97 L (98-107) mmol/L Carbon Dioxide 27 (22-30) mmol/L Anion Gap 7 (4-12) mmol/L BUN 72 H D (9-20) mg/dL Creatinine 0.76 (0.7-1.3) mg/dL Estim Creat Clear Calc 67 ml/min Estimated GFR > 60 (59 - ) Glucose 245 H (65-110) mg/dL POC Capillary Glucose (65-105) mg/dl Lactic Acid 1.6 (0.7-2.0) mmol/L Calcium 8.5 (8.4-10.2) mg/dL Magnesium 2.4 H (1.6-2.3) mg/dL Total Bilirubin 0.3 (0.2-1.3) mg/dL AST 26 (17-59) U/L ALT 39 (6-50) U/L Alkaline Phosphatase 63 (38-126) U/L Total Protein 6.0 L (6.3-8.2) g/dL Albumin 3.1 L (3.5-5.1) g/dL Lipase 35 (23-300) U/L Procalcitonin 0.3 ng/mL Urine Color Yellow (Yellow) Urine Appearance Turbid H (Clear) Urine pH 5.0 (5.0-9.0) Ur Specific [place] 1.015 (1.001-1.035) Urine Protein Trace (Negative) mg/dL Urine Glucose (UA) Trace H (Negative) mg/dL Urine Ketones Negative (Negative) mg/dL Ur Blood (Man) 1+ H (Negative) Urine Nitrate Negative (Negative) Urine Bilirubin Negative (Negative) Urine Urobilinogen 0.2 (<2.0) mg/dL Leukocyte Esterase Rfl 3+ H (Negative) ARNEL/UL Urine RBC 0-2 (0-2) /hpf Urine WBC >100 H (0-3) /hpf Ur Squamous Epith Cells Occasional (Few) /hpf Urine Bacteria 1+ H /hpf Urine Casts 3-5 Blood Type Antibody Screen Crossmatch 08/07/24 08/07/24 08/07/24 Range/Units 16:29 17:45 21:46 WBC (4.5-10.0) K/mm3 RBC (4.6-6.20) M/mm3 Hgb 6.9 L* (14.0-18.0) g/dL Hct 21.6 L (42.0-52.0) % MCV (80-100) fl MCH (26-34) pg MCHC (32-36) g/dl RDW (11.5-14.5) % Plt Count (150-375) k/mm3 MPV (7.4-10.4) fl Immature Gran % (Auto) (0-0.5) % Neut % (Auto) (45.5-73.1) % Lymph % (Auto) (18.3-44.2) % [place] % (Auto) (2.6-8.5) % Eos % (Auto) (0-4.4) % Baso % (Auto) (0.2-1.2) % Lymph # (Auto) (0.9-3.2) K/mm3 [place] # (Auto) (0.1-0.6) K/mm3 Eos # (Auto) (0-0.3) K/mm3 Baso # (Auto) (0.0-0.1) K/mm3 Abs Immat Gran (auto) (0.00-0.031) K/mm3 Absolute Neuts (auto) (1.3-6.7) K/mm3 Absolute Nucleated RBC (0.0-0.012) K/mm3 Nucleated RBC % (0.0-0.2) % PT (11.1-14.7) Seconds INR APTT (22.3-36.8) Seconds Sodium (137-145) mmol/L Potassium (3.4-5.0) mmol/L Chloride (98-107) mmol/L Carbon Dioxide (22-30) mmol/L Anion Gap (4-12) mmol/L BUN (9-20) mg/dL Creatinine (0.7-1.3) mg/dL Estim Creat Clear Calc ml/min Estimated GFR (59 - ) Glucose (65-110) mg/dL POC Capillary Glucose 164 H (65-105) mg/dl Lactic Acid (0.7-2.0) mmol/L Calcium (8.4-10.2) mg/dL Magnesium (1.6-2.3) mg/dL Total Bilirubin (0.2-1.3) mg/dL AST (17-59) U/L ALT (6-50) U/L Alkaline Phosphatase (38-126) U/L Total Protein (6.3-8.2) g/dL Albumin (3.5-5.1) g/dL Lipase (23-300) U/L Procalcitonin ng/mL Urine Color (Yellow) Urine Appearance (Clear) Urine pH (5.0-9.0) Ur Specific [place] (1.001-1.035) Urine Protein (Negative) mg/dL Urine Glucose (UA) (Negative) mg/dL Urine Ketones (Negative) mg/dL Ur Blood (Man) (Negative) Urine Nitrate (Negative) Urine Bilirubin (Negative) Urine Urobilinogen (<2.0) mg/dL Leukocyte Esterase Rfl (Negative) ARNEL/UL Urine RBC (0-2) /hpf Urine WBC (0-3) /hpf Ur Squamous Epith Cells (Few) /hpf Urine Bacteria /hpf Urine Casts Blood Type AB Positive Antibody Screen Negative Crossmatch See Detail 08/07/24 08/08/24 08/08/24 Range/Units 23:40 01:39 09:10 WBC (4.5-10.0) K/mm3 RBC (4.6-6.20) M/mm3 Hgb 7.7 L (14.0-18.0) g/dL Hct 23.9 L (42.0-52.0) % MCV (80-100) fl MCH (26-34) pg MCHC (32-36) g/dl RDW (11.5-14.5) % Plt Count (150-375) k/mm3 MPV (7.4-10.4) fl Immature Gran % (Auto) (0-0.5) % Neut % (Auto) (45.5-73.1) % Lymph % (Auto) (18.3-44.2) % [place] % (Auto) (2.6-8.5) % Eos % (Auto) (0-4.4) % Baso % (Auto) (0.2-1.2) % Lymph # (Auto) (0.9-3.2) K/mm3 [place] # (Auto) (0.1-0.6) K/mm3 Eos # (Auto) (0-0.3) K/mm3 Baso # (Auto) (0.0-0.1) K/mm3 Abs Immat Gran (auto) (0.00-0.031) K/mm3 Absolute Neuts (auto) (1.3-6.7) K/mm3 Absolute Nucleated RBC (0.0-0.012) K/mm3 Nucleated RBC % (0.0-0.2) % PT (11.1-14.7) Seconds INR APTT (22.3-36.8) Seconds Sodium (137-145) mmol/L Potassium (3.4-5.0) mmol/L Chloride (98-107) mmol/L Carbon Dioxide (22-30) mmol/L Anion Gap (4-12) mmol/L BUN (9-20) mg/dL Creatinine (0.7-1.3) mg/dL Estim Creat Clear Calc ml/min Estimated GFR (59 - ) Glucose (65-110) mg/dL POC Capillary Glucose 119 H 80 (65-105) mg/dl Lactic Acid (0.7-2.0) mmol/L Calcium (8.4-10.2) mg/dL Magnesium (1.6-2.3) mg/dL Total Bilirubin (0.2-1.3) mg/dL AST (17-59) U/L ALT (6-50) U/L Alkaline Phosphatase (38-126) U/L Total Protein (6.3-8.2) g/dL Albumin (3.5-5.1) g/dL Lipase (23-300) U/L Procalcitonin ng/mL Urine Color (Yellow) Urine Appearance (Clear) Urine pH (5.0-9.0) Ur Specific [place] (1.001-1.035) Urine Protein (Negative) mg/dL Urine Glucose (UA) (Negative) mg/dL Urine Ketones (Negative) mg/dL Ur Blood (Man) (Negative) Urine Nitrate (Negative) Urine Bilirubin (Negative) Urine Urobilinogen (<2.0) mg/dL Leukocyte Esterase Rfl (Negative) ARNEL/UL Urine RBC (0-2) /hpf Urine WBC (0-3) /hpf Ur Squamous Epith Cells (Few) /hpf Urine Bacteria /hpf Urine Casts Blood Type Antibody Screen Crossmatch 08/08/24 08/08/24 08/08/24 Range/Units 11:51 13:05 15:08 WBC 9.1 (4.5-10.0) K/mm3 RBC 2.44 L (4.6-6.20) M/mm3 Hgb 7.7 L 7.4 L (14.0-18.0) g/dL Hct 24.1 L 23.1 L (42.0-52.0) % MCV 94.7 (80-100) fl MCH 30.3 (26-34) pg MCHC 32.0 (32-36) g/dl RDW 15.1 H (11.5-14.5) % Plt Count 158 (150-375) k/mm3 MPV 10.8 H (7.4-10.4) fl Immature Gran % (Auto) 0.7 H (0-0.5) % Neut % (Auto) 71.1 (45.5-73.1) % Lymph % (Auto) 14.9 L (18.3-44.2) % [place] % (Auto) 10.4 H (2.6-8.5) % Eos % (Auto) 2.6 (0-4.4) % Baso % (Auto) 0.3 (0.2-1.2) % Lymph # (Auto) 1.36 (0.9-3.2) K/mm3 [place] # (Auto) 1.0 H (0.1-0.6) K/mm3 Eos # (Auto) 0.2 (0-0.3) K/mm3 Baso # (Auto) 0.0 (0.0-0.1) K/mm3 Abs Immat Gran (auto) 0.06 H (0.00-0.031) K/mm3 Absolute Neuts (auto) 6.5 (1.3-6.7) K/mm3 Absolute Nucleated RBC 0.000 (0.0-0.012) K/mm3 Nucleated RBC % 0.0 (0.0-0.2) % PT (11.1-14.7) Seconds INR APTT (22.3-36.8) Seconds Sodium 137 (137-145) mmol/L Potassium 3.8 (3.4-5.0) mmol/L Chloride 108 H (98-107) mmol/L Carbon Dioxide 25 (22-30) mmol/L Anion Gap 4 (4-12) mmol/L BUN 31 H D (9-20) mg/dL Creatinine 0.60 L (0.7-1.3) mg/dL Estim Creat Clear Calc 83 ml/min Estimated GFR > 60 (59 - ) Glucose 91 (65-110) mg/dL POC Capillary Glucose 85 (65-105) mg/dl Lactic Acid (0.7-2.0) mmol/L Calcium 7.9 L (8.4-10.2) mg/dL Magnesium (1.6-2.3) mg/dL Total Bilirubin 0.4 (0.2-1.3) mg/dL AST 29 (17-59) U/L ALT 30 (6-50) U/L Alkaline Phosphatase 57 (38-126) U/L Total Protein 5.0 L (6.3-8.2) g/dL Albumin 2.6 L (3.5-5.1) g/dL Lipase (23-300) U/L Procalcitonin ng/mL Urine Color (Yellow) Urine Appearance (Clear) Urine pH (5.0-9.0) Ur Specific [place] (1.001-1.035) Urine Protein (Negative) mg/dL Urine Glucose (UA) (Negative) mg/dL Urine Ketones (Negative) mg/dL Ur Blood (Man) (Negative) Urine Nitrate (Negative) Urine Bilirubin (Negative) Urine Urobilinogen (<2.0) mg/dL Leukocyte Esterase Rfl (Negative) ARNEL/UL Urine RBC (0-2) /hpf Urine WBC (0-3) /hpf Ur Squamous Epith Cells (Few) /hpf Urine Bacteria /hpf Urine Casts Blood Type Antibody Screen Crossmatch <Cedrick Trujillo MD - Last Filed: 08/08/24 18:36> Discharge Plan Discharge Clinical Impression: Acute GI bleeding, Anemia, Acute UTI <Fish Lau MD - Last Filed: 08/07/24 19:40> Patient Disposition: [facility] <Fish Lau MD - Last Filed: 08/07/24 19:40> Condition: Stable <Fish Lau MD - Last Filed: 08/07/24 19:40> Patient Language: Georgian <Fish Lau MD - Last Filed: 08/07/24 19:40> Prescriptions: No Action hydrocodone-acetaminophen 7.5-325 mg tablet 1 tablet PO Q6H PRN (Reason: pain) sennosides 8.6 mg tablet 8.6 mg PO BID PRN (Reason: constipation) tizanidine 4 mg tablet 4 mg PO Q8H PRN (Reason: neck and shoulder pain) insulin glargine [Lantus Solostar U-100 Insulin] 100 unit/mL (3 mL) insulin pen 24 unit subcut BID levothyroxine [Synthroid] 125 mcg tablet 125 mcg PO DAILY sennosides-docusate sodium 8.6-50 mg tablet 1 tab-cap PO HS apixaban 5 mg tablet 5 mg PO BID aspirin 81 mg tablet,chewable 81 mg PO DAILY finasteride 5 mg tablet 5 mg PO DAILY calcium polycarbophil 625 mg tablet 625 mg PO DAILY atorvastatin [Lipitor] 10 mg tablet 10 mg PO HS lactulose 20 gram packet 20 g PO TID solifenacin 10 mg tablet 10 mg PO DAILY <Fish Lau MD - Last Filed: 08/07/24 19:40> Follow-up/Referrals: PHYSICIAN NOT ON STAFF,NONSTAFF [Primary Care Provider] - <Fish Lau MD - Last Filed: 08/07/24 19:40>
[2024-08-07] MEDS: PANTOPRAZOLE SODIUM IV 40 MG VIAL 80 MG IV PUSH (08:32)
[2024-08-07] MEDS: SODIUM CHLORIDE 0.9% IV 1,000 ML 999 ML IV CONT (10:13)
[2024-08-07] MEDS: SODIUM CHLORIDE 0.9% IV 1,000 ML 150 ML IV CONT (10:14)
[2024-08-07 11:13] LABS: Hematocrit 21.7 % (42.0-52.0)
[2024-08-07] MEDS: HYDROmorphone HCL INJ (*CRX) 1 MG/ML SYR 0.5 MG IV PUSH (11:27)
--- NOTE | 2024-08-07 14:27 | PC.NURSE ---
Dressing around g tube changed. No active bleeding noted.
[2024-08-07] MEDS: SODIUM CHLORIDE 0.9% IV 1,000 ML 150 ML ×2 (16:31→23:47)
--- NOTE | 2024-08-07 16:32 | PC.NURSE ---
Spoke with intake at [facility]. They have no bed available at this time and will call later with another update.
[2024-08-07 16:35] LABS: Hematocrit 21.6 % (42.0-52.0)
[2024-08-07 16:49] LABS: Hemoglobin 6.9 g/dL (14.0-18.0)
[2024-08-07] MEDS: SODIUM CHLORIDE 0.9% IV 250 ML 30 ML IV CONT (19:40)
[2024-08-07] MEDS: TUBING, BLOOD PLUM PUMP TUBING 1 EACH XX (19:41)
[2024-08-07 21:49] LABS: Glucose Point of Care 164 mg/dl (65-105)
[2024-08-07] MEDS: INSULIN GLARGINE (*BKC) 100 UNITS/ML 24 UNITS SUB-Q (21:52)
--- NOTE | 2024-08-07 23:28 | PC.NURSE ---
jovany dorsey for dilaudid 1mg x 1 dose
[2024-08-07] MEDS: HYDROmorphone HCL INJ (*CRX) 1 MG/ML SYR IV PUSH (23:48)
[2024-08-07 23:54] LABS: Glucose Point of Care 119 mg/dl (65-105)
[2024-08-08] VITALS (40 sets, daily range): BP systolic 102–122; BP diastolic 45–96; PULSE 70–92; RESP 10–31; TEMP 36.5; O2SAT 96–100
[2024-08-08 01:45] LABS: Hematocrit 23.9 % (42.0-52.0); Hemoglobin 7.7 g/dL (14.0-18.0)
--- NOTE | 2024-08-08 06:19 | PC.NURSE ---
This RN attempted, but unable to attain gastric occult. No residual.
--- NOTE | 2024-08-08 06:20 | PC.NURSE ---
Per EDJovanny dorsey, continue IV fluids at 150mL/hour until transfer.
[2024-08-08] MEDS: SODIUM CHLORIDE 0.9% IV 1,000 ML 150 ML (06:29)
--- NOTE | 2024-08-08 07:26 | PC.NURSE ---
This RN spoke with transfer line for placement at [place]. No beds at this time.
[2024-08-08 09:13] LABS: Glucose Point of Care 80 mg/dl (65-105)
[2024-08-08] MEDS: DEXTROSE 5%/LACTATED RINGERS 1,000 ML 150 ML IV CONT ×2 (09:27→17:05)
--- NOTE | 2024-08-08 09:28 | PC.NURSE ---
[phone] I did a bed check at [place]. None available at this time they will contact us when they have a bed. [email or web address]
[2024-08-08 11:57] LABS: Hematocrit 24.1 % (42.0-52.0); Hemoglobin 7.7 g/dL (14.0-18.0)
[2024-08-08] MEDS: CEFEPIME 2 GM/NS 50 ML 2 GM/50 ML BAG IVPB (12:24)
[2024-08-08 13:08] LABS: Glucose Point of Care 85 mg/dl (65-105)
--- NOTE | 2024-08-08 13:46 | PC.NURSE ---
13:44 bed check at [place], none available.
[2024-08-08 15:26] LABS: Basophils Percent Auto 0.3 % (0.2-1.2); Eosinophils Absolute Auto 0.2 K/mm3 (0-0.3); Eosinophils Percent Auto 2.6 % (0-4.4); Hematocrit 23.1 % (42.0-52.0); Hemoglobin 7.4 g/dL (14.0-18.0); Immature Granulocyte Absolute 0.06 K/mm3 (0.00-0.031); Immature Granulocyte Percent A 0.7 % (0-0.5); Lymphocytes Absolute Auto 1.36 K/mm3 (0.9-3.2); Lymphocytes Percent Auto 14.9 % (18.3-44.2); Mean Corpuscular Hemoglobin 30.3 pg (26-34); Mean Corpuscular Volume 94.7 fl (80-100); Mean Platelet Volume 10.8 fl (7.4-10.4); Monocytes Percent Auto 10.4 % (2.6-8.5); Neutrophils Absolute Auto 6.5 K/mm3 (1.3-6.7); Neutrophils Percent Auto 71.1 % (45.5-73.1); Platelet Count Result 158 k/mm3 (150-375); Red Blood Count 2.44 M/mm3 (4.6-6.20); Red Cell Distribution Width 15.1 % (11.5-14.5); White Blood Count 9.1 K/mm3 (4.5-10.0)
[2024-08-08 15:41] LABS: Alanine Aminotransferase 30 U/L (6-50); Albumin Level 2.6 g/dL (3.5-5.1); Alkaline Phosphatase 57 U/L (38-126); Anion Gap 4 mmol/L (4-12); Aspartate Amino Transferase 29 U/L (17-59); Bilirubin,Total 0.4 mg/dL (0.2-1.3); Blood Urea Nitrogen 31 mg/dL (9-20); Calcium 7.9 mg/dL (8.4-10.2); Carbon Dioxide 25 mmol/L (22-30); Chloride 108 mmol/L (98-107); Estimated CRCL calculation 83 ml/min; Estimated Glomerular Filt Rate > 60; Glucose 91 mg/dL (65-110); Potassium 3.8 mmol/L (3.4-5.0); Sodium 137 mmol/L (137-145)
--- NOTE | 2024-08-08 18:28 | PC.NURSE ---
15:35 bed check. none available.
== END 2024-08-08 18:49 | disposition short-term general hospital (02) ==
PROVIDERS: Emergency Medicine; Emergency Provider Emergency Medicine
DX: K92.2 Gastrointestinal hemorrhage, unspecified (principal); D64.9 Anemia, unspecified; N39.0 Urinary tract infection, site not specified; Z93.1 Gastrostomy status; Z79.4 Long term (current) use of insulin; Z79.82 Long term (current) use of aspirin; Z79.899 Other long term (current) drug therapy; Z79.01 Long term (current) use of anticoagulants
CPT/HCPCS: 36415; 36430; 51702; 74176; 80053; 81001; 82948; 83605; 83690; 83735; 84145; 85014; 85018; 85025; 85610; 85730; 86850; 86900; 86901; 86923; 87077; 87086; 87186; 96361; 96365; 96366; 96367; 96375; 96376; 99285; A9270; J0692; J0696; J1171; J1815; J2470; J7030; J7050; J7121; P9016

== ENCOUNTER 2024-12-11 07:45 | Outpatient (CLI) | payer MEDICARE, SELFPAY ==
--- OUTSIDE RECORDS SUMMARY | 2024-12-11 07:50 | XMS_ITS | Encounter Summary ---
Author Organization [facility] Address [facility] [place] [address] Care Team Providers Care Legislative Aide Name Role Phone Ritesh Mcknight MD Primary Care Provider [phone] Navneet Velasco MD Unavailable [phone] Tahir Darden MD Unavailable Unavailable SelenaLane mujica MD Unavailable [phone] Amaury Kuhn MD Primary Care Provider [phone] Sheri Mcdonnell APRN, RN PLASTIC SURGERY-C Unavailable [phone] Robert Burton MD Unavailable Kiley Sarkar PA-C Unavailable [phone] Barbara Fung MD Unavailable Nuria Dailey ANP-BC Unavailable [phone] Taylor Weber MD Primary Care Provider [phone] Christina Booker MD Unavailable Jaspreet Clemons MD Unavailable Britany Paris MD Unavailable [phone] Encounter Details Date Type Department Care Team (Late st Contact Info) Description 04/01/2018 Abstract [facility] AT [facility] [address] [place] [address] Navneet Velasco MD [address] [place] [phone] Social History Tobacco Use Types Packs/Day Years Used Date Smoking Tobacco: Former Cigarettes Q uit: 1989 Smokeless Tobacco: Never Alcohol Use Standard Drinks/Week Comments No 0 (1 standard drink = 0.6 oz pur e alcohol) Sex and Gender Information Value Date Recorded Sex Assigned at Male 05/27/2024 6:25 AM [employer] Legal Sex Male 10:27 PM CDT Gender Identity Male 09/24/2024 1:23 PM CDT Sexual Orientation Not on file documented as of this encounter Plan of Treatment Upcoming Encounters Date Type Department Care Team (Latest Contact Info) Description 12/15/2024 8:00 AM CDT Hospital Encounter [facility] [place] [address] Tommy Benson MD [address] [address] 12/15/2024 8:00 AM CDT - 12/15/2024 8:30 AM CDT Surgery [facility] End[place] [address] Tommy Benson MD [address] [address] COLONOSCOPY DIAGNOSTIC WITH/WITHOUT SPECIMEN BRUSH/WASH 01/09/2025 11:40 AM CDT Office Visit [facility] Medical [facility] Diabetes and Endocrinology - [address] [phone] Kelly Gonzalez MD [address] [place], [place] [address] 03/17/2025 2:00 AM [employer] Allied Health[facility] [address] [place] [address] Lane Walters MD [address] [place], [place] [address] 05/25/2025 1:00 PM [employer] Office Visit [facility] [place] [address] Christina Booker MD [address] [place], [place] [phone] Scheduled Procedures Name Priority Associated Diagnoses Date/Ti me COLONOSCOPY DIAGNOSTIC WITH/WITHOUT SPECIMEN BRUSH/WASH Irregular bowel habits 12/15/2024 8:00 AM CDT documented as of this encounter Procedures Procedure Name Priority Date/Time Associated Diagnosis Comments MAGNESIUM (OUTSIDE LAB) Routine 04/01/2018 CBC (OUTSIDE LAB) Routine 04/01/2018 PROTHROMBIN TIME, VENOUS Routine 04/01/2018 BASIC METABOLIC PANEL Routine 04/01/2018 documented in this encounter Results * PROTIME/INR, VENOUS (04/01/2018) PROTIME WHOLE BLOOD 10.7 INR WHOLE BLOOD 1.01 04/01/2018 Doc [facility] LABORATORY Final Result * MAGNESIUM (OUTSIDE LAB) (04/01/2018) MAGNESIUM 1.8 04/01/2018 us Doc [facility] Abstract LAB-OUTSIDE/ABSTRACTED Final Result * CBC (OUTSIDE LAB) (04/01/2018) WBC 6.2 HGB 13.4 HCT 40.3 PLT [...] Rule Out 03/15/2020 03/15/2020 03/17/2020 6:01 AM [employer] COVID-19 Rule Out 03/31/2021 03/31/2021 03/31/2021 4:35 PM [employer] COVID-19 Confirmed 03/31/2021 03/31/2021 12:32 AM [employer] Respiratory Rule Out 06/25/2024 06/25/2024 025 12:22 PM [employer] documented as of this encounter Care Teams Legislative Aide Relationship Specialty Start Date End Date Ritesh Mcknight MD [address] [place] [address] PCP - General INTERNAL MEDICINE 01/12/16 05/04/21 Amaury Kuhn MD [address] [place] [address] PCP - General FAMILY PRACTICE 05/05/21 04/30/24 Taylor Weber MD [address] [place] [address] PCP - General FAMILY PRACTICE 05/01/24 Navneet Velasco MD [address] [place] [phone] [place] Splicer Helper CARDIOVASCULAR DISEASE 01/12/16 08/12/23 Tahir Darden MD [address] [place] [phone] Casing In Line Setter INTERVENTIONAL CARDIOLOGY 02/16/16 10/09/22 Lane Walters MD [address] [place] [address] EP Splicer Helper CARDIAC ELECTROPHYSIOLOGY 03/06/19 Sheri Mcdonnell APRN, RN PLASTIC SURGERY-C [address] [place] [address] [address] [place] [phone] NURSE PRACTITIONER 09/01/21 08/12/23 Robert Burton MD [address] [place] [address] [phone] Consulting Physician INTERNAL MEDICINE 11/29/22 Kiley Burrell PA-C [address] [place] [address] Referring Physician PHYSICIAN CESSATION SYSTEMS OUTREACH SPECIALIST 04/10/23 Barbara Fung MD [address] [place] [address] [place] [address] INTERVENTIONAL CARDIOLOGY 08/13/23 06/23/24 Nuria Dailey [facility] [address] [place] [phone] Nurse Practitioner NURSE PRACTITIONER ADULT HEALTH 08/13/23 06/23/24 Christina Booker MD [address] [place] [address] Consulting Physician CARDIOVASCULAR DISEASE 06/24/24 Jaspreet Clemons MD [address] [address] Surgeon NEUROLOGICAL SURGERY 06/25/24 Britany Paris MD [address] [place] [address] Surgeon NEUROLOGICAL SURGERY 07/09/24 documented as of this encounter
--- OUTSIDE RECORDS SUMMARY | 2024-12-11 07:50 | XMS_ITS | Clinical Summary ---
Author Organization [facility] Address [address] [place] [address] Care Team Providers Care Voting Machine Mechanic Name Role Phone Lane Robbins MD Unavailable [phone] Kiley Sarkar PA-C Unavailable [phone] Taylor Weber MD Primary Care Provider [phone] Toyin Doshi MD Unavailable Jaspreet Clemons MD Unavailable Armani-Britany Aguila MD Unavailable [phone] Allergies Active Allergy Reactions Criticality Noted Date Comments Perflutren Lipid Microsphere Unknown 025 Medications finasteride (PROSCAR) 5 MG tabletIndications :Benign prostatic hyperplasia (BPH) suspected Take 1 tablet (5 mg total) by mouth daily. Indications: Benign prostatic hyperplasia (BPH) suspected Active apixaban (ELIQUIS) 5 MG tabletIndications :Anticoagulant Therapy 1 tablet (5 mg total) by Per G Tube route 2 (two) times daily. Indications: Anticoagulant Therapy 60 tablet 1 08/06/19 25 Active aspirin 81 MG chewable tabletIndications :heart health 1 tablet (81 mg total) by Per G Tube route daily. Indications: heart health 30 tablet 08/07/19 25 Active atorvastatin (LIPITOR) 10 MG tablet 1 tablet (10 mg total) by Per G Tube route nightly at bedtime. 30 tablet 08/06/19 25 Active levothyroxine (SYNTHROID) 125 MCG tabletIndications :Hypothyroidism 1 tablet (125 mcg total) by Per G Tube route daily. Indications: Underactive Thyroid 30 tablet 08/07/19 25 Active mupirocin (BACTROBAN) 2 % ointment 08/09/19 25 Active isosorbide mononitrate ER (IMDUR) 30 MG 24 hr tabletIndications :Altered Blood Pressure Take 1 tablet (30 mg total) by mouth daily. Indications: Changes in Blood Pressure 30 tablet 08/14/19 25 Active ferrous sulfate, 65 mg elemental, 325 (65 FE) MG tablet Take 1 tablet (325 mg total) by mouth 2 (two) times daily with meals. 120 tablet 08/14/19 25 Active HUMALOG KWIKPEN 100 UNIT/ML injection (PEN)Indications: Uncontrolled type 2 diabetes mellitus with hyperglycemia ([facility]/HCC HHS/HCC) Inject 4 units at lunch and supper 15 mL 3 11/06/19 25 Active LANTUS SOLOSTAR 100 UNIT/ML injection (PEN)Indications: Uncontrolled type 2 diabetes mellitus with hyperglycemia (CMS/HCC HHS/HCC) Inject 12 Units into the skin every morning. 15 mL 6 11/06/19 25 Active Insulin Pen Needle 32G X 6 MM MiscIndications:U ncontrolled type 2 diabetes mellitus with hyperglycemia (CMS/HCC HHS/HCC) Use to inject insulin 4 times a day 100 each 11/06/19 25 Active cefdinir (OMNICEF) 300 MG Cap capsule TAKE 1 CAPSULE BY MOUTH TWICE DAILY FOR 7 DAYS Active diphenoxylate-atr opine (LOMOTIL) 2.5-0.025 MG tablet TAKE 1 TABLET BY MOUTH TWICE DAILY NEEDED FOR DIARRHEA Active lisinopril (PRINIVIL) 5 MG tablet Take 1 tablet (5 mg total) by mouth daily. Active lactulose (CONSTULOSE) 10 GM/15ML solution TAKE 30ML S BY MOUTH THREE TIMES DAILY FOR 30 DAYS Active insulin regular (NOVOLIN R) 100 UNIT/ML injection INJECT 10 UNITS SUBCUTANEOUSLY AT BREAKFAST, 8 UNITS AT LUNCH AND SUPPER Active solifenacin succinate (VESICARE) 10 MG Tab Take 1 tablet (10 mg total) by mouth daily. Active trospium (SANCTURA) 20 MG tablet TAKE 1 TABLET BY MOUTH TWICE DAILY (THIS CONTROLS THE BLADDER WITHOUT CAUSING CONFUSION) 05/27/19 25 Active senokot (SENNA-TIME) 8.6 MG Tab tablet TAKE 2 TABLETS BY MOUTH VIA TUBE FEEDING DAILY NEEDED FOR CONSTIPATION Active GAVILYTE-N WITH FLAVOR PACK 420 g solution TAKE 4,000 ML BY MOUTH ONCE FOR 1 DOSE DIRECTED Active Bacillus Coagulans-Inulin (PROBIOTIC-PREBIO TIC OR) Active Active Problems Problem Noted Date Diagnosed Date Sinus node dysfunction ([facility]) 025 Chronic anticoagulation 12/10/2024 NSVT (nonsustained ventricul ar tachycardia) ([facility]) 12/10/2024 Bruising 12/10/2024 Epistaxis 12/10/2024 Irregular bowel habits 09/30/2024 Blood loss anemia 08/08/2024 Dysphagia 07/19/2024 Cervical stenosis of spine 07/12/2024 Constipation 07/10/2024 Hypotension 07/07/2024 Cervical stenosis of spinal canal 06/26/2024 Type 2 diabetes mellitus wit hout complication ([facility]) 06/26/2024 Urinary incontinence 03/18/2024 Spondylosis 03/18/2024 Left ventricular systolic dy sfunction (LVSD) without heart failure 06/24/2023 Paroxysmal atrial fibrillation ([facility]) 10/12/2022 Left cervical radiculopathy 06/07/2022 Rotator cuff arthropathy, left 06/07/2022 Left foot drop 06/07/2022 Balance problem 02/22/2022 Pneumonia due to COVID-19 virus 03/31/2021 COVID-19 03/31/2021 Nonrheumatic mitral valve regurgitation 11/13/19 21 S/P biventricular cardiac pacemaker procedure Chronic systolic (congestive ) heart failure ([facility]) 03/02/2020 AVB (atrioventricular block) 02/04/2020 Biventricular cardiac pacemaker in situ 02/04/20 20 Chest pain, unspecified type 03/15/2018 SOB (shortness of breath) 03/15/2018 S/P coronary artery stent placement 06/18/2016 Bilateral bundle branch block 06/15/2016 Obstructive sleep apnea syndrome PAD (peripheral artery disease) Hypothyroidism Hypertension Hyperlipidemia H/O non-insulin dependent diabetes mellitus Overview (01/11/2016): NIDDM Diabetic neuropathy ([facility]/HCC [facility]/HCC) Coronary artery disease of n ative artery of [place] heart with stable angina pectoris Resolved Problems Problem Noted Date Diagnosed Date Resolved Date Colitis 06/26/2024 06/29/2024 Dizziness 02/20/2022 07/12/2024 Stable angina 04/26/2018 07/12/2024 Complete occlusion of parrish ry artery, chronic 02/16/2016 04/10/2016 Chronic low back pain 2024 Carotid arterial disease 05/2023 Encounters Date Type Department Care Team Description 12/10/2024 10:30 AM CDT Office Visit [facility] [address] [place] [address] Kiley Sarkar PA-C Follow Up 12/10/2024 10:15 AM CDT Allied Health/Nurse Visit [facility] [place] [address] [place] [address] [address] Robbins MD In Clinic Device Check 12/10/2024 9:38 AM CDT Hospital [facility] [place] [address] Kiley Sarkar PA-C Arrived 12/10/2024 Travel 12/08/2024 Orders Only [facility] [place] [address] [address] Robbins MD 12/08/2024 Travel 11/25/2024 Telephone [facility] Multispecialty Care - [facility] [address] [place] [phone] Tommy Benson MD Surgical Clearance 11/24/2024 MyChart Message Enc [facility] Multispecialty Care - [facility] [address] [place] [phone] Rakel [facility] Provider medication HOLD time 11/24/2024 Telephone [facility] [address] [place] [phone] Patricia Tello NP Surgical Clearance 11/21/2024 2:00 PM CDT Office Visit [facility] [address] [place] [address] Toyin Doshi MD Heart Problem 11/21/2024 1:17 PM CDT - 11/21/2024 11:59 PM CDT Hospital Encounter [facility] [address] [place] [address] Toyin Doshi MD Discharge Disposition: Home or Self Care (Routine Discharge) 11/21/2024 Travel 11/18/2024 Orders Only [facility] [address] [place] [address] Toyin Doshi MD 11/05/2024 9:20 AM CDT Office Visit [facility] Diabetes and Endocrinology - [address] [address] Kelly Gonzalez MD Type 2 Diabetes 11/05/2024 Travel 10/17/2024 1:00 AM CDT Allied Health/Nurse Visit [facility] [address] [place] [address] Lane Robbins MD 10/10/2024 Telephone [facility] [address] [place] [address] Toyin Doshi MD Reschedule 10/08/2024 Telephone [facility] - [address] [place] [address] Kelly Gonzalez MD Prior Authorization (Colonoscopy [id number]) 10/08/2024 Telephone [facility] - [address] [phone] Kelly Gonzalez MD Question 10/06/2024 2:00 PM CDT [facility] [address] [place] [phone] Patricia Tello NP Follow Up (F/u (removal PEG-Tube)) 10/06/2024 MyChart Message Enc [address] [place] [address] Mycsowmyat, [facility] Provider FAX 10/06/2024 Travel 10/03/2024 Scan Baby Blendy INFO SRVCS Scanned, [facility] 09/30/2024 [facility] [address] [place] [phone] Tommy Benson MD 09/29/2024 MyChart Message Enc [facility] [address] [place] [phone] Mycsowmyat, [facility] Provider information 09/29/2024 MyChart Message Enc [facility] [address] [place] [phone] Mycsowmyat, [facility] Provider information 09/29/2024 Telephone [facility] [address] [place] [address] Patricia Tello, RITA Information 09/29/2024 Rakel Message Enc [address] [place] [phone] Rakel [facility] Provider information 09/26/[address] [place] [address] Patricia Tello NP Information 09/25/2024 Scan VSHORE INFO SRVCS Scanned, [facility] 09/25/[address] [place] [address] Patricia Tello, RITA Medication 09/24/2024 1:40 PM CDT Office Visit [address] [place] [address] Patricia Tello, RITA New Patient (Referral diarrhea ) 09/24/[address] [place] [address] Patricia Tello NP Information 09/24/[address] [place] [address] Patricia Tello, RITA Medication 09/24/2024 Travel 09/11/2024 Telephone [facility] Diabetes and Endocrinology - [address] [address] Kelly Gonzalez MD Called To Cancel Office Appt. (Pt's (HIPAA) called to cancel 09/12/24 @ 1:20 p.m. ) from Last 3 Months Immunizations Immunization Administration Dates Next Due Influenza Adult (Generic) [...] Given: No Alcohol Use Standard Drinks/Week Comments Not Currently 0 (1 standard drink = 0.6 oz [...] from your doctor or pharmacy? Never 07/19/2024 [facility] Utilities Answer Date Recorded In the past 12 months has th e electric, gas, oil, or water company threatened to shut off services in your home? No 08/09/2024 Humiliation, Afraid, Rape, and Kick questionnair e Answer Date Recorded Within the last year, have y ou been afraid of your partner or ex-partner? No 08/09/2024 Within the last year, have y ou been humiliated or emotionally abused in other ways by your partner or ex-partner? No Within the last year, have y ou been kicked, hit, slapped, or otherwise physically hurt by your partner or ex-partner? No 08/09/2024 Within the last year, have y ou been raped or forced to have any kind of sexual activity by your partner or ex-partner? No 08/09/2024 Social Connection and Isolat ion Panel [NHANES] Answer Date Recorded In a typical week, how many times do you talk on the phone with family, friends, or neighbors? More than three times a week 07/19/2024 How often do you get togethe r with friends or relatives? More than three times a week 07/19/2024 How often do you attend [facility] or mosque services? 1 to 4 times per year 07/19/2024 Do you belong to any clubs o r organizations such as spiritism groups, unions, fraternal or athletic groups, or [...] care, and heating? Not hard at all 08/09/2024 PHQ-2 Answer Date Recorded Patient Health Questionnaire-2 Score 0 10/06/2024 [facility] - Occupational Stress Questionnaire Answer Date [...] the money to buy more. Never true 08/10/19 25 Within the past 12 months, t he food you bought just didn't last and you didn't have money to get more. Never true 08/09/2024 PRAPARE - Transportation Answer Date Re corded In the past 12 months, has l ack of transportation kept you from medical appointments or from getting medications? No 07/29 In the past 12 months, has l ack of transportation kept you from meetings, work, or from getting things needed for daily living? No 08/09/2024 Housing Stability Vital Sign Answer Pranay e Recorded In the last 12 months, was t here a time when you were not able to pay the mortgage or rent on time? No 08/09/2024 In the past 12 months, how m any times have you moved where you were living? 0 08/09/2024 At any time in the past 12 m [facility], were you homeless or living in a [place] facility (including now)? No 08/09/2024 Sex and Gender Information Value Date Recorded Sex Assigned at Male 05/27/2024 6:25 AM QUALITY ASSURANCE INSPECTOR Legal Sex Male 10:27 PM CDT Gender Identity Male 09/24/2024 1:23 PM CDT Sexual Orientation Not on file Last Filed Vital Signs Vital Sign Reading Time Taken Comments Blood Pressure 126/61 12/10/2024 10:23 AM CDT Pulse 76 12/10/2024 10:23 AM CDT Temperature 36.8 C (98.3 F) 10/06/2024 1:59 PM CDT Respiratory Rate 16 12/10/2024 10:23 AM CDT Oxygen Saturation 99% 12/10/2024 10:23 AM CDT Inhaled Oxygen Concentration - - Weight 77.1 kg (170 lb) 12/10/2024 10:23 AM CDT Height 177.8 cm (5' 10) 12/10/2024 10:23 AM CDT Body Mass Index 24.39 12/10/2024 10:23 AM CDT Plan of Treatment Upcoming Encounters Date Type Department Care Team (Latest Contact Info) Description 12/15/2024 8:00 AM CDT Hospital Encounter [facility] [address] Tommy Benson MD [address] [facility] [address] [place] [address] 12/15/2024 8:00 AM CDT - 12/15/2024 8:30 AM CDT Surgery [facility] [place] [address] Tommy Benson MD [address] [address] COLONOSCOPY DIAGNOSTIC WITH/WITHOUT SPECIMEN BRUSH/WASH 01/09/2025 11:40 AM CDT Office Visit [facility] Diabetes and Endocrinology - [address] [phone] Kelly Gonzalez MD [facility] [place], [place] [address] 03/17/2025 2:00 AM QUALITY ASSURANCE INSPECTOR Allied Health/Nurse Visit [facility] [address] [place] [phone] Lane Robbins MD [address] [place] [address] 05/25/2025 1:00 PM QUALITY ASSURANCE INSPECTOR Office Visit [facility] [place] [address] Toyin Doshi MD [address] [place] [address] Scheduled Procedures Name Priority Associated Diagnoses Date/Ti me COLONOSCOPY DIAGNOSTIC WITH/WITHOUT SPECIMEN BRUSH/WASH Irregular bowel habits 12/15/2024 8:00 AM CDT Health Maintenance Due Date Last Done Comments Kidney Health Evaluation 1940 Zoster Vaccines (1 of 2) 1992 Annual Medicare Wellness Visit 2007 Pneumococcal Vaccine: 50+ Years (2 of 2 - PPSV23) 02/21/2016 12/27/2015 RSV Immunization or 60+ Years (1 - 1-dose 75+ series) 2017 ASCVD LDL 05/10/2019 05/10/2018, 05/10/2016 Lipid Panel 05/10/2019 05/10/2018 COVID-19 Vaccine ( season) 2023 08/06/2020, 07/07/2020 Diabetes: Retinopathy Eye Exam 07/29/2024 07/30/2023 Hemoglobin A1C 05/08/2025 11/05/2024, 05/01, 02/05/2024, Additional history exists DTaP, Tdap and Td Vaccines (2 - Td or Tdap) 06/30/2027 06/29/2017 PHQ-2 (Physician [place]) Completed 10/06/2024 Meningococcal B Vaccine Aged Out No l [...] Wagoner RN Medical Devices Implanted Type Area Orchard Manager Device Identifier Shelf Expiration Date Model / Serial / Lot Graft Bone Viktor Putty Dbm 1.0ml - [id number] Implanted:Qty: 1 on 07/16/2024 by Britany Rider i, MD at [facility] Bone N/A: Spine Cervical [employer] [id number] 02/19/2027 [id number] / [id number] / N/A [place] Sci Ra-06/23/2016 Implanted:06/[address] MD (Quantity not on file) Lead Implant [employer] [id number] / [id number] / [place] Sci Rv-06/23/2016 Implanted:06/01 (Quantity not on file) Lead Implant [employer] [id number] / [id number] / Ep-Attain Stability Quad Cs Lead- 0 Implanted:Qty: 1 on 03/18/2020 by Re Zaldivar MD Lead Implant [employer] CARDIAC RHYTHM AND HEART FAILURE - DIV M 12/09/2021 [id number] / [id number] / Description:Medtronic Attain Stability Quad MRI SureScan [address] Implanted:06/01 by Vanessa Harden MD (Quantity not on file) Explanted:Qty: 1 on 03/18/2020 by Re Zaldivar MD Pacemaker [employer]HER [id number] / [id number] / Medtronic Percepta Quad Bi-V- 0 Implanted:Qty: 1 on 03/18/2020 by Re Zaldivar MD Pacemaker [employer] CARDIAC RHYTHM AND HEART FAILURE - DIV M 07/25/2021 [id number] / [id number] / Description:Medtronic Percep ta Quad PERSONAL INJURY LITIGATION PARALEGAL-P MRI SureScan DEVICE IS NOT MRI CONDITIONAL(MIXED SYSTEM) Agent Hemostatic Surgiflo 8 Ml Kit - Sn/A Implanted:Qty: 1 on 07/16/2024 by Britany Rider i, MD at [facility] Sealant N/A: Spine Cervical [employer] [id number] 07/28/2025 [id number] / N/A / [id number] Endoskeleton Tc Implanted:Qty: 1 on 07/16/2024 by Britany Riedr i, MD at [facility] N/A: Spine Cervical [employer] INC N/A 01/09/2029 [id number] 7-N / N/A / [id number] Endoskeleton Implanted:Qty: 1 on 07/16/2024 by Britany Rider i, MD at [facility] N/A: Spine Cervical [employer] N/A 01/16/2029 [id number] 7-N / N/A / [id number] 57mm Plate Implanted:Qty: 1 on 07/16/2024 by Britany Rider i, MD at [facility] N/A: Spine Cervical N/A [id number] / / N/A 3.5x15mm Screws Implanted:Qty: 8 on 07/16/2024 by Brtiany Rider i, MD at [facility] N/A: Spine Cervical N/A [id number] / / N/A Endoskeleton Tc Implanted:Qty: 1 on 07/16/2024 by Britany Rider i, MD at [facility] N/A: Spine Cervical [employer] N/A 07/14/2026 [id number] 7-N / N/A / [id number] Explanted Type Area Orchard Manager Device Identifier Shelf Expiration Date Model / Serial / Lot Pin [place] Distraction 14mm - Sn/A Explanted:Qty: 2 on 07/16/2024 by Britany Rider i, MD at [facility] Pin N/A: Spine Cervical Dibbz [id number] 01/27/2029 [id number] / N/A / [id number] Drill Bit Explanted:Qty: 1 on 07/16/2024 at [facility] N/A: Spine Cervical [employer] [id number] 02/26/2032 [id number] / N/A / [id number] Procedures Procedure Name Priority Date/Time Associated Diagnosis Comments ECG 12-LEAD Routine 12/10/2024 9:47 AM CDT Paroxysmal atrial fibrillation (CMS/HCC HHS/HCC) Procedure Note - 12/10/2024 9:47 AM CDTThis note is in progress. [address] [place] [address] Test Date: 2024-12-10 Pat Name: ERNESTO LIM Department: 3 Room: Gender: Male Communications Associate: BRITTNEY : 1940 Requested By: LANE ROBBINS Order Number: [id number] Reading MD: Measurements Intervals [place] Rate: 75 P: 63 NM: 174 QRS: 220 QRSD: 164 T: 153 QT: 429 QTc: 482 Interpretive Statements ELECTRONIC ATRIAL PACEMAKER ELECTRONIC VENTRICULAR PACEMAKER MARKED ST DEPRESSION, CONSIDER SUBENDOCARDIAL INJURY +++ ACUTE PR +++ ECG 12-LEAD Routine 11/21/2024 1:26 PM CDT Coronary artery disease of [place] artery of [place] heart with stable angina pectoris COLLECT.CAPILLARY (FNGR,HEEL,EAR) Routine 11/05/2024 9:51 AM CDT Uncontrolled type 2 diabetes mellitus with hyperglycemia ([facility] HHS/HCC) HEMOGLOBIN, GLYCOSYLATED Routine 11/05/2024 Uncontrolled type 2 diabetes mellitus with hyperglycemia ([facility] HHS/HCC) DIABETIC RETINOPATHY EXAM (POSITIVE)(SCAN ORDER) Routine 07/30/2023 LIPID PANEL Routine 05/10/2018 Mixed hyperlipidemia from Last 3 Months or Most Recently Relevant to Health Maintenance Results * ECG 12 lead (HOSPITAL PERFORMED ONLY) (11/21/2024 1:26 PM CDT) 11/21/2024 1:26 PM CDT Narrative [facility] - 11/21/2024 7:36 PM CDT [address] [place] [address] Test Date: 2024-11-21 Pat Name: ERNESTO LIM Department: 3 Room: Gender: Male Communications Associate: : 1940 Requested By: TOYIN DOSHI Order Number: [id number] Reading MD: Toyin Doshi Measurements Intervals [place] Rate: 90 P: 119 NM: 172 QRS: -80 QRSD: 161 T: 91 QT: 412 QTc: 507 Interpretive Statements ELECTRONIC ATRIAL PACEMAKER ELECTRONIC VENTRICULAR PACEMAKER ABNORMAL RHYTHM ECG Procedure Note Toyin Doshi MD - 11/21/2024 [facility] [address] [facility] [place] [address] Test Date: 2024-11-21 Pat Name: ERNESTO LIM Department: 3 Room: Gender: Male Communications Associate: : 1940 Requested By: TOYIN DOSHI Order Number: [id number] Reading MD: Toyin Doshi Measurements Intervals [place] Rate: 90 P: 119 NM: 172 QRS: -80 QRSD: 161 T: 91 QT: 412 QTc: 507 Interpretive Statements ELECTRONIC ATRIAL PACEMAKER ELECTRONIC VENTRICULAR PACEMAKER ABNORMAL RHYTHM ECG Toyin Doshi MD ECG ORDERABLES Final Result Performing Organization Address [facility] de Phone Number [facility] * A1C (BACK OFFICE) (11/05/2024) Pathologist [facility] HGB A1C 6.4 % [facility] 11/05/20[facility] Kelly Gonzalez MD LABORATORY Final Re sult Performing Organization Address [facility] de Phone Number [address] [address], * DIABETIC RETINOPATHY EXAM (POSITIVE) (07/30/2023) [facility] Scanned SCANNING Final Resu lt Performing Organization Address [facility] Co de Phone Number [facility] ONBASE * LIPID PANEL (05/10/2018) CHOLESTEROL 138 HDL 47 TRIGLYCERIDES 107 CHOL/HDL RATIO 2.9 LDL (CALCULATED) 70 05/10/2018 Luis Hoffmann MD LABORATORY Cherie sal Result from Last 3 Months or Most Recently Relevant to Health Maintenance Insurance MEDICARE MEDICARE Advance Directives * Full Code (Latest Code Status on File) Date Activated Date Inactivated Comments 08/08/2024 9:29 PM 08/13/2024 4:10 PM * Full Code Date Activated Date Inactivated Comments 07/19/2024 11:26 PM 08/05/2024 5:03 PM * Full Code Date Activated Date Inactivated Comments 07/12/2024 12:31 PM 07/18/2024 2:44 PM * Full Code Date Activated Date Inactivated Comments 07/10/2024 9:48 AM 07/12/2024 12:10 PM * Full Code Date Activated Date Inactivated Comments 07/07/2024 6:50 PM 07/09/2024 5:09 PM Care Teams Voting Machine Mechanic Relationship Specialty Start Date End Date Taylor Weber MD [address] [place] [address] PCP - General FAMILY PRACTICE 05/01/24 Lane Robbins MD [address] [place] [address] EP Lead Mason Tender CARDIAC ELECTROPHYSIOLOGY 03/06/19 Kiley Sarkar PA-C [address] [place] [address] Referring Physician PHYSICIAN COUNTERPERSON 04/10/23 Toyin Doshi MD [address] [place] [id number] Consulting Physician CARDIOVASCULAR DISEASE 06/24/24 Jaspreet Clemons MD [address] [address] Surgeon NEUROLOGICAL SURGERY 06/25/24 Britany Paris MD [address] [place] [address] Surgeon NEUROLOGICAL SURGERY 07/09/24
--- OUTSIDE RECORDS SUMMARY | 2024-12-11 07:50 | XMS_ITS | Encounter Summary ---
Author Organization [facility] Address Formerly [facility] [place] [address] Care Team Providers Care Head Filter Tank Tender Helper Name Role Phone Navneet Velasco MD Unavailable [phone] Tahir Darden MD Unavailable Unavailable Lane Waletrs MD Unavailable [phone] [facility] Primary Care Provider [phone] Sheri Mcdonnell APRN, CAT SCANNER OPERATOR-C Unavailable +[phone] Robert Burton MD Unavailable Kiley Sarkar PA-C Unavailable +[phone] Barbara Fung MD Unavailable Nuria Dailey ANP-BC Unavailable +-3 Taylor Weber MD Primary Care Provider [phone] Christina Booker MD Unavailable Jaspreet Clemons MD Unavailable Britany Paris MD Unavailable [phone] Encounter Details Date Type Department Care Team (Late st Contact Info) Description 02/23/2022 Hospital Orders Only [place] Custodian Pre/Post [address] [place] [address] Nabil Corley MD [address] [facility] [address] [place] [address] Social History Tobacco Use Types Packs/Day Years [...] Sex Assigned at Male 05/27/2024 6:25 AM LEGAL TRANSCRIPTIONIST Legal Sex Male 10:27 PM CDT Gender Identity Male 09/24/2024 1:23 PM CDT Sexual Orientation Not on file COVID-19 Exposure [...] Assessment Author Status No 03/31/2021 9:00 PM LEGAL TRANSCRIPTIONIST Activ e * RETIRED Are you blind or do you have serious difficulty seeing, even when wearing glasses? Answer Date of Assessment Author Status No 03/31/2021 9:00 PM LEGAL TRANSCRIPTIONIST Activ e * Do you have serious difficulty walking or climbing stairs? Answer Date of Assessment Author Status No 03/31/2021 9:00 PM LEGAL TRANSCRIPTIONIST Chuck Hackett RN Active * Do you have difficulty dressing or bathing? Answer Date of Assessment Author Status No 03/31/2021 9:00 PM Chuck Moise RN Active * Because of a physical, mental, or emotional condition, do you have difficulty doing errands alone such as visiting a doctor's office or shopping? Answer Date of Assessment Author Status No 03/31/2021 9:00 PM LEGAL TRANSCRIPTIONIST Panares, Chuck M, RN Active documented as of this encounter Mental Status * Because of a physical, mental, or emotional condition, do you have serious difficulty concentrating, remembering, or making decisions? Answer Entry Date Author Status No 03/31/2021 9:00 PM LEGAL TRANSCRIPTIONIST Chuck Hackett RN Active documented in this encounter Plan of Treatment Upcoming Encounters Date Type Department Care Team (Latest Contact Info) Description 12/15/2024 8:00 AM CDT Hospital Encounter [facility] [place] [address] Tommy Benson MD [address] [address] 12/15/2024 8:00 AM CDT - 12/15/2024 8:30 AM CDT Surgery [facility] [place]o/[place] [address] Tommy Benson MD [address] [address] COLONOSCOPY DIAGNOSTIC WITH/WITHOUT SPECIMEN BRUSH/WASH 01/09/2025 11:40 AM CDT Office Visit [facility] Diabetes and Endocrinology - [address] [address] Kelly Gonzalez MD [facility] [place], [place] [address] 03/17/2025 2:00 AM LEGAL TRANSCRIPTIONIST Allied Health/Nurse Visit [facility]eld [address] [place] [phone] Lane Walters MD [address] [place] [address] 05/25/2025 1:00 PM LEGAL TRANSCRIPTIONIST Office Visit [facility] [address] [place] [address] Christina Booker MD [address] [place] [address] Scheduled Procedures Name Priority Associated Diagnoses Date/Ti me COLONOSCOPY DIAGNOSTIC WITH/WITHOUT SPECIMEN BRUSH/WASH Irregular bowel habits 12/15/2024 8:00 AM CDT documented as of this encounter Goals Goal Patient Goal Type Associated Problems Recent Progress Patient-Stated? Author Safety Patient/family will have appropriate support at home upon discharge General Evelin Rico RN documented as of this encounter Visit Diagnoses Not on filedocumented in this encounter Additional Health Concerns Infection Onset Date Last Indicated Resolved Time Respiratory Rule Out 06/25/2024 06/25/2024 025 12:22 PM LEGAL TRANSCRIPTIONIST documented as of this encounter Care Teams Head Filter Tank Tender Helper Relationship Specialty Start Date End Date Amaury Kuhn MD [address] [place] [address] [place] [address] PCP - General FAMILY PRACTICE 05/05/21 04/30/24 Taylor Weber MD [address] [place] [address] PCP - General [facility] PRACTICE 05/01/24 Navneet Velasco MD [address] [place] [phone] [place]igan Paint Supervisor CARDIOVASCULAR DISEASE 01/12/16 08/12/23 Tahir Darden MD [address] [place] [phone] Farm Equipment Service Technician INTERVENTIONAL CARDIOLOGY 02/16/16 10/09/22 Lane Walters MD [address] [place] [address] EP Paint Supervisor CARDIAC ELECTROPHYSIOLOGY 03/06/19 Sheri Mcdonnell APRN, CAT SCANNER OPERATOR-C [address] [place] [phone] NURSE PRACTITIONER 09/01/21 08/12/23 Robert Burton MD [address] [place] [phone] Consulting Physician INTERNAL MEDICINE 11/29/22 5 Kiley Sarkar PA-C [address] [place] [address] Referring Physician PHYSICIAN PHOTO MASK INSPECTOR 04/10/23 Barbara Fung MD [address] [place] [address] INTERVENTIONAL CARDIOLOGY 08/13/2306/01 Nuria Dailey, [facility] [address] [place] [address] Nurse Practitioner NURSE PRACTITIONER ADULT HEALTH 08/13/23 06/23/24 Christina Booker MD [address] [place] [address] Consulting Physician CARDIOVASCULAR DISEASE 06/24/24 Jaspreet Clemons MD [address] [phone] Surgeon NEUROLOGICAL SURGERY 06/25/24 Britany Paris MD [address] [place] [address] Surgeon NEUROLOGICAL SURGERY 07/09/24 documented as of this encounter
--- OUTSIDE RECORDS SUMMARY | 2024-12-11 07:51 | XMS_ITS | Encounter Summary ---
Author Organization [facility] Address [facility] [place] [address] Care Team Providers Care Assistant Professor Of Chemistry Name Role Phone Ritesh Mcknight MD Primary Care Provider [phone] Navneet Velasco MD Unavailable [phone] Tahir Darden MD Unavailable Unavailable SelenaLane mujica MD Unavailable + [phone] Amaury Kuhn MD Primary Care Provider [phone] Sheri Mcdonnell APRN, AGRICULTURAL LENDER-C Unavailable [phone] Robert Burton MD Unavailable Kiley Sarkar PA-C Unavailable [phone] Barbara Fung MD Unavailable [phone] Nuria Dailey ANP-BC Unavailable +-3 Taylor Weber MD Primary Care Provider [phone] Christina Booker MD Unavailable Jaspreet Clemons MD Unavailable Britany Paris MD Unavailable [phone] Encounter Details Date Type Department Care Team (Late st Contact Info) Description 04/16/2014 Abstract [facility] [address] [place] [address] Navneet Velasco MD [address] [place] [address] Social History Tobacco Use Types Packs/Day Years Used Date Smoking Tobacco: Former Alcohol Use Standard Drinks/Week Comments Not Asked 0 (1 standard drink = 0.6 oz pur e alcohol) Sex and Gender Information Value Date Recorded Sex Assigned at Male 05/27/2024 6:25 AM PROGRAM CLERK Legal Sex Male 10:27 PM CDT Gender Identity Male 09/24/2024 1:23 PM CDT Sexual Orientation Not on file documented as of this encounter Plan of Treatment Upcoming Encounters Date Type Department Care Team (Latest Contact Info) Description 12/15/2024 8:00 AM CDT Hospital Encounter [facility] [place] [address] Tommy Benson MD [address] [address] 12/15/2024 8:00 AM CDT - 12/15/2024 8:30 AM CDT Surgery [facility] Endo/[place] [address] Tommy Benson MD [address] [address] COLONOSCOPY DIAGNOSTIC WITH/WITHOUT SPECIMEN BRUSH/WASH 01/09/2025 11:40 AM CDT Office Visit [facility] Diabetes and Endocrinology - [address] [address] Kelly Gonzalez MD [address] [place] [address] 03/17/2025 2:00 AM PROGRAM CLERK Allied Health/Nurse [facility] [address] [place] [address] Lane Walters MD 619 [place], [place] [address] 05/25/2025 1:00 PM PROGRAM CLERK Office Visit [facility] [place] [address] Christina Booker MD [address] [place], [place] [phone] Scheduled Procedures Name Priority Associated Diagnoses Date/Ti me COLONOSCOPY DIAGNOSTIC WITH/WITHOUT SPECIMEN BRUSH/WASH Irregular bowel habits 12/15/2024 8:00 AM CDT documented as of this encounter Visit Diagnoses Not on filedocumented in this encounter Additional Health Concerns Infection Onset Date Last Indicated Resolved Time COVID-19 Rule Out 11/10/2019 11/10/2019 11/11/2019 8:13 PM CDT COVID-19 Rule Out 03/15/2020 03/15/2020 03/17/2020 6:01 AM PROGRAM CLERK COVID-19 Rule Out 03/31/2021 03/31/2021 03/31/2021 4:35 PM PROGRAM CLERK COVID-19 Confirmed 03/31/2021 03/31/2021 12:32 AM PROGRAM CLERK Respiratory Rule Out 06/25/2024 06/25/2024 025 12:22 PM PROGRAM CLERK documented as of this encounter Care Teams Assistant Professor Of Chemistry Relationship Specialty Start Date End Date Ritesh Mcknight MD [address] [place] [address] PCP - General INTERNAL MEDICINE 01/12/16 05/04/21 Amaury Kuhn MD [address] [place] [phone] PCP - General [facility] PRACTICE 05/05/21 04/30/24 Taylor Weber MD [address] [place], [place] [phone] PCP - General [facility] PR[facility] 05/01/24 Navneet Velasco MD [address] [place] [phone] Sterling Propeller Tester CARDIOVASCULAR DISEASE 01/12/16 08/12/23 Tahir Darden MD [address] [place] [phone] Material Loader INTERVENTIONAL CARDIOLOGY 02/16/16 10/09/22 Lane Walters MD [address] [place] [address] EP Propeller Tester CARDIAC ELECTROPHYSIOLOGY 03/06/19 Sheri Mcdonnell APRN, AGRICULTURAL LENDER-C [address] [place] [address] [address] [place] [address] NURSE PRACTITIONER 09/01/21 08/12/23 Robert Burton MD [address] [place] [address] [phone] Consulting Physician INTERNAL MEDICINE 11/29/22 Kiley Burrell PA-C [address] [place] [phone] Referring Physician PHYSICIAN BARREL TESTER AND DRAINER 04/10/23 Barbara Fung MD [address] [place], [place] [phone] INTERVENTIONAL CARDIOLOGY 08/13/23 06/23/24 [facility] [address] [place] [address] Nurse Practitioner NURSE PRACTITIONER ADULT HEALTH 08/13/23 06/23/24 Christina Booker MD [address] [place] [address] Consulting Physician CARDIOVASCULAR DISEASE 06/24/24 Jaspreet Clemons MD [address] [phone] Surgeon NEUROLOGICAL SURGERY 06/25/24 Britany Paris MD [address] [place] [address] Surgeon NEUROLOGICAL SURGERY 07/09/24 documented as of this encounter
--- OUTSIDE RECORDS SUMMARY | 2024-12-11 07:51 | XMS_ITS | Encounter Summary ---
Author Organization [facility] Address [facility] [place] [address] Care Team Providers Care Hydraulic Press In Operator Name Role Phone Ritesh Mcknight MD Primary Care Provider [phone] Navneet Velasco MD Unavailable [phone] Tahir Darden MD Unavailable Unavailable SelenaLane mujica MD Unavailable + [phone] Amaury Kuhn MD Primary Care Provider [phone] Sheri Mcdonnell APRN, MOTOR AND CHASSIS INSPECTOR-C Unavailable [phone] Robert Burton MD Unavailable Kiley Sarkar PA-C Unavailable [phone] Barbara Fung MD Unavailable [phone] Nuria Dailey ANP-BC Unavailable +-[phone] Taylor Weber MD Primary Care Provider [phone] Christina Booker MD Unavailable Jaspreet Clemons MD Unavailable Britany Paris MD Unavailable [phone] Encounter Details Date Type Department Care Team (Late st Contact Info) Description 2020 Hospital Follow-up Call [facility] [address] [place] [address] Edith Duke, RN Social History Tobacco Use Types Packs/Day Years Used Date Smoking Tobacco: Former Cigarettes Q uit: 1989 Smokeless Tobacco: Never Alcohol Use Standard Drinks/Week Comments No 0 (1 standard drink = 0.6 oz pur e alcohol) Sex and Gender Information Value Date Recorded Sex Assigned at Male 05/27/2024 6:25 AM PROTOHISTORIAN Legal Sex Male 10:27 PM CDT Gender Identity Male 09/24/2024 1:23 PM CDT Sexual Orientation Not on file COVID-19 Exposure Response Date Recorded In the last month, have you been in contact with someone who was confirmed or suspected to have Coronavirus / COVID-19? No / Unsure 03/18/2020 11:54 AM PROTOHISTORIAN documented as of this encounter Functional Status * RETIRED Are you deaf or do you have serious difficulty hearing Answer Date of Assessment Author Status No 03/19/2020 9:03 AM PROTOHISTORIAN Activ e * RETIRED Are you blind or do you have serious difficulty seeing, even when wearing glasses? Answer Date of Assessment Author Status No 03/19/2020 9:03 AM PROTOHISTORIAN Activ e * Do you have serious [...] Description 12/15/2024 8:00 AM CDT Hospital Encounter [facility] [place] [address] Tommy [facility] [address] 12/15/2024 8:00 AM CDT - 12/15/2024 8:[address] [facility] [address] Tommy Benson MD [address] [phone] COLONOSCOPY DIAGNOSTIC WITH/WITHOUT SPECIMEN BRUSH/WASH 01/09/2025 11:40 AM CDT Office Visit [facility] Diabetes and Endocrinology - [place] [address] [place] [address] Kelly Gonzalez MD [address] [place], [place] [address] 03/17/2025 2:00 AM PROTOHISTORIAN Allied Health/Nurse Visit [facility] ield [address] [place] [phone] Lane Walters MD 619 [place], [place] [address] 05/25/2025 1:00 PM PROTOHISTORIAN Office Visit [facility] [place] [phone] Christina Booker MD 6[address] [place], [place] [address] Scheduled Procedures Name Priority Associated Diagnoses Date/Ti me COLONOSCOPY DIAGNOSTIC WITH/WITHOUT SPECIMEN BRUSH/WASH Irregular bowel habits 12/15/2024 8:00 AM CDT documented as of this encounter Visit Diagnoses Not on filedocumented in this encounter Additional Health Concerns Infection Onset Date Last Indicated Resolved Time COVID-19 Rule Out 03/31/2021 03/31/2021 03/31/2021 4:35 PM PROTOHISTORIAN COVID-19 Confirmed 03/31/2021 03/31/2021 12:32 AM PROTOHISTORIAN Respiratory Rule Out 06/25/2024 06/25/2024 025 12:22 PM PROTOHISTORIAN documented as of this encounter Care Teams Hydraulic Press In Operator Relationship Specialty Start Date End Date Ritesh Mcknight MD [address] [place] [address] PCP - General INTERNAL MEDICINE 01/12/16 05/04/21 Amaury Kuhn MD [address] [place] [address] PCP - General FAMILY PRACTICE 05/05/21 04/30/24 Taylor Weber MD [address] [place], [place] [phone] PCP - General FAMILY PRACTICE 05/01/24 Navneet Velasco MD 6[address] [place] [address] [place] Lime Mixer CARDIOVASCULAR DISEASE 01/12/16 08/12/23 Tahir Darden MD [address] [place] [address] Vice President Talent Management INTERVENTIONAL CARDIOLOGY 02/16/16 10/09/22 Lane Walters MD 619 [place] [address] EP Lime Mixer CARDIAC ELECTROPHYSIOLOGY 03/06/19 Sheri Mcdonnell APRN, MOTOR AND CHASSIS INSPECTOR-C [address] [place] [phone] NURSE PRACTITIONER 09/01/21 08/12/23 Robert Burton MD [address] [place] [phone] Consulting Physician INTERNAL MEDICINE 11/29/22 5 Kiley Sarkar PA-C [address] [place] [address] Referring Physician PHYSICIAN SAUSAGE STUFFER 04/10/23 Barbara Fung MD [address] [place] [address] INTERVENTIONAL CARDIOLOGY 08/13/23 06/23/24 Nuria Dailey, [facility] [address] [place] [address] Nurse Practitioner NURSE PRACTITIONER ADULT HEALTH 08/13/23 06/23/24 Christina Booker MD [address] [place] [address] Consulting Physician CARDIOVASCULAR DISEASE 06/24/24 Jaspreet Clemons MD [address] [address] Surgeon NEUROLOGICAL SURGERY 06/25/24 Britany Paris MD [address] [place] [address] Surgeon NEUROLOGICAL SURGERY 07/09/24 documented as of this encounter
--- OUTSIDE RECORDS SUMMARY | 2024-12-11 07:51 | XMS_ITS | Encounter Summary ---
Author Organization [facility] Address [address] [place] [address] Care Team Providers Care Manager Strategic Sourcing Name Role Phone Lane Robbins MD Unavailable [phone] Kiley Sarkar PA-C Unavailable [phone] Taylor Clemons MD Primary Care Provider [phone] Christina Booker MD Unavailable Jaspreet Clemons MD Unavailable ArmaniBritany Aguila MD Unavailable [phone] Reason for Visit * Reason Comments Follow Up Encounter Details Date Type Department Care Team (Late st Contact Info) Description 12/10/2024 10:30 AM CDT Office Visit [facility] [place] [address] Kiley Sarkar PA-C [address] [place] [address] Follow Up Social History Tobacco Use Types Packs/Day Years Used Date Smoking Tobacco: Former Cigarettes 2 25 0 04/30/1964 - 04/30/1989 Cigars Passive Smoke Exposure: Past Smokeless Tobacco: Never Alcohol Use Standard Drinks/Week Comments Not Currently [...] from your doctor or pharmacy? Never 07/19/2024 [employer] Utilities Answer Date Recorded In the past 12 months has [facility] [employer], or water [employer] threatened to shut off services in your [...] week 07/19/2024 How often do you attend [facility] or judaism services? 1 to 4 times per year 07/19/2024 Do you belong to any clubs o r organizations such as scientology groups, unions, fraternal or athletic groups, or [...] 0 10/06/2024 [facility] - Occupational Stress Questionnaire Answer Date Recorded [...] any time in the past 12 m [facility], were you homeless or living in a nursing home (including now)? No 08/09/2024 Sex and Gender Information Value Date Recorded Sex Assigned at Male 05/27/2024 6:25 AM WHITE SOURER Legal Sex Male 10:27 PM CDT Gender Identity Male 09/24/2024 1:23 PM CDT Sexual Orientation Not on file documented as of this encounter Last Filed Vital Signs Vital Sign Reading Time Taken Comments Blood Pressure 126/61 12/10/2024 10:23 AM CDT Pulse 76 12/10/2024 10:23 AM CDT Temperature - - Respiratory Rate 16 12/10/2024 10:23 AM CDT Oxygen Saturation 99% 12/10/2024 10:23 AM CDT Inhaled Oxygen Concentration - - Weight 77.1 kg (170 lb) 12/10/2024 10:23 AM CDT Height 177.8 cm (5' 10) 12/10/2024 10:23 AM CDT Body Mass Index 24.39 12/10/2024 10:23 AM CDT documented in this encounter Functional Status * Are you deaf or do you have serious difficulty hearing Answer Date of Assessment Author Status Yes 08/09/2024 1:41 AM CDT Selena Mosqueda RN Active * Are you blind or do you have serious difficulty seeing, even when wearing glasses? Answer Date of Assessment Author Status No 08/09/2024 1:41 AM CDT Selena Mosqueda RN Active * Do you have serious difficulty walking or climbing stairs? Answer Date of Assessment Author Status Yes 08/09/2024 1:41 AM ERASTOT Selena Mosqueda RN Active * Do you have difficulty dressing or bathing? Answer Date of Assessment Author Status Yes 08/09/2024 1:41 AM CDT Selena Mosqueda RN Active * Because of a physical, mental, or emotional condition, do you have difficulty doing errands alone such as visiting a doctor's office or shopping? Answer Date of Assessment Author Status No 08/09/2024 1:41 AM CDT Selena Mosqueda RN Active documented as of this encounter Mental Status * Because of a physical, mental, or emotional condition, do you have serious difficulty concentrating, remembering, or making decisions? Answer Entry Date Author Status No 08/09/2024 1:41 AM CDT Selena Mosqueda RN Active documented in this encounter Progress Notes * Kiley Sarkar PA-C - 12/10/2024 10:30 AM CDT Images from the original note were not included. Cardiac Electrophysiology Clinic Note PATIENT NAME: Ernesto Lim : 1940 REFERRING PROVIDER: No ref. provider found PCP: TAYLOR CLEMONS MD PRIMARY CARDIOLOGY PROVIDER: Navneet Velasco III, MD Reason for Visit Cardiac electrophysiology follow-up for CHF chronic systolic, paroxysmal atrial fibrillation, management of cardiac device in situ and coronary artery disease History of Present Illness I had the pleasure of seeing Ernesto Lim in the Cardiac Electrophysiology Clinic at [facility]. 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 He had high degree heart block in 2016 and underwent a dual-chamber pacemaker implantation at that time and subsequently had a decline in LV systolic function to 45 to 50% and underwent biventricular pacemaker upgrade in February2020. He was noted to have paroxysmal episodes of atrial fibrillation and was started on apixaban. He had recurrent episodes of epistaxis in the past but it is improved over the past year. Today he presents for follow-up. He states he has been doing okay since his last clinic visit. States that he gets infrequent episodes of epistaxis, however he had been having significant spontaneously bruising on his arms and legs and does bleed very easily. He denies any chest pain. Complains of shortness of breath, NYHA class II. Denies any orthopnea/PND. Denies any pedal edema. Denies any palp itations. Denies any syncopal episodes. Device interrogation today reveals 91.1% atrial pacing and 99.6% ventricular pacing. 1 atrial fibrillation episode that lasted 22 minutes. No ventricular arrhythmias noted. Battery longevity is estimated at 1.9 years. Diagnostics EKG - From today shows AV paced rhythm. EKG image independently reviewed by me. Echo - from May 2024 shows LVEF of 50-55%. No significant valvular abnormalities. From August 2021 shows LVEF of 45 to 50% with no significant valvular abnormalities. Nuclear stress test - from May 2023 showed small area of ischemia of inferior lateral wall. Diagnosis 1. 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 Cardiac device in situ- Medtronic biventricular pacemaker 3. Device detected paroxysmal atrial fibrillation 4. High degree AV block 4. Sinus node dysfunction 5. Mild to moderate mitral regurgitation 6. Hypertension 7. Hyperlipidemia 8. Diabetes mellitus type 2 9. Coronary artery disease with history of UNDERWRITING OPERATIONS MANAGER of RCA 10. Nonsustained ventricular tachycardia Recommendations Paroxysmal atrial fibrillation: Device detected. Continues to have paroxysmal episodes. Low burden noted on device interrogation. His [id number] score is 5. Continue apixaban. Given his hisotry of epistaxis and significant spontaneous bruising on his arms and legs he may be a candidate for watchman left atrial appendage occlusion. We discussed the procedure in depth including risk versus benefits. All questions answered. Advised that he would need testing prior to make sure that he is a good candidate and testing afterwards to make sure that the appendage has closed off. He will then need to be on Plavix and aspirin for about 6 months and then he will just be on aspirin thereafter. He is interested in the Watchman procedure. I will discuss with Dr. Robbins. Continue device- based surveillance of atrial fibrillation burden. CHF chronic systolic: Last EF 50-55%. Currently NYHA class II symptoms. Continue lisinopril and metoprolol succinate. Cardiac device in situ: His Medtronic biventricular pacemaker was interrogated today. Pacing thresholds, sensing, and lead impedance are all within normal limits. Battery remains above the elective replacement indicator and the device is functioning withing normal operational limits. No programmingchanges were made to device. Continue remote monitoring in 3 months. Return to clinic in 1 year or sooner if clinical situation warrants. Thank you for allowing me to participate in the care of Ernesto Lim. I spent 40 minutes today reviewing the patient's medical record, obtaining history, performing exam, ordering medications/test/and/or procedures, documenting, counseling and educating, and coordination of care. Medications Current Outpatient Medications: apixaban (ELIQUIS) 5 MG tablet, 1 tablet (5 mg total) by Per G Tube route 2 (two) times daily. Indications: Anticoagulant Therapy, Disp: 60 tablet, Rfl: 1 aspirin 81 MG chewable tablet, 1 tablet (81 mg total) by Per G Tube route daily. Indications: hearthealth, Disp: 30 tablet, Rfl: 0 atorvastatin (LIPITOR) 10 MG tablet, 1 tablet (10 mg total) by Per G Tube route nightly at bedtime., Disp: 30 tablet, Rfl: 0 Bacillus Coagulans-Inulin (PROBIOTIC-PREBIOTIC OR), , Disp: , Rfl: cefdinir (OMNICEF) 300 MG Cap capsule, TAKE 1 CAPSULE BY MOUTH TWICE DAILY FOR 7 DAYS, Disp: , Rfl: diphenoxylate-atropine (LOMOTIL) 2.5-0.025 MG tablet, TAKE 1 TABLET BY MOUTH TWICE DAILY NEEDED FOR DIARRHEA, Disp: , Rfl: ferrous sulfate, 65 mg elemental, 325 (65 FE) MG tablet, Take 1 tablet (325 mg total) by mouth 2 (two) times daily with meals., Disp: 120 tablet, Rfl: 0 finasteride (PROSCAR) 5 MG tablet, Take 1 tablet (5 mg total) by mouth daily. Indications: Benign prostatic hyperplasia (BPH) suspected, Disp: , Rfl: GAVILYTE-N WITH FLAVOR PACK 420 g solution, TAKE 4,000 ML BY MOUTH ONCE FOR 1 DOSE DIRECTED, Disp: , Rfl: HUMALOG KWIKPEN 100 UNIT/ML injection (PEN), Inject 4 units at lunch and supper, Disp: 15 mL, Rfl: 3 Insulin Pen Needle 32G X 6 MM [facility], Use to inject insulin 4 times a day, Disp: 100 each, Rfl: 6 insulin regular (NOVOLIN R) 100 UNIT/ML injection, INJECT 10 UNITS SUBCUTANEOUSLY AT BREAKFAST, 8 UNITS AT LUNCH AND SUPPER, Disp: , Rfl: isosorbide mononitrate ER (IMDUR) 30 MG 24 hr tablet, Take 1 tablet (30 mg total) by mouth daily. Indications: Changes in Blood Pressure, Disp: 30 tablet, Rfl: 0 lactulose (CONSTULOSE) 10 GM/15ML solution, TAKE 30ML S BY MOUTH THREE TIMES DAILY FOR 30 DAYS, Disp: , Rfl: LANTUS SOLOSTAR 100 UNIT/ML injection (PEN), Inject 12 Units into the skin every morning., Disp: 15mL, Rfl: 6 levothyroxine (SYNTHROID) 125 MCG tablet, 1 tablet (125 mcg total) by Per G Tube route daily. Indications: Underactive Thyroid, Disp: 30 tablet, Rfl: 0 lisinopril (PRINIVIL) 5 MG tablet, Take 1 tablet (5 mg total) by mouth daily., Disp: , Rfl: mupirocin (BACTROBAN) 2 % ointment, , Disp: , Rfl: senokot (SENNA-TIME) 8.6 MG Tab tablet, TAKE 2 TABLETS BY MOUTH VIA TUBE FEEDING DAILY NEEDED FOR CONSTIPATION, Disp: , Rfl: solifenacin succinate (VESICARE) 10 MG Tab, Take 1 tablet (10 mg total) by mouth daily., Disp: , Rfl: trospium (SANCTURA) 20 MG tablet, TAKE 1 TABLET BY MOUTH TWICE DAILY (THIS CONTROLS THE BLADDER WITHOUT CAUSING CONFUSION), Disp: , Rfl: Allergies Review of patient's allergies indicates: Allergen Reactions Definity [Perflutren Lipid Microsphere] Unknown Past Medical History Past Medical History: Diagnosis Date CAD (coronary artery disease) Carotid arterial disease Chronic low back pain Chronic systolic (congestive) heart failure ([facility] HHS/HCC) 03/02/2020 Claudication left lower extremity Diabetes ([facility] HHS/HCC) Diabetic neuropathy ([facility] HHS/HCC) Dyspnea Hyperlipidemia Hypertension Hypothyroidism PVD (peripheral vascular disease) Sleep apnea cpap Weight gain Past Surgical History Past Surgical History: Procedure Laterality Date CARPAL TUNNEL RELEASE Bilateral CATARACT EXTRACTION COLONOSCOPY N/A 11/10/2020 COLONOSCOPY performed by César Zepeda MD at [facility] OR [facility] CATH 2004 cath with stent? PACEMAKER USE ECHOCARDIOGRAM 06/15/2016 XA CORONARY INTERVENTION 01/30/2014 Cardiac Care Coordination Manager Report XA CORONARY INTERVENTION 2015 UNDERWRITING OPERATIONS MANAGER successful XA [facility] POSS 03/17/2016 medical therapy XA [facility] POSS 03/27/2022 90% 1st diagonal: proximal lesion,90% 2nd obtuse marginal:ostial lesion;RCA proximal vessel: 100% in stent recurrent chronic total occlusion. collateral flow from the distal LAD to the distal RCA Social History Social History Tobacco Use Smoking status: Former Current packs/day: 0.00 Average packs/day: 2.0 packs/day for 25.0 years (50.0 ttl pk-yrs) Types: Cigarettes, Cigars Start date: 04/30/1964 Quit date: 04/30/1989 Years since quittin.6 Passive exposure: Past Smokeless tobacco: Never Vaping Use Vaping status: Never Used Substance Use Topics Alcohol use: Not Currently Comment: occasional Drug use: Never Family History Family History Problem Relation Name Age of Onset Dementia Mother Diabetes Mother Cancer Father Coronary artery disease Neg Hx FH No premature coronary artery disease Review of Systems Review of Systems Constitutional: Negative for malaise/fatigue. HENT: Positive for nosebleeds. Negative for ear discharge. Eyes: Negative for blurred vision and double vision. Respiratory: Positive for shortness of breath. Negative for cough. Cardiovascular: Negative for chest pain, palpitations, orthopnea, leg swelling and PND. Gastrointestinal: Negative for blood in stool and melena. Genitourinary: Negative for dysuria and hematuria. Musculoskeletal: Negative for joint pain and myalgias. Skin: Negative for itching and rash. Neurological: Negative for dizziness, loss of consciousness and weakness. Endo/Heme/Allergies: Negative for polydipsia. Bruises/bleeds easily. Psychiatric/Behavioral: Negative for depression. The patient is not nervous/anxious. Physical Examination Filed Vitals: 12/10/24 1023 BP: 126/61 Pulse: 76 Resp: 16 SpO2: 99% Weight: 77.1 kg (170 lb) Height: 1.778 m (5' 10) Physical Exam Vitals reviewed. Constitutional: General: He is not in acute distress. Appearance: He is well-developed. He is not ill-appearing. HENT: Head: Normocephalic and atraumatic. Right Ear: External ear normal. Left Ear: External ear normal. Nose: Nose normal. No mucosal edema. Mouth/Throat: Mouth: Mucous membranes are moist. Pharynx: Oropharynx is clear. Eyes: General: No scleral icterus. Extraocular Movements: Extraocular movements intact. Conjunctiva/sclera: Conjunctivae normal. Neck: Vascular: No JVD. Cardiovascular: Rate and Rhythm: Normal rate and regular rhythm. No extrasystoles are present. Heart sounds: Normal heart sounds, S1 normal and S2 normal. No murmur heard. No gallop. Pulmonary: Effort: Pulmonary effort is normal. No respiratory distress. Breath sounds: Normal breath sounds. No wheezing. Abdominal: General: There is no distension. Palpations: Abdomen is soft. Musculoskeletal: General: No swelling. Normal range of motion. Cervical back: Normal range of motion and neck supple. Right lower leg: No edema. Left lower leg: No edema. Skin: General: Skin is warm and dry. Findings: Bruising present. No rash. Neurological: General: No focal deficit present. Mental Status: He is alert and oriented to person, place, and time. Motor: No weakness. Psychiatric: Behavior: Behavior normal. Thought Content: Thought content normal. Judgment: Judgment normal. documented in this encounter Plan of Treatment Upcoming Encounters Date Type Department Care Team (Latest Contact Info) Description 12/15/2024 8:00 AM CDT Hospital Encounter [facility] [place] [address] Tommy Benson MD [address] [address] 12/15/2024 8:00 AM CDT - 12/15/2024 8:30 AM CDT Surgery [facility] Endo/[place] [address] Tommy Benson MD [address] [address] COLONOSCOPY DIAGNOSTIC WITH/WITHOUT SPECIMEN BRUSH/WASH 01/09/2025 11:40 AM CDT Office Visit [facility] Diabetes and Endocrinology - [address] [phone] Kelly Gonzalez MD [address] [place] [address] 03/17/2025 2:00 AM WHITE SOURER Allied Health/[facility] [place] [facility] [address] [place] [phone] [address] Robbins MD [address] [place], [place] [phone] 05/25/2025 1:00 PM WHITE SOURER Office Visit [facility] [place] [phone] Christina Booker MD [address] [place], [place] [phone] Pending Results Name Type Priority Associated Diagnoses Date /Time ECG 12 lead (HOSPITAL PERFORMED ONLY) EKG-NonRad Routine Paroxysmal atrial fibrillation (CMS/HCC HHS/HCC) 12/10/2024 9:47 AM CDT Scheduled Procedures Name Priority Associated Diagnoses Date/Ti me COLONOSCOPY DIAGNOSTIC WITH/WITHOUT SPECIMEN BRUSH/WASH Irregular bowel habits 12/15/2024 8:00 AM CDT documented as of this encounter Goals Goal Patient Goal Type Associated Problems Recent Progress Patient-Stated? Author Safety Patient/family will have appropriate support at home upon discharge General No Evelin Wagoner RN documented as of this encounter Procedures Procedure Name Priority Date/Time Associated Diagnosis Comments ECG 12-LEAD Routine 12/10/2024 9:47 AM CDT Paroxysmal atrial fibrillation (CMS/HCC HHS/HCC) Procedure Note - 12/10/2024 9:47 AM CDTThis note is in progress. [address] [place] [address] Test Date: 2024-12-10 Pat Name: ERNESTO LIM Department: 3 Room: Gender: Male Shift Superintendent Caustic Cresylate: BRITTNEY : 1940 Requested By: LANE ROBBINS Order Number: [id number] Reading MD: Measurements Intervals [place] Rate: 75 P: 63 NV: 174 QRS: 220 QRSD: 164 T: 153 QT: 429 QTc: 482 Interpretive Statements ELECTRONIC ATRIAL PACEMAKER ELECTRONIC VENTRICULAR PACEMAKER MARKED ST DEPRESSION, CONSIDER SUBENDOCARDIAL INJURY +++ ACUTE [place] +++ documented in this encounter Visit Diagnoses Diagnosis Irregular bowel habits- Primary Other specified disorder of intestines Paroxysmal atrial fibrillation ([facility])- Primary Atrial fibrillation Biventricular cardiac pacemaker in situ Cardiac pacemaker in situ Chronic systolic (congestive) heart failure ([facility]) AVB (atrioventricular block) Atrioventricular block, unspecified Sinus node dysfunction ([facility]) Sinoatrial node dysfunction Chronic anticoagulation Encounter for long-term (current) use of anticoagulants NSVT (nonsustained ventricular tachycardia) ([facility]) Paroxysmal ventricular tachycardia Bruising Contusion of unspecified site Epistaxis Irregular bowel habits Other specified disorder of intestines documented in this encounter Care Teams Manager Strategic Sourcing Relationship Specialty Start Date End Date Taylor Clemons MD [address] [place], [place] [phone] PCP - General FAMILY PRACTICE 05/01/24 Lane Robbins MD [address] [place] [address] EP Network Systems Integrator CARDIAC ELECTROPHYSIOLOGY 03/06/19 Kiley Sarkar PA-C [address] [place] [phone] Referring Physician PHYSICIAN [employer] 04/10/23 Christina Booker MD [address] [place] [address] Consulting Physician CARDIOVASCULAR DISEASE 06/24/[address] [facility] [address] [place] [phone] Surgeon NEUROLOGICAL SURGERY 06/25/24 Britany Paris MD [address] [place] [id number] Surgeon NEUROLOGICAL SURGERY 07/09/24 documented as of this encounter
--- OUTSIDE RECORDS SUMMARY | 2024-12-11 07:51 | XMS_ITS | Encounter Summary ---
Author Organization [facility] Address [address] [place] [address] Care Team Providers Care Mold Construction Supervisor Name Role Phone Lane Robbins MD Unavailable [phone] Kiley Sarkar PA-C Unavailable [phone] Taylor Weber MD Primary Care Provider [phone] Christina Booker MD Unavailable Jaspreet Clemons MD Unavailable JennijeseBritany Aguila MD Unavailable [phone] Encounter Details Date Type Department Care Team (Latest Contact Info) Description 12/10/2024 9:38 AM CDT Hospital Encounter [facility] [address] [facility] [place] [address] Kiley Sarkar PA-C [address] [place] [address] Arrived Social History Tobacco Use Types Packs/Day Years [...] from your doctor or pharmacy? Never 07/19/2024 [facility] Utilities Answer Date Recorded In the past 12 months has [facility] [employer], gas, oil, or water [employer] threatened to shut off services in your [...] week 07/19/2024 How often do you attend [facility] or taoist services? 1 to 4 times per year 07/19/2024 Do you belong to any clubs o r organizations such as uatsdin groups, unions, fraternal or athletic groups, or [...] Recorded Patient Health Questionnaire-2 Score 0 10/06/2024 [employer] of Occupat ional [facility] - Occupational Stress Questionnaire Answer Date Recorded [...] any time in the past 12 m [facility], were you homeless or living in a long term (including now)? No 08/09/2024 Sex and Gender Information Value Date Recorded Sex Assigned at Male 05/27/2024 6:25 AM COMMUNICATION ENGINEER Legal Sex Male 10:27 PM CDT Gender Identity Male 09/24/2024 1:23 PM CDT Sexual Orientation Not on file documented as of this encounter Functional Status * Are you deaf or do you have serious difficulty hearing Answer Date of Assessment Author Status Yes 08/09/2024 1:41 AM Selena Maher RN Active * Are you blind or do you have serious difficulty seeing, even when wearing glasses? Answer Date of Assessment Author Status No 08/09/2024 1:41 AM Selena Maher RN Active * Do you have serious difficulty walking or climbing stairs? Answer Date of Assessment Author Status Yes 08/09/2024 1:41 AM Selena Maher RN Active * Do you have difficulty dressing or bathing? Answer Date of Assessment Author Status Yes 08/09/2024 1:41 AM Selena Maher RN Active * Because of a physical, mental, or emotional condition, do you have difficulty doing errands alone such as visiting a doctor's office or shopping? Answer Date of Assessment Author Status No 08/09/2024 1:41 AM Selena Maher RN Active documented as of this encounter Mental Status * Because of a physical, mental, or emotional condition, do you have serious difficulty concentrating, remembering, or making decisions? Answer Entry Date Author Status No 08/09/2024 1:41 AM Selena Maher RN Active documented in this encounter Plan of Treatment Upcoming Encounters Date Type Department Care Team (Latest Contact Info) Description 12/15/2024 8:00 AM CDT Hospital Encounter [facility] [place] [address] Tommy Benson MD 3 [facility] [address] [place] [address] 12/15/2024 8:00 AM CDT - 12/15/2024 8:30 AM CDT Surgery [facility] [address] Tommy Benson MD 3 [facility] [address] [place] [address] COLONOSCOPY DIAGNOSTIC WITH/WITHOUT SPECIMEN BRUSH/WASH 01/09/2025 11:40 AM CDT Office Visit [facility] Medical Group Diabetes and Endocrinology [address] [phone] Kelly Gonzalez MD [facility]8 [place], [place] [address] 03/17/2025 2:00 AM COMMUNICATION ENGINEER Allied Health/[facility] [address] [place] [phone] Lane Robbins MD [address] [place], [place] [address] 05/25/2025 1:00 PM COMMUNICATION ENGINEER Office Visit [facility] [place] [address] Christina Booker MD [address] [place], [place] [address] Pending Results Name Type Priority Associated Diagnoses Date /Time ECG 12 lead (HOSPITAL PERFORMED ONLY) EKG-NonRad Routine Paroxysmal atrial fibrillation ([facility]) 12/10/2024 9:47 AM CDT Scheduled Procedures Name Priority Associated Diagnoses Date/Ti me COLONOSCOPY DIAGNOSTIC WITH/WITHOUT SPECIMEN BRUSH/WASH Irregular bowel habits 12/15/2024 8:00 AM CDT documented as of this encounter Goals Goal Patient Goal Type Associated Problems Recent Progress Patient-Stated? Author Safety Patient/family will have appropriate support at home upon discharge Evelin Baker RN documented as of this encounter Procedures Procedure Name Priority Date/Time Associated Diagnosis Comments ECG 12-LEAD Routine 12/10/2024 9:47 AM CDT Paroxysmal atrial fibrillation ([facility]) Procedure Note - 12/10/2024 9:47 AM CDTThis note is in progress. [place] [address] [facility] [place] [address] Test Date: 2024-12-10 Pat Name: ERNESTO LIM Department: 3 Room: Gender: Male Sleeve Machine Tender: BRITTNEY : 1940 Requested By: LANE ROBBINS Order Number: [id number] Reading MD: Measurements Intervals Social Circle Rate: 75 P: 63 OR: 174 QRS: 220 QRSD: 164 T: 153 QT: 429 QTc: 482 Interpretive Statements ELECTRONIC ATRIAL PACEMAKER ELECTRONIC VENTRICULAR PACEMAKER MARKED ST DEPRESSION, CONSIDER SUBENDOCARDIAL INJURY +++ ACUTE ID +++ documented in this encounter Visit Diagnoses Diagnosis Irregular bowel habits- Primary Other specified disorder of intestines Paroxysmal atrial fibrillation ([facility])- Primary Atrial fibrillation Biventricular cardiac pacemaker in situ Cardiac pacemaker in situ Chronic systolic (congestive) heart failure ([facility]) AVB (atrioventricular block) Atrioventricular block, unspecified Sinus node dysfunction ([facility]) Sinoatrial node dysfunction Chronic anticoagulation Encounter for long-term (current) use of anticoagulants NSVT (nonsustained ventricular tachycardia) ([facility]) Paroxysmal ventricular tachycardia Bruising Contusion of unspecified site Epistaxis Paroxysmal atrial fibrillation ([facility]CC) Atrial fibrillation Irregular bowel habits Other specified disorder of intestines documented in this encounter Care Teams Mold Construction Supervisor Relationship Specialty Start Date End Date Taylor Weber MD [facility] [place], [place] [phone] PCP - General FAMILY PRACTICE 05/01/24 Lane Robbins MD [address] [place] [address] EP Bookmaker'S Clerk CARDIAC ELECTROPHYSIOLOGY 03/06/19 Kiley Sarkar PA-C [address] [place] [address] Referring Physician PHYSICIAN CHIEF DESIGN ENGINEER 04/10/23 Christina Booker MD [address] [place] [address] Consulting Physician CARDIOVASCULAR DISEASE 06/24/24 Jaspreet Clemons MD [address] [address] Surgeon NEUROLOGICAL SURGERY 06/25/24 Britany Paris MD [address] [place] [address] Surgeon NEUROLOGICAL SURGERY 07/09/24 documented as of this encounter
--- OUTSIDE RECORDS SUMMARY | 2024-12-11 07:51 | XMS_ITS | Encounter Summary ---
Author Organization [facility] Address [facility]6 [place] [address] Care Team Providers Care Vending Mechanic Name Role Phone Lane Walters MD Unavailable [phone] Kiley Sarkar PA-C Unavailable [phone] Taylor Weber MD Primary Care Provider [phone] Christina Booker MD Unavailable Jaspreet Clemons MD Unavailable ArmaniBritany Aguila MD Unavailable [phone] Encounter Details Date Type Department Care Team (Late st Contact Info) Description 09/29/2024 [employer] Message Enc [facility] Medical Group Multispecialty Care - [address], [address] [place] [address] [employer], [facility] Provider information Social History Tobacco Use Types Packs/Day Years [...] from your doctor or pharmacy? Never 07/19/2024 [facility] Utilities Answer Date Recorded In the past 12 months has [facility] [employer], gas, oil, or water [employer] threatened to shut off services in your [...] week 07/19/2024 How often do you attend [facility] or worship services? 1 to 4 times per year 07/19/2024 Do you belong to any clubs o r organizations such as worship groups, unions, fraternal or athletic groups, or [...] Date Recorded Patient Health Questionnaire-2 Score 0 09/24/2024 [facility] - Occupational Stress Questionnaire Answer Date Recorded [...] any time in the past 12 m [facility], were you homeless or living in a mcc (including now)? No 08/09/2024 Sex and Gender Information Value Date Recorded Sex Assigned at Male 05/27/2024 6:25 AM PARK POLICE Legal Sex Male 10:27 PM CDT Gender [...] [facility] [place] [address] Tommy Benson MD 3 [facility] [address] [place] [address] 12/15/2024 8:00 AM CDT - 12/15/2024 8:30 AM CDT Surgery [facility] [place] [address] Tommy Benson MD 3 [facility] [address] [place] [address] COLONOSCOPY DIAGNOSTIC WITH/WITHOUT SPECIMEN BRUSH/WASH 01/09/2025 11:40 AM CDT Office Visit [facility] Medical Group Diabetes and Endocrinology [place] [address] [place] [phone] Kelly Gonzalez MD [facility] [place], [place] [address] 03/17/2025 2:00 AM PARK POLICE Allied Health/[facility] [address] [place] [phone] Lane Walters MD [address] [place], [place] [address] 05/25/2025 1:00 PM PARK POLICE Office Visit [facility] [place] [address] Christina Booker MD [address] [place], [place] [address] Scheduled Procedures Name Priority Associated Diagnoses Date/Ti [...] on filedocumented in this encounter Care Teams Vending Mechanic Relationship Specialty Start Date End Date Taylor Weber MD [address] [place] [address] PCP - General FAMILY PRACTICE 05/01/24 Lane Walters MD [address] [place] [address] EP Plate Grinder CARDIAC ELECTROPHYSIOLOGY 03/06/19 Kiley Sarkar PA-C [address] [place] [address] Referring Physician PHYSICIAN ROCK DRILL OPERATOR 04/10/23 Christina Booker MD [address] [place] [address] Consulting Physician CARDIOVASCULAR DISEASE 06/24/24 Jaspreet Clemons MD [address] [address] Surgeon NEUROLOGICAL SURGERY 06/25/24 Britany Paris MD [address] [place] [address] Surgeon NEUROLOGICAL SURGERY 07/09/24 documented as of this encounter
--- OUTSIDE RECORDS SUMMARY | 2024-12-11 07:51 | XMS_ITS | Encounter Summary ---
Author Organization [facility] Address [facility] [place] [address] Care Team Providers Care Level Vial Inspector And Tester Name Role Phone Lane Walters MD Unavailable [phone] Kiley Sarkar PA-C Unavailable [phone] Taylor Weber MD Primary Care Provider [phone] Christina Booker MD Unavailable Jaspreet Clemons MD Unavailable ArmaniBritany Aguila MD Unavailable [phone] Encounter Details Date Type Department Care Team (Latest Contact Info) Description 11/24/2024 The History Presst Message Enc [facility] Medical Group Multispecialty Care - [address], [address] [place] [address] [employer], [facility] Provider medication HOLD time Social History Tobacco Use Types Packs/Day Years [...] from your doctor or pharmacy? Never 07/19/2024 [facility] Utilities Answer Date Recorded In the past 12 months has [employer] gas, oil, or water [employer] threatened to shut off services in your [...] week 07/19/2024 How often do you attend [facility] or methodist services? 1 to 4 times per year 07/19/2024 Do you belong to any clubs o r organizations such as alevism groups, unions, fraternal or athletic groups, or [...] Recorded Patient Health Questionnaire-2 Score 0 10/06/2024 [facility] - Occupational Stress Questionnaire Answer Date [...] any time in the past 12 m [facility], were you homeless or living in a snf (including now)? No 08/09/2024 Sex and Gender Information Value Date Recorded Sex Assigned at Male 05/27/2024 6:25 AM STENCILER Legal Sex Male 10:27 PM CDT Gender [...] Description 12/15/2024 8:00 AM CDT Hospital Encounter [facility] [place] [address] Tommy Benson MD 3 [facility] [address] [place] [address] 12/15/2024 8:00 AM CDT - 12/15/2024 8:30 AM CDT Surgery [facility] [address] Tommy Benson MD 3 [facility] [address] [place] [address] COLONOSCOPY DIAGNOSTIC WITH/WITHOUT SPECIMEN BRUSH/WASH 01/09/2025 11:40 AM CDT Office Visit [facility] Medical Group Diabetes and Endocrinology [address] [phone] Kelly Gonzalez MD [facility]8 [place] [address] 03/17/2025 2:00 AM STENCILER Allied Health/Nurse [facility] 6[address] [place] [phone] Lane Walters MD 6[address] [place] [address] 05/25/2025 1:00 PM STENCILER Office Visit [facility] [place] [address] Christina Booker MD [address] [place], [place] [address] Scheduled Procedures Name Priority Associated Diagnoses Date/Ti me COLONOSCOPY DIAGNOSTIC WITH/WITHOUT SPECIMEN BRUSH/WASH Irregular bowel habits 12/15/2024 8:00 AM CDT documented as of this encounter Goals Goal Patient Goal Type Associated Problems Recent Progress Patient-Stated? Author Safety Patient/family will have appropriate support at home upon discharge General No Evelin Wagoner, RN documented as of this encounter Visit Diagnoses Not on filedocumented in this encounter Care Teams Level Vial Inspector And Tester Relationship Specialty Start Date End Date Taylor Weber MD [address] [place] [address] PCP - General FAMILY PRACTICE 05/01/24 Lane Walters MD [address] [place] [address] EP Concrete Journeyman CARDIAC ELECTROPHYSIOLOGY 03/06/19 Kiley Sarkar PA-C [address] [place] [address] Referring Physician PHYSICIAN OVEN DRIER TENDER 04/10/23 Christina Booker MD [address] [place] [address] Consulting Physician CARDIOVASCULAR DISEASE 06/24/24 Jaspreet Clemons MD [address] [address] Surgeon NEUROLOGICAL SURGERY 06/25/24 Britany Paris MD [address] [place] [address] Surgeon NEUROLOGICAL SURGERY 07/09/24 documented as of this encounter
--- OUTSIDE RECORDS SUMMARY | 2024-12-11 07:51 | XMS_ITS | Encounter Summary ---
Author Organization [facility] Address [address] [place] [address] Care Team Providers Care Trials Manager Name Role Phone Lane Walters MD Unavailable [phone] Kiley Sarkar PA-C Unavailable [phone] Taylor Weber MD Primary Care Provider [phone] Christina Booker MD Unavailable Jaspreet Clemons MD Unavailable JennijeseBritany Aguila MD Unavailable [phone] Reason for Visit * Reason Comments In Clinic Device Check Encounter Details Date Type Department Care Team (Latest Contact Info) Description 12/10/2024 10:15 AM CDT Allied Health/N[facility] [address] [place] [address] Lane Walters MD [address] [place] [address] In Clinic Device Check Social History Tobacco Use Types Packs/Day Years [...] from your doctor or pharmacy? Never 07/19/2024 [facility] Utilities Answer Date Recorded In the past 12 months has [facility] [employer], [employer] or water [employer] threatened to shut off services in your [...] week 07/19/2024 How often do you attend [facility] or spiritism services? 1 to 4 times per year 07/19/2024 Do you belong to any clubs o r organizations such as jehovah's witness groups, unions, fraternal or athletic groups, or [...] Recorded Patient Health Questionnaire-2 Score 0 10/06/2024 [facility] - Occupational Stress Questionnaire Answer Date Recorded [...] any time in the past 12 m [facility], were you homeless or living in a long term (including now)? No 08/09/2024 Sex and Gender Information Value Date Recorded Sex Assigned at Male 05/27/2024 6:25 AM CUTTER OUT Legal Sex Male 10:27 PM CDT Gender [...] Description 12/15/2024 8:00 AM CDT Hospital Encounter [facility] [place] [address] Tommy Benson MD [address] [address] 12/15/2024 8:00 AM CDT - 12/15/2024 8:30 AM CDT Surgery [facility] [place] [address] Tommy Benson MD [address] [address] COLONOSCOPY DIAGNOSTIC WITH/WITHOUT SPECIMEN BRUSH/WASH 01/09/2025 11:40 AM CDT Office [facility] Medical Group Diabetes and Endocrinology - [address] [phone] Kelly Gonzalez MD [facility]8 [place], [place] [address] 03/17/2025 2:00 AM CUTTER OUT Allied Health/Nurse [facility] [address] [place] [phone] Lane Walters MD 619 [place], [place] [address] 05/25/2025 1:00 PM CUTTER OUT Office Visit [facility] [place] [address] Christina Booker MD 6[address] [place], [place] [address] Scheduled Procedures Name Priority Associated Diagnoses Date/Ti me COLONOSCOPY DIAGNOSTIC WITH/WITHOUT SPECIMEN BRUSH/WASH Irregular bowel habits 12/15/2024 8:00 AM CDT documented as of this encounter Goals Goal Patient Goal Type Associated Problems Recent Progress Patient-Stated? Author Safety Patient/family will have appropriate support at home upon discharge General Evelin Rico RN documented as of this encounter Visit Diagnoses Diagnosis Irregular bowel habits- Primary Other specified disorder of intestines S/P biventricular cardiac pacemaker procedure- Primary Cardiac pacemaker in situ AVB (atrioventricular block) Atrioventricular block, unspecified Irregular bowel habits Other specified disorder of intestines documented in this encounter Care Teams Trials Manager Relationship Specialty Start Date End Date Taylor Weber MD [facility] [place] [address] PCP - General FAMILY PRACTICE 05/01/24 Lane Walters MD [address] [place] [address] EP Phototypesetting Equipment Monitor CARDIAC ELECTROPHYSIOLOGY 03/06/19 Kilye Sarkar PA-C 9 [place] [address] Referring Physician PHYSICIAN WHIPPER 04/10/23 Christina Booker MD [address] [place] [address] Consulting Physician CARDIOVASCULAR DISEASE 06/24/24 Jaspreet Clemons MD [address] [address] Surgeon NEUROLOGICAL SURGERY 06/25/24 Britany Paris MD [address] [place] [address] Surgeon NEUROLOGICAL SURGERY 07/09/24 documented as of this encounter
--- OUTSIDE RECORDS SUMMARY | 2024-12-11 07:51 | XMS_ITS | Encounter Summary ---
Author Organization [facility] Address [facility] [place] [address] Care Team Providers Care Chief Financial Officer Name Role Phone Lane Walters MD Unavailable [phone] Kiley Sarkar PA-C Unavailable [phone] Taylor Weber MD Primary Care Provider + [phone] Christina Booker MD Unavailable Jaspreet Clemons MD Unavailable ArmaniBritany Aguila MD Unavailable [phone] Encounter Details Date Type Department Care Team (Late st Contact Info) Description 10/06/2024 41st Parameter Message Enc [facility] Medical Group Multispecialty Care - [address], [address] [place] [address] Rakel, [facility] Provider FAX Social History Tobacco Use Types Packs/Day Years [...] from your doctor or pharmacy? Never 07/19/2024 [facility] Utilities Answer Date Recorded In the past 12 months has e [employer], gas, oil, or water [employer] threatened to shut off services in your [...] week 07/19/2024 How often do you attend [facility] or mu-ism services? 1 to 4 times per year 07/19/2024 Do you belong to any clubs o r organizations such as rastafarian groups, unions, fraternal or athletic groups, or [...] Recorded Patient Health Questionnaire-2 Score 0 10/06/2024 [facility] - Occupational Stress Questionnaire Answer Date [...] any time in the past 12 m [facility], were you homeless or living in a prison (including now)? No 08/09/2024 Sex and Gender Information Value Date Recorded Sex Assigned at Male 05/27/2024 6:25 AM SALESPERSON TOY TRAINS AND ACCESSORIES Legal Sex Male 10:27 PM CDT Gender [...] 1:41 AM Selena Maher RN Active * Over the past 2 weeks, how often have you been bothered by any of the following problems? Question Answer Date of Assessment Author Status Little interest or pleasure in doing things Not at all 10/06/2024 1:58 PM CDT Cynthia Mi MA Active Feeling down, depressed, or hopeless Not at all 10/06/2024 1:58 PM CDT Yancy Mi MA Active Patient Health Questionnaire-2 Score 0 10/06/2024 1:58 PM ERASTOT Promise Mi MA Active documented as of this encounter Mental Status * Because of a physical, mental, or emotional condition, do you have serious difficulty concentrating, remembering, or making decisions? Answer Entry Date Author Status No 08/09/2024 1:41 AM CDT Selena Mosqueda RN Active documented in this encounter Plan of Treatment Upcoming Encounters Date Type Department Care Team (Latest Contact Info) Description 12/15/2024 8:00 AM CDT Hospital Encounter [facility] [place] [address] Tommy Benson MD 3 [facility] Silver [address] [place] [address] 12/15/2024 8:00 AM CDT - 12/15/2024 8:30 AM CDT Surgery [facility] Endo/[place] [address] Tommy Benson MD 3 [facility] [address] [place] [address] COLONOSCOPY DIAGNOSTIC WITH/WITHOUT SPECIMEN BRUSH/WASH 01/09/2025 11:40 AM CDT Office Visit [facility] Medical Group Diabetes and Endocrinology - [address] [phone] Kelly Gonzalez MD [facility]8 [place], [place] [address] 03/17/2025 2:00 AM SALESPERSON TOY TRAINS AND ACCESSORIES Allied Health/Nurse Visit [facility] ield [address] [place] [address] Lane Walters MD [address] [place] [address] 05/25/2025 1:00 PM SALESPERSON TOY TRAINS AND ACCESSORIES Office Visit [facility] [address] [place] [phone] Christina Booker MD [address] [place] [address] Scheduled Procedures Name Priority Associated Diagnoses Date/Ti [...] on filedocumented in this encounter Care Teams Chief Financial Officer Relationship Specialty Start Date End Date Taylor Weber MD [address] [place] [address] PCP - General FAMILY PRACTICE 05/01/24 Lane Walters MD [address] [place] [address] EP Photography Spotter CARDIAC ELECTROPHYSIOLOGY 03/06/19 Kiley Sarkar PA-C [address] [place] [address] Referring Physician PHYSICIAN AIRCRAFT DE ICER INSTALLER 04/10/23 Christina Booker MD [address] [place] [address] Consulting Physician CARDIOVASCULAR DISEASE 06/24/24 Jaspreet Clemons MD [address] [phone] Surgeon NEUROLOGICAL SURGERY 06/25/24 Britany Paris MD [address] [place] [address] Surgeon NEUROLOGICAL SURGERY 07/09/24 documented as of this encounter
--- OUTSIDE RECORDS SUMMARY | 2024-12-11 07:51 | XMS_ITS | Encounter Summary ---
Author Hub Email Address Preferred Language Tuvaluan Marital Status Zoroastrianism Affiliation Unknown Race White Ethnic Group Not or Lati no Author Organization [facility] Address [facility] [place] [address] Care Team Providers Care Tractor Trailer Truck Driver Name Role Phone Navneet Velasco MD Unavailable [phone] Tahir Darden MD Unavailable Unavailable Lane Walters MD Unavailable [phone] [facility] Hospital[facility] MD Primary Care Provider [phone] Sheri Mcdonnell APRN, SUCTION WORKER-C Unavailable [phone] Robert Burton MD Unavailable Kiley Sarkar PA-C Unavailable [phone] Barbara Fung MD Unavailable Nuria Dailey ANP-BC Unavailable [phone] Taylor Weber MD Primary Care Provider [phone] Christina Booker MD Unavailable Jaspreet Clemons MD Unavailable Britany Paris MD Unavailable [phone] Encounter Details Date Type Department Care Team (Late st Contact Info) Description 06/02/2022 [facility] [address] [place] [phone] Navneet Velasco MD [address] [place] [phone] Social History Tobacco Use Types Packs/Day Years [...] Sex Assigned at Male 05/27/2024 6:25 AM CEMENT CUTTER Legal Sex Male 10:27 PM CDT Gender Identity Male 09/24/2024 1:23 PM CDT Sexual Orientation Not on file COVID-19 Exposure Response Date Recorded In the last 10 days, have yo u been in contact with someone who was confirmed or suspected to have Coronavirus/COVID-19? No / Unsure 05/23/2022 10:16 AM CEMENT CUTTER documented as of this encounter Functional Status * RETIRED Are you deaf or do you have serious difficulty hearing Answer Date of Assessment Author Status No 03/31/2021 9:00 PM CEMENT CUTTER Activ e * RETIRED Are you blind or do you have serious difficulty seeing, even when wearing glasses? Answer Date of Assessment Author Status No 03/31/2021 9:00 PM CEMENT CUTTER Activ e * Do you have serious difficulty walking or climbing stairs? Answer Date of Assessment Author Status No 03/31/2021 9:00 PM CEMENT CUTTER Chuck Hackett RN Active * Do you have difficulty dressing or bathing? Answer Date of Assessment Author Status No 03/31/2021 9:00 PM Chuck Moise RN Active * Because of a physical, mental, or emotional condition, do you have difficulty doing errands alone such as visiting a doctor's office or shopping? Answer Date of Assessment Author Status No 03/31/2021 9:00 PM CEMENT CUTTER Panares, Chuck M, RN Active documented as of this encounter Mental Status * Because of a physical, mental, or emotional condition, do you have serious difficulty concentrating, remembering, or making decisions? Answer Entry Date Author Status No 03/31/2021 9:00 PM CEMENT CUTTER Chuck Hackett RN Active documented in this encounter Plan of Treatment Upcoming Encounters Date Type Department Care Team (Latest Contact Info) Description 12/15/2024 8:00 AM CDT Hospital Encounter [facility] [place] [address] Tommy Benson MD 3 [facility] [address] [place] [address] 12/15/2024 8:00 AM CDT - 12/15/2024 8:30 AM CDT Surgery [facility] [place]o/[place] [address] Tommy Benson MD 3 [facility] [address] [place] [address] COLONOSCOPY DIAGNOSTIC WITH/WITHOUT SPECIMEN BRUSH/WASH 01/09/2025 11:40 AM CDT Office Visit [facility] Medical Group Diabetes and Endocrinology - [address] [phone] Kelly Gonzalez MD [facility]8 [place], [place] [address] 03/17/2025 2:00 AM CEMENT CUTTER Allied Health/Nurse Visit [facility] ield [address] [place] [address] Lane Walters MD [address] [place], [place] [address] 05/25/2025 1:00 PM CEMENT CUTTER Office Visit [facility] [address] [place] [address] Christina Booker MD [address] [place] [address] Scheduled Procedures Name Priority Associated Diagnoses Date/Ti [...] Rule Out 06/25/2024 06/25/2024 025 12:22 PM CEMENT CUTTER documented as of this encounter Care Teams Tractor Trailer Truck Driver Relationship Specialty Start Date End Date Amaury Kuhn MD [address] [place] [address] [place] [address] PCP - General FAMILY PRACTICE 05/05/21 04/30/24 Taylor Weber MD [address] [place] [address] PCP - General FAMILY PRACTICE 05/01/24 Navneet Velasco MD [address] [place] [phone] [facility] Cutter And Paster Press Clippings CARDIOVASCULAR DISEASE 01/12/16 08/12/23 Tahir Darden MD [address] [place] [phone] Airline Ticket Agent INTERVENTIONAL CARDIOLOGY 02/16/16 10/09/22 Lane Walters MD [address] [place] [address] EP Cutter And Paster Press Clippings CARDIAC ELECTROPHYSIOLOGY 03/06/19 Sheri Mcdonnell APRN, SUCTION WORKER-C [address] [place] [phone] NURSE PRACTITIONER 09/01/21 08/12/23 Robert Burton MD [address] [place] [phone] Consulting Physician INTERNAL MEDICINE 11/29/22 5 Kiley Sarkar PA-C [address] [place] [address] Referring Physician PHYSICIAN PRODUCTION TECHNOLOGIST 04/10/23 Barbara Fung MD [address] [place] [address] INTERVENTIONAL CARDIOLOGY 08/13/2306/01 Nuria Dailey, [facility] [address] [place] [address] Nurse Practitioner NURSE PRACTITIONER ADULT HEALTH 08/13/23 06/23/24 Christina Booker MD [address] [place] [address] Consulting Physician CARDIOVASCULAR DISEASE 06/24/24 Jaspreet Clemons MD [address] [phone] Surgeon NEUROLOGICAL SURGERY 06/25/24 Britany Paris MD [address] [place] [address] Surgeon NEUROLOGICAL SURGERY 07/09/24 documented as of this encounter
--- OUTSIDE RECORDS SUMMARY | 2024-12-11 07:51 | XMS_ITS | Encounter Summary ---
Author Organization [facility] Address [facility]6 [place] [address] Care Team Providers Care Web Content Writer Name Role Phone Lane Walters MD Unavailable [phone] Kiley Sarkar PA-C Unavailable [phone] Taylor Weber MD Primary Care Provider [phone] Christina Booker MD Unavailable Jaspreet Clemons MD Unavailable ArmaniBritany Aguila MD Unavailable [phone] Encounter Details Date Type Department Care Team (Late st Contact Info) Description 09/29/2024 Combined Power Message Enc [facility] Medical Group Multispecialty Care - [address], [address] [place] [address] Rakel, [facility] Provider information Social History Tobacco Use Types [...] from your doctor or pharmacy? Never 07/19/2024 [facility] Utilities Answer Date Recorded In the past 12 months has [facility] [email or web address], gas, oil, or water [employer] threatened to shut off services in your [...] 07/19/2024 How often do you attend [facility] or congregational services? 1 to 4 times per year 07/19/2024 Do you belong to any clubs o r organizations such as mosque groups, unions, fraternal or athletic groups, or [...] Recorded Patient Health Questionnaire-2 Score 0 09/24/2024 [facility] - Occupational Stress Questionnaire Answer Date Recorded [...] any time in the past 12 m [facility], were you homeless or living in a long term (including now)? No 08/09/2024 Sex and Gender Information Value Date Recorded Sex Assigned at Male 05/27/2024 6:25 AM AQUATIC INSTRUCTOR Legal Sex Male 10:27 PM CDT Gender [...] Description 12/15/2024 8:00 AM CDT Hospital Encounter [facility] [place] [address] Tommy Benson MD 3 [facility] Silver [address] [place] [address] 12/15/2024 8:00 AM CDT - 12/15/2024 8:30 AM CDT Surgery [facility] [place]o/[place] [address] Tommy Benson MD 3 [facility] Silver [address] [place] [address] COLONOSCOPY DIAGNOSTIC WITH/WITHOUT SPECIMEN BRUSH/WASH 01/09/2025 11:40 AM CDT Office Visit [facility] Medical Group Diabetes and Endocrinology [place] [address] [place] [phone] Kelly Gonzalez MD [facility]8 [place], [place] [address] 03/17/2025 2:00 AM AQUATIC INSTRUCTOR Allied Health/Nurse [facility] [address] [place] [phone] Lane Walters MD 6[address] [place], [place] [address] 05/25/2025 1:00 PM AQUATIC INSTRUCTOR Office [facility] [place] [address] Christina Booker MD [address] [place], [place] [phone] Scheduled Procedures Name Priority Associated Diagnoses Date/Ti [...] on filedocumented in this encounter Care Teams Web Content Writer Relationship Specialty Start Date End Date Taylor Weber MD [address] [place] [address] PCP - General FAMILY PRACTICE 05/01/24 Lane Walters MD [address] [place] [address] EP Window Shade Ring Coverer CARDIAC ELECTROPHYSIOLOGY 03/06/19 Kiley Sarkar PA-C [address] [place] [address] Referring Physician PHYSICIAN ADMINISTRATIVE SERVICES DIRECTOR 04/10/23 Christina Booker MD [address] [place] [address] Consulting Physician CARDIOVASCULAR DISEASE 06/24/24 Jaspreet Clemons MD [address] [phone] Surgeon NEUROLOGICAL SURGERY 06/25/24 Britany Paris MD [address] [place] [address] Surgeon NEUROLOGICAL SURGERY 07/09/24 documented as of this encounter
--- OUTSIDE RECORDS SUMMARY | 2024-12-11 07:51 | XMS_ITS | Encounter Summary ---
Author Organization [facility] Address [facility] [place] [address] Care Team Providers Care Floor Space Allocator Name Role Phone Lane Walters MD Unavailable [phone] Kiley Sarkar PA-C Unavailable [phone] Taylor Weber MD Primary Care Provider [phone] Christina Booker MD Unavailable Jaspreet Clemons MD Unavailable JennijeseBritany Aguila MD Unavailable [phone] Encounter Details Date Type Department Care Team (Latest Contact Info) Description 12/10/2024 Travel Social History Tobacco Use Types Packs/Day Years [...] from your doctor or pharmacy? Never 07/19/2024 [facility] Utilities Answer Date Recorded In the past 12 months has e [employer], gas, oil, or water [employer] threatened to shut off services in your [...] week 07/19/2024 How often do you attend chur ch or confucianist services? 1 to 4 times per year 07/19/2024 Do you belong to any clubs o r organizations such as congregational groups, unions, fraternal or athletic groups, or [...] Recorded Patient Health Questionnaire-2 Score 0 10/06/[address] [facility] - Occupational Stress Questionnaire Answer [...] any time in the past 12 m [facility], were you homeless or living in a usp (including now)? No 08/09/2024 Sex and Gender Information Value Date Recorded Sex Assigned at Male 05/27/2024 6:25 AM PHOTOGRAPHY TEACHER Legal Sex Male 10:27 PM CDT Gender Identity Male 09/24/2024 1:23 PM CDT Sexual Orientation Not on file documented as of this encounter Functional Status * Are you deaf or do you have serious difficulty hearing Answer Date of Assessment Author Status Yes 08/09/2024 1:41 AM ERASTOT Selena Mosqueda RN Active * Are you blind or do you have serious difficulty seeing, even when wearing glasses? Answer Date of Assessment Author Status No 08/09/2024 1:41 AM Selena Maher RN Active * Do you have serious difficulty walking or climbing stairs? Answer Date of Assessment Author Status Yes 08/09/2024 1:41 AM Selena Mhaer RN Active * Do you have difficulty dressing or bathing? Answer Date of Assessment Author Status Yes 08/09/2024 1:41 AM ERASTOT Selena Mosqueda RN Active * Because of [...] 12/15/2024 8:00 AM CDT Hospital Encounter [facility] [place] [address] Tommy Benson MD [address] [address] 12/15/2024 8:00 AM CDT - 12/15/2024 8:30 AM CDT [facility] [place] [address] Tommy Benson MD 3 [facility]'s [address] [address] COLONOSCOPY DIAGNOSTIC WITH/WITHOUT SPECIMEN BRUSH/WASH 01/09/2025 11:40 AM CDT Office Visit [facility] Medical Group Diabetes and Endocrinology - [place] [address] [place] [phone] Kelly Gonzalez MD [address] [place], [place] [address] 03/17/2025 2:00 AM PHOTOGRAPHY TEACHER Allied Health[facility] [address] [place] [phone] Lane Walters MD 6[address] [place], [place] [address] 05/25/2025 1:00 PM PHOTOGRAPHY TEACHER [facility] [address] [place] [address] Christina Booker MD 619 [place], [place] [address] Scheduled Procedures Name Priority Associated Diagnoses Date/Ti me COLONOSCOPY DIAGNOSTIC WITH/WITHOUT SPECIMEN BRUSH/WASH Irregular bowel habits 12/15/2024 8:00 AM CDT documented as of this encounter Goals Goal Patient Goal Type Associated Problems Recent Progress Patient-Stated? Author Safety Patient/family will have appropriate support at home upon discharge General Evelin Rico, RN documented as of this encounter Visit Diagnoses Not on filedocumented in this encounter Care Teams Floor Space Allocator Relationship Specialty Start Date End Date Taylor Weber MD [facility] [place], [place] [phone] PCP - General FAMILY PRACTICE 05/01/24 Lane Walters MD [address] [place] [address] EP Sausage Linker CARDIAC ELECTROPHYSIOLOGY 03/06/19 Kiley Sarkar PA-C 9 [place] [address] Referring Physician PHYSICIAN SURGERY ASSISTANT 04/10/23 Christina Booker MD 9 [place] [address] Consulting Physician CARDIOVASCULAR DISEASE 06/24/24 Jaspreet Clemons MD [address] [phone] Surgeon NEUROLOGICAL SURGERY 06/25/24 Britany Paris MD [address] [place] [address] Surgeon NEUROLOGICAL SURGERY 07/09/24 documented as of this encounter
== END 2024-12-11 07:46 | disposition home or self-care (01) ==
LOC: ANHAUDASC 07:48
PROVIDERS: Visit Provider Otolaryngology
DX: H70.13 Chronic mastoiditis, bilateral (principal); H93.13 Tinnitus, bilateral; H90.6 Mixed conductive and sensorineural hearing loss, bilateral; H74.8X3 Other specified disorders of middle ear and mastoid, bilateral; H73.893 Other specified disorders of tympanic membrane, bilateral; Z79.2 Long term (current) use of antibiotics
CPT/HCPCS: 92557; 92567